=== PATIENT | male | born 1950 | race Caucasian/White ===

== ENCOUNTER 2017-06-05 01:26 | Emergency (ER) | payer MEDICARE, MEDICAID ==
[~2017-06-05] VITALS: Ht 165.1 cm; Wt 226.8 kg
[2017-06-05] MEDS ORDERED: OXYMETAZOLINE (AFRIN) 0.05% NA 15 ML BTL ONE (01:31)
--- OUTSIDE RECORDS SUMMARY | 2017-06-05 01:31 | XMS REPORT ---
Author Author GEORGIA DOWNEY [facility] Address [address] [place] [address] Care Team Providers Care Manager Quantitative Name Role Phone GEORGIA DOWNEY Unavailable PROBLEMS Type Condition ICD9-CM Code [id number] Code Onset Dates Condition Status SNOMED Code Problem Post-polio syndrome G14 Active 44669504 Problem 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 353103618 Problem Mood disorder F39 Active 84301409 Problem Acquired hypothyroidism E03.9 Active 160839743 Problem Constipation, unspecified constipation type K59.00 Active 31947774 Problem 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 Active 49393383 Problem 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 Active 28142161 Problem Weight gain R63.5 Active 8805511 Problem Stomach ache R10.9 Active 853685593 Problem Reactive airway disease J45.909 Active 741937309489 ALLERGIES Unknown Allergies SOCIAL HISTORY No smoking Hx information available PLAN OF CARE VITAL SIGNS MEDICATIONS Medication Instructions Dosage Frequency Start Date End Date Duration Status Pulmicort 0.5 MG/2ML Inhalation 2 times a day 2 ml 12h 5 Jul, 2016 30 days Active RESULTS No Results PROCEDURES No Known procedures IMMUNIZATIONS No Known Immunizations
--- OUTSIDE RECORDS SUMMARY | 2017-06-05 01:31 | XMS REPORT ---
Author Author GEORGIA DOWNEY Organization [employer] Address Unknown Phone Unavailable Care Team Providers Care Gis Coordinator Name Role Phone GEORGIA DOWNEY CP Unavailable Allergies No Known Allergies Problems Problem Type Condition Code Onset Dates Condition Status Problem Pain in joint, lower leg 719.46 Active Problem 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 Active Problem Family history of diabetes mellitus V18.0 Active Problem Other chronic pain 338.29 Active Problem Routine general medical examination at health care facility V70.0 Active Problem Family history of other cardiovascular diseases V17.49 Active Problem Need for prophylactic vaccination and inoculation, Influenza V04.81 Active Problem Dysuria 788.1 Active Problem Simple chronic bronchitis 491.0 Active Problem Nausea with vomiting 787.01 Active Problem Unspecified episodic mood disorder 296.90 Active Problem Unspecified hypothyroidism 244.9 Active Problem Essential hypertension, malignant 401.0 Active Problem 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 Active Problem Recurrent bronchospasm J98.09 Active Problem Chest pain, unspecified 786.50 Active Problem Unspecified essential hypertension 401.9 Active Problem Reactive airway disease J45.909 Active Problem Asthma, unspecified, with (acute) exacerbation 493.92 Active Problem Mood disorder F39 Active Problem Other specified conditions influencing health status V49.89 Active Problem Weight gain R63.5 Active Problem 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 Problem Abdominal pain, generalized 789.07 Active Problem Essential hypertension, benign 401.1 Active Problem Pain in joint, ankle and foot 719.47 Active Problem Polyuria 788.42 Active Problem Abdominal pain, unspecified site 789.00 Active Problem PPV23 (PNEUMOVAX) DX V03.82 Active Problem 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 [address]-06 4 % Externally twice a day 1 application to affected area as needed Albuterol Sulfate [facility] [address]-21 0.63 MG/3ML Inhalation every 4 hours July 09, 2015 3 ml as needed for SOB/Cough Ibuprofen [facility] [address]-19 600 MG Orally every 6 hrs 1 tablet as needed for headache Foradil Aerolizer [facility] [address]-51 12 MCG Inhalation every 12 hrs June 1 capsule Zoloft [facility] [address]-93 100 MG Orally Once a day 1 tablet Blood Glucose Test Strip ND 0 ... in vitro 3 times a day before meals test blood sugar Singulair [facility] [address]-49 10 MG Orally Once a day 1 tablet in the evening Zofran [facility] [address]-26 4 MG Orally 3 times a day 1 tablet as needed for nausea Imodium A-D [facility] [address]-56 2 MG Orally do not exceed 16mg in 24 hours 2 tablets one time after 1st loose stool, and 1 tablet after each subsequent BM's Losartan Potassium [facility] [address]-96 50 MG Orally Once a day 1 tablet Asmanex 120 Metered Doses [facility] [address]-99 220 MCG/INH Inhalation Once a day June 18, 2015 1 puff in the evening Trulicity [facility] [address]-46 1.5 MG/0.5ML Subcutaneous once weekly June 0.5 ml Metoprolol Succinate ER [facility] [address]-13 50 MG Orally Once a day 1 tablet Pantoprazole Sodium [facility] [address]-88 40 MG Orally Once a day 1 tablet Aspirin Adult Low Dose [facility] [address]-68 81 MG Orally Once a day 1 tablet Hydrochlorothiazide [facility] [address]-13 25 MG Orally Once a day 1 tablet Results No Known Results Summary Purpose [employer] Submission
--- OUTSIDE RECORDS SUMMARY | 2017-06-05 01:31 | XMS REPORT ---
Author Author GEORGIA DOWNEY [facility] Address [address] [place] [address] Care Team Providers Care Manager Spring Name Role Phone GEORGIA DOWNEY Unavailable PROBLEMS Type Condition ICD9-CM Code [id number] Code Onset Dates Condition Status SNOMED Code Problem 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 Active 01925160 Problem Pain in joint, lower leg 719.46 Active 282301130 Problem Other chronic pain 338.29 Active 34599911 Problem Family history of diabetes mellitus V18.0 Active 304839024 Problem Routine general medical examination at health care facility V70.0 Active 957421748 Problem Family history of other cardiovascular diseases V17.49 Active 123260493 Problem Dysuria 788.1 Active 48712534 Problem Nausea with vomiting 787.01 Active 16866623 Problem Asthma, unspecified, with (acute) exacerbation 493.92 Active 134218175 Problem Essential hypertension, malignant 401.0 Active 27743484 Problem Unspecified essential hypertension 401.9 Active 43105984 Problem Unspecified hypothyroidism 244.9 Active 89462889 Problem Chest pain, unspecified 786.50 Active 48469775 Problem Other specified conditions influencing health status V49.89 Active Problem 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 992040753 Problem Mood disorder F39 Active 21862560 Problem 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 Active 22278730 Problem Stomach ache R10.9 Active 564681172 Problem Abdominal pain, generalized 789.07 Active 288370605 Problem Polyuria 788.42 Active 70010941 Problem Pain in joint, ankle and foot 719.47 Active 675649088 Problem Recurrent bronchospasm J98.09 Active 71160420 Problem Weight gain R63.5 Active 0355425 Problem Reactive airway disease J45.909 Active 531303763748 Problem 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 Active 12885900 Problem Other early skin lesions due to yaws 102.2 Active Assessment Uncomplicated asthma, unspecified asthma severity J45.909 Dec, Active 920297074 Problem Abdominal pain, unspecified site 789.00 Active 04882805 Problem Essential hypertension, benign 401.1 Active 2153445 Problem 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 629327211 Problem Simple chronic bronchitis 491.0 Active 57926206 Problem Unspecified episodic mood disorder 296.90 Active 891233844 Problem PPV23 (PNEUMOVAX) DX V03.82 Active Problem Need for prophylactic vaccination and inoculation, Influenza V04.81 Active 043858600 ALLERGIES Unknown Allergies SOCIAL HISTORY No smoking Hx information available PLAN OF CARE VITAL SIGNS MEDICATIONS Medication Instructions Dosage Frequency Start Date End Date Duration Status Pulmicort 0.5 MG/2ML Inhalation twice a day 2 ml 12h Dec, Apr, 30 days Active RESULTS No Results PROCEDURES No Known procedures IMMUNIZATIONS No Known Immunizations
--- OUTSIDE RECORDS SUMMARY | 2017-06-05 01:31 | XMS REPORT ---
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 Problem Abdominal pain, unspecified site 789.00 Active Problem Other early skin lesions due to yaws 102.2 Active Problem Unspecified hypothyroidism 244.9 Active Problem Essential hypertension, malignant 401.0 Active Problem Routine general medical examination at health care facility V70.0 Active Problem Other chronic pain 338.29 Active Problem Other specified conditions influencing health status V49.89 Active Problem Family history of diabetes mellitus V18.0 Active Problem Need for prophylactic vaccination and inoculation, Influenza V04.81 Active Problem PPV23 (PNEUMOVAX) DX V03.82 Active Problem Unspecified episodic mood disorder 296.90 Active Problem Simple chronic bronchitis 491.0 Active Problem Nausea with vomiting 787.01 Active Problem Asthma, unspecified, with (acute) exacerbation 493.92 Active Problem Family history of other cardiovascular diseases V17.49 Active Problem Dysuria 788.1 Active Problem Pain in joint, ankle and foot 719.47 Active Problem Polyuria 788.42 Active Problem Unspecified essential hypertension 401.9 Active Problem Chest pain, unspecified 786.50 Active Medications Medication Code System Code Instructions Start Date End Date Status Dosage Oxygen NDC 0 2 L/NC continous Feb 14, 2015 as directed Potassium Chloride ER [facility] [address]-21 20 MEQ Orally 2 times a day FebFeb 21, 2015 as directed Lasix [facility] [address]-22 20 MG Orally 2 times a day Feb 14, 2015 1 tablet Results No Known Results Summary Purpose [employer] Submission
--- OUTSIDE RECORDS SUMMARY | 2017-06-05 01:31 | XMS REPORT ---
Author Author GEORGIA DOWNEY [facility] [employer] Address Unknown Phone Unavailable Care Team Providers Care Air Intercept Controller Supervisor Name Role Phone GEORGIA DOWNEY CP Unavailable Allergies No Known Allergies Problems Problem Type Condition Code Onset Dates Condition Status Problem Pain in joint, lower leg 719.46 Active Problem Family history of diabetes mellitus V18.0 Active Problem 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 Active Problem Other chronic pain 338.29 Active Problem Routine general medical examination at health care facility V70.0 Active Problem Family history of other cardiovascular diseases V17.49 Active Problem Dysuria 788.1 Active Problem Nausea with vomiting 787.01 Active Problem Unspecified episodic mood disorder 296.90 Active Problem Asthma, unspecified, with (acute) exacerbation 493.92 Active Problem Essential hypertension, malignant 401.0 Active Problem Unspecified essential hypertension 401.9 Active Problem Unspecified hypothyroidism 244.9 Active Problem Mood disorder F39 Active Problem Other specified conditions influencing health status V49.89 Active Problem Stomach ache R10.9 Active Problem Reactive airway disease J45.909 Active Problem Polyuria 788.42 Active Problem Pain in joint, ankle and foot 719.47 Active Problem 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 Active Problem Chest pain, unspecified 786.50 Active Problem Weight gain R63.5 Active Problem 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 Problem 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 Active Problem Recurrent bronchospasm J98.09 Active Problem 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 Problem Other early skin lesions due to yaws 102.2 Active Problem Abdominal pain, generalized 789.07 Active Problem Essential hypertension, benign 401.1 Active Problem Need for prophylactic vaccination and inoculation, Influenza V04.81 Active Problem Simple chronic bronchitis 491.0 Active Problem Abdominal pain, unspecified site 789.00 Active Problem PPV23 (PNEUMOVAX) DX V03.82 Active Medications Medication Code System Code Instructions Start Date End Date Status Dosage Risperidone [facility] [address]-23 1 MG Orally twice a day October 27, 2015 1 tablet Nystatin [facility] [address]-67 628208 UNIT/GM Externally Twice a day 1 to affected area Ipratropium-Albuterol [facility] [address]-47 0.5-2.5 (3) MG/3ML Inhalation Four times a day October 27, 2015 3 ml Singulair [facility] [address]-05 10 MG Orally Once a day 1 tablet in the evening Blood Glucose Test Strip ND 0 ... in vitro 3 times a day before meals test blood sugar Poly Bacitracin [facility] [address]68-41486 500-20716 UNIT/GM Externally twice a day October 27, 2015 1 application to affected area Zoloft [facility] [address]-36 100 MG Orally Once a day 1.5 tablet Losartan Potassium [facility] 94361024846 50 TAKE ONE TABLET BY MOUTH DAILY Metoprolol Succinate ER [facility] [address]-44 50 mg Orally Once a day 1 tablet Ativan [facility] [address]-43 0.5 MG Orally twice a day 1 tablet as needed Ibuprofen [facility] [address]-36 600 MG Orally every 6 hrs 1 tablet as needed for headache Hydrochlorothiazide [facility] [address]-79 25 MG Orally Once a day 1 tablet Depakote Sprinkles [facility] [address]-73 125 MG Orally every 6 hours as needed October 27, 2015 2 capsule Aspirin Adult Low Dose [facility] [address]-16 81 MG Orally Once a day 1 tablet Pantoprazole Sodium [facility] [address]-87 40 MG Orally Once a day 1 tablet Keflex [facility] [address]-82 500 MG Orally 3 times a day for wound infection October 09, 2015 1 capsule Trulicity [facility] [address]-95 1.5 MG/0.5ML Subcutaneous once weekly June 0.5 ml Results No Known Results Summary Purpose [employer] Submission
--- OUTSIDE RECORDS SUMMARY | 2017-06-05 01:32 | XMS REPORT ---
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
--- OUTSIDE RECORDS SUMMARY | 2017-06-05 01:32 | XMS REPORT ---
Author Author GEORGIA DOWNEY Organization [employer] Address Unknown Phone Unavailable Care Team Providers Care Ship Washer Name Role Phone GEORGIA DOWNEY CP Unavailable [...] Problem PPV23 (PNEUMOVAX) DX V03.82 Active Medications No Known Medications Results No Known Results Summary Purpose [employer] Submission
--- OUTSIDE RECORDS SUMMARY | 2017-06-05 01:32 | XMS REPORT ---
Author Author GEORGIA DOWNEY Organization [employer] Address Unknown Phone Unavailable Care Team Providers Care Tin Pot Operator Name Role Phone GEORGIA DOWNEY CP Unavailable Allergies No Known Allergies Problems Problem Type Condition ICD-9 Code Onset Dates Condition Status Problem Abdominal [...] Instructions Start Date End Date Status Dosage Potassium Chloride ER [facility] [address]-47 20 MEQ Orally Once a day X's 5 days Dec 27, 2014 as directed Lasix [facility] [address]-00 20 MG Orally Once a day x's 5 days Dec 27, 2014 1 tablet Results No Known Results Summary Purpose [employer] Submission
--- OUTSIDE RECORDS SUMMARY | 2017-06-05 01:32 | XMS REPORT ---
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 Active 56246870 Problem 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 Active 12426345 Problem Weight gain R63.5 Active 2655888 Problem Stomach ache R10.9 Active 312344004 Problem Reactive airway disease J45.909 Active 224605611435 ALLERGIES No Information SOCIAL HISTORY Never Assessed PLAN OF CARE VITAL SIGNS MEDICATIONS Medication Instructions Dosage Frequency Start Date End Date Duration Status Lotrisone 1-0.05 % Externally Twice a day 1 application to affected area 12h 31 Aug, 2016 7 Sep, 2016 07 days Active RESULTS No Results PROCEDURES No Known procedures IMMUNIZATIONS No Known Immunizations MEDICAL (GENERAL) HISTORY Type Description Date Medical History late effects of acute poliomyelitis (138) Medical History candidiasis of skin and nails (112.3) Medical History urinary tract infection site note specified (599.0) Medical History unspecified hypothyroidism (244.9) Medical History other and unspecified hyperlipidemia (272.4) Medical History depressive disorder not elsewhere classified (311) Medical History muscle weakness (generalized) (728.87) Medical History esophageal reflux (530.81) Medical History headache (784.0) Medical History asthma (493.90) Medical History long-term use of aspirin (V58.66) Medical History hypertrophy of prostate (600.0) Medical History pain in joint, ankle, and foot ( 719.47) Medical History chronic pain ( 338.2) Medical History psychosis (298.9) Medical History hypertension (401.9) Medical History lack of coordination (781.3) Medical History joint derangement nec ankle and foot (718.87) Hospitalization History [facility] 10/16/15
--- OUTSIDE RECORDS SUMMARY | 2017-06-05 01:32 | XMS REPORT ---
Author Author GEORGIA DOWNYE Organization [employer] Address Unknown Phone Unavailable Care Team Providers Care Pollution Control Technician Name Role Phone GEORGIA DOWNEY CP Unavailable [...] Problem Chest pain, unspecified 786.50 Active Medications No Known Medications Results No Known Results Summary Purpose [employer] Submission
--- OUTSIDE RECORDS SUMMARY | 2017-06-05 01:32 | XMS REPORT ---
Author Author GEORGIA DOWNEY Organization [employer] Address Unknown Phone Unavailable Care Team Providers Care Tariff Publishing Agent Name Role Phone GEORGIA DOWNEY CP Unavailable [...]
--- OUTSIDE RECORDS SUMMARY | 2017-06-05 01:32 | XMS REPORT ---
Author Author GEORGIA DOWNEY [facility] e[employer] Address Unknown Phone Unavailable Care Team Providers Care Rn Clinical Appeals Name Role Phone GEORGIA DOWNEY CP Unavailable Allergies No Known Allergies Problems Problem Type Condition Code Onset Dates Condition Status Problem Pain in joint, lower leg 719.46 Active Assessment Reactive airway disease J45.909 Active Problem Family history of diabetes mellitus [...] DX V03.82 Active Medications No Known Medications Procedures Procedure Coding System Code Date NEB/MDI DEMO CPT-4 00382 Dec 04, 2015 Results No Known Results Summary Purpose [employer] Submission
--- OUTSIDE RECORDS SUMMARY | 2017-06-05 01:32 | XMS REPORT ---
Author Author GEORGIA DOWNEY Organization [employer] Address Unknown Phone Unavailable Care Team Providers Care Cement Truck Driver Name Role Phone GEORGIA DOWNEY CP Unavailable [...]
--- OUTSIDE RECORDS SUMMARY | 2017-06-05 01:32 | XMS REPORT ---
Author Author GEORGIA DOWNEY Organization [employer] Address Unknown Phone Unavailable Care Team Providers Care Technical Translator Name Role Phone GEORGIA DOWNEY CP Unavailable [...] Instructions Start Date End Date Status Dosage Depakote Sprinkles [facility] [address]-15 250 mg Orally every 6 hours as needed October 27, 2015 1 capsule Results No Known Results Summary Purpose [employer]ClinicalWorks Submission
--- OUTSIDE RECORDS SUMMARY | 2017-06-05 01:32 | XMS REPORT ---
Author Author GEORGIA DOWNEY [facility] Address [address] [place] [address] Care Team Providers Care Wafer Batter Mixer Name Role Phone GEORGIA DOWNEY Unavailable PROBLEMS Type Condition ICD9-CM Code [id number] Code Onset Dates Condition Status SNOMED Code Problem 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 Active 37549047 Problem Pain in joint, lower leg 719.46 Active 918015824 Problem Other chronic pain 338.29 Active 58286390 Problem Family history of diabetes mellitus V18.0 Active 460047524 Problem Routine general medical examination at health care facility V70.0 Active 457508243 Problem Family history of other cardiovascular diseases V17.49 Active 197069285 Problem Dysuria 788.1 Active 67506700 Problem Nausea with vomiting 787.01 Active 55172176 Problem Asthma, unspecified, with (acute) exacerbation 493.92 Active 638608583 Problem Essential hypertension, malignant 401.0 Active 93915710 Problem Unspecified essential hypertension 401.9 Active 96475027 Problem Unspecified hypothyroidism 244.9 Active 39236869 Problem Chest pain, unspecified 786.50 Active 89381160 Problem Other specified conditions influencing health status V49.89 Active Problem 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 129115960 Problem Mood disorder F39 Active 40901560 Problem 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 Active 03438501 Problem Stomach ache R10.9 Active 247674564 Problem Abdominal pain, generalized 789.07 Active 843208874 Problem Polyuria 788.42 Active 03354828 Problem Pain in joint, ankle and foot 719.47 Active 350828497 Problem Recurrent bronchospasm J98.09 Active 55533566 Problem Weight gain R63.5 Active 9940611 Problem Reactive airway disease J45.909 Active 940773821443 Problem 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 Active 98557634 Assessment Unspecified mood [affective] disorder F39 07 Sep, 2016 Active 983909421 Problem Other early skin lesions due to yaws 102.2 Active Assessment 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 07 Dec, 2015 Active 932685787 Problem Abdominal pain, unspecified site 789.00 Active 91499157 Problem Essential hypertension, benign 401.1 Active 1792966 Problem 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
--- OUTSIDE RECORDS SUMMARY | 2017-06-05 01:33 | XMS REPORT ---
Author Author GEORGIA DOWNEY Organization [employer] Address Unknown Phone Unavailable Care Team Providers Care Data Consultant Name Role Phone GEORGIA DOWNEY CP Unavailable [...] Instructions Start Date End Date Status Dosage Perforomist [facility] [address]-06 20 MCG/2ML Inhalation Twice a day October 15, 2015 2 ml Results No Known Results Summary Purpose eClinicalWorks Submission
--- OUTSIDE RECORDS SUMMARY | 2017-06-05 01:33 | XMS REPORT ---
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 Problem Pain in joint, lower leg 719.46 Active Problem Other chronic pain 338.29 Active Problem Family history of diabetes mellitus V18.0 Active Problem Routine general medical examination at health care facility V70.0 Active Problem Family history of other cardiovascular diseases V17.49 Active Problem Dysuria 788.1 Active Problem Nausea with vomiting 787.01 Active Problem Asthma, unspecified, with (acute) exacerbation 493.92 Active Problem Essential hypertension, malignant 401.0 Active Problem Unspecified essential hypertension 401.9 Active Problem Unspecified hypothyroidism 244.9 Active Problem Chest pain, unspecified 786.50 Active Problem Other specified conditions influencing health status V49.89 Active Problem 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 Problem Mood disorder F39 Active Problem 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 Active Problem Stomach ache R10.9 Active Problem Abdominal pain, generalized 789.07 Active Problem Polyuria 788.42 Active Problem Constipation, unspecified constipation type K59.00 Active Problem Pain in joint, ankle and foot 719.47 Active Problem Recurrent bronchospasm J98.09 Active Problem Weight gain R63.5 Active Problem Reactive airway disease J45.909 Active Problem 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 Active Assessment Constipation, unspecified constipation type K59.00 Active Problem Other early skin lesions due to yaws 102.2 Active Assessment Moist breath sounds R06.89 Active Problem Abdominal pain, unspecified site 789.00 Active Problem Essential hypertension, benign 401.1 Active Problem 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 Jan 21, 2016 2 tablet Milk of Magnesia [facility] [address]-47 400 MG/5ML Orally daily prn constipation Jan 21, 2016 10 ml as needed Potassium Chloride [facility] [address]-35 20 MEQ Orally Once a dayX 3days then 1 packet daily X 3 days Jan 21, 2016 2 packet with food Procedures Procedure Coding System Code Date Minor complication (15 mins) CPT-4 86026 Jan 21, 2016 Results No Known Results Summary Purpose eClinicalWorks Submission
--- OUTSIDE RECORDS SUMMARY | 2017-06-05 01:33 | XMS REPORT ---
Author Author GEORGIA DOWNEY Organization [employer] Address Unknown Phone Unavailable Care Team Providers Care Education Reporter Name Role Phone GEORGIA DOWNEY CP Unavailable [...]
--- OUTSIDE RECORDS SUMMARY | 2017-06-05 01:33 | XMS REPORT ---
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
--- OUTSIDE RECORDS SUMMARY | 2017-06-05 01:33 | XMS REPORT ---
Author Author GEORGIA DOWNEY Organization [employer] Address Unknown Phone Unavailable Care Team Providers Care Claim Technician Name Role Phone GEORGIA DOWNEY CP [...]
--- OUTSIDE RECORDS SUMMARY | 2017-06-05 01:33 | XMS REPORT ---
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 651425210 Problem Mood disorder F39 Active 87182511 Problem Acquired hypothyroidism E03.9 Active 428441491 Problem Constipation, unspecified constipation type K59.00 Active 60154372 Problem 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 Active 66770200 Problem 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 Active 06880173 Problem Weight gain R63.5 Active 4693888 Problem Stomach ache R10.9 Active 483094486 Problem Reactive airway disease J45.909 Active 065516451091 ALLERGIES Unknown Allergies SOCIAL HISTORY No smoking Hx information available PLAN OF CARE VITAL SIGNS MEDICATIONS Medication Instructions Dosage Frequency Start Date End Date Duration Status Lasix 40 mg Orally Once a day X 3 days then 1 tab daily X 3 days. 2 tablet Jan, Active Potassium Chloride 20 MEQ Orally Once a dayX 3days then 1 packet daily X 3 days 2 packet with food Jan, Active Losartan Potassium 50 TAKE ONE TABLET BY MOUTH DAILY 30 Active Pulmicort 0.5 MG/2ML Inhalation 2 times a day 2 ml 12h 30 days Active Toprol XL 50 TAKE ONE TABLET BY MOUTH DAILY 30 Active Milk of Magnesia 400 MG/5ML Orally daily prn constipation 10 ml as needed Jan, Active Zoloft 100 MG Orally Once a day 1 tablet 24h Active RESULTS No Results PROCEDURES No Known procedures IMMUNIZATIONS No Known Immunizations
--- OUTSIDE RECORDS SUMMARY | 2017-06-05 01:33 | XMS REPORT ---
Author Author GEORGIA DOWNEY [facility] eClinicalWorks Address Unknown Phone Unavailable Care Team Providers Care Tool/Die Maker Name Role Phone GEORGIA DOWNEY CP Unavailable [...] Instructions Start Date End Date Status Dosage Benadryl [facility] [address]-62 25 MG Orally every 8 hrs Nov 25, 2015 1 capsule as needed Results No Known Results Summary Purpose eClinicalWorks Submission
--- OUTSIDE RECORDS SUMMARY | 2017-06-05 01:33 | XMS REPORT ---
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 263679979 Problem Mood disorder F39 Active 43698570 Problem Acquired hypothyroidism E03.9 Active 770088476 Problem Constipation, unspecified constipation type K59.00 Active 43992234 Problem 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 Active 05775724 Problem 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 Active 93672488 Problem Weight gain R63.5 Active 8577950 Problem Stomach ache R10.9 Active 084185802 Problem Reactive airway disease J45.909 Active 451554864125 ALLERGIES Unknown Allergies SOCIAL HISTORY No smoking Hx information available PLAN OF CARE VITAL SIGNS MEDICATIONS Medication Instructions Dosage Frequency Start Date End Date Duration Status Pulmicort 0.5 MG/2ML Inhalation 2 times a day 2 ml 12h 7 Nov, 2016 30 days Active RESULTS No Results PROCEDURES No Known procedures IMMUNIZATIONS No Known Immunizations
--- OUTSIDE RECORDS SUMMARY | 2017-06-05 01:33 | XMS REPORT ---
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 93684103 Problem Pain in joint, lower leg 719.46 Active 715323611 Problem Other chronic pain 338.29 Active 38568678 Problem Family history of diabetes mellitus V18.0 Active 428175412 Problem Routine general medical examination at health care facility V70.0 Active 379713650 Problem Family history of other cardiovascular diseases V17.49 Active 742214106 Problem Dysuria 788.1 Active 78418414 Problem Nausea with vomiting 787.01 Active 02851184 Problem Asthma, unspecified, with (acute) exacerbation 493.92 Active 308152234 Problem Essential hypertension, malignant 401.0 Active 29430801 Problem Unspecified essential hypertension 401.9 Active 89199948 Problem Unspecified hypothyroidism 244.9 Active 32013016 Problem Chest pain, unspecified 786.50 Active 59840396 Problem Other specified conditions influencing health status V49.89 Active Problem 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 042149407 Problem Mood disorder F39 Active 88775357 Problem 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 Active 31977791 Problem Stomach ache R10.9 Active 629583502 Problem Abdominal pain, generalized 789.07 Active 477260580 Problem Polyuria 788.42 Active 47227565 Problem Pain in joint, ankle and foot 719.47 Active 482381862 Problem Recurrent bronchospasm J98.09 Active 04853444 Problem Weight gain R63.5 Active 6593225 Problem Reactive airway disease J45.909 Active 148551136303 Problem 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 Active 74813776 Problem Other early skin lesions due to yaws 102.2 Active Problem Abdominal pain, unspecified site 789.00 Active 00005345 Problem Essential hypertension, benign 401.1 Active 4721911 Problem 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
--- OUTSIDE RECORDS SUMMARY | 2017-06-05 01:33 | XMS REPORT ---
Author Author GEORGIA DOWNEY Organization eClinicalWorks Address Unknown Phone Unavailable Care Team Providers Care Priming Mixture Carrier Name Role Phone GEORGIA DOWNEY CP Unavailable [...] Instructions Start Date End Date Status Dosage Zoloft [facility] [address]-13 100 MG Orally Once a day 1 tablet Results No Known Results Summary Purpose eClinicalWorks Submission
--- OUTSIDE RECORDS SUMMARY | 2017-06-05 01:34 | XMS REPORT ---
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
--- OUTSIDE RECORDS SUMMARY | 2017-06-05 01:34 | XMS REPORT ---
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
--- OUTSIDE RECORDS SUMMARY | 2017-06-05 01:34 | XMS REPORT ---
Author Author GEORGIA DOWNEY [facility] eClinicalWorks Address Unknown Phone Unavailable Care Team Providers Care Exhibit Specialist Name Role Phone GEORGIA DOWNEY CP Unavailable [...] Instructions Start Date End Date Status Dosage Pantoprazole Sodium [facility] [address]-90 40 MG Orally Once a day 1 tablet Singulair [facility] [address]-53 10 MG Orally Once a day 1 tablet in the evening Zofran [facility] [address]-46 4 MG Orally every 8 hours, PRN 1 tablet as needed for nausea Keflex [facility] [address]-90 500 MG Orally 3 times a day for wound infection October 09, 2015 1 capsule Ativan [facility] [address]-16 0.5 MG Orally twice a day 1 tablet as needed Hydrochlorothiazide [facility] [address]-64 25 MG Orally Once a day 1 tablet Aspirin Adult Low Dose [facility] [address]-25 81 MG Orally Once a day 1 tablet Zoloft [facility] [address]-87 100 MG Orally Once a day 1.5 tablet Metoprolol Succinate ER [facility] [address]-86 50 MG Orally Once a day 1 tablet Benadryl [facility] [address]-14 25 MG Orally every 8 hrs 1 capsule as needed Imodium A-D [facility] [address]-60 2 MG Orally do not exceed 16mg in 24 hours 2 tablets one time after 1st loose stool, and 1 tablet after each subsequent BM's Ibuprofen [facility] [address]-61 600 MG Orally every 6 hrs 1 tablet as needed for headache Biofreeze [facility] [address]-44 4 % Externally twice a day 1 application to affected area as needed Blood Glucose Test Strip [facility] 0 ... in vitro 3 times a day before meals test blood sugar Mylanta [facility] [address] 200-200-20 MG/5ML Orally Four times a day September 08, 2015 30 ml as needed Spiriva Respimat [facility] [address]-70 2.5 MCG/ACT Inhalation Once a day October 03, 2015 2 puffs Trulicity [facility] [address]-09 1.5 MG/0.5ML Subcutaneous once weekly June 0.5 ml Losartan Potassium [facility] [address]-26 50 MG Orally Once a day 1 tablet Nystatin [facility] [address]-56 306424 UNIT/GM Externally Twice a day 1 to affected area Albuterol Sulfate [facility] [address]-05 0.63 MG/3ML Inhalation every 4 hours July 09, 2015 3 ml as needed for SOB/Cough Asmanex 120 Metered Doses [facility] [address]-94 220 MCG/INH Inhalation Once a day June 18, 2015 1 puff in the evening Results No Known Results Summary Purpose eClinicalWorks Submission
--- OUTSIDE RECORDS SUMMARY | 2017-06-05 01:34 | XMS REPORT ---
Author Author GEORGIA DOWNEY Organization e[employer]Works Address Unknown Phone Unavailable Care Team Providers Care Furnace Unloader Name Role Phone GEORGIA DOWNEY CP Unavailable Allergies No Known Allergies Problems Problem Type Condition Code Onset Dates Condition Status Problem Pain in joint, lower leg 719.46 Active Assessment Fever R50.9 Active Problem Unspecified persistent mental disorders due [...] lesions due to yaws 102.2 Active Medications No Known Medications Procedures Procedure Coding System Code Date Minor complication (15 mins) CPT-4 23066 July 09, 2015 Results No Known Results Summary Purpose eClinicalWorks Submission
--- OUTSIDE RECORDS SUMMARY | 2017-06-05 01:34 | XMS REPORT ---
Author Author GEORGIA DOWNEY Organization eClinicalWorks Address Unknown Phone Unavailable Care Team Providers Care Cardiology Clinical Consultant Name Role Phone GEORGIA DOWNEY CP [...] yaws 102.2 Active Medications No Known Medications Results No Known Results Summary Purpose eClinicalWorks Submission
--- OUTSIDE RECORDS SUMMARY | 2017-06-05 01:34 | XMS REPORT ---
Author Author GEORGIA DOWNEY Organization [employer] Address Unknown Phone Unavailable Care Team Providers Care Real Estate Processor Name Role Phone GEORGIA DOWNEY CP Unavailable [...]
--- OUTSIDE RECORDS SUMMARY | 2017-06-05 01:34 | XMS REPORT ---
Author Author GEORGIA DOWNEY Organization [employer] Address Unknown Phone Unavailable Care Team Providers Care Scalper Operator Name Role Phone GEORGIA DOWNEY CP [...]
--- OUTSIDE RECORDS SUMMARY | 2017-06-05 01:34 | XMS REPORT ---
Author Author GEORGIA DOWNEY Organization [employer]Works Address Unknown Phone Unavailable Care Team Providers Care Area Field Worker Name Role Phone GEORGIA DOWNEY CP Unavailable [...]
--- OUTSIDE RECORDS SUMMARY | 2017-06-05 01:35 | XMS REPORT ---
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 04115267 Problem Pain in joint, lower leg 719.46 Active 424670543 Problem Other chronic pain 338.29 Active 65456263 Problem Family history of diabetes mellitus V18.0 Active 526132105 Problem Routine general medical examination at health care facility V70.0 Active 161484472 Problem Family history of other cardiovascular diseases V17.49 Active 976053268 Problem Dysuria 788.1 Active 97243798 Problem Nausea with vomiting 787.01 Active 03746425 Problem Asthma, unspecified, with (acute) exacerbation 493.92 Active 119553545 Problem Essential hypertension, malignant 401.0 Active 02430306 Problem Unspecified essential hypertension 401.9 Active 25057305 Problem Unspecified hypothyroidism 244.9 Active 67635214 Problem Chest pain, unspecified 786.50 Active 26664539 Problem Other specified conditions influencing health status V49.89 Active Problem 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 893353366 Problem Mood disorder F39 Active 23268461 Problem 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 Active 34781349 Problem Stomach ache R10.9 Active 332417253 Problem Abdominal pain, generalized 789.07 Active 956155399 Problem Polyuria 788.42 Active 10610805 Problem Pain in joint, ankle and foot 719.47 Active 919881061 Problem Recurrent bronchospasm J98.09 Active 50937157 Problem Weight gain R63.5 Active 4554768 Problem Reactive airway disease J45.909 Active 558980841162 Problem 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 Active 07608919 Assessment Family history of coronary arteriosclerosis Z82.49 Nov, Active 916346077 Problem Other early skin lesions due to yaws 102.2 Active Assessment Shortness of breath R06.02 03 Nov, 2015 Active 808198754 Problem Abdominal pain, unspecified site 789.00 Active 02913238 Problem Essential hypertension, benign 401.1 Active 1932200 Problem 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
--- OUTSIDE RECORDS SUMMARY | 2017-06-05 01:35 | XMS REPORT ---
Author Author GEORGIA DOWNEY Organization e[employer] Address Unknown Phone Unavailable Care Team Providers Care Primary Care Provider Name Role Phone GEORGIA DOWNEY CP Unavailable [...]
--- OUTSIDE RECORDS SUMMARY | 2017-06-05 01:35 | XMS REPORT ---
Author Author GEORGIA DOWNEY Organization [employer] Address Unknown Phone Unavailable Care Team Providers Care Moisture Tester Name Role Phone GEORGIA DOWNEY CP Unavailable [...]
--- OUTSIDE RECORDS SUMMARY | 2017-06-05 01:35 | XMS REPORT ---
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 Active 88633942 Problem Pain in joint, lower leg 719.46 Active 442753010 Problem Other chronic pain 338.29 Active 83266565 Problem Family history of diabetes mellitus V18.0 Active 369355464 Problem Routine general medical examination at health care facility V70.0 Active 316855189 Problem Family history of other cardiovascular diseases V17.49 Active 000826419 Problem Dysuria 788.1 Active 19706197 Problem Nausea with vomiting 787.01 Active 68262525 Problem Asthma, unspecified, with (acute) exacerbation 493.92 Active 115273263 Problem Essential hypertension, malignant 401.0 Active 62204294 Problem Unspecified essential hypertension 401.9 Active 09035016 Problem Unspecified hypothyroidism 244.9 Active 39553253 Problem Chest pain, unspecified 786.50 Active 97964603 Problem Other specified conditions influencing health status V49.89 Active Problem 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 248344100 Problem Mood disorder F39 Active 45406372 Problem 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 Active 44178185 Problem Stomach ache R10.9 Active 009025663 Problem Abdominal pain, generalized 789.07 Active 751482547 Problem Polyuria 788.42 Active 71520245 Problem Pain in joint, ankle and foot 719.47 Active 275386388 Problem Recurrent bronchospasm J98.09 Active 10196884 Problem Weight gain R63.5 Active 7345618 Problem Reactive airway disease J45.909 Active 383366061424 Problem 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 Active 58605417 Problem Other early skin lesions due to yaws 102.2 Active Problem Abdominal pain, unspecified site 789.00 Active 33124556 Problem Essential hypertension, benign 401.1 Active 1695606 Problem 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
--- OUTSIDE RECORDS SUMMARY | 2017-06-05 01:35 | XMS REPORT ---
Author Author GEORGIA DOWNEY [facility] [employer] Address Unknown Phone Unavailable Care Team Providers Care Solid Tire Finisher Name Role Phone GEORGIA DOWNEY CP Unavailable [...] Instructions Start Date End Date Status Dosage Ampicillin [facility] [address]-49 500 MG Orally 3 times a day (Provider is aware of PCN allergy wants Rx filled) Nov 18, 2015 Nov 25, 2015 1 capsule Results No Known Results Summary Purpose [employer] Submission
--- OUTSIDE RECORDS SUMMARY | 2017-06-05 01:35 | XMS REPORT ---
Author Author GEORGIA DOWNEY Organization [employer] Address Unknown Phone Unavailable Care Team Providers Care Machine Woodworking Sander Name Role Phone GEORGIA DOWNEY CP Unavailable [...]
--- OUTSIDE RECORDS SUMMARY | 2017-06-05 01:35 | XMS REPORT ---
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
--- OUTSIDE RECORDS SUMMARY | 2017-06-05 01:35 | XMS REPORT ---
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1 Active 89997746 Problem Nausea with vomiting 787.01 Active 52434006 Problem Asthma, unspecified, with (acute) exacerbation 493.92 Active 359323558 Problem Essential hypertension, malignant 401.0 Active 27961224 Problem Unspecified essential hypertension 401.9 Active 35761417 Problem Unspecified hypothyroidism 244.9 Active 01146429 Problem Chest pain, unspecified 786.50 Active 51008265 Problem Other specified conditions influencing health status V49.89 Active Problem 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 563683711 Problem Mood disorder F39 Active 14215392 Problem 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 Active 08554929 Problem Stomach ache R10.9 Active 772949449 Problem Abdominal pain, generalized 789.07 Active 422956351 Problem Polyuria 788.42 Active 57221838 Problem Pain in joint, ankle and foot 719.47 Active 962444782 Problem Recurrent bronchospasm J98.09 Active 25554289 Problem Weight gain R63.5 Active 4356723 Problem Reactive airway disease J45.909 Active 234184774524 Problem 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 Active 06324928 Problem Other early skin lesions due to yaws 102.2 Active Assessment Uncomplicated asthma, unspecified asthma severity J45.909 26 Dec, 2015 Active 128386938 Problem Abdominal pain, unspecified site 789.00 Active 02555762 Problem Essential hypertension, benign 401.1 Active 8170661 Problem 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 854372566 Problem Simple chronic bronchitis 491.0 Active 92958185 Problem Unspecified episodic mood disorder 296.90 Active 379090509 Problem PPV23 (PNEUMOVAX) DX V03.82 Active Problem Need for prophylactic vaccination and inoculation, Influenza V04.81 Active 954259090 ALLERGIES Unknown Allergies SOCIAL HISTORY No smoking Hx information available PLAN OF CARE VITAL SIGNS MEDICATIONS Medication Instructions Dosage Frequency Start Date End Date Duration Status Albuterol Sulfate 0.63 MG/3ML Inhalation every 4 hours 3 ml as needed for SOB /Cough 4h Jul, 30 days Active RESULTS No Results PROCEDURES No Known procedures IMMUNIZATIONS No Known Immunizations
--- OUTSIDE RECORDS SUMMARY | 2017-06-05 01:36 | XMS REPORT | Continuity of Care Document ---
Author Author [facility] Address Unknown Phone Unavailable Allergies Active Description Code Type Severity Reaction Onset Reported/Identified Relationship to Patient Clinical Status Yes Penicillins Drug Allergy N/A N/A 06/05/2013 Yes No Allergy Information Available [id number] Drug Allergy Unknown N/A 2013 Medications There is no data. Problems Date Dx Coded Attending Type Code Diagnosis Diagnosed By 08/30/2009 Ot 397.0 08/30/2009 Ot 401.9 08/30/2009 Ot 424.0 08/30/2009 Ot 786.50 06/05/2013 KIRBY YBARRA APRN R 244.9 HYPOTHYROIDISM 06/05/2013 TATE BOX KIRBY R 401.0 HYPERTENSION MALIGNANT ESSENTIAL 06/05/2013 TATE BOX KIRBY R V49.89 OTHER SPECIFIED CONDITIONS INFLUENCING HEALTH STATUS 06/05/2013 TATE BOX KIRBY R 244.9 HYPOTHYROIDISM 06/05/2013 TATE BOX KIRBY R 401.0 HYPERTENSION MALIGNANT ESSENTIAL 06/05/2013 TATE BOX KIRBY R V49.89 OTHER SPECIFIED CONDITIONS INFLUENCING HEALTH STATUS 06/05/2013 TATE BOX KIRBY R 244.9 HYPOTHYROIDISM 06/05/2013 TATE BOX KIRBY R 401.0 HYPERTENSION MALIGNANT ESSENTIAL 06/05/2013 TATE BOX KIRBY R V49.89 OTHER SPECIFIED CONDITIONS INFLUENCING HEALTH STATUS 06/05/2013 TATE BOX KIRBY R 244.9 HYPOTHYROIDISM 06/05/2013 TATE BOX KIRBY R 401.0 HYPERTENSION MALIGNANT ESSENTIAL 06/05/2013 TATE BOX KIRBY R V49.89 OTHER SPECIFIED CONDITIONS INFLUENCING HEALTH STATUS 06/05/2013 KIM DO, KELSEY K 244.9 HYPOTHYROIDISM 06/05/2013 KIM DO, KELSEY K 401.0 HYPERTENSION MALIGNANT ESSENTIAL 06/05/2013 KIM DO, KELSEY K V49.89 OTHER SPECIFIED CONDITIONS INFLUENCING HEALTH STATUS 06/05/2013 TATE BOX KIRBY R 244.9 HYPOTHYROIDISM 06/05/2013 TATE RUFFLING MACHINE OPERATOR, KIRBY R 401.0 HYPERTENSION MALIGNANT ESSENTIAL 06/05/2013 TATE RUFFLING MACHINE OPERATOR, KIRBY R V49.89 OTHER SPECIFIED CONDITIONS INFLUENCING HEALTH STATUS 06/05/2013 TATE RUFFLING MACHINE OPERATOR, KIRBY R 244.9 HYPOTHYROIDISM 06/05/2013 TATE RUFFLING MACHINE OPERATOR, KIRBY R 401.0 HYPERTENSION MALIGNANT ESSENTIAL 06/05/2013 TATE RUFFLING MACHINE OPERATOR, KIRBY R V49.89 OTHER SPECIFIED CONDITIONS INFLUENCING HEALTH STATUS 06/05/2013 TATE RUFFLING MACHINE OPERATOR, KIRBY R 244.9 HYPOTHYROIDISM 06/05/2013 TATE RUFFLING MACHINE OPERATOR, KIRBY R 401.0 HYPERTENSION MALIGNANT ESSENTIAL 06/05/2013 TATE RUFFLING MACHINE OPERATOR, KIRBY R V49.89 OTHER SPECIFIED CONDITIONS INFLUENCING HEALTH STATUS 06/05/2013 NASREEN RUFFLING MACHINE OPERATOR, [place] S 244.9 HYPOTHYROIDISM 06/05/2013 NASREEN RUFFLING MACHINE OPERATOR [place] S 401.0 HYPERTENSION MALIGNANT ESSENTIAL 06/05/2013 NASREEN RUFFLING MACHINE OPERATOR, [place] S V49.89 OTHER SPECIFIED CONDITIONS INFLUENCING HEALTH STATUS 06/05/2013 NASREEN BOX [place] S 244.9 HYPOTHYROIDISM 06/05/2013 NASREEN RUFFLING MACHINE OPERATOR, [place] S 401.0 HYPERTENSION MALIGNANT ESSENTIAL 06/05/2013 NASREEN RUFFLING MACHINE OPERATOR, [place] S V49.89 OTHER SPECIFIED CONDITIONS INFLUENCING HEALTH STATUS 06/05/2013 KIM DO, KELSEY K 244.9 HYPOTHYROIDISM 06/05/2013 KIM DO, KELSEY K 401.0 HYPERTENSION MALIGNANT ESSENTIAL 06/05/2013 KIM DO, KELSEY K V49.89 OTHER SPECIFIED CONDITIONS INFLUENCING HEALTH STATUS 06/05/2013 244.9 HYPOTHYROIDISM 06/05/2013 401.0 HYPERTENSION MALIGNANT ESSENTIAL 06/05/2013 V49.89 OTHER SPECIFIED CONDITIONS INFLUENCING HEALTH STATUS 06/05/2013 NASREEN RUFFLING MACHINE OPERATOR, [place] S 244.9 HYPOTHYROIDISM 06/05/2013 NASREEN RUFFLING MACHINE OPERATOR, [place] S 401.0 HYPERTENSION MALIGNANT ESSENTIAL 06/05/2013 NASREEN RUFFLING MACHINE OPERATOR, [place] S V49.89 OTHER SPECIFIED CONDITIONS INFLUENCING HEALTH STATUS 06/05/2013 KIM DO, KELSEY K 244.9 HYPOTHYROIDISM 06/05/2013 KIM DO, KELSEY K 401.0 HYPERTENSION MALIGNANT ESSENTIAL 06/05/2013 KIM DO, KELSEY K V49.89 OTHER SPECIFIED CONDITIONS INFLUENCING HEALTH STATUS 06/05/2013 ANTONIO VILLATORO, HORTENSIA Yan 244.9 HYPOTHYROIDISM 06/05/2013 HORTENSIA ALVAREZ PHD 401.0 HYPERTENSION MALIGNANT ESSENTIAL 06/05/2013 HORTENSIA ALVAREZ PHD V49.89 OTHER SPECIFIED CONDITIONS INFLUENCING HEALTH STATUS 06/05/2013 ALCIDES DOWNEY APRNA S 244.9 HYPOTHYROIDISM 06/05/2013 NASREEN BOX [place] S 401.0 HYPERTENSION MALIGNANT ESSENTIAL 06/05/2013 NASREEN BOX [place] S V49.89 OTHER SPECIFIED CONDITIONS INFLUENCING HEALTH STATUS 06/05/2013 MIGUEL SUAREZ MD 244.9 HYPOTHYROIDISM 06/05/2013 MIGUEL SUAREZ MD 401.0 HYPERTENSION MALIGNANT ESSENTIAL 06/05/2013 MIGUEL SUAREZ MD V49.89 OTHER SPECIFIED CONDITIONS INFLUENCING HEALTH STATUS 06/05/2013 KIM DO, KELSEY K 244.9 HYPOTHYROIDISM 06/05/2013 KIM DO, KELSEY K 401.0 HYPERTENSION MALIGNANT ESSENTIAL 06/05/2013 KIM DO, KELSEY K V49.89 OTHER SPECIFIED CONDITIONS INFLUENCING HEALTH STATUS 06/05/2013 ALCIDES DOWNEY APRNA S 244.9 HYPOTHYROIDISM 06/05/2013 MICHAEL DOWNEY APRNNDA S 401.0 HYPERTENSION MALIGNANT ESSENTIAL 06/05/2013 NASREEN BOX [place] S V49.89 OTHER SPECIFIED CONDITIONS INFLUENCING HEALTH STATUS 06/05/2013 KIM DO, KELSEY K 244.9 HYPOTHYROIDISM 06/05/2013 KIM DO, KELSEY K 401.0 HYPERTENSION MALIGNANT ESSENTIAL 06/05/2013 KIM DO, KELSEY K V49.89 OTHER SPECIFIED CONDITIONS INFLUENCING HEALTH STATUS 06/05/2013 ANASTASIA MCCOY MD 244.9 HYPOTHYROIDISM 06/05/2013 ANASTASIA MCCOY MD 401.0 HYPERTENSION MALIGNANT ESSENTIAL 06/05/2013 ANASTASIA MCCOY MD V49.89 OTHER SPECIFIED CONDITIONS INFLUENCING HEALTH STATUS 06/05/2013 [place] DOWNEY APRN S 244.9 HYPOTHYROIDISM 06/05/2013 MICHAEL DOWNEY APRNNDA S 401.0 HYPERTENSION MALIGNANT ESSENTIAL 06/05/2013 MICHAEL DOWNEY APRNNDA S V49.89 OTHER SPECIFIED CONDITIONS INFLUENCING HEALTH STATUS 07/12/2013 KIRBY YBARRA APRN R 789.00 ABDOMINAL PAIN UNSPECIFIED SITE 07/12/2013 KIRBY YBARRA APRN R 789.00 ABDOMINAL PAIN UNSPECIFIED SITE 07/12/2013 KIRBY YBARRA APRN R 789.00 ABDOMINAL PAIN UNSPECIFIED SITE 07/12/2013 KIM DO, KELSEY K 789.00 ABDOMINAL PAIN UNSPECIFIED SITE 07/12/2013 TATE BOX, KIRBY R 789.00 ABDOMINAL PAIN UNSPECIFIED SITE 07/12/2013 TATE WILKERSONN, KIRBY R 789.00 ABDOMINAL PAIN UNSPECIFIED SITE 07/12/2013 TATE WILKERSONN, KIRBY R 789.00 ABDOMINAL PAIN UNSPECIFIED SITE 07/12/2013 NASREEN BOX, [place] S 789.00 ABDOMINAL PAIN UNSPECIFIED SITE 07/12/2013 NASREEN BOX, [place] S 789.00 ABDOMINAL PAIN UNSPECIFIED SITE 07/12/2013 KIM DO, KELSEY K 789.00 ABDOMINAL PAIN UNSPECIFIED SITE 07/12/2013 789.00 ABDOMINAL PAIN UNSPECIFIED SITE 07/12/2013 MICHAEL DOWNEY APRNNDA S 789.00 ABDOMINAL PAIN UNSPECIFIED SITE 07/12/2013 KIM DO, KELSEY K 789.00 ABDOMINAL PAIN UNSPECIFIED SITE 07/12/2013 ANTONIO PHD, HORTENSIA Yan 789.00 ABDOMINAL PAIN UNSPECIFIED SITE 07/12/2013 NASREEN BOX, [place] S 789.00 ABDOMINAL PAIN UNSPECIFIED SITE 07/12/2013 TANYA FAIR, MIGUEL 789.00 ABDOMINAL PAIN UNSPECIFIED SITE 07/12/2013 KIM DO, KELSEY K 789.00 ABDOMINAL PAIN UNSPECIFIED SITE 07/12/2013 NASREEN BOX, [place] S 789.00 ABDOMINAL PAIN UNSPECIFIED SITE 07/12/2013 KIM DO, KELSEY K 789.00 ABDOMINAL PAIN UNSPECIFIED SITE 07/12/2013 DARIUS FAIR, ANASTASIA 789.00 ABDOMINAL PAIN UNSPECIFIED SITE 07/12/2013 NASREEN BOX [place] S 789.00 ABDOMINAL PAIN UNSPECIFIED SITE 07/18/2013 TATE BOX, KIRBY R 138 LATE EFFECTS OF ACUTE POLIOMYELITIS 07/18/2013 TATE BOX, KIRBY R 138 LATE EFFECTS OF ACUTE POLIOMYELITIS 07/18/2013 KIM DO, KELSEY K 138 LATE EFFECTS OF ACUTE POLIOMYELITIS 07/18/2013 TATE BOX, KIRBY R 138 LATE EFFECTS OF ACUTE POLIOMYELITIS 07/18/2013 TATE BOX, KIRBY R 138 LATE EFFECTS OF ACUTE POLIOMYELITIS 07/18/2013 TATE BOX KIRBY R 138 LATE EFFECTS OF ACUTE POLIOMYELITIS 07/18/2013 MICHAEL DOWNEY APRNNDA S 138 LATE EFFECTS OF ACUTE POLIOMYELITIS 07/18/2013 MICHAEL DOWNEY APRNNDA S 138 LATE EFFECTS OF ACUTE POLIOMYELITIS 07/18/2013 KELSEY KIM DO K 138 LATE EFFECTS OF ACUTE POLIOMYELITIS 07/18/2013 138 LATE EFFECTS OF ACUTE POLIOMYELITIS 07/18/2013 MICHAEL DOWNEY APRNNDA S 138 LATE EFFECTS OF ACUTE POLIOMYELITIS 07/18/2013 NANDO KIM DOA K 138 LATE EFFECTS OF ACUTE POLIOMYELITIS 07/18/2013 ANTONIO PHD, HORTENSIA Yan 138 LATE EFFECTS OF ACUTE POLIOMYELITIS 07/18/2013 MICHAEL DOWNEY APRNNDA S 138 LATE EFFECTS OF ACUTE POLIOMYELITIS 07/18/2013 TANYA FAIR, MIGUEL 138 LATE EFFECTS OF ACUTE POLIOMYELITIS 07/18/2013 KELSEY KIM DO K 138 LATE EFFECTS OF ACUTE POLIOMYELITIS 07/18/2013 MICHAEL DOWNEY APRNNDA S 138 LATE EFFECTS OF ACUTE POLIOMYELITIS 07/18/2013 NANDO KIM DOA K 138 LATE EFFECTS OF ACUTE POLIOMYELITIS 07/18/2013 DARIUS FAIR, ANASTASIA 138 LATE EFFECTS OF ACUTE POLIOMYELITIS 07/18/2013 MICHAEL DOWNEY APRNNDA S 138 LATE EFFECTS OF ACUTE POLIOMYELITIS 08/17/2013 TATE RUFFLING MACHINE OPERATOR, KIRBY R 401.1 HYPERTENSION, BENIGN ESSENTIAL 08/17/2013 TATE RUFFLING MACHINE OPERATOR, KIRBY R 789.07 ABDOMINAL PAIN GENERALIZED 08/17/2013 TATE RUFFLING MACHINE OPERATOR, KIRBY R 401.1 HYPERTENSION, BENIGN ESSENTIAL 08/17/2013 TATE RUFFLING MACHINE OPERATOR, KIRBY R 789.07 ABDOMINAL PAIN GENERALIZED 08/17/2013 TATE RUFFLING MACHINE OPERATOR, KIRBY R 401.1 HYPERTENSION, BENIGN ESSENTIAL 08/17/2013 TATE RUFFLING MACHINE OPERATOR, KIRBY R 789.07 ABDOMINAL PAIN GENERALIZED 08/17/2013 MICHAEL DOWNEY APRNNDA S 401.1 HYPERTENSION, BENIGN ESSENTIAL 08/17/2013 MICHAEL DOWNEY APRNNDA S 789.07 ABDOMINAL PAIN GENERALIZED 08/17/2013 MICHAEL DOWNEY APRNNDA S 401.1 HYPERTENSION, BENIGN ESSENTIAL 08/17/2013 NASREEN RUFFLING MACHINE OPERATOR, [place] S 789.07 ABDOMINAL PAIN GENERALIZED 08/17/2013 KIM NANDO LOVEA K 401.1 HYPERTENSION, BENIGN ESSENTIAL 08/17/2013 NANDO KIM DOA K 789.07 ABDOMINAL PAIN GENERALIZED 08/17/2013 401.1 HYPERTENSION, BENIGN ESSENTIAL 08/17/2013 789.07 ABDOMINAL PAIN GENERALIZED 08/17/2013 ALCIDES DOWNEY APRNA S 401.1 HYPERTENSION, BENIGN ESSENTIAL 08/17/2013 NASREEN BOX [place] S 789.07 ABDOMINAL PAIN GENERALIZED 08/17/2013 KIM DO, KELSEY K 401.1 HYPERTENSION, BENIGN ESSENTIAL 08/17/2013 KIM DO, KELSEY K 789.07 ABDOMINAL PAIN GENERALIZED 08/17/2013 HORTENSIA AVLAREZ PHD 401.1 HYPERTENSION, BENIGN ESSENTIAL 08/17/2013 HORTENSIA ALVAREZ PHD 789.07 ABDOMINAL PAIN GENERALIZED 08/17/2013 ALCIDES DOWNEY APRNA S 401.1 HYPERTENSION, BENIGN ESSENTIAL 08/17/2013 MICHAEL DOWNEY APRNNDA S 789.07 ABDOMINAL PAIN GENERALIZED 08/17/2013 TANYA FAIR, MIGUEL 401.1 HYPERTENSION, BENIGN ESSENTIAL 08/17/2013 MIGUEL SUAREZ MD 789.07 ABDOMINAL PAIN GENERALIZED 08/17/2013 KIM DO, KELSEY K 401.1 HYPERTENSION, BENIGN ESSENTIAL 08/17/2013 KIM DO, KELSEY K 789.07 ABDOMINAL PAIN GENERALIZED 08/17/2013 MICHAEL DOWNEY APRNNDA S 401.1 HYPERTENSION, BENIGN ESSENTIAL 08/17/2013 MICHAEL DOWNEY APRNNDA S 789.07 ABDOMINAL PAIN GENERALIZED 08/17/2013 KIM DO, KELSEY K 401.1 HYPERTENSION, BENIGN ESSENTIAL 08/17/2013 KIM DO, KELSEY K 789.07 ABDOMINAL PAIN GENERALIZED 08/17/2013 ANASTASIA MCCOY MD 401.1 HYPERTENSION, BENIGN ESSENTIAL 08/17/2013 ANASTASIA MCCOY MD 789.07 ABDOMINAL PAIN GENERALIZED 08/17/2013 [place] DOWNEY APRN S 401.1 HYPERTENSION, BENIGN ESSENTIAL 08/17/2013 ALCIDES DOWNEY APRNA S 789.07 ABDOMINAL PAIN GENERALIZED 09/14/2013 GABRIEL YBARRA APRNINA R 102.2 OTHER EARLY SKIN LESIONS OF YAWS 09/14/2013 KIRBY YBARRA APRN R 102.2 OTHER EARLY SKIN LESIONS OF YAWS 09/14/2013 GABRIEL YBARRA APRNINA R 102.2 OTHER EARLY SKIN LESIONS OF YAWS 09/14/2013 [place] DOWNEY APRN S 102.2 OTHER EARLY SKIN LESIONS OF YAWS 09/14/2013 NASREEN RUFFLING MACHINE OPERATOR, [place] S 102.2 OTHER EARLY SKIN LESIONS OF YAWS 09/14/2013 KIM DO, KELSEY K 102.2 OTHER EARLY SKIN LESIONS OF YAWS 09/14/2013 102.2 OTHER EARLY SKIN LESIONS OF YAWS 09/14/2013 NASREEN RUFFLING MACHINE OPERATOR, [place] S 102.2 OTHER EARLY SKIN LESIONS OF YAWS 09/14/2013 KIM DO, KELSEY K 102.2 OTHER EARLY SKIN LESIONS OF YAWS 09/14/2013 ANTONIO VILLATORO, HORTENSIA Yan 102.2 OTHER EARLY SKIN LESIONS OF YAWS 09/14/2013 NASREEN RUFFLING MACHINE OPERATOR, [place] S 102.2 OTHER EARLY SKIN LESIONS OF YAWS 09/14/2013 TANYA FAIR, MIGUEL 102.2 OTHER EARLY SKIN LESIONS OF YAWS 09/14/2013 KIM DO, KELSEY K 102.2 OTHER EARLY SKIN LESIONS OF YAWS 09/14/2013 NASREEN RUFFLING MACHINE OPERATOR, [place] S 102.2 OTHER EARLY SKIN LESIONS OF YAWS 09/14/2013 KIM DO, KELSEY K 102.2 OTHER EARLY SKIN LESIONS OF YAWS 09/14/2013 DARIUS FAIR, ANASTASIA 102.2 OTHER EARLY SKIN LESIONS OF YAWS 09/14/2013 NASREEN RUFFLING MACHINE OPERATOR, [place] S 102.2 OTHER EARLY SKIN LESIONS OF YAWS 09/28/2013 TATE RUFFLING MACHINE OPERATOR, KIRBY R 719.46 PAIN IN JOINT INVOLVING LOWER LEG 09/28/2013 TATE RUFFLING MACHINE OPERATOR, KIRBY R 788.1 DYSURIA 09/28/2013 TATE WILKERSONN KIRBY R 719.46 PAIN IN JOINT INVOLVING LOWER LEG 09/28/2013 TATE RUFFLING MACHINE OPERATOR, KIRBY R 788.1 DYSURIA 09/28/2013 NASREEN RUFFLING MACHINE OPERATOR, [place] S 719.46 PAIN IN JOINT INVOLVING LOWER LEG 09/28/2013 NASREEN RUFFLING MACHINE OPERATOR, [place] S 788.1 DYSURIA 09/28/2013 NASREEN RUFFLING MACHINE OPERATOR, [place] S 719.46 PAIN IN JOINT INVOLVING LOWER LEG 09/28/2013 NASREEN RUFFLING MACHINE OPERATOR, [place] S 788.1 DYSURIA 09/28/2013 KIM DO KELSEY K 719.46 PAIN IN JOINT INVOLVING LOWER LEG 09/28/2013 NANDO KIM DOA K 788.1 DYSURIA 09/28/2013 719.46 PAIN IN JOINT INVOLVING LOWER LEG 09/28/2013 788.1 DYSURIA 09/28/2013 [place] DOWNEY APRN S 719.46 PAIN IN JOINT INVOLVING LOWER LEG 09/28/2013 ALCIDES DOWNEY APRNA S 788.1 DYSURIA 09/28/2013 NANDO KIM DOA K 719.46 PAIN IN JOINT INVOLVING LOWER LEG 09/28/2013 NANDO KIM DOA K 788.1 DYSURIA 09/28/2013 ANTONIO VILLATORO, HORTENSIA Yan 719.46 PAIN IN JOINT INVOLVING LOWER LEG 09/28/2013 HORTENSIA ALVAREZ PHD 788.1 DYSURIA 09/28/2013 [place] DOWNEY APRN S 719.46 PAIN IN JOINT INVOLVING LOWER LEG 09/28/2013 [place] DOWNEY APRN S 788.1 DYSURIA 09/28/2013 MIGUEL SUAREZ MD 719.46 PAIN IN JOINT INVOLVING LOWER LEG 09/28/2013 MIGUEL SUAREZ MD 788.1 DYSURIA 09/28/2013 NANDO KIM DOA K 719.46 PAIN IN JOINT INVOLVING LOWER LEG 09/28/2013 NANDO KIM DOA K 788.1 DYSURIA 09/28/2013 [place] DOWNEY APRN S 719.46 PAIN IN JOINT INVOLVING LOWER LEG 09/28/2013 [place] DOWNEY APRN S 788.1 DYSURIA 09/28/2013 KELSEY KIM DO K 719.46 PAIN IN JOINT INVOLVING LOWER LEG 09/28/2013 NANDO KIM DOA K 788.1 DYSURIA 09/28/2013 ANASTASIA MCCOY MD 719.46 PAIN IN JOINT INVOLVING LOWER LEG 09/28/2013 ANASTASIA MCCOY MD 788.1 DYSURIA 09/28/2013 [place] DOWNEY APRN S 719.46 PAIN IN JOINT INVOLVING LOWER LEG 09/28/2013 [place] DOWNEY APRN S 788.1 DYSURIA 10/25/2013 [place] DOWNEY APRN S 338.29 PAIN - CHRONIC 10/25/2013 [place] DOWNEY APRN S 786.50 CHEST PAIN 10/25/2013 [place] DOWNEY APRN S V17.49 FAMILY HISTORY OF OTHER CARDIOVASCULAR DISEASES 10/25/2013 NASREEN BOX [place] S V18.0 FAMILY HISTORY OF DIABETES MELLITUS 10/25/2013 MICHAEL DOWNEY APRNNDA S V70.0 EXAM - ROUTINE H&P 10/25/2013 MICHAEL DOWNEY APRNNDA S 338.29 PAIN - CHRONIC 10/25/2013 MICHAEL DOWNEY APRNNDA S 786.50 CHEST PAIN 10/25/2013 MICHAEL DOWNEY APRNNDA S V17.49 FAMILY HISTORY OF OTHER CARDIOVASCULAR DISEASES 10/25/2013 MICHAEL DOWNEY APRNNDA S V18.0 FAMILY HISTORY OF DIABETES MELLITUS 10/25/2013 MICHAEL DOWNEY APRNNDA S V70.0 EXAM - ROUTINE H&P 10/25/2013 KIM DO KELSEY K 338.29 PAIN - CHRONIC 10/25/2013 JUDY LOVE KELSEY K 786.50 CHEST PAIN 10/25/2013 JUDY LOVE KELSEY K V17.49 FAMILY HISTORY OF OTHER CARDIOVASCULAR DISEASES 10/25/2013 JUDY LOVE KELSEY K V18.0 FAMILY HISTORY OF DIABETES MELLITUS 10/25/2013 JUDY LOVE KELSEY K V70.0 EXAM - ROUTINE H&P 10/25/2013 338.29 PAIN - CHRONIC 10/25/2013 786.50 CHEST PAIN 10/25/2013 V17.49 FAMILY HISTORY OF OTHER CARDIOVASCULAR DISEASES 10/25/2013 V18.0 FAMILY HISTORY OF DIABETES MELLITUS 10/25/2013 V70.0 EXAM - ROUTINE H&P 10/25/2013 MICHAEL DOWNEY APRNNDA S 338.29 PAIN - CHRONIC 10/25/2013 MICHAEL DOWNEY APRNNDA S 786.50 CHEST PAIN 10/25/2013 MICHAEL DOWNEY APRNNDA S V17.49 FAMILY HISTORY OF OTHER CARDIOVASCULAR DISEASES 10/25/2013 MICHAEL DOWNEY APRNNDA S V18.0 FAMILY HISTORY OF DIABETES MELLITUS 10/25/2013 MICHAEL DOWNEY APRNNDA S V70.0 EXAM - ROUTINE H&P 10/25/2013 KIM DO KELSEY K 338.29 PAIN - CHRONIC 10/25/2013 KIM DO KELSEY K 786.50 CHEST PAIN 10/25/2013 KIM DO KELSEY K V17.49 FAMILY HISTORY OF OTHER CARDIOVASCULAR DISEASES 10/25/2013 KIM DO, KELSEY K V18.0 FAMILY HISTORY OF DIABETES MELLITUS 10/25/2013 JUDY LOVE KELSEY K V70.0 EXAM - ROUTINE H&P 10/25/2013 ANTONIO VILLATORO, HORTENSIA Yan 338.29 PAIN - CHRONIC 10/25/2013 ANTONIO VILLATORO, HORTENSIA Yan 786.50 CHEST PAIN 10/25/2013 ANTONIO VILLATORO, HORTENSIA Yan V17.49 FAMILY HISTORY OF OTHER CARDIOVASCULAR DISEASES 10/25/2013 ANTONIO VILLATORO, HORTENSIA Yan V18.0 FAMILY HISTORY OF DIABETES MELLITUS 10/25/2013 ANTONIO VILLATORO, HORTENSIA Yan V70.0 EXAM - ROUTINE H&P 10/25/2013 MICHAEL DOWNEY APRNNDA S 338.29 PAIN - CHRONIC 10/25/2013 MICHAEL DOWNEY APRNNDA S 786.50 CHEST PAIN 10/25/2013 MICHAEL DOWNEY APRNNDA S V17.49 FAMILY HISTORY OF OTHER CARDIOVASCULAR DISEASES 10/25/2013 MICHAEL DOWNEY APRNNDA S V18.0 FAMILY HISTORY OF DIABETES MELLITUS 10/25/2013 MICHAEL DOWNEY APRNNDA S V70.0 EXAM - ROUTINE H&P 10/25/2013 MIGUEL SUAREZ MD 338.29 PAIN - CHRONIC 10/25/2013 MIGUEL SUAREZ MD 786.50 CHEST PAIN 10/25/2013 MIGUEL SUAREZ MD V17.49 FAMILY HISTORY OF OTHER CARDIOVASCULAR DISEASES 10/25/2013 TANYA FAIR, MIGUEL V18.0 FAMILY HISTORY OF DIABETES MELLITUS 10/25/2013 TANYA FAIR, ALI V70.0 EXAM - ROUTINE H&P 10/25/2013 KIM DO KELSEY K 338.29 PAIN - CHRONIC 10/25/2013 KIM DO KELSEY K 786.50 CHEST PAIN 10/25/2013 JUDY LOVE KELSEY K V17.49 FAMILY HISTORY OF OTHER CARDIOVASCULAR DISEASES 10/25/2013 KIM DO KELSEY K V18.0 FAMILY HISTORY OF DIABETES MELLITUS 10/25/2013 KIM DO KELSEY K V70.0 EXAM - ROUTINE H&P 10/25/2013 NASREEN BOX [place] S 338.29 PAIN - CHRONIC 10/25/2013 MICHAEL DOWNEY APRNNDA S 786.50 CHEST PAIN 10/25/2013 MICHAEL DOWNEY APRNNDA S V17.49 FAMILY HISTORY OF OTHER CARDIOVASCULAR DISEASES 10/25/2013 ALCIDES DOWNEY APRNA S V18.0 FAMILY HISTORY OF DIABETES MELLITUS 10/25/2013 ALCIDES DOWNEY APRNA S V70.0 EXAM - ROUTINE H&P 10/25/2013 NANDO KIM DOA K 338.29 PAIN - CHRONIC 10/25/2013 KIM KELSEY LOVE K 786.50 CHEST PAIN 10/25/2013 KIM NANDO LOVEA K V17.49 FAMILY HISTORY OF OTHER CARDIOVASCULAR DISEASES 10/25/2013 NANDO KIM DOA K V18.0 FAMILY HISTORY OF DIABETES MELLITUS 10/25/2013 NANDO KIM DOA K V70.0 EXAM - ROUTINE H&P 10/25/2013 ANASTASIA MCCOY MD 338.29 PAIN - CHRONIC 10/25/2013 ANASTASIA MCCOY MD 786.50 CHEST PAIN 10/25/2013 ANASTASIA MCCOY MD V17.49 FAMILY HISTORY OF OTHER CARDIOVASCULAR DISEASES 10/25/2013 ANASTASIA MCCOY MD V18.0 FAMILY HISTORY OF DIABETES MELLITUS 10/25/2013 ANASTASIA MCCOY MD V70.0 EXAM - ROUTINE H&P 10/25/2013 ALCIDES DOWNEY APRNA S 338.29 PAIN - CHRONIC 10/25/2013 [place] DOWNEY APRN S 786.50 CHEST PAIN 10/25/2013 [place] DOWNEY APRN S V17.49 FAMILY HISTORY OF OTHER CARDIOVASCULAR DISEASES 10/25/2013 ALCIDES DOWNEY APRNA S V18.0 FAMILY HISTORY OF DIABETES MELLITUS 10/25/2013 ALCIDES DOWNEY APRNA S V70.0 EXAM - ROUTINE H&P 11/07/2013 KELSEY KIM DO K 466.0 BRONCHITIS, ACUTE 11/07/2013 491.0 SIMPLE CHRONIC BRONCHITIS 11/07/2013 ALCIDES DOWNEY APRNA S 491.0 SIMPLE CHRONIC BRONCHITIS 11/07/2013 KELSEY KIM DO K 491.0 SIMPLE CHRONIC BRONCHITIS 11/07/2013 ANTONIO VILLATORO, HORTENSIA Yan 491.0 SIMPLE CHRONIC BRONCHITIS 11/07/2013 [place] DOWNEY APRN S 491.0 SIMPLE CHRONIC BRONCHITIS 11/07/2013 TANYA FAIR, MIGUEL 491.0 SIMPLE CHRONIC BRONCHITIS 11/07/2013 KELSEY KIM DO K 491.0 SIMPLE CHRONIC BRONCHITIS 11/07/2013 [place] DOWNEY APRN 491.0 SIMPLE CHRONIC BRONCHITIS 11/07/2013 KELSEY KIM DO 491.0 SIMPLE CHRONIC BRONCHITIS 11/07/2013 ANASTASIA MCCOY MD 491.0 SIMPLE CHRONIC BRONCHITIS 11/07/2013 [place] DOWNEY APRN 491.0 SIMPLE CHRONIC BRONCHITIS 11/22/2013 KIRBY YBARRA APRN Ot 138 LATE EFFECT ACUTE POLIO 11/22/2013 KIRBY YBARRA APRN Ot V49.89 OTH SPEC CONDITIONS INFLU HEALTH 11/22/2013 KIRBY YBARRA APRN Ot V57.1 PHYSICAL THERAPY NEC 01/07/2014 KELSEY KIM DO V03.82 PPV23 (PNEUMOVAX) DX 01/07/2014 KELSEY KIM DO V04.81 FLU SHOT 01/07/2014 ANTONIO PHD, HORTENSIA Yan V03.82 PPV23 (PNEUMOVAX) DX 01/07/2014 ANTONIO VILLATORO, HORTENSIA Yan V04.81 FLU SHOT 01/07/2014 [place] DOWNEY APRN V03.82 PPV23 (PNEUMOVAX) DX 01/07/2014 [place] DOWNEY APRN V04.81 FLU SHOT 01/07/2014 TANYA FAIR, MIGUEL V03.82 PPV23 (PNEUMOVAX) DX 01/07/2014 MIGUEL SUAREZ MD V04.81 FLU SHOT 01/07/2014 KELSEY KIM DO V03.82 PPV23 (PNEUMOVAX) DX 01/07/2014 KELSEY KIM DO V04.81 FLU SHOT 01/07/2014 [place] DOWNEY APRN V03.82 PPV23 (PNEUMOVAX) DX 01/07/2014 [place] DOWNEY APRN V04.81 FLU SHOT 01/07/2014 KELSEY KIM DO V03.82 PPV23 (PNEUMOVAX) DX 01/07/2014 KELSEY KIM DO V04.81 FLU SHOT 01/07/2014 ANASTASIA MCCOY MD V03.82 PPV23 (PNEUMOVAX) DX 01/07/2014 ANASTASIA MCCOY MD V04.81 FLU SHOT 01/07/2014 [place] DOWNEY APRN V03.82 PPV23 (PNEUMOVAX) DX 01/07/2014 [place] DOWNEY APRN S V04.81 FLU SHOT 01/24/2014 HORTENSIA ALVAREZ PHD 787.01 NAUSEA WITH VOMITING 01/24/2014 HORTENSIA ALVAREZ PHD 788.1 DYSURIA 01/24/2014 [place] DOWNEY APRN S 787.01 NAUSEA WITH VOMITING 01/24/2014 ALCIDES DOWNEY APRNA S 788.1 DYSURIA 01/24/2014 MIGUEL SUAREZ MD 787.01 NAUSEA WITH VOMITING 01/24/2014 MIGUEL SUAREZ MD 788.1 DYSURIA 01/24/2014 KIM DO KELSEY K 787.01 NAUSEA WITH VOMITING 01/24/2014 KIM DO KELSEY K 788.1 DYSURIA 01/24/2014 ALCIDES DOWNEY APRNA S 787.01 NAUSEA WITH VOMITING 01/24/2014 ALCIDES DOWNEY APRNA S 788.1 DYSURIA 01/24/2014 NANDO KIM DOA K 787.01 NAUSEA WITH VOMITING 01/24/2014 JUDY LOVE KELSEY K 788.1 DYSURIA 01/24/2014 ANASTASIA MCCOY MD 787.01 NAUSEA WITH VOMITING 01/24/2014 ANASTASIA MCCOY MD 788.1 DYSURIA 01/24/2014 ALCIDES DOWNEY APRNA S 787.01 NAUSEA WITH VOMITING 01/24/2014 ALCIDES DOWNEY APRNA S 788.1 DYSURIA 01/25/2014 HORTENSIA ALVAREZ PHD 294.9 OR COG DIS NOS 01/25/2014 ALCIDES DOWNEY APRNA S 294.9 OR COG DIS NOS 01/25/2014 MIGUEL SUAREZ MD 294.9 OR COG DIS NOS 01/25/2014 JUDY LOVE KELSEY K 294.9 OR COG DIS NOS 01/25/2014 MICHAEL DOWNEY APRNNDA S 294.9 OR COG DIS NOS 01/25/2014 KIM DO KELSEY K 294.9 OR COG DIS NOS 01/25/2014 ANASTASIA MCCOY MD 294.9 OR COG DIS NOS 01/25/2014 MICHAEL DOWNEY APRNNDA S 294.9 OR COG DIS NOS 02/18/2014 MIGUEL SUAREZ MD 719.47 PAIN- FOOT 02/18/2014 KIM DO, KELSEY K 719.47 PAIN- FOOT 02/18/2014 NASREEN BOX [place] S 719.47 PAIN- FOOT 02/18/2014 KIM , KELSEY K 719.47 PAIN- FOOT 02/18/2014 ANASTASIA MCCOY MD 719.47 PAIN- FOOT 02/18/2014 NASREEN BOX [place] S 719.47 PAIN- FOOT 02/20/2014 TANYA FAIR, MIGUEL 401.9 HYPERTENSION, UNSPECIFIED ESSENTIAL 02/20/2014 TANYA FAIR, ALI 786.50 CHEST PAIN 02/20/2014 JUDY LOVE KELSEY K 401.9 HYPERTENSION, UNSPECIFIED ESSENTIAL 02/20/2014 KIM DO, KELSEY K 786.50 CHEST PAIN 02/20/2014 NASREEN BOX [place] S 401.9 HYPERTENSION, UNSPECIFIED ESSENTIAL 02/20/2014 NASREEN BOX [place] S 786.50 CHEST PAIN 02/20/2014 KIM DO KELSEY K 401.9 HYPERTENSION, UNSPECIFIED ESSENTIAL 02/20/2014 JUDY LOVE KELSEY K 786.50 CHEST PAIN 02/20/2014 ANASTASIA MCCOY MD 401.9 HYPERTENSION, UNSPECIFIED ESSENTIAL 02/20/2014 ANASTASIA MCCOY MD 786.50 CHEST PAIN 02/20/2014 NASREEN BOX [place] S 401.9 HYPERTENSION, UNSPECIFIED ESSENTIAL 02/20/2014 NASREEN BOX [place] S 786.50 CHEST PAIN 02/21/2014 TANYA FAIR, MIGUEL 493.92 ASTHMA (ACUTE) EXACERBATION 02/21/2014 JUDY LOVE KELSEY K 493.92 ASTHMA (ACUTE) EXACERBATION 02/21/2014 MICHAEL DOWNEY APRNNDA S 493.92 ASTHMA (ACUTE) EXACERBATION 02/21/2014 JUDY LOVE KELSEY K 493.92 ASTHMA (ACUTE) EXACERBATION 02/21/2014 ANASTASIA MCCOY MD 493.92 ASTHMA (ACUTE) EXACERBATION 02/21/2014 MICHAEL DOWNEY APRNNDA S 493.92 ASTHMA (ACUTE) EXACERBATION 03/20/2014 MICHAEL DOWNEY APRNNDA S 788.42 POLYURIA 03/20/2014 NANDO KIM DOA K 788.42 POLYURIA 03/20/2014 ANASTASIA MCCOY MD 788.42 POLYURIA 03/20/2014 [place] ODWNEY APRN S 788.42 POLYURIA 06/05/2014 [place] DOWNEY APRN S 296.90 MOOD DISORDER NOS 02/03/2015 Ot R06.02 02/12/2015 Ot 599.0 02/12/2015 TANYA FAIR FACC, ALI FACP CCDS Ot 401.9 02/12/2015 TANYA SILVAC, ALI FACP CCDS Ot 786.50 02/12/2015 TANYA SILVAC, ALI FACP CCDS Ot V58.69 02/12/2015 TANYA SILVAC, ALI FACP CCDS Ot V64.3 02/12/2015 KIRBY YBARRA RUFFLING MACHINE OPERATOR Ot 789.00 02/12/2015 TANYA FAIR FACC, ALI FACP CCDS Ot 278.00 02/12/2015 TANYA SILVAC, ALI FACP CCDS Ot 401.9 02/12/2015 TANYA FAIR FACC, ALI FACP CCDS Ot 496 02/12/2015 TANYA FAIR FACC, ALI FACP CCDS Ot 786.50 02/12/2015 TANYA FAIR FACC, ALI FACP CCDS Ot V12.02 02/12/2015 TANYA FAIR FACC, ALI FACP CCDS Ot V15.81 02/12/2015 TANYA FAIR FACC, ALI FACP CCDS Ot V15.82 02/12/2015 [place] DOW[place] 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 Ot 789.06 02/12/2015 [place] DOW[place] 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 Ot 789.06 02/12/2015 Ot R06.02 02/12/2015 Ot R06.02 08/02/2015 Ot 599.0 URIN TRACT INFECTION NOS 08/02/2015 TANYA FAIR FACC, ALI FACP CCDS Ot 401.9 HYPERTENSION NOS 08/02/2015 TANYA FAIR FACC, ALI FACP CCDS Ot 786.50 CHEST PAIN NOS 08/02/2015 TANYA FAIR FACC, ALI FACP CCDS Ot V58.69 OTH MED,LT,CURRENT USE 08/02/2015 TANYA FAIR FACC, ALI FACP CCDS Ot V64.3 NO PROC FOR REASONS NEC 08/02/2015 KIRBY YBARRA RUFFLING MACHINE OPERATOR Ot 789.00 ABDOMINAL PAIN, UNSPECIFIED SITE 08/02/2015 TANYA FAIR FACC, ALI FACP CCDS Ot 278.00 OBESITY, NOS 08/02/2015 TANYA FAIR FAC, ALI FACP CCDS Ot 401.9 HYPERTENSION NOS 08/02/2015 TANYA FAIR FACC, ALI FACP CCDS Ot 496 CHR AIRWAY OBSTRUCT NEC 08/02/2015 TANYA FAIR FAC, ALI FACP CCDS Ot 786.50 CHEST PAIN NOS 08/02/2015 TANYA FAIR FAC, ALI FACP CCDS Ot V12.02 PERSONAL HISTORY OF POLIOMYELITIS 08/02/2015 TANYA FAIR [facility], ALI FACP CCDS Ot V15.81 HX OF PAST NONCOMPLIANCE 08/02/2015 TANYA FAIR [facility], ALI FACP CCDS Ot V15.82 HISTORY OF TOBACCO USE 08/02/2015 [place] DOW[place] 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 Ot 789.06 ABDOMINAL PAIN, EPIGASTRIC 08/02/2015 [place] DOW[place] 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 Ot 789.06 ABDOMINAL PAIN, EPIGASTRIC 08/02/2015 Ot R06.02 SHORTNESS OF BREATH 08/02/2015 KAYODE BAEZA MD Ot F79 UNSPECIFIED INTELLECTUAL DISABILITIES 08/02/2015 KAYODE BAEZA MD Ot G89.29 OTHER CHRONIC PAIN 08/02/2015 KAYODE BAEZA MD Ot M54.5 LOW BACK PAIN 08/02/2015 KAYODE BAEZA MD Ot S80.12XA CONTUSION OF LEFT LOWER LEG, INITIAL ENC 08/02/2015 KAYODE BAEZA MD Ot W19.XXXA UNSPECIFIED FALL, INITIAL ENCOUNTER 08/02/2015 KAYODE BAEZA MD Ot Y92.[address] IN CORRECTION PLACE 08/02/2015 KAYODE BAEZA MD Ot Y99.8 OTHER EXTERNAL CAUSE STATUS 08/02/2015 KAYODE BAEZA MD Ot Z98.1 ARTHRODESIS STATUS 08/08/2015 KAYODE BAEZA MD Ot F79 UNSPECIFIED INTELLECTUAL DISABILITIES 08/08/2015 KAYODE BAEZA MD Ot G89.29 OTHER CHRONIC PAIN 08/08/2015 KAYODE BAEZA MD Ot M54.5 LOW BACK PAIN 08/08/2015 KAYODE BAEZA MD Ot S80.12XA CONTUSION OF LEFT LOWER LEG, INITIAL ENC 08/08/2015 KAYODE BAEZA MD Ot W19.XXXA UNSPECIFIED FALL, INITIAL ENCOUNTER 08/08/2015 KAYODE BAEZA MD Ot Y92.[address] IN CORRECTION PLACE 08/08/2015 KAYODE BAEZA MD Ot Y99.8 OTHER EXTERNAL CAUSE STATUS 08/08/2015 KAYODE BAEZA MD Ot Z98.1 ARTHRODESIS STATUS 08/03/2016 [place] DOWNEY Ot 789.06 ABDOMINAL PAIN, EPIGASTRIC Procedures Code Description [place] [address] ROUTINE VENIPUNCTURE 07/12/2013 56666 UA W/ CULTURE IF INDICATED 07/12/2013 83102 CBC 07/12/2013 2233419 GFR CALC (RESULT ONLY) 07/12/2013 37159 CMP 07/12/2013 98288 SED/ESR RATE RML 07/12/2013 PHYSICAL Physical Therapy, 07/26/[address] ABDOMEN W/ AND W/O CONTRAST 07/27/2013 Cardiolog Miguel Suarez 08/01/2013 GENERAL S DENISSE SCOTT 09/11/2013 70934 XRAY KNEE RIGHT 1 OR 2 VIEWS 09/28/2013 31191 UA W/ CULTURE IF INDICATED 09/28/2013 96209 CULTURE URINE 09/30/2013 14069 ROUTINE VENIPUNCTURE 10/25/2013 67548 UA W/ CULTURE IF INDICATED 10/25/2013 39885 A1C (IN-HOUSE) 10/25/2013 50725 LIPID PANEL 10/25/2013 08158 MAGNESIUM 10/25/2013 97438 TSH 10/25/2013 50057 INSULIN LEVEL 10/26/2013 92551 CULTURE URINE 10/27/[address] ABDOMEN & PELVIS W/ & W/ O CONTRAST 12/12/2013 58881 UA LONG DIP 01/24/2014 76787 PSYCH DIAGNOSTIC EVALUATION 01/25/2014 26394 XRAY FOOT RIGHT COMP MIN 3 VIEWS 02/18/2014 93670 OXIMETRY 02/20/2014 95857 UA LONG DIP 03/20/2014 Results There is no data. Encounters ACCT No. Visit Date/Time Discharge Status Pt. Type Provider Facility Loc./Unit Complaint [id number] 06/05/2014 07:58:00 06/05/2014 23:59:59 CLS Outpatient [place] DOWNEY APRN [id number] 04/19/2014 14:38:00 04/19/2014 23:59:59 CLS Outpatient ANASTASIA MCCOY MD [id number] 03/20/2014 13:50:00 03/20/2014 23:59:59 CLS Outpatient KELSEY KIM DO Justino [id number] 03/20/2014 13:50:00 03/20/2014 23:59:59 CLS Outpatient NASREEN RUFFLING MACHINE OPERATORGEORGIA [id number] 02/20/2014 09:24:00 02/20/2014 23:59:59 CLS Outpatient TANYA FAIR, MIGUEL [id number] 02/18/2014 11:19:00 02/18/2014 23:59:59 CLS Outpatient JUDY LOVE KELSEY Badillo [id number] 01/25/2014 12:08:00 01/25/2014 23:59:59 CLS Outpatient ANTONIO VILLATORO, HORTENSIA Yan [id number] 01/24/2014 12:18:00 01/24/2014 23:59:59 CLS Outpatient NASREEN RUFFLING MACHINE OPERATORGEORGIA Naheed [id number] 01/07/2014 12:22:00 01/07/2014 23:59:59 CLS Outpatient KELSEY KIM DO Justino [id number] 12/12/2013 11:23:00 12/12/2013 23:59:59 CLS Outpatient NASREEN RUFFLING MACHINE OPERATORGEORGIA S [id number] 11/13/2013 06:21:00 11/13/2013 23:59:59 CLS Outpatient [id number] 11/07/2013 13:11:00 11/07/2013 23:59:59 CLS Outpatient NASREEN RUFFLING MACHINE OPERATORGEORGIA S [id number] 10/25/2013 11:20:00 10/25/2013 23:59:59 CLS Outpatient NASREEN RUFFLING MACHINE OPERATORGEORGIA S [id number] 10/25/2013 11:20:00 10/25/2013 23:59:59 CLS Outpatient JUDY KELSEY Justino [id number] 09/28/2013 10:37:00 09/28/2013 23:59:59 CLS Outpatient KIRBY YBARRA APRN [id number] 09/28/2013 10:37:00 09/28/2013 23:59:59 CLS Outpatient KIRBY YBARRA APRN [id number] 09/14/2013 09:33:00 09/14/2013 23:59:59 CLS Outpatient KIRBY YBARRA APRN [id number] 08/17/2013 09:47:00 08/17/2013 23:59:59 CLS Outpatient KELSEY KIM DO [id number] 07/18/2013 10:16:00 07/18/2013 23:59:59 CLS Outpatient TATE RUFFLING MACHINE OPERATORKIRBY Hummel [id number] 07/12/2013 11:21:00 07/12/2013 23:59:59 CLS Outpatient KIRBY YBARRA APRN R [id number] 07/12/2013 11:21:00 07/12/2013 23:59:59 CLS Outpatient KIRBY YBARRA APRN R [id number] 06/05/2013 11:03:00 06/05/2013 23:59:59 CLS Outpatient KIRBY YBARRA APRN R [id number] 08/02/2015 15:09:00 08/02/2015 16:43:00 DIS Emergency KAYODE BAEZA MD [facility] ER [id number] 01/23/2014 10:29:00 01/23/2014 23:59:59 CLS Outpatient [place] DOWNEY [facility] RAD MID EPIGASTIC PAIN [id number] 01/15/2014 13:23:00 01/15/2014 23:59:59 CLS Outpatient [place] DOWNEYP [facility] RAD [id number] 10/19/2013 13:44:00 10/19/2013 23:59:59 CLS Outpatient KIRBY YBARRA RUFFLING MACHINE OPERATOR [facility] REHAB [id number] 08/03/2013 09:21:00 08/03/2013 23:59:59 CLS Outpatient MIGUEL SUAREZ MD, FACC, FACP CCDS [facility] LAB [id number] 07/25/2013 12:50:00 07/25/2013 23:59:59 CLS Outpatient KIRBY YBARRA RUFFLING MACHINE OPERATOR [facility] RAD [id number] 05/22/2013 11:23:00 05/22/2013 23:59:59 CLS Outpatient MIGUEL SUAREZ MD, FACC, FACP CCDS [facility] CATH [id number] 06/05/2017 01:27:00 ACT Emergency ROMAN BRADSHAW MD [facility] ER NOSE BLEED [id number] 02/12/2015 08:03:00 Document Registration [id number] 02/12/2015 08:03:00 Document Registration [id number] 02/12/2015 08:03:00 Document Registration [id number] 02/12/2015 08:03:00 Document Registration [id number] 01/11/2015 23:36:00 Document Registration [id number] 01/18/2011 12:45:00 Document Registration [id number] 08/29/2009 12:49:00 Document Registration
--- OUTSIDE RECORDS SUMMARY | 2017-06-05 01:36 | XMS REPORT ---
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 10/16/15
--- NOTE | 2017-06-05 01:59 | ED EENT ---
History of Present Illness General Chief Complaint: Nasal Problems Stated Complaint: NOSE BLEED Source: patient, EMS Exam Limitations: no limitations History of Present Illness Date Seen by Provider: Jun 05, 2017 Time Seen by Provider: 01:27 Initial Comments Here with report of persistent nosebleed tonight. Patient wears oxygen chronically and does not use humidified air. He apparently has not infrequent nosebleeds. Tonight wouldn't stop on its own. Nursing at the [facility] tried quite a while to get it to stop. Patient denies pain or other concerns. Timing/Duration: abrupt Severity: moderate Location: nose Prearrival Treatment: squeezing nostrils Associated Symptoms: No cough, No facial pain/swelling, No fever, nasal congestion/drainage Allergies and Home Medications Allergies Coded Allergies: No Allergy Information Available (Unverified , 01/23/14) Patient Home Medication List Home Medication List Reviewed: Yes ([facility] list) Review of Systems Constitutional: see HPI, No chills, No fever Ears: No Symptoms Reported Nose: epistaxis, denies pain Mouth: no symptoms reported Throat: no symptoms reported Respiratory: no symptoms reported Cardiovascular: no symptoms reported Gastrointestinal: No abdominal pain, No nausea, No vomiting Musculoskeletal: no symptoms reported All Other Systems Reviewed Negative Unless Noted: Yes Past Lykxgpc-Cijwyp-Otetwx Hx Patient Social History Alcohol Use: Denies Use Recreational Drug Use: No Smoking Status: Former Smoker Surgeries History of Surgeries: Yes Respiratory History of Respiratory Disorde: Yes Respiratory Disorders: Chronic Bronchitis Cardiovascular History of Cardiac Disorders: Yes Cardiac Disorders: Chronic Edema/Swelling, High Cholesterol, Hypertension Neurological History of Neurological Disord: Yes Genitourinary History of Genitourinary Disor: Yes Genitourinary Disorders: Benign Prostatic Hyperpl Gastrointestinal History of Gastrointestinal Di: Yes Gastrointestinal Disorders: Gastroesophageal Reflux Musculoskeletal History of Musculoskeletal Dis: Yes Endocrine History of Endocrine Disorders: Yes Endocrine Disorders: Diabetes, Insulin dep, Hypothyroidsim HEENT History of HEENT Disorders: No Psychosocial History of Psychiatric Problem: Yes Behavioral Health Disorders: Depression Reviewed Nursing Assessment Reviewed/Agree w Nursing PMH: Yes Physical Exam Vital Signs Vital Signs - First Documented 06/05/17 01:27 Temp 96.2 Pulse 88 Resp 24 B/P (MAP) 127/83 (98) Pulse Ox 93 O2 Delivery Nasal Cannula O2 Flow Rate 2.00 General Appearance: WD/WN, no apparent distress, obese Eyes: bilateral eye normal inspection Nose: active bleeding (right naris), dried blood (on the face and around nose both nares) Mouth/Throat: pharynx normal, other (tried blood in the mouth and on time but no active bleeding within the posterior pharynx after placement of rapid rhino) Neck: full range of motion, supple Cardiovascular: regular rate, rhythm, no murmur Respiratory: lungs clear, normal breath sounds Gastrointestinal: non tender, soft, other (morbidly obese but nontender overall ) Neurologic/Psychiatric: alert, oriented x 3 Skin: normal color, warm/dry Progress/Results/Core Measures Results/Orders Lab Results Laboratory Tests Test 06/05/17 01:57 Range/Units White Blood Count 13.3 H 4.3-11.0 10^3/uL Red Blood Count 4.06 L 4.35-5.85 10^6/uL Hemoglobin 13.4 13.3-17.7 G/DL Hematocrit 43 40-54 % Mean Corpuscular Volume 106 H 80-99 FL Mean Corpuscular Hemoglobin 33 25-34 PG Mean Corpuscular Hemoglobin Concent 31 L 32-36 G/DL Red Cell Distribution Width 15.0 H 10.0-14.5 % Platelet Count 247 130-400 10^3/uL Mean Platelet Volume 11.4 H 7.4-10.4 FL Neutrophils (%) (Auto) 73 42-75 % Lymphocytes (%) (Auto) 16 12-44 % Monocytes (%) (Auto) 6 0-12 % Eosinophils (%) (Auto) 5 0-10 % Basophils (%) (Auto) 0 0-10 % Neutrophils # (Auto) 9.7 H 1.8-7.8 X 10^3 Lymphocytes # (Auto) 2.1 1.0-4.0 X 10^3 Monocytes # (Auto) 0.8 0.0-1.0 X 10^3 Eosinophils # (Auto) 0.7 H 0.0-0.3 10^3/uL Basophils # (Auto) 0.0 0.0-0.1 10^3/uL Sodium Level 138 135-145 MMOL/L Potassium Level 4.2 3.6-5.0 MMOL/L Chloride Level 96 L 98-107 MMOL/L Carbon Dioxide Level 30 21-32 MMOL/L Anion Gap 12 5-14 MMOL/L Blood Urea Nitrogen 24 H 7-18 MG/DL Creatinine 0.63 0.60-1.30 MG/DL Estimat Glomerular Filtration Rate > 60 BUN/Creatinine Ratio 38 Glucose Level 146 H 70-105 MG/DL Calcium Level 9.4 8.5-10.1 MG/DL Total Bilirubin 0.3 0.1-1.0 MG/DL Aspartate Amino Transf (AST/SGOT) 25 5-34 U/L Alanine Aminotransferase (ALT/SGPT) 33 0-55 U/L Alkaline Phosphatase 67 40-136 U/L Total Protein 8.5 H 6.4-8.2 GM/DL Albumin 3.3 3.2-4.5 GM/DL My Orders Orders - ROMAN BRADSHAW MD Oxymetazoline 0.05% Nasal Osborn (Afrin 0. (06/05/17 01:31) Cbc With Automated Diff (06/05/17 01:48) Comprehensive Metabolic Panel (06/05/17 01:48) Oxymetazoline 0.05% Nasal Osborn (Afrin 0. (06/05/17 09:00) Vital Signs/I&O Vital Sign - Last 12Hours 06/05/17 01:27 Temp 96.2 Pulse 88 Resp 24 B/P (MAP) 127/83 (98) Pulse Ox 93 O2 Delivery Nasal Cannula O2 Flow Rate 2.00 Progress Note : Progress Note Seen and evaluated. Labs ordered. 4.5 cm rapid Rhino placed. This came out. Replaced with 5.5 cm rapid Rhino and this was able to the placed and it stayed. Bleeding was controlled. retirement nurse reported abdominal problems. None noted on my exam and patient denies any abdominal pain. CBC and CMP were ordered. These were reviewed and no significant findings except for slightly elevated white count. [facility]charge back to [facility] via [facility] as patient is morbidly obese and is unable to walk or assist with transfers and is bedbound. Orders for humidified oxygen and removal of the nasal packing in 2 days given to [facility]. Departure Impression Impression: Primary Impression: Epistaxis Disposition: 01 HOME, SELF-CARE Condition: Improved Departure-Patient Inst. Decision time for Depature: 02:26 Referrals: [facility] (PCP/Family) Primary Care Physician Patient Instructions: Nosebleeds (DC) Add. Discharge Instructions: All discharge instructions reviewed with patient and/or family. Voiced understanding. Leave nasal packing in place for 2 days. After 2 days you may remove the packing by withdrawing the air and sliding the nasal packing out. Use humidified air at all times. Follow-up with your doctor in a few days for recheck. Return for worse pain, fever, vomiting, weakness, breathing problems or other concerns as needed. Copy Copies To 1: ANASTASIA MCCOY MD, TIMOTHY D MD Jun 05, 2017 01:59
[2017-06-05 02:04] LABS: BASOPHILS % (AUTO) 0 % (0-10); EOSINOPHILS # (AUTO) 0.7 10^3/uL (0.0-0.3); EOSINOPHILS % (AUTO) 5 % (0-10); HEMATOCRIT 43 % (40-54); HEMOGLOBIN 13.4 G/DL (13.3-17.7); LYMPHOCYTES # (AUTO) 2.1 X 10^3 (1.0-4.0); LYMPHOCYTES % (AUTO) 16 % (12-44); MEAN CORPUSCULAR HEMOGLOBIN 33 PG (25-34); MEAN CORPUSCULAR HGB CONC 31 G/DL (32-36); MEAN CORPUSCULAR VOLUME 106 FL (80-99); MEAN PLATELET VOLUME 11.4 FL (7.4-10.4); MONOCYTES # (AUTO) 0.8 X 10^3 (0.0-1.0); MONOCYTES % (AUTO) 6 % (0-12); NEUTROPHILS # (AUTO) 9.7 X 10^3 (1.8-7.8); NEUTROPHILS % (AUTO) 73 % (42-75); PLATELET COUNT 247 10^3/uL (130-400); RED BLOOD COUNT 4.06 10^6/uL (4.35-5.85); WHITE BLOOD COUNT 13.3 10^3/uL (4.3-11.0)
[2017-06-05 02:22] LABS: ALANINE AMINOTRANSFERASE 33 U/L (0-55); ALBUMIN 3.3 GM/DL (3.2-4.5); ALKALINE PHOSPHATASE 67 U/L (40-136); BILIRUBIN,TOTAL 0.3 MG/DL (0.1-1.0); BUN/CREATININE RATIO 38; CALCIUM 9.4 MG/DL (8.5-10.1); CARBON DIOXIDE 30 MMOL/L (21-32); CHLORIDE 96 MMOL/L (98-107); CREATININE SERUM 0.63 MG/DL (0.60-1.30); GFR ESTIMATED > 60; GLUCOSE 146 MG/DL (70-105); POTASSIUM 4.2 MMOL/L (3.6-5.0); SODIUM 138 MMOL/L (135-145); TOTAL PROTEIN 8.5 GM/DL (6.4-8.2)
[2017-06-05 02:25] VITALS: BP 129/79
[2017-06-05] MEDS ORDERED: OXYMETAZOLINE (AFRIN) 0.05% NA 15 ML BTL SCH (09:00)
== END 2017-06-05 02:25 | disposition home or self-care (01) ==
LOC: EDUNIT# 01:26 → ER 01:27
DX: R04.0 Epistaxis (principal); F32.9 Major depressive disorder, single episode, unspecified; E03.9 Hypothyroidism, unspecified; E11.9 Type 2 diabetes mellitus without complications; K21.9 Gastro-esophageal reflux disease without esophagitis; E78.00 Pure hypercholesterolemia, unspecified; I10 Essential (primary) hypertension; N40.1 Benign prostatic hyperplasia with lower urinary tract symptoms; Z87.891 Personal history of nicotine dependence
CPT/HCPCS: 36415; 80053; 85025; 99283

== ENCOUNTER → 2017-06-25 | Outpatient (CLI) | payer MEDICARE, MEDICAID ==
[2017-06-25 12:21] LABS: BASOPHILS # (AUTO) 0.1 10^3/uL (0.0-0.1); BASOPHILS % (AUTO) 0 % (0-10); EOSINOPHILS # (AUTO) 0.4 10^3/uL (0.0-0.3); EOSINOPHILS % (AUTO) 3 % (0-10); HEMATOCRIT 40 % (40-54); HEMOGLOBIN 12.7 G/DL (13.3-17.7); LYMPHOCYTES # (AUTO) 2.1 X 10^3 (1.0-4.0); LYMPHOCYTES % (AUTO) 14 % (12-44); MEAN CORPUSCULAR HEMOGLOBIN 34 PG (25-34); MEAN CORPUSCULAR HGB CONC 32 G/DL (32-36); MEAN CORPUSCULAR VOLUME 106 FL (80-99); MONOCYTES # (AUTO) 0.9 X 10^3 (0.0-1.0); MONOCYTES % (AUTO) 6 % (0-12); NEUTROPHILS # (AUTO) 11.6 X 10^3 (1.8-7.8); NEUTROPHILS % (AUTO) 77 % (42-75); PLATELET COUNT 252 10^3/uL (130-400); RED BLOOD COUNT 3.79 10^6/uL (4.35-5.85); WHITE BLOOD COUNT 15.1 10^3/uL (4.3-11.0)
[2017-06-25 12:37] LABS: ALANINE AMINOTRANSFERASE 29 U/L (0-55); ALBUMIN 3.3 GM/DL (3.2-4.5); ALKALINE PHOSPHATASE 78 U/L (40-136); BILIRUBIN,TOTAL 0.4 MG/DL (0.1-1.0); BUN/CREATININE RATIO 32; CARBON DIOXIDE 42 MMOL/L (21-32); CHLORIDE 93 MMOL/L (98-107); CREATININE SERUM 0.59 MG/DL (0.60-1.30); GFR ESTIMATED > 60; GLUCOSE 93 MG/DL (70-105); POTASSIUM 3.6 MMOL/L (3.6-5.0); SODIUM 144 MMOL/L (135-145); TOTAL PROTEIN 8.1 GM/DL (6.4-8.2)
[2017-06-25 12:41] LABS: EOSINOPHILS % (MANUAL) 5 %; LYMPHOCYTES % (MANUAL) 8 %; MONOCYTES % (MANUAL) 7 %; NEUTROPHILS % (MANUAL) 80 %; RBC MORPH NORMAL
== END ==
PROVIDERS: ATTEND Family Medicine
DX: J18.9 Pneumonia, unspecified organism (principal); Z79.2 Long term (current) use of antibiotics
CPT/HCPCS: 80053; 85007; 85027; 86141

== ENCOUNTER 2017-12-23 21:55 | Inpatient (IN) | payer MEDICARE, MEDICAID ==
[~2017-12-23] VITALS: Ht 160 cm; Wt 147.5 kg
[2017-12-23 22:14] LABS: BASOPHILS % (AUTO) 0 % (0-10); EOSINOPHILS # (AUTO) 0.1 10^3/uL (0.0-0.3); EOSINOPHILS % (AUTO) 0 % (0-10); HEMATOCRIT 40 % (40-54); HEMOGLOBIN 12.2 G/DL (13.3-17.7); LYMPHOCYTES # (AUTO) 2.3 X 10^3 (1.0-4.0); LYMPHOCYTES % (AUTO) 10 % (12-44); MEAN CORPUSCULAR HEMOGLOBIN 28 PG (25-34); MEAN CORPUSCULAR HGB CONC 30 G/DL (32-36); MEAN CORPUSCULAR VOLUME 91 FL (80-99); MEAN PLATELET VOLUME 11.6 FL (7.4-10.4); MONOCYTES # (AUTO) 0.9 X 10^3 (0.0-1.0); MONOCYTES % (AUTO) 4 % (0-12); NEUTROPHILS # (AUTO) 18.9 X 10^3 (1.8-7.8); NEUTROPHILS % (AUTO) 85 % (42-75); PLATELET COUNT 434 10^3/uL (130-400); RED BLOOD COUNT 4.42 10^6/uL (4.35-5.85); RED CELL DISTRIBUTION WIDTH 17.8 % (10.0-14.5); WHITE BLOOD COUNT 22.2 10^3/uL (4.3-11.0)
--- NOTE | 2017-12-23 22:19 | ED Abdominal Pain ---
General Chief Complaint: Abdominal/GI Problems Stated Complaint: ABD PAIN Source of Information: Patient Exam Limitations: No Limitations History of Present Illness Date Seen by Provider: Dec 23, 2017 Time Seen by Provider: 22:14 Initial Comments Patient is a 67-year-old male who is brought in by [facility] for complaints of nausea, vomiting for the past day. The patient is a resident of [facility] and the nursing staff reports that he's been complaining of abdominal pain for the past week and today he started vomiting coffee-ground emesis and having severe belching. EMS gave 4 mg of Zofran in route. Timing/Duration: 1 Day, 1 Week Location: [facility] Associated Symptoms: Nausea/Vomiting Allergies and Home Medications Allergies Coded Allergies: Penicillins (Verified Allergy, Unknown, 12/24/17) Patient Home Medication List Home Medication List Reviewed: Yes Review of Systems Review of Systems Constitutional: see HPI; No chills, No fever Gastrointestinal: See HPI, Abdominal Pain, Nausea, Vomiting (coffee-ground emesis) All Other Systems Reviewed Negative Unless Noted: Yes Past Setnjmx-Wllqii-Gcmvvv Hx Past Med/Social Hx: Reviewed Nursing Past Med/Soc Hx Patient Social History Recent Hopitalizations: No Past Medical History Surgeries: Yes Respiratory: Yes Chronic Bronchitis Cardiac: Yes Chronic Edema/Swelling, High Cholesterol, Hypertension Neurological: Yes Genitourinary: Yes Benign Prostatic Hyperpl Gastrointestinal: Yes Gastroesophageal Reflux Musculoskeletal: Yes Endocrine: Yes Diabetes, Insulin dep, Hypothyroidsim HEENT: No Psychosocial: Yes Depression Family Medical History Reviewed Nursing Family Hx Physical Exam Vital Signs Vital Signs - First Documented 12/23/17 21:55 Temp 96.8 Pulse 93 Resp 12 B/P (MAP) 112/60 (77) Pulse Ox 95 O2 Flow Rate 5.00 Capillary Refill : Height/Weight/BMI Height: 5'5.00" Weight: 500lbs. oz. [id number]; BMI Method:Stated General Appearance: WD/WN, no apparent distress, obese HEENT: PERRL/EOMI, normal ENT inspection, TMs normal, pharynx normal Respiratory: chest non-tender, lungs clear, normal breath sounds, no respiratory distress, no accessory muscle use Cardiovascular: regular rate, rhythm, no edema, no gallop, no JVD, no murmur Gastrointestinal: normal bowel sounds, soft, no organomegaly, no pulsatile mass , tenderness (left lower quadrant tenderness) Extremities: no pedal edema, no calf tenderness, other (patient is nonambulatory and has a history of polio and his legs are very atrophied.) Neurologic/Psychiatric: alert, normal mood/affect, oriented x 3 Skin: normal color, warm/dry Focused Exam Lactate Level 12/23/17 23:44: Lactic Acid Level 2.81*H Lactic Acid Level Laboratory Tests Test 12/23/17 23:44 Lactic Acid Level 2.81 MMOL/L (0.50-2.00) *H Progress/Results/Core Measures Results/Orders Lab Results Laboratory Tests Test 12/23/17 21:25 12/23/17 21:55 12/23/17 23:16 12/23/17 23:44 Range/Units Prothrombin Time 13.2 12.2-14.7 SEC INR Comment 1.0 0.8-1.4 Activated Partial Thromboplast Time 29 24-35 SEC White Blood Count 22.2 H 4.3-11.0 10^3/uL Red Blood Count 4.42 4.35-5.85 10^6/uL Hemoglobin 12.2 L 13.3-17.7 G/DL Hematocrit 40 40-54 % Mean Corpuscular Volume 91 80-99 FL Mean Corpuscular Hemoglobin 28 25-34 PG Mean Corpuscular Hemoglobin Concent 30 L 32-36 G/DL Red Cell Distribution Width 17.8 H 10.0-14.5 % Platelet Count 434 H 130-400 10^3/uL Mean Platelet Volume 11.6 H 7.4-10.4 FL Neutrophils (%) (Auto) 85 H 42-75 % Lymphocytes (%) (Auto) 10 L 12-44 % Monocytes (%) (Auto) 4 0-12 % Eosinophils (%) (Auto) 0 0-10 % Basophils (%) (Auto) 0 0-10 % Neutrophils # (Auto) 18.9 H 1.8-7.8 X 10^3 Lymphocytes # (Auto) 2.3 1.0-4.0 X 10^3 Monocytes # (Auto) 0.9 0.0-1.0 X 10^3 Eosinophils # (Auto) 0.1 0.0-0.3 10^3/uL Basophils # (Auto) 0.0 0.0-0.1 10^3/uL Neutrophils % (Manual) 50 % Lymphocytes % (Manual) 8 % Monocytes % (Manual) 2 % Eosinophils % (Manual) 0 % Basophils % (Manual) 0 % Band Neutrophils 40 % Anisocytosis SLIGHT Target Cells MARKED Sodium Level 141 135-145 MMOL/L Potassium Level 3.5 L 3.6-5.0 MMOL/L Chloride Level 93 L 98-107 MMOL/L Carbon Dioxide Level 35 H 21-32 MMOL/L Anion Gap 13 5-14 MMOL/L Blood Urea Nitrogen 19 H 7-18 MG/DL Creatinine 0.69 0.60-1.30 MG/DL Estimat Glomerular Filtration Rate > 60 BUN/Creatinine Ratio 28 Glucose Level 162 H 70-105 MG/DL Calcium Level 9.9 8.5-10.1 MG/DL Corrected Calcium 10.1 8.5-10.1 MG/DL Total Bilirubin 0.3 0.1-1.0 MG/DL Aspartate Amino Transf (AST/SGOT) 35 H 5-34 U/L Alanine Aminotransferase (ALT/SGPT) 45 0-55 U/L Alkaline Phosphatase 84 40-136 U/L Total Protein 9.9 H 6.4-8.2 GM/DL Albumin 3.8 3.2-4.5 GM/DL Amylase Level 440 H 25-125 U/L Lipase 2043 H 8-78 U/L Urine Color YELLOW Urine Clarity VERY CLOUDY H Urine pH 8 5-9 Urine Specific [place] 1.010 L 1.016-1.022 Urine Protein 1+ H NEGATIVE Urine Glucose (UA) NEGATIVE NEGATIVE Urine Ketones NEGATIVE NEGATIVE Urine Nitrite NEGATIVE NEGATIVE Urine Bilirubin NEGATIVE NEGATIVE Urine Urobilinogen NORMAL NORMAL MG/DL Urine Leukocyte Esterase 3+ H NEGATIVE Urine RBC (Auto) 5+ H NEGATIVE Urine RBC 10-25 H /HPF Urine WBC 5-10 H /HPF Urine Squamous Epithelial Cells 5-10 /HPF Urine Crystals NONE /LPF Urine Bacteria LARGE H /HPF Urine Casts NONE /LPF Urine Mucus SMALL H /LPF Urine Culture Indicated YES Lactic Acid Level 2.81 *H 0.50-2.00 MMOL/L Micro Results Microbiology 12/23/17 Blood Culture - Preliminary, Resulted No growth 12/23/17 Blood Culture - Preliminary, Resulted No growth 12/23/17 Urine Culture - Preliminary, Resulted Gram Negative Bacillus 1 My Orders Orders - KENTON KIDD Comprehensive Metabolic Panel (12/23/17 22:04) Lipase (12/23/17 22:04) Amylase (12/23/17 22:04) Ua Culture If Indicated (12/23/17 22:04) Saline Lock/Iv-Start (12/23/17 22:04) Cbc With Automated Diff (12/23/17 22:04) Ct Abdomen/Pelvis W (12/23/17 22:04) Manual Differential (12/23/17 21:55) Iohexol Injection (Omnipaque 350 Mg/Ml 1 (12/23/17 22:45) Ns (Ivpb) (Sodium Chloride 0.9%) (12/23/17 22:45) Promethazine Injection (Phenergan Injec (12/23/17 23:00) Promethazine Injection (Phenergan Injec (12/23/17 22:58) Chest 1 View, Ap/Pa Only (12/23/17 23:22) Blood Culture (12/23/17 23:22) Sputum Culture (12/23/17 23:22) Protime With Inr (12/23/17 23:22) Partial Thromboplastin Time (12/23/17 23:22) Vital Signs Adult Sepsis Patie Q15M (12/23/17 23:22) O2 (12/23/17 23:22) Remove Rings In Anticipation O (12/23/17 23:22) Lactic Acid Analyzer (12/23/17 23:22) Pantoprazole Injection (Protonix Injecti (12/23/17 23:30) Urine Culture (12/23/17 23:16) Medications Given in ED Vital Signs/I&O 12/23/17 21:55 Temp 96.8 Pulse 93 Resp 12 B/P (MAP) 112/60 (77) Pulse Ox 95 O2 Flow Rate 5.00 Progress Progress Note : Time: 23:00 Progress Note The patient is back from CT scan at this time. His coffee-ground emesis has turned to dark red blood. Protonix and Phenergan has been ordered. 2300: I have spoke to Dr. Patino at this time he agrees with plans for admission to the ICU. He recommends IV maintenance fluids at 125 an hour. I informed him that I will be starting the patient on Zosyn for antibiotic coverage. He was also informed that I would speak to Dr. MILLS for consult. 2340: I have consulted to Dr. MILLS at this time. He agrees with the use of Protonix drip. He recommends nothing by mouth status. Diagnostic Imaging Diagonstic Imaging: Xray, CT Plain Films/CT/US/NM/MRI: chest, abdomen, pelvis Comments NAME: ROMAN JAY [facility] REC#: [id number] PHYSICIAN: KENTON KIDD CC: KENTON KIDD; AMANDA MANTILLA MD Page 2 of 2 RADIOLOGY REPORT [place] CC: KENTON KIDD; AMANDA MANTILLA MD Page 1 of 2 RADIOLOGY REPORT NAME: ROMAN JAY [facility] REC#: [id number] PT STATUS: ADM IN : 1950 PHYSICIAN: KENTON KIDD ADMIT DATE: 12/23/17/ICU Signed Date of Exam: 12/23/17 CT ABDOMEN/PELVIS W PROCEDURE: CT abdomen and pelvis with contrast. TECHNIQUE: Multiple contiguous axial images were obtained through the abdomen and pelvis after administration of intravenous contrast. INDICATION: Abdominal pain, coffee-ground emesis There are no prior studies available for comparison. This exam is less than optimal. Due to the patient's body habitus, the lateral most aspects of the abdomen and pelvis were not included. There is marked distention of the stomach by gas and fluid. There is no sign of a mass to produce gastric outlet obstruction. The spleen is absent. The liver, gallbladder, kidneys, pancreas, adrenals, aorta and inferior vena cava show no sign of an acute abnormality. The images through the pelvis failed to show any sign of a mass or of a free fluid collection. There does seem to be generalized thickening of the wall of the rectosigmoid colon. This may be secondary to incomplete distention as there is no distortion of the pericolonic fat in this area to suggest edema/inflammation. The appendix was not well-visualized but there are no indirect signs of appendicitis. The urinary bladder and prostate gland are grossly unremarkable. The bone windows show no sign of a fracture or of a destructive lesion. There is degenerative disc and bony disease throughout the visualized thoracic and lumbar spine with the L4-5 and L5-S1 levels the most severely affected. There is also pronounced levoscoliosis of the thoracolumbar junction. The images through the lung bases do show that there is bibasilar pneumonia/atelectasis. Cardiomegaly noted as well. IMPRESSION: 1. There is marked distention of the stomach by gas and fluid. There is no sign of a mass to account for the gastric outlet obstruction, however. If further study is desired, either an upper GI exam or endoscopy would be recommended. Consideration should also be given to the insertion of an NG tube to decompress the stomach. 2. There is generalized thickening of the wall of the rectosigmoid portion of the colon. While this could be related to incomplete distention, the possibility that there is an element of mild colitis present should also be considered. 3. There is degenerative disc and bony disease throughout the visualized thoracic and lumbar spine. Pronounced levoscoliosis of the thoracolumbar junction is also noted. 4. There is bibasilar pneumonia/atelectasis. Dictated by: Dictated on workstation # [id number] Dict: 12/24/17 0612 Trans: 12/24/17 1105 Interpreted by: AMANDA MANTILLA MD Electronically signed by: AMANDA MANTILLA MD 12/24/17 1105 NAME: ROMAN JAY REC#: [id number] PHYSICIAN: KENTON KIDD CC: JUDI KIDD PAUL J MD Page 1 of 1 RADIOLOGY REPORT VIA [place] CC: JUDI KIDD PAUL J MD Page 1 of 1 RADIOLOGY REPORT NAME: ROMAN JAY [facility] REC#: [id number] PT STATUS: ADM IN : 1950 PHYSICIAN: KENTON KIDD ADMIT DATE: 12/23/17/ICU Signed Date of Exam: 12/23/17 CHEST 1 VIEW, AP/PA ONLY EXAMINATION: Portable semierect AP chest at 12 AM INDICATION: Abdominal pain This study is less than optimal due to the patient's body habitus. The heart is enlarged but stable when compared to 06/26/2009. The lungs, where visualized, are clear. However, the left retrocardiac region and the right lung base are not well penetrated. The mediastinum is prominent but similar to the prior study. The osseous structures are intact. There is gas in both the large and small bowel in a nonspecific fashion. IMPRESSION: 1. There is cardiomegaly but there is no evidence for an acute cardiopulmonary abnormality on this suboptimal exam. 2. Reportedly, CT of the abdomen and pelvis is pending for further study. Dictated by: Dictated on workstation # [id number] Dict: 12/24/1725 Trans: 12/24/17 1103 Interpreted by: AMANDA MANTILLA MD Electronically signed by: AMANDA MANTILLA MD 12/24/17 1103 Reviewed: Reviewed by Me Departure Communication (Admissions) Time/Spoke to Admitting Phy: 23:30 Dr. Patino Time/Spoke to Consulting Phy: 23:50 Dr. MILLS Impression Primary Impression: Duodenal mass Additional Impressions: Pancreatitis Upper GI bleed Pneumonia Disposition: HOME, SELF-CARE Condition: Stable/Unchanged Admissions Decision to Admit Reason: Admit from ER (General) Decision to Admit/Date: Dec 23, 2017 Time/Decision to Admit Time: 23:49 Departure-Patient Inst. Referrals: ANASTASIA MCCOY MD (PCP) Primary Care Physician [facility]/ (Family) Primary Care Physician KENTON KIDD Dec 23, 2017 22:19
[2017-12-23 22:26] LABS: ALANINE AMINOTRANSFERASE 45 U/L (0-55); ALBUMIN 3.8 GM/DL (3.2-4.5); ALKALINE PHOSPHATASE 84 U/L (40-136); AMYLASE 440 U/L (25-125); BILIRUBIN,TOTAL 0.3 MG/DL (0.1-1.0); BUN/CREATININE RATIO 28; CALCIUM 9.9 MG/DL (8.5-10.1); CARBON DIOXIDE 35 MMOL/L (21-32); CHLORIDE 93 MMOL/L (98-107); CREATININE SERUM 0.69 MG/DL (0.60-1.30); GFR ESTIMATED > 60; GLUCOSE 162 MG/DL (70-105); POTASSIUM 3.5 MMOL/L (3.6-5.0); SODIUM 141 MMOL/L (135-145); TOTAL PROTEIN 9.9 GM/DL (6.4-8.2)
[2017-12-23 22:42] LABS: BAND NEUTROPHILS 40 %; BASOPHILS % (MANUAL) 0 %; EOSINOPHILS % (MANUAL) 0 %; LIPASE 2043 U/L (8-78); LYMPHOCYTES % (MANUAL) 8 %; MONOCYTES % (MANUAL) 2 %; NEUTROPHILS % (MANUAL) 50 %
[2017-12-23 22:43] LABS: ANISOCYTOSIS SLIGHT; TARGET CELLS MARKED
[2017-12-23] MEDS ORDERED: NS 250 ML (IVPB) BAG IV ONE (22:45)
[2017-12-23] MEDS ORDERED: IOHEXOL 350 MG/ML 100 ML (OMNIPAQUE 350) VIAL IV ONE (22:45)
[2017-12-23] MEDS ORDERED: PROMETHAZINE INJ 25 MG/ML (PHENERGAN) AMP ONE (22:58)
[2017-12-23] MEDS ORDERED: PROMETHAZINE INJ 25 MG/ML (PHENERGAN) AMP IVP ONE (23:00)
[2017-12-23 23:23] LABS: BILIRUBIN,URINE NEGATIVE (NEGATIVE); CLARITY,URINE VERY CLOUDY; COLOR,URINE YELLOW; GLUCOSE, URINE (UA) NEGATIVE (NEGATIVE); KETONES,URINE NEGATIVE (NEGATIVE); LEUKOCYTE ESTERASE ,URINE 3+ (NEGATIVE); NITRITE,URINE NEGATIVE (NEGATIVE); PH,URINE 8 (5-9); PROTEIN,URINE 1+ (NEGATIVE); UROBILINOGEN,URINE NORMAL (NORMAL)
[2017-12-23 23:30] LABS: BACTERIA,URINE LARGE /HPF
[2017-12-23] MEDS ORDERED: PANTOPRAZOLE 40 MG (PROTONIX) VIAL IV ONE (23:30)
[2017-12-23 23:45] LABS: PROTHROMBIN TIME PATIENT 13.2 SEC (12.2-14.7)
[2017-12-24] VITALS (21 sets, daily range): BP systolic 108–148; BP diastolic 61–95
[2017-12-24] MEDS ORDERED: NS IV 1000 ML 1,000 ML ONE (00:09)
[2017-12-24] MEDS: NS IV 1000 ML 1,000 ML IV SCH ×5 (00:15→17:57)
[2017-12-24] MEDS ORDERED: PIPERACILLIN/TAZO 4.5 GM/NS 100 ML IV ONE ×2 (01:45)
[2017-12-24] MEDS ORDERED: PROMETHAZINE INJ 25 MG/ML (PHENERGAN) AMP IV PRN (01:45)
[2017-12-24] MEDS ORDERED: NS (IVPB) 50 ML ONE (02:10)
[2017-12-24] MEDS: PANTOPRAZOLE IV SCH ×4 (02:20→14:36)
[2017-12-24] MEDS: SODIUM CHLORIDE IV SCH ×4 (02:20→14:36)
[2017-12-24 03:31] LABS: BASOPHILS % (AUTO) 0 % (0-10); EOSINOPHILS % (AUTO) 0 % (0-10); HEMATOCRIT 39 % (40-54); LYMPHOCYTES # (AUTO) 0.8 X 10^3 (1.0-4.0); LYMPHOCYTES % (AUTO) 3 % (12-44); MEAN CORPUSCULAR HEMOGLOBIN 29 PG (25-34); MEAN CORPUSCULAR HGB CONC 31 G/DL (32-36); MEAN CORPUSCULAR VOLUME 92 FL (80-99); MEAN PLATELET VOLUME 11.6 FL (7.4-10.4); MONOCYTES # (AUTO) 0.5 X 10^3 (0.0-1.0); MONOCYTES % (AUTO) 2 % (0-12); NEUTROPHILS # (AUTO) 22.1 X 10^3 (1.8-7.8); NEUTROPHILS % (AUTO) 94 % (42-75); PLATELET COUNT 334 10^3/uL (130-400); RED CELL DISTRIBUTION WIDTH 17.6 % (10.0-14.5); WHITE BLOOD COUNT 23.4 10^3/uL (4.3-11.0)
[2017-12-24 03:53] LABS: ALANINE AMINOTRANSFERASE 43 U/L (0-55); ALBUMIN 3.6 GM/DL (3.2-4.5); ALKALINE PHOSPHATASE 78 U/L (40-136); BILIRUBIN,TOTAL 0.3 MG/DL (0.1-1.0); BUN/CREATININE RATIO 29; CALCIUM 9.3 MG/DL (8.5-10.1); CARBON DIOXIDE 28 MMOL/L (21-32); CHLORIDE 97 MMOL/L (98-107); CREATININE SERUM 0.65 MG/DL (0.60-1.30); GFR ESTIMATED > 60; GLUCOSE 160 MG/DL (70-105); POTASSIUM 3.8 MMOL/L (3.6-5.0); SODIUM 139 MMOL/L (135-145); TOTAL PROTEIN 9.2 GM/DL (6.4-8.2)
--- NOTE | 2017-12-24 06:29 | History & Physicial (CHS) ---
HPI History of Present Illness: 67-year-old male who is a resident [facility] [place] presents to via [facility] emergency department during the evening of December 23, 2017 after having coffee ground emesis and subsequently found to have hypoxia. Nurse at custodial reported placing him on 5 L of nasal cannula oxygen. He was brought to via [facility] emergency department by [facility] for evaluation. On further history as had abdominal discomfort over the past week. Source: RN/MD Exam Limitations: clinical condition Date seen by provider: Dec 24, 2017 Time Seen by Provider: 06:30 Attending Physician Gordon Mercer MD PCP Phillip Leblanc MD Consult Date of Admission Dec 23, 2017 at 23:45 Home Medications Home Medications Reviewed patient Home Medication Reconciliation performed by pharmacy medication reconciliations communications engineering technician and/or nursing. Patients Allergies have been reviewed. Allergies Coded Allergies: No Allergy Information Available (Unverified , 01/23/14) IPZ-Dxghug-Dxsysl Hx Patient Social History Alcohol Use: Denies Use Recreational Drug Use: No Smoking Status: Former Smoker Type Used: Cigarettes Recent Foreign Travel: No Contact w/other who traveled: No Recent Hopitalizations: No Recent Infectious Disease Expo: No Physical Abuse Screen: No Sexual Abuse: No Review of Systems (CHC) Constitutional: see HPI Reviewed Test Results Reviewed Test Results Lab Laboratory Tests Test 12/23/17 21:25 12/23/17 21:55 12/23/17 23:16 12/23/17 23:44 Range/Units Prothrombin Time 13.2 12.2-14.7 SEC INR Comment 1.0 0.8-1.4 Activated Partial Thromboplast Time 29 24-35 SEC White Blood Count 22.2 H 4.3-11.0 10^3/uL Red Blood Count 4.42 4.35-5.85 10^6/uL Hemoglobin 12.2 L 13.3-17.7 G/DL Hematocrit 40 40-54 % Mean Corpuscular Volume 91 80-99 FL Mean Corpuscular Hemoglobin 28 25-34 PG Mean Corpuscular Hemoglobin Concent 30 L 32-36 G/DL Red Cell Distribution Width 17.8 H 10.0-14.5 % Platelet Count 434 H 130-400 10^3/uL Mean Platelet Volume 11.6 H 7.4-10.4 FL Neutrophils (%) (Auto) 85 H 42-75 % Lymphocytes (%) (Auto) 10 L 12-44 % Monocytes (%) (Auto) 4 0-12 % Eosinophils (%) (Auto) 0 0-10 % Basophils (%) (Auto) 0 0-10 % Neutrophils # (Auto) 18.9 H 1.8-7.8 X 10^3 Lymphocytes # (Auto) 2.3 1.0-4.0 X 10^3 Monocytes # (Auto) 0.9 0.0-1.0 X 10^3 Eosinophils # (Auto) 0.1 0.0-0.3 10^3/uL Basophils # (Auto) 0.0 0.0-0.1 10^3/uL Neutrophils % (Manual) 50 % Lymphocytes % (Manual) 8 % Monocytes % (Manual) 2 % Eosinophils % (Manual) 0 % Basophils % (Manual) 0 % Band Neutrophils 40 % Anisocytosis SLIGHT Target Cells MARKED Sodium Level 141 135-145 MMOL/L Potassium Level 3.5 L 3.6-5.0 MMOL/L Chloride Level 93 L 98-107 MMOL/L Carbon Dioxide Level 35 H 21-32 MMOL/L Anion Gap 13 5-14 MMOL/L Blood Urea Nitrogen 19 H 7-18 MG/DL Creatinine 0.69 0.60-1.30 MG/DL Estimat Glomerular Filtration Rate > 60 BUN/Creatinine Ratio 28 Glucose Level 162 H 70-105 MG/DL Calcium Level 9.9 8.5-10.1 MG/DL Corrected Calcium 10.1 8.5-10.1 MG/DL Total Bilirubin 0.3 0.1-1.0 MG/DL Aspartate Amino Transf (AST/SGOT) 35 H 5-34 U/L Alanine Aminotransferase (ALT/SGPT) 45 0-55 U/L Alkaline Phosphatase 84 40-136 U/L Total Protein 9.9 H 6.4-8.2 GM/DL Albumin 3.8 3.2-4.5 GM/DL Amylase Level 440 H 25-125 U/L Lipase 2043 H 8-78 U/L Urine Color YELLOW Urine Clarity VERY CLOUDY H Urine pH 8 5-9 Urine Specific [place] 1.010 L 1.016-1.022 Urine Protein 1+ H NEGATIVE Urine Glucose (UA) NEGATIVE NEGATIVE Urine Ketones NEGATIVE NEGATIVE Urine Nitrite NEGATIVE NEGATIVE Urine Bilirubin NEGATIVE NEGATIVE Urine Urobilinogen NORMAL NORMAL MG/DL Urine Leukocyte Esterase 3+ H NEGATIVE Urine RBC (Auto) 5+ H NEGATIVE Urine RBC 10-25 H /HPF Urine WBC 5-10 H /HPF Urine Squamous Epithelial Cells 5-10 /HPF Urine Crystals NONE /LPF Urine Bacteria LARGE H /HPF Urine Casts NONE /LPF Urine Mucus SMALL H /LPF Urine Culture Indicated YES Lactic Acid Level 2.81 *H 0.50-2.00 MMOL/L Test 12/24/17 01:45 12/24/17 03:08 Range/Units Lactic Acid Level 3.06 *H 0.50-2.00 MMOL/L White Blood Count 23.4 H 4.3-11.0 10^3/uL Red Blood Count 4.20 L 4.35-5.85 10^6/uL Hemoglobin 12.0 L 13.3-17.7 G/DL Hematocrit 39 L 40-54 % Mean Corpuscular Volume 92 80-99 FL Mean Corpuscular Hemoglobin 29 25-34 PG Mean Corpuscular Hemoglobin Concent 31 L 32-36 G/DL Red Cell Distribution Width 17.6 H 10.0-14.5 % Platelet Count 334 130-400 10^3/uL Mean Platelet Volume 11.6 H 7.4-10.4 FL Neutrophils (%) (Auto) 94 H 42-75 % Lymphocytes (%) (Auto) 3 L 12-44 % Monocytes (%) (Auto) 2 0-12 % Eosinophils (%) (Auto) 0 0-10 % Basophils (%) (Auto) 0 0-10 % Neutrophils # (Auto) 22.1 H 1.8-7.8 X 10^3 Lymphocytes # (Auto) 0.8 L 1.0-4.0 X 10^3 Monocytes # (Auto) 0.5 0.0-1.0 X 10^3 Eosinophils # (Auto) 0.0 0.0-0.3 10^3/uL Basophils # (Auto) 0.0 0.0-0.1 10^3/uL Sodium Level 139 135-145 MMOL/L Potassium Level 3.8 3.6-5.0 MMOL/L Chloride Level 97 L 98-107 MMOL/L Carbon Dioxide Level 28 21-32 MMOL/L Anion Gap 14 5-14 MMOL/L Blood Urea Nitrogen 19 H 7-18 MG/DL Creatinine 0.65 0.60-1.30 MG/DL Estimat Glomerular Filtration Rate > 60 BUN/Creatinine Ratio 29 Glucose Level 160 H 70-105 MG/DL Calcium Level 9.3 8.5-10.1 MG/DL Corrected Calcium 9.6 8.5-10.1 MG/DL Total Bilirubin 0.3 0.1-1.0 MG/DL Aspartate Amino Transf (AST/SGOT) 34 5-34 U/L Alanine Aminotransferase (ALT/SGPT) 43 0-55 U/L Alkaline Phosphatase 78 40-136 U/L Total Protein 9.2 H 6.4-8.2 GM/DL Albumin 3.6 3.2-4.5 GM/DL Radiology NAME: ROMAN JAY [facility] REC#: [id number] PT STATUS: ADM IN : 1950 PHYSICIAN: KENTON KIDD ADMIT DATE: 12/23/17/ICU Draft Date of Exam:12/23/17 CHEST 1 VIEW, AP/PA ONLY EXAMINATION: Portable semierect AP chest at 12 AM INDICATION: Abdominal pain This study is less than optimal due to the patient's body habitus. The heart is enlarged but stable when compared to 06/26/2009. The lungs, where visualized, are clear. However, the left retrocardiac region and the right lung base are not well penetrated. The mediastinum is prominent but similar to the prior study. The osseous structures are intact. There is gas in both the large and small bowel in a nonspecific fashion. IMPRESSION: 1. There is cardiomegaly but there is no evidence for an acute cardiopulmonary abnormality on this suboptimal exam. 2. Reportedly, CT of the abdomen and pelvis is pending for further study. Dictated on workstation # [id number] Dict: 12/24/17 0625 Trans: 12/24/17 0635 [facility] [id number] Interpreted by: AMANDA MANTILLA MD Electronically signed by: Physical Exam-(CHC) Physical Exam Vital Signs VS - Last 72 Hours, by Label 12/23/17 12/23/17 12/23/17 12/24/17 21:55 23:51 23:52 00:46 Temp 96.8 97.8 96.8 Pulse 93 112 110 Resp 12 20 26 B/P (MAP) 112/60 (77) 0/0 163/99 Pulse Ox 95 90 92 93 O2 Delivery Nasal Cannula O2 Flow Rate 5.00 5.00 5.00 5.00 FiO2 90 12/24/17 12/24/17 12/24/17 12/24/17 01:00 01:20 01:30 01:45 Temp 97.4 Pulse 112 106 105 106 Resp B/P (MAP) 141/95 (110) 147/95 (112) 146/89 (108) Pulse Ox 95 100 99 O2 Delivery Nasal Cannula Nasal Cannula Nasal Cannula O2 Flow Rate 5.00 5.00 5.00 12/24/17 12/24/17 12/24/17 12/24/17 02:00 02:00 03:00 04:00 Temp 99.7 Pulse 108 96 98 Resp B/P (MAP) 148/92 (110) 123/85 (98) 124/78 (93) Pulse Ox 95 95 100 100 O2 Delivery Nasal Cannula Nasal Cannula Nasal Cannula Nasal Cannula O2 Flow Rate 5.00 5.00 4.00 4.00 12/24/17 12/24/17 12/24/17 12/24/17 04:00 05:00 06:07 07:20 Pulse 98 98 Resp B/P (MAP) 120/76 (91) 126/76 (93) 115/82 (93) Pulse Ox 100 96 96 93 O2 Delivery Nasal Cannula Nasal Cannula Nasal Cannula Vapotherm O2 Flow Rate 4.00 3.00 4.00 85.00 20.00 12/24/17 08:20 Temp 98.7 Pulse 100 Resp 14 B/P (MAP) 118/73 (88) Pulse Ox 97 O2 Delivery Vapotherm O2 Flow Rate 85.00 20.00 Capillary Refill : Less Than 3 Seconds General Appearance: no apparent distress Eyes: Bilateral Eye Normal Inspection Neck: supple Respiratory: crackles (in bases distant) Cardiovascular: regular rate, rhythm Gastrointestinal: soft, tenderness (slight in epigastrium) Rectal: deferred Back: normal inspection Neurologic/Psychiatric: oriented x 3 Skin: normal color Assessment/Plan Assessment/Plan Admission Dx 1. Acute pancreatitis 2. Upper GI bleed active 3. Pneumonia Admission Status: Inpatient Order (span 2 midnights) Reason for Inpatient Admission: Further evaluation of upper GI bleed as well as treatment of acute pancreatitis. Assessment & Plan 1. Acute pancreatitis -Patient to be placed on IV fluids at 125 mL per hour. -He will be nothing by mouth for now 2. Upper GI bleed active -. IV Protonix initiated in ED -Dr. Babb consulted and emergency room provider has contacted him 3. Pneumonia--clinically -Initiation of IV Zosyn -RT involvement Clinical Quality Measures DVT/VTE Risk/Contraindication: Risk Factor Score Per Nursin RFS Level Per Nursing on Admit: 3=High GORDON MERCER MD Dec 24, 2017 06:29
--- NOTE | 2017-12-24 06:32 | Diagnostic Imaging Report ---
PROCEDURE: CT abdomen and pelvis with contrast. TECHNIQUE: Multiple contiguous axial images were obtained through the abdomen and pelvis after administration of intravenous contrast. INDICATION: Abdominal pain, coffee-ground emesis There are no prior studies available for comparison. This exam is less than optimal. Due to the patient's body habitus, the lateral most aspects of the abdomen and pelvis were not included. There is marked distention of the stomach by gas and fluid. There is no sign of a mass to produce gastric outlet obstruction. The spleen is absent. The liver, gallbladder, kidneys, pancreas, adrenals, aorta and inferior vena cava show no sign of an acute abnormality. The images through the pelvis failed to show any sign of a mass or of a free fluid collection. There does seem to be generalized thickening of the wall of the rectosigmoid colon. This may be secondary to incomplete distention as there is no distortion of the pericolonic fat in this area to suggest edema/inflammation. The appendix was not well-visualized but there are no indirect signs of appendicitis. The urinary bladder and prostate gland are grossly unremarkable. The bone windows show no sign of a fracture or of a destructive lesion. There is degenerative disc and bony disease throughout the visualized thoracic and lumbar spine with the L4-5 and L5-S1 levels the most severely affected. There is also pronounced levoscoliosis of the thoracolumbar junction. The images through the lung bases do show that there is bibasilar pneumonia/atelectasis. Cardiomegaly noted as well. IMPRESSION: 1. There is marked distention of the stomach by gas and fluid. There is no sign of a mass to account for the gastric outlet obstruction, however. If further study is desired, either an upper GI exam or endoscopy would be recommended. Consideration should also be given to the insertion of an NG tube to decompress the stomach. 2. There is generalized thickening of the wall of the rectosigmoid portion of the colon. While this could be related to incomplete distention, the possibility that there is an element of mild colitis present should also be considered. 3. There is degenerative disc and bony disease throughout the visualized thoracic and lumbar spine. Pronounced levoscoliosis of the thoracolumbar junction is also noted. 4. There is bibasilar pneumonia/atelectasis. Dictated by: Dictated on workstation # [id number]
--- NOTE | 2017-12-24 06:35 | Diagnostic Imaging Report ---
EXAMINATION: Portable semierect AP chest at 12 AM INDICATION: Abdominal pain This study is less than optimal due to the patient's body habitus. The heart is enlarged but stable when compared to 06/26/2009. The lungs, where visualized, are clear. However, the left retrocardiac region and the right lung base are not well penetrated. The mediastinum is prominent but similar to the prior study. The osseous structures are intact. There is gas in both the large and small bowel in a nonspecific fashion. IMPRESSION: 1. There is cardiomegaly but there is no evidence for an acute cardiopulmonary abnormality on this suboptimal exam. 2. Reportedly, CT of the abdomen and pelvis is pending for further study. Dictated by: Dictated on workstation # [id number]
[2017-12-24] MEDS: PIPERACILLIN/TAZO 4.5 GM/NS 100 ML IV SCH ×4 (08:16→16:04)
--- NOTE | 2017-12-24 12:22 | CONSULTATION REPORT ---
DATE OF SERVICE: 12/24/2017 ATTENDING PRIMARY CARE PHYSICIAN: [facility]. ADMITTING PHYSICIAN: Dr. Patino. HISTORY OF PRESENT ILLNESS: The patient is a 67-year-old male with multiple medical problems and a resident of a [facility] facility. He was brought in by EMS for coffee ground emesis and shortness of breath. He is a continuously oxygen dependent and has a history of polio, which has caused lower extremity weakness and is currently bedridden. He also has other medical history including morbid obesity, COPD, peptic ulcer disease as well as a history of recurrent pneumonia. Upon this admission, a CT scan was performed, which did show pneumonia. There were no obstructing lesions identified within the stomach; however, he did have significant episodes of hematemesis in the Emergency Department. This appears to be consistent with a gastric or duodenal ulcer; however, since being admitted, he has not had any episodes of nausea nor vomiting. He reports his last bowel movement was yesterday and was normal and did not report any dark stools or red blood per rectum. Since being admitted, also his abdomen has decompressed and he states that he is feeling better. His hemoglobin is stable at 12.0 with a hematocrit of 39. PAST MEDICAL HISTORY: Hypertension, hypercholesterolemia, COPD, bilateral lower extremity edema and chronic venous insufficiency, benign prostatic hypertrophy, insulin-dependent diabetes, hypothyroid, depression, history of polio and bedridden. PAST SURGICAL HISTORY: The patient states none. ALLERGIES: No allergy information is available at this time. MEDICATIONS: He does state that he takes an acid telephony engineer daily as well as stool softeners daily. SOCIAL HISTORY: He states a history of smoking in the past. No alcohol. FAMILY HISTORY: Noncontributory. REVIEW OF SYSTEMS: This is a morbidly obese male, who is awake and alert and states that he feels better from yesterday. He has not had any episodes of nausea or vomiting since admission. He reports mild discomfort in the abdomen; however, not severe. His last bowel movement was yesterday and he remembers it to be normal in color and consistency. He does not recall any red blood per rectum nor any dark tarry stools. He does have shortness of breath at all the time and is oxygen dependent continuously. He also has a chronic cough; however, this has worsened recently. No fever or chills. No recent inadvertent weight loss. All other review of systems are negative. PHYSICAL EXAMINATION: VITAL SIGNS: Temperature 98.7, pulse 101, blood pressure 122/71, respirations 17, pulse ox 96% on Vapotherm oxygen delivery at 20% FiO2. CHEST: Scattered rales, rhonchi and distant breath sounds bilaterally. HEART: Regular rhythm. No murmurs. EXTREMITIES: +3/3 bilateral lower extremity edema with chronic venous insufficiency changes. Negative Homans sign. HEENT: No scleral icterus. NECK: No cervical lymphadenopathy. ABDOMEN: Soft, nondistended. There is mild discomfort in the mid gastric region upon deep palpation. No peritoneal signs. SKIN: Warm and dry. LABORATORY DATA: WBC 23.4, hemoglobin 12.0, hematocrit 39, platelets 334. ASSESSMENT AND PLAN: A 67-year-old male with multiple medical problems. On this admission, he reported hematemesis as well as nausea and vomiting. Since being admitted, he has felt better. He does report a history of peptic ulcer disease and does take an acid telephony engineer at home. This most likely represents gastric or duodenal bleeding as well as possible H. pylori infection as well as possibility of gastroesophageal varices. We will proceed with EGD and biopsy on this admission. Job ID: [id number] DocumentID: [id number] Dictated Date: 12/24/2017 11:13:51 Control Clerk [employer] Date: 12/24/2017 12:21:53 Dictated By: CHELE MILLS MD
[2017-12-24 12:45] LABS: ABG BASE EXCESS 6.4 MMOL/L (-2.5-2.5); ABG OXYGEN SATURATION 96 % (94-100); ABG PO2 91 MMHG (79-93); ABG TCO2 34.9 MMOL/L (21.0-31.0)
[2017-12-24 12:48] LABS: ABG PCO2 71 MMHG (35-45); ABG PH 7.29 (7.37-7.43)
[2017-12-24 12:49] LABS: ALLENS TEST YES-POS; INSPIRED O2 100%; VENTILATOR YES
[2017-12-24] MEDS ORDERED: FLU QUADRIvalent (5+ YOA) 2018-2019 (AFLURIA) 0.5 ML IM ONE (16:30)
--- NOTE | 2017-12-24 18:29 | Conscious Sedation/ASA ---
Conscious Sedation Pre-Proced Time Reviewed: 18:00 ASA Class: 4 Airway Mallampati Classification: (burns paiute appropriate class) I. II. III, IV Lungs Heart ASA score ASA 1: a normal healthy patient ASA 2: a patient with a mild systemic disease (mid diabetes, controlled hypertension, obesity ASA 3: a patient with a severe systemic disease that limits activity (angina , COPD, prior Myocardial infarction) ASA 4: a patient with an incapacitating disease that is a constant threat to life (CHF, renal failure) ASA 5: a moribund patient not expected to survive 24 hrs. (ruptured aneurysm) ASA 6: a declared brain patient whose organs are being harvested. For emergent operations, add the letter E after the classification Grade 3 Sedation Plan: Analgesia, Amnesia, Plan communicated to team members, Discussed options with patient/fam, Discussed risks with patient/fam Note The patient is an appropriate candidate to undergo the planned procedure, sedation, and anesthesia. The patient immediately re-assessed prior to indication. CHELE MILLS MD Dec 24, 2017 18:29
--- NOTE | 2017-12-24 18:30 | Progress Note-Pre Operative ---
Pre-Operative Progress Note H&P Reviewed The H&P was reviewed, patient examined and no changes noted. Date Seen by Provider: Dec 24, 2017 Time Seen by Provider: 18:00 Date H&P Reviewed: Dec 24, 2017 Time H&P Reviewed: 18:00 Pre-Operative Diagnosis: upper GI bleed CHELE MILLS MD Dec 24, 2017 18:30
[2017-12-25] VITALS (7 sets, daily range): BP systolic 105–128; BP diastolic 60–87
[2017-12-25] MEDS: PIPERACILLIN/TAZO 4.5 GM/NS 100 ML IV SCH ×6 (01:01→18:58)
[2017-12-25] MEDS: NS IV 1000 ML 1,000 ML IV SCH ×4 (02:39→18:58)
[2017-12-25 03:41] LABS: BASOPHILS % (AUTO) 0 % (0-10); EOSINOPHILS # (AUTO) 0.2 10^3/uL (0.0-0.3); EOSINOPHILS % (AUTO) 1 % (0-10); HEMATOCRIT 35 % (40-54); HEMOGLOBIN 10.4 G/DL (13.3-17.7); LYMPHOCYTES # (AUTO) 1.6 X 10^3 (1.0-4.0); LYMPHOCYTES % (AUTO) 7 % (12-44); MEAN CORPUSCULAR HEMOGLOBIN 28 PG (25-34); MEAN CORPUSCULAR HGB CONC 30 G/DL (32-36); MEAN CORPUSCULAR VOLUME 94 FL (80-99); MEAN PLATELET VOLUME 11.4 FL (7.4-10.4); MONOCYTES # (AUTO) 0.7 X 10^3 (0.0-1.0); MONOCYTES % (AUTO) 3 % (0-12); NEUTROPHILS # (AUTO) 19.5 X 10^3 (1.8-7.8); NEUTROPHILS % (AUTO) 88 % (42-75); PLATELET COUNT 324 10^3/uL (130-400); RED BLOOD COUNT 3.74 10^6/uL (4.35-5.85); RED CELL DISTRIBUTION WIDTH 17.8 % (10.0-14.5); WHITE BLOOD COUNT 22.1 10^3/uL (4.3-11.0)
[2017-12-25 04:05] LABS: ALANINE AMINOTRANSFERASE 25 U/L (0-55); ALKALINE PHOSPHATASE 58 U/L (40-136); AMYLASE 58 U/L (25-125); BILIRUBIN,TOTAL 0.6 MG/DL (0.1-1.0); BUN/CREATININE RATIO 26; CALCIUM 8.2 MG/DL (8.5-10.1); CARBON DIOXIDE 30 MMOL/L (21-32); CHLORIDE 102 MMOL/L (98-107); CREATININE SERUM 0.61 MG/DL (0.60-1.30); GFR ESTIMATED > 60; GLUCOSE 120 MG/DL (70-105); LIPASE 51 U/L (8-78); POTASSIUM 3.5 MMOL/L (3.6-5.0); SODIUM 138 MMOL/L (135-145); TOTAL PROTEIN 7.6 GM/DL (6.4-8.2)
--- NOTE | 2017-12-25 07:59 | Progress Note (SOAP) ---
Subjective Subjective/Events-last exam Patient communicating well this morning. He does not admit to any pain. There is been no reports of any hematemesis. Review of Systems Date Seen by Provider: Dec 25, 2017 Time Seen by Provider: 06:15 Focused Exam Lactate Level 12/23/17 23:44: Lactic Acid Level 2.81*H 12/24/17 01:45: Lactic Acid Level 3.06*H Objective Exam Last Set of Vital Signs Vital Signs Date Time Temp Pulse Resp B/P (MAP) Pulse Ox O2 Delivery O2 Flow Rate FiO2 12/25/17 07:00 90 12/25/17 04:00 100.2 16 125/87 (100) 94 Vapotherm 85.00 35.00 12/25/17 01:16 85 Capillary Refill : Less Than 3 Seconds I&O Intake and Output 12/25/17 00:00 Intake Total 5040 ml Output Total 375 ml Balance 4665 ml Intake Oral 390 ml IV Total 4650 ml Output Urine Total 375 ml # Voids 5 Daily Weight Change No General: No Acute Distress Neck: Supple Lungs: Clear to Auscultation Heart: Regular Rate Abdomen: Soft (And he appears to have no tenderness) Results/Procedures Lab Laboratory Tests 12/24/17 12:40: Blood Gas Puncture Site RT RADIAL, Blood Gas Patient Temperature 99.0, Arterial Blood pH 7.29*L, Arterial Blood Partial Pressure CO2 71*H, Arterial Blood Partial Pressure O2 91, Arterial Blood HCO3 33H, Arterial Blood Total CO2 34.9H , Arterial Blood Oxygen Saturation 96, Arterial Blood Base Excess 6.4H, Scott Test YES-POS, Blood Gas Ventilator Setting YES, Blood Gas Inspired Oxygen 100% 12/25/17 03:30: White Blood Count 22.1H, Red Blood Count 3.74L, Hemoglobin 10.4L, Hematocrit 35L , Mean Corpuscular Volume 94, Mean Corpuscular Hemoglobin 28, Mean Corpuscular Hemoglobin Concent 30L, Red Cell Distribution Width 17.8H, Platelet Count 324, Mean Platelet Volume 11.4H, Neutrophils (%) (Auto) 88H, Lymphocytes (%) (Auto) 7L, Monocytes (%) (Auto) 3, Eosinophils (%) (Auto) 1, Basophils (%) (Auto) 0, Neutrophils # (Auto) 19.5H, Lymphocytes # (Auto) 1.6, Monocytes # (Auto) 0.7, Eosinophils # (Auto) 0.2, Basophils # (Auto) 0.0, Sodium Level 138, Potassium Level 3.5L, Chloride Level 102, Carbon Dioxide Level 30, Anion Gap 6, Blood Urea Nitrogen 16, Creatinine 0.61, Estimat Glomerular Filtration Rate > 60, BUN/ Creatinine Ratio 26, Glucose Level 120H, Calcium Level 8.2L, Corrected Calcium 9.0, Total Bilirubin 0.6, Aspartate Amino Transf (AST/SGOT) 22, Alanine Aminotransferase (ALT/SGPT) 25, Alkaline Phosphatase 58, Total Protein 7.6, Albumin 3.0L, Amylase Level 58, Lipase 51 Microbiology 12/23/17 Blood Culture - Preliminary, Resulted No growth 12/23/17 Urine Culture - Preliminary, Resulted Gram Negative Bacillus 1 Radiology NAME: [facility] REC#: [id number] PT STATUS: ADM IN : 1950 PHYSICIAN: KENTON KIDD ADMIT DATE: 12/23/17/ICU Draft Date of Exam:12/23/17 CHEST 1 VIEW, AP/PA ONLY EXAMINATION: Portable semierect AP chest at 12 AM INDICATION: Abdominal pain This study is less than optimal due to the patient's body habitus. The heart is enlarged but stable when compared to 06/26/2009. The lungs, where visualized, are clear. However, the left retrocardiac region and the right lung base are not well penetrated. The mediastinum is prominent but similar to the prior study. The osseous structures are intact. There is gas in both the large and small bowel in a nonspecific fashion. IMPRESSION: 1. There is cardiomegaly but there is no evidence for an acute cardiopulmonary abnormality on this suboptimal exam. 2. Reportedly, CT of the abdomen and pelvis is pending for further study. Dictated on workstation # [id number] Dict: 12/24/1725 Trans: 12/24/17 0635 BARBARA [id number] Interpreted by: AMANDA MANTILLA MD Electronically signed by: Assessment/Plan Assessment/Plan Assessment & Plan 1. Acute pancreatitis -Patient to be placed on IV fluids at 125 mL per hour. -He will be nothing by mouth for now 12/25 -Patient continues to be nothing by mouth 2. Upper GI bleed active -. IV Protonix initiated in ED -Dr. Babb consulted and emergency room provider has contacted him 12/25 -Patient is have an upper endoscopy this morning 3. Pneumonia--clinically -Initiation of IV Zosyn -RT involvement 12/25 -Patient currently on Vapotherm and doing well Clinical Quality Measures DVT/VTE Risk/Contraindication: Risk Factor Score Per Nursin RFS Level Per Nursing on Admit: 3=High JULIA MERCER MD Dec 25, 2017 07:59
[2017-12-25] MEDS ORDERED: LIDOCAINE JELLY 2% (XYLOCAINE) 5 ML TUBE ONE (09:57)
[2017-12-25] MEDS ORDERED: HURRICAINE EXT TUBE (BENZOCAINE) ONE (09:57)
[2017-12-25] MEDS ORDERED: MIDAZOLAM 2 MG/2 ML (VERSED) VIAL ONE ×3 (09:57)
[2017-12-25] MEDS ORDERED: fentaNYL INJECTION 100 MCG/2 ML AMP ONE (09:57)
--- NOTE | 2017-12-25 11:12 | Progress Note-Post Operative ---
Post-Operative Progess Note Surgeon (s)/Caseworker Intake (s) Surgeon CHELE MILLS MD Caseworker Intake: none Pre-Operative Diagnosis upper GI bleed Post-Operative Diagnosis reflux esophagitis(stage 2), no HH, moderate gastritis, small chronic duodenal ulcer with overlying fibrin clot, no active bleed. Procedure & Operative Findings Date of Procedure 12/25/17 Procedure Performed/Findings EGD with bx. Anesthesia Type CS Estimated Blood Loss Estimated blood loss (mL): minimal Specimens/Packing Specimens Removed antrum, GE jxn CHELE MILLS MD Dec 25, 2017 11:12
[2017-12-25] MEDS ORDERED: MAG30ORA2 PO (12:08)
[2017-12-25] MEDS ORDERED: MAGN30OR PO (12:08)
[2017-12-25] MEDS ORDERED: ALBU2.5V4 NEB (12:08)
[2017-12-25] MEDS ORDERED: BUDE0.5A7 NEB (12:08)
[2017-12-25] MEDS ORDERED: LOSA50TA7 PO (12:08)
[2017-12-25] MEDS ORDERED: MENT118G (12:08)
[2017-12-25] MEDS ORDERED: FEXO-45 PO (12:08)
[2017-12-25] MEDS ORDERED: IBUP-1780 PO (12:08)
[2017-12-25] MEDS ORDERED: LOPE-134 PO (12:08)
[2017-12-25] MEDS ORDERED: LACT1CAP64 PO (12:08)
[2017-12-25] MEDS ORDERED: HYDR25TA4 PO (12:08)
[2017-12-25] MEDS ORDERED: METO-370 PO (12:08)
[2017-12-25] MEDS ORDERED: IBUP-2055 PO (12:08)
[2017-12-25] MEDS ORDERED: DOCU-143 PO (12:08)
[2017-12-25] MEDS ORDERED: DIPH28CR8 TP (12:08)
[2017-12-25] MEDS ORDERED: MONT10TA21 PO (12:08)
[2017-12-25] MEDS ORDERED: SERT100T PO (12:08)
[2017-12-25] MEDS ORDERED: ASPI-586 PO (12:08)
[2017-12-25] MEDS ORDERED: GABA-486 PO (12:08)
[2017-12-25] MEDS ORDERED: DULA1.5P2 SQ (12:08)
[2017-12-25] MEDS: PANTOPRAZOLE IV SCH ×2 (12:59)
[2017-12-25] MEDS: SODIUM CHLORIDE IV SCH ×2 (12:59)
[2017-12-25] MEDS ORDERED: NALOXONE 0.4 MG/ML 1 ML (NARCAN) VIAL IVP PRN (13:15)
[2017-12-25] MEDS ORDERED: MIDAZOLAM 2 MG/2 ML (VERSED) VIAL IVP ONE (13:15)
[2017-12-25] MEDS ORDERED: LIDOCAINE JELLY 2% (XYLOCAINE) 5 ML TUBE MM PRN (13:15)
[2017-12-25] MEDS ORDERED: FLUMAZENIL (ROMAZICON) 0.1 MG/ML 5 ML VIAL INJ PRN (13:15)
[2017-12-25] MEDS ORDERED: fentaNYL INJECTION 100 MCG/2 ML AMP IVP ONE (13:15)
[2017-12-25] MEDS ORDERED: HURRICAINE EXT TUBE (BENZOCAINE) XX PRN (13:15)
[2017-12-25] MEDS ORDERED: cefTRIAXone FOR IV USE 1,000 MG in NS (IVPB) 50 ML IV SCH ×2 (17:15→20:30)
[2017-12-25] MEDS ORDERED: NS (IVPB) 50 ML ONE (17:21)
--- NOTE | 2017-12-25 17:26 | OPERATIVE REPORT ---
DATE OF SERVICE: 12/25/2017 ATTENDING PRIMARY CARE PHYSICIAN: [facility]. PREOPERATIVE DIAGNOSIS: Hematemesis. POSTOPERATIVE DIAGNOSES: Chronic duodenal ulcer, overlying fibrin clot, no active bleeding. Moderate gastritis, reflux esophagitis stage II, no hiatal hernia. PROCEDURE: EGD with biopsy. SURGEON: Chele Mills MD ANESTHESIA: Conscious sedation. ESTIMATED BLOOD LOSS: Minimal. FINDINGS: Reflux esophagitis stage II with no ulcerations or strictures. No hiatal hernia was identified. There was a moderate severity gastritis. No gastric bleeding sources. At the first portion of the duodenum, an area of slightly heaped up mucosa as well as a central base with overlying clot identified. This was small, approximately 4 mm in size. There is no active bleeding identified. There were no distal obstructions. DISPOSITION: The patient tolerated the procedure well. INDICATIONS: The patient is a 67-year-old male with multiple medical problems and a resident of a custodial facility. He was brought in by EMS for coffee-ground emesis as well as shortness of breath. He is continuously oxygen dependent with history of morbid obesity, COPD, peptic ulcer disease as well as history of recurrent pneumonias. A CT scan was performed, which did show an active pneumonia. There were no obstructing lesions identified at the upper gastrointestinal tract; however, he did have a significant amount of hematemesis in the Emergency Department, which was consistent with a gastric or duodenal ulcer as well as the possibility of H. pylori. His hemoglobin has been stable since admission. DESCRIPTION OF PROCEDURE: The patient remained in the ICU and under conscious sedation anesthesia, the mouthpiece was applied. The endoscope was placed in the mouth visualizing the pharynx and hypopharyngeal region. Vocal cords, epiglottis and vallecula identified and appeared to be normal. The endoscope was then gently intubated at the esophageal opening and esophagus insufflated. The endoscope was then advanced through the first, second and third portions of the esophagus at the level of the GE junction, a reflux esophagitis stage II identified with no ulcers or strictures identified in this region. A biopsy was taken with forceps with visualization of good hemostasis. The endoscope was then easily advanced in the stomach and endoscope retroflexed. There is no significant hiatal hernia identified. There was a moderate severity gastritis, which was diffuse. There were no gastric ulcerations, polyps or any bleeding sources. A biopsy was taken of the stomach antrum for H. pylori with visualization of good hemostasis. The endoscope was then advanced through the pyorus and duodenum. A small duodenal ulcer approximately 4 mm in size was identified with overlying fibrin clot, no active bleeding. There were no distal obstructions. The endoscope was then slowly withdrawn while taking a second look and suctioning of residual air with no additional findings. The patient tolerated the procedure well. We will recommend conservative medical management for he is not a surgical candidate. At this time, we do not have his medication list from his custodial facility. If he is not on a proton pump inhibitor, we will recommend that he does take one on a daily basis. We will also await the biopsy results for potential H. pylori and if positive, proceed with triple antibiotic therapy for 2 weeks. It would be ideal to proceed with a followup EGD to monitor the response in 6 weeks; however, this may be difficult due to his nonambulatory status. We will continue to follow his progress. Job ID: [id number] DocumentID: [id number] Dictated Date: 12/25/2017 11:11:26 Bridge Welder Date: 12/25/2017 17:26:32 Dictated By: CHELE MILLS MD [facility]
[2017-12-25] MEDS: ONDANSETRON 4 MG/2 ML (SDV) Z0FRAN IV PRN (20:57)
[2017-12-26] VITALS (13 sets, daily range): BP systolic 99–121; BP diastolic 55–76
[2017-12-26] MEDS: RT-ALBUTEROL/IPRATROPIUM 3 ML (DUONEB) VIAL INH SCH ×6 (02:45→22:15)
[2017-12-26] MEDS: PIPERACILLIN/TAZO 4.5 GM/NS 100 ML IV SCH ×6 (03:06→19:56)
[2017-12-26] MEDS: NS IV 1000 ML 1,000 ML IV SCH (03:16)
[2017-12-26 03:27] LABS: BASOPHILS % (AUTO) 0 % (0-10); EOSINOPHILS # (AUTO) 0.7 10^3/uL (0.0-0.3); EOSINOPHILS % (AUTO) 3 % (0-10); HEMATOCRIT 32 % (40-54); HEMOGLOBIN 9.7 G/DL (13.3-17.7); LYMPHOCYTES # (AUTO) 1.7 X 10^3 (1.0-4.0); LYMPHOCYTES % (AUTO) 7 % (12-44); MEAN CORPUSCULAR HEMOGLOBIN 29 PG (25-34); MEAN CORPUSCULAR HGB CONC 30 G/DL (32-36); MEAN CORPUSCULAR VOLUME 94 FL (80-99); MEAN PLATELET VOLUME 11.8 FL (7.4-10.4); MONOCYTES % (AUTO) 4 % (0-12); NEUTROPHILS # (AUTO) 19.8 X 10^3 (1.8-7.8); NEUTROPHILS % (AUTO) 85 % (42-75); PLATELET COUNT 274 10^3/uL (130-400); RED BLOOD COUNT 3.39 10^6/uL (4.35-5.85); RED CELL DISTRIBUTION WIDTH 17.6 % (10.0-14.5); WHITE BLOOD COUNT 23.2 10^3/uL (4.3-11.0)
[2017-12-26 03:47] LABS: ALANINE AMINOTRANSFERASE 23 U/L (0-55); ALKALINE PHOSPHATASE 57 U/L (40-136); BILIRUBIN,TOTAL 0.4 MG/DL (0.1-1.0); BUN/CREATININE RATIO 24; CALCIUM 8.2 MG/DL (8.5-10.1); CARBON DIOXIDE 30 MMOL/L (21-32); CHLORIDE 102 MMOL/L (98-107); CREATININE SERUM 0.59 MG/DL (0.60-1.30); GFR ESTIMATED > 60; GLUCOSE 109 MG/DL (70-105); POTASSIUM 3.3 MMOL/L (3.6-5.0); SODIUM 140 MMOL/L (135-145); TOTAL PROTEIN 7.7 GM/DL (6.4-8.2)
[2017-12-26 05:45] LABS: ABG BASE EXCESS 6.4 MMOL/L (-2.5-2.5); ABG OXYGEN SATURATION 95 % (94-100); ABG PO2 80 MMHG (79-93); ABG TCO2 35.1 MMOL/L (21.0-31.0)
[2017-12-26 05:47] LABS: ABG PH 7.28 (7.37-7.43)
[2017-12-26 05:48] LABS: ABG PCO2 73 MMHG (35-45); ALLENS TEST YES-POS; INSPIRED O2 38L/8M; VENTILATOR NO
[2017-12-26 05:49] LABS: PATIENT TEMP 98.7
[2017-12-26] MEDS ORDERED: KCL 20 MEQ POWDER FOR ORAL SOLUTION PO NR (06:30)
--- NOTE | 2017-12-26 06:30 | Pulmonary Consultation ---
History of Present Illness History of Present Illness Date of Consultation 12/26/17 06:25 Time Seen by Provider: 06:25 Date of Admission History of Present Illness 67yo with hx morbid obesity, severe debility/bed bound, polio as a child and is from [facility] presented to ED on 12/23 secondary to coffee ground emesis and then found to be hypoxic. Pt was admitted to ICU and has continued to decline. He is requiring oxygen at 80% Fi02 via Vapotherm. CXR shows worsening infiltration with opacification of left lung. Unable to obtain full ROS secondary respiratory distress and he is difficult to understand. PT is a full DNR and currently refusing BiPAP. Allergies and Home Medications Allergies Coded Allergies: Penicillins (Verified Allergy, Unknown, 12/24/17) Home Medications Albuterol Sulfate 2.5 Mg/3 Ml Vial.neb, 2.5 MG IH Q4H AND PRN PRN for COUGH, ( Reported) Aspirin 81 Mg Tablet.dr, 81 MG PO DAILY, (Reported) Budesonide 0.5 Mg/2 Ml Ampul.neb, 0.5 MG IH BID, (Reported) Diphenhydramine HCl/Zinc Acet 28 Gm Cream..g., 28 GM TP BID, (Reported) Docusate Sodium 100 Mg Capsule, 100 MG PO BID, (Reported) Dulaglutide 1.5 Mg/0.5 Ml Pen.injctr, 1.5 MG SQ Q7DAYS, (Reported) Fexofenadine HCl 60 Mg Tablet, 60 MG PO DAILY, (Reported) Gabapentin 100 Mg Capsule, 100 MG PO BID, (Reported) Hydrochlorothiazide 25 Mg Tablet, 25 MG PO DAILY, (Reported) Ibuprofen 800 Mg Tablet, 800 MG PO Q6H PRN for HEADACHE, (Reported) Ibuprofen 200 Mg Tablet, 200 MG PO BID PRN for PAIN-MILD, (Reported) Lactobacillus Combo No.11 1 Each Cap.sprink, 1 EACH PO DAILY, (Reported) Loperamide HCl 2 Mg Tablet, 2 MG PO PRN, (Reported) Losartan Potassium 50 Mg Tablet, 50 MG PO DAILY, (Reported) Mag Hydrox/Al Hydrox/Simeth 30 Ml Oral.susp, 30 ML PO QID PRN for INDIGESTION, ( Reported) Magnesium Hydroxide/Al Hydrox 30 Ml Oral.susp, 30 ML PO Q6H PRN for CONSTIPATION -1ST LINE, (Reported) Menthol 118 Ml Gel..ml., 118 ML TP Q12H, (Reported) Metoprolol Succinate 50 Mg Tab.er.24h, 50 MG PO DAILY, (Reported) Montelukast Sodium 10 Mg Tablet, 10 MG PO DAILY, (Reported) Sertraline HCl 100 Mg Tablet, 100 MG PO DAILY, (Reported) Past Lqlvxgb-Ygmzdg-Znxjli Hx Past Med/Social Hx: Reviewed Nursing Past Med/Soc Hx Patient Social History Alcohol Use: Denies Use Number of Drinks Today: AA Recreational Drug Use: No Smoking Status: Former Smoker Type Used: Cigarettes Former Smoker, Quit: Oct 24, 2015 Recent Foreign Travel: No Contact w/Someone Who Travel: No Recent Infectious Disease Expo: No Recent Hopitalizations: No Physical Abuse: No Sexual Abuse: No Past Medical History Surgeries: No Respiratory: Yes Chronic Bronchitis Currently Using CPAP: No Currently Using BIPAP: No Cardiac: Yes Chronic Edema/Swelling, High Cholesterol, Hypertension Neurological: Yes (POLIO) Genitourinary: Yes Benign Prostatic Hyperpl Gastrointestinal: Yes Gastroesophageal Reflux Musculoskeletal: Yes (POLIO, UNABLE TO WALK) Endocrine: Yes Diabetes, Insulin dep, Hypothyroidsim HEENT: No Cancer: No Psychosocial: Yes Depression Integumentary: No Blood Disorders: No Family Medical History Reviewed Nursing Family Hx Review of Systems Time Seen by Provider: 06:45 Sepsis Event Evaluation Height, Weight, BMI Height: 5'3.00" Weight: 320lbs. 4.0oz. 145.646545wj; 55.5 BMI Method:Estimated Exam Exam Vital Signs Date Time Temp Pulse Resp B/P (MAP) Pulse Ox O2 Delivery O2 Flow Rate FiO2 12/26/17 05:02 91 Vapotherm 35.00 70 12/26/17 04:50 89 22 92 Vapotherm 80.00 38.00 12/26/17 03:15 97.4 96 22 121/76 (91) 100 Vapotherm 70.00 35.00 12/26/17 02:45 90 Vapotherm 35.00 70 12/26/17 02:44 Vapotherm 35.00 70 12/26/17 01:00 95 12/26/17 00:00 97.8 92 28 119/65 (83) 93 Vapotherm 70.00 35.00 12/25/17 22:57 96 93 70 9/23/18 21:00 Vapotherm 35.00 70 12/25/17 20:30 93 Vapotherm 35.00 70 12/25/17 20:00 98.9 12/25/17 20:00 90 18 108/60 (76) 95 Vapotherm 70.00 35.00 12/25/17 19:00 96 12/25/17 15:59 98.2 97 28 114/78 (90) 98 Vapotherm 70.00 35.00 12/25/17 14:16 Vapotherm 35.00 70 12/25/17 13:00 93 12/25/17 12:50 98.3 Vapotherm 70.00 35.00 12/25/17 12:00 101 20 105/79 (88) 95 Vapotherm 70.00 35.00 12/25/17 09:15 94 35.00 70 12/25/17 09:10 100 Vapotherm 35.00 85 12/25/17 08:45 Vapotherm 35.00 85 12/25/17 08:45 98.6 12/25/17 08:00 96 24 125/85 (98) 100 Vapotherm 70.00 35.00 12/25/17 07:00 90 I & O 12/26/17 07:00 Intake Total 2255 ml Output Total 450 ml Balance 1805 ml Height & Weight Height: 5'3.00" Weight: 320lbs. 4.0oz. 145.134490cu; 55.5 BMI Method:Estimated General Appearance: Chronically ill, Moderate Distress, Obese HEENT: Normal ENT Inspection, Pharynx Normal Neck: Full Range of Motion, Normal Inspection, Non Tender, Supple Respiratory: Chest Non Tender, Accessory Muscle Use, Decreased Breath Sounds, Respiratory Distress Capillary Refill: Less Than 3 Seconds Gastrointestinal: normal bowel sounds, soft, no organomegaly, no pulsatile mass , tenderness (left lower quadrant tenderness) Extremity: Normal Capillary Refill, Normal Inspection Neurologic/Psychiatric: Alert, Depressed Affect Skin: Normal Color, Warm/Dry Lymphatic: No Adenopathy Results Lab Laboratory Tests 12/25/17 03:30 12/26/17 03:06 Assessment/Plan Assessment/Plan Acute on Chronic respiratory failure -PT was refusing BiPAP however after our discussion he is will to use it. -He is a full DNR. Left lung opacification on CXR -Give 2mg of Bumex -KVO IVF Metabolic encephalopathy -Supportive care Hypokalemia -replace UTI with sepsis -D/C Rocephin and continue Zosyn, add vancomycin Acute pancreatitis -Improving anemia with Gastritis/esophagitis -S/p EGD -Dr. Babb is following -Pt is on a protonix gtt Morbid obesity with OHS and CARLEEN Pt's prognosis is very poor. Will continue supportive care for right now and attempt to get his respiratory status improved. I am going to consult hospice for education. MICHAEL ATWOOD DO Dec 26, 2017 06:30
[2017-12-26] MEDS ORDERED: BUMETANIDE 1 MG/4 ML (BUMEX) VIAL IV NR (06:45)
[2017-12-26] MEDS ORDERED: PHARMACY TO DOSE IV SCH (06:45)
--- NOTE | 2017-12-26 06:47 | Diagnostic Imaging Report ---
INDICATION: Hypoxia. Compared with study 12/24 FINDINGS: There is complete left thoracic whiteout. There is progressive infiltrate in the right lung most notably at its mid to lower thirds medially. No pneumothorax. There is reciprocal thoracolumbar scoliosis. IMPRESSION: Complete left chest whiteout without an obvious displacement of the cardiomediastinal silhouette in this scoliotic patient. Progressive right lung infiltrate. Results phoned to the ordering physician. Dictated by: Dictated on workstation # [id number]
[2017-12-26] MEDS: POTASSIUM CL 10MEQ/50ML IVPB 50 ML IV SCH ×8 (07:15→16:37)
[2017-12-26] MEDS ORDERED: VANCOMYCIN 2,500 MG/NS 500 ML IVPB IV NR ×2 (07:30)
[2017-12-26] MEDS ORDERED: ZINC113C8 TP ×2 (09:14)
[2017-12-26] MEDS ORDERED: MAGN400O7 PO (09:27)
[2017-12-26] MEDS ORDERED: NAPH15DR51 OU (09:27)
[2017-12-26 11:42] LABS: ABG BASE EXCESS 9.9 MMOL/L (-2.5-2.5); ABG OXYGEN SATURATION 95 % (94-100); ABG PCO2 65 MMHG (35-45); ABG PH 7.36 (7.37-7.43); ABG PO2 71 MMHG (79-93); ABG TCO2 37.5 MMOL/L (21.0-31.0)
[2017-12-26 11:45] LABS: ALLENS TEST YES-POS; INSPIRED O2 60%; PATIENT TEMP 98.6; VENTILATOR NO
--- NOTE | 2017-12-26 15:41 | Progress Note (SOAP) ---
Subjective Subjective/Events-last exam Patient using bipap this AM. States that he wants to take it off and get a drink of water. Denies any pain. Review of Systems Date Seen by Provider: Dec 26, 2017 Time Seen by Provider: 09:20 Pulmonary: Dyspnea, Cough Cardiovascular: No: Chest Pain, Palpitations, Edema Gastrointestinal: Other (dry mouth); No: Nausea, Vomiting Focused Exam Lactate Level 12/23/17 23:44: Lactic Acid Level 2.81*H 12/24/17 01:45: Lactic Acid Level 3.06*H 12/25/17 07:59: Lactic Acid Level 0.91 Objective Exam Last Set of Vital Signs Vital Signs Date Time Temp Pulse Resp B/P (MAP) Pulse Ox O2 Delivery O2 Flow Rate FiO2 12/26/17 14:35 92 26 95 60.00 12/26/17 12:45 98.6 12/26/17 08:00 NIV Bilevel 12/26/17 06:38 12/26/17 05:02 70 Capillary Refill : Less Than 3 Seconds I&O Intake and Output 12/26/17 00:00 Intake Total 3485 ml Balance 3485 ml Intake Oral 1040 ml IV Total 2445 ml # Voids 6 General: Alert, Oriented X3, Other (on Bipap) HEENT: Other (dry MM) Lungs: Other (Diffuse wheezing throughout lung lópez) Abdomen: Normal Bowel Sounds, Soft, No Tenderness Extremities: No Edema, No Tenderness/Swelling Results/Procedures Lab Laboratory Tests 12/26/17 03:06: White Blood Count 23.2H, Red Blood Count 3.39L, Hemoglobin 9.7L, Hematocrit 32L , Mean Corpuscular Volume 94, Mean Corpuscular Hemoglobin 29, Mean Corpuscular Hemoglobin Concent 30L, Red Cell Distribution Width 17.6H, Platelet Count 274, Mean Platelet Volume 11.8H, Neutrophils (%) (Auto) 85H, Lymphocytes (%) (Auto) 7L, Monocytes (%) (Auto) 4, Eosinophils (%) (Auto) 3, Basophils (%) (Auto) 0, Neutrophils # (Auto) 19.8H, Lymphocytes # (Auto) 1.7, Monocytes # (Auto) 1.0, Eosinophils # (Auto) 0.7H, Basophils # (Auto) 0.0, Sodium Level 140, Potassium Level 3.3L, Chloride Level 102, Carbon Dioxide Level 30, Anion Gap 8, Blood Urea Nitrogen 14, Creatinine 0.59L, Estimat Glomerular Filtration Rate > 60, BUN /Creatinine Ratio 24, Glucose Level 109H, Calcium Level 8.2L, Corrected Calcium 9.0, Total Bilirubin 0.4, Aspartate Amino Transf (AST/SGOT) 14, Alanine Aminotransferase (ALT/SGPT) 23, Alkaline Phosphatase 57, B-Type Natriuretic Peptide 124.0H, Total Protein 7.7, Albumin 3.0L 12/26/17 05:35: Blood Gas Puncture Site RT RADIAL, Blood Gas Patient Temperature 98.7, Arterial Blood pH 7.28*L, Arterial Blood Partial Pressure CO2 73*H, Arterial Blood Partial Pressure O2 80, Arterial Blood HCO3 33H, Arterial Blood Total CO2 35.1H , Arterial Blood Oxygen Saturation 95, Arterial Blood Base Excess 6.4H, Scott Test YES-POS, Blood Gas Ventilator Setting NO, Blood Gas Inspired Oxygen 38L/8M 12/26/17 11:32: Blood Gas Puncture Site R RAD, Blood Gas Patient Temperature 98.6, Arterial Blood pH 7.36L, Arterial Blood Partial Pressure CO2 65H, Arterial Blood Partial Pressure O2 71L, Arterial Blood HCO3 36H, Arterial Blood Total CO2 37.5H, Arterial Blood Oxygen Saturation 95, Arterial Blood Base Excess 9.9H, Scott Test YES-POS, Blood Gas Ventilator Setting NO, Blood Gas Inspired Oxygen 60% Microbiology 12/23/17 Blood Culture - Preliminary, Resulted No growth 12/23/17 Urine Culture - Final, Complete Escherichia coli Radiology NAME: ROMAN JAY [facility] REC#: [id number] PT STATUS: ADM IN : 1950 PHYSICIAN: KENTON KIDD ADMIT DATE: 12/23/17/ICU Draft Date of Exam:12/23/17 CHEST 1 VIEW, AP/PA ONLY EXAMINATION: Portable semierect AP chest at 12 AM INDICATION: Abdominal pain This study is less than optimal due to the patient's body habitus. The heart is enlarged but stable when compared to 06/26/2009. The lungs, where visualized, are clear. However, the left retrocardiac region and the right lung base are not well penetrated. The mediastinum is prominent but similar to the prior study. The osseous structures are intact. There is gas in both the large and small bowel in a nonspecific fashion. IMPRESSION: 1. There is cardiomegaly but there is no evidence for an acute cardiopulmonary abnormality on this suboptimal exam. 2. Reportedly, CT of the abdomen and pelvis is pending for further study. Dictated on workstation # [id number] Dict: 12/24/17624 Trans: 12/24/17 0635 [facility] [id number] Interpreted by: AMANDA MANTILLA MD Electronically signed by: Assessment/Plan Assessment/Plan Assessment & Plan 1. Acute pancreatitis -Patient to be placed on IV fluids at 125 mL per hour. -He will be nothing by mouth for now 12/25 -Patient continues to be nothing by mouth 12/26: Stable, will decrease IVFs 2. Upper GI bleed active -. IV Protonix initiated in ED -Dr. Babb consulted and emergency room provider has contacted him 12/25 -Patient is have an upper endoscopy this morning 12/26: Stable, will continue to monitor Hgb 3. Pneumonia--clinically -Initiation of IV Zosyn -RT involvement 12/25 -Patient currently on Vapotherm and doing well 12/26: Patient had decline over night, currently on Bipap, does not want to be intubated, Dr Lama was consulted this AM Acute on Chronic Respiratory Failure 12/26: Bipap currently, will continue to monitor, Hospice has been consulted to discuss options Normocytic Anemia CARLEEN: Untreated Hemoptysis: Resolved Hypokalemia: Replace and repeat BMP Bed Bound Status Morbid Obesity DVT PPX: SCDs, due to hemoptysis Clinical Quality Measures DVT/VTE Risk/Contraindication: Risk Factor Score Per Nursin RFS Level Per Nursing on Admit: 3=High ALYCIA FERREIRA MD Dec 26, 2017 15:41
[2017-12-26] MEDS ORDERED: cefTRIAXone FOR IV USE 1,000 MG in NS (IVPB) 50 ML IV SCH (17:30)
[2017-12-26] MEDS: VANCOMYCIN 2000 MG/NS 500 ML IVPB IV SCH ×2 (18:34)
[2017-12-26] MEDS: ONDANSETRON 4 MG/2 ML (SDV) Z0FRAN IV PRN ×2 (18:35→21:24)
[2017-12-26] MEDS: PANTOPRAZOLE IV SCH ×2 (20:03)
[2017-12-26] MEDS: SODIUM CHLORIDE IV SCH ×2 (20:03)
[2017-12-26 22:28] LABS: BUN/CREATININE RATIO 20; CALCIUM 8.2 MG/DL (8.5-10.1); CARBON DIOXIDE 31 MMOL/L (21-32); CHLORIDE 100 MMOL/L (98-107); CREATININE SERUM 0.61 MG/DL (0.60-1.30); GFR ESTIMATED > 60; GLUCOSE 113 MG/DL (70-105); MAGNESIUM 1.9 MG/DL (1.8-2.4); PHOSPHORUS 1.4 MG/DL (2.3-4.7); POTASSIUM 3.6 MMOL/L (3.6-5.0); SODIUM 139 MMOL/L (135-145)
[2017-12-27] VITALS (19 sets, daily range): BP systolic 119–151; BP diastolic 51–104
[2017-12-27] MEDS: RT-ALBUTEROL/IPRATROPIUM 3 ML (DUONEB) VIAL INH SCH ×6 (01:32→22:34)
[2017-12-27 03:31] LABS: BASOPHILS % (AUTO) 0 % (0-10); EOSINOPHILS # (AUTO) 0.5 10^3/uL (0.0-0.3); EOSINOPHILS % (AUTO) 3 % (0-10); HEMATOCRIT 29 % (40-54); HEMOGLOBIN 8.8 G/DL (13.3-17.7); LYMPHOCYTES # (AUTO) 1.5 X 10^3 (1.0-4.0); LYMPHOCYTES % (AUTO) 7 % (12-44); MEAN CORPUSCULAR HEMOGLOBIN 28 PG (25-34); MEAN CORPUSCULAR HGB CONC 30 G/DL (32-36); MEAN CORPUSCULAR VOLUME 94 FL (80-99); MEAN PLATELET VOLUME 11.9 FL (7.4-10.4); MONOCYTES % (AUTO) 5 % (0-12); NEUTROPHILS # (AUTO) 17.2 X 10^3 (1.8-7.8); NEUTROPHILS % (AUTO) 85 % (42-75); PLATELET COUNT 299 10^3/uL (130-400); RED BLOOD COUNT 3.13 10^6/uL (4.35-5.85); WHITE BLOOD COUNT 20.3 10^3/uL (4.3-11.0)
[2017-12-27 03:54] LABS: ALANINE AMINOTRANSFERASE 17 U/L (0-55); ALBUMIN 2.8 GM/DL (3.2-4.5); ALKALINE PHOSPHATASE 63 U/L (40-136); BILIRUBIN,TOTAL 0.4 MG/DL (0.1-1.0); BUN/CREATININE RATIO 20; CALCIUM 8.3 MG/DL (8.5-10.1); CARBON DIOXIDE 31 MMOL/L (21-32); CHLORIDE 100 MMOL/L (98-107); CREATININE SERUM 0.61 MG/DL (0.60-1.30); GFR ESTIMATED > 60; GLUCOSE 118 MG/DL (70-105); POTASSIUM 3.5 MMOL/L (3.6-5.0); SODIUM 140 MMOL/L (135-145); TOTAL PROTEIN 7.4 GM/DL (6.4-8.2)
[2017-12-27 04:12] LABS: PHOSPHORUS 1.4 MG/DL (2.3-4.7)
[2017-12-27] MEDS: PIPERACILLIN/TAZO 4.5 GM/NS 100 ML IV SCH ×6 (04:46→19:55)
[2017-12-27] MEDS ORDERED: KCL 10 MEQ TAB (MICRO K) PO NR (06:00)
[2017-12-27] MEDS ORDERED: LORazepam INJ 2 MG/ML (ATIVAN) VIAL IVP PRN (06:00)
[2017-12-27] MEDS ORDERED: BUMETANIDE 1 MG/4 ML (BUMEX) VIAL IV NR (06:00)
[2017-12-27] MEDS ORDERED: POTASSIUM PHOSPHATE INJ 30 MM in NS (IVPB) 250 ML IV ONE (06:00)
[2017-12-27] MEDS ORDERED: morphine INJ 4 MG/ML 1 ML (VIAL/SYRINGE) IVP PRN (06:00)
--- NOTE | 2017-12-27 06:07 | Pulmonary Progress Note ---
Subjective Time Seen by a Provider: 06:06 Subjective/Events-last exam CXR improved with bumex yesterday. Sepsis Event Evaluation Height, Weight, BMI Height: 5'3.00" Weight: 320lbs. 4.0oz. 145.130977dx; 55.5 BMI Method:Estimated Focused Exam Lactate Level 12/25/17 07:59: Lactic Acid Level 0.91 Exam Exam Vital Signs Date Time Temp Pulse Resp B/P (MAP) Pulse Ox O2 Delivery O2 Flow Rate FiO2 12/27/17 03:00 92 17 119/76 (90) 94 Vapotherm 70.00 40.00 12/27/17 02:00 102 20 124/70 (88) 92 Vapotherm 70.00 40.00 12/27/17 01:32 96 Vapotherm 40.00 70 12/27/17 01:00 80 12/27/17 01:00 80 22 119/67 (84) 97 Vapotherm 70.00 40.00 12/27/17 00:30 79 23 97 60.00 12/27/17 00:00 88 25 127/70 (89) 97 NIV Bilevel 60.00 12/26/17 23:00 94 30 120/70 (87) 96 NIV Bilevel 60.00 12/26/17 22:30 92 13 95 NIV Bilevel 60.00 12/26/17 22:15 96 25 98 60.00 12/26/17 22:00 99 33 115/69 (84) 91 Vapotherm 70.00 40.00 12/26/17 21:00 103 28 95 Vapotherm 70.00 40.00 12/26/17 21:00 Vapotherm 40.00 70 12/26/17 20:00 103 36 102/74 (83) 96 Vapotherm 70.00 40.00 12/26/17 19:00 100 12/26/17 19:00 100 28 114/72 (86) 94 Vapotherm 70.00 40.00 12/26/17 18:50 94 Vapotherm 40.00 70 12/26/17 18:00 107 31 91 Vapotherm 70.00 40.00 12/26/17 16:26 95 Vapotherm 40.00 70 12/26/17 16:00 98.6 97 27 99/55 (70) 93 NIV Bilevel 60.00 12/26/17 14:35 92 26 95 60.00 12/26/17 13:00 97 12/26/17 12:45 98.6 12/26/17 12:00 96 22 107/ 96 NIV Bilevel 60.00 12/26/17 11:37 96 28 95 60.00 12/26/17 08:21 90 18 91 80.00 12/26/17 08:00 NIV Bilevel 12/26/17 07:16 98.9 12/26/17 07:02 92 20 97 80.00 12/26/17 07:00 96 12/26/17 06:38 95 20 96 NIV Bilevel 80.00 I & O 12/27/17 07:00 Intake Total 1515 ml Output Total 3025 ml Balance -1510 ml Height & Weight Height: 5'3.00" Weight: 320lbs. 4.0oz. 145.895961md; 55.5 BMI Method:Estimated General Appearance: Chronically ill, Moderate Distress, Obese HEENT: Normal ENT Inspection, Pharynx Normal Neck: Full Range of Motion, Normal Inspection, Non Tender, Supple Respiratory: Chest Non Tender, Accessory Muscle Use, Decreased Breath Sounds, Respiratory Distress Capillary Refill: Less Than 3 Seconds Gastrointestinal: normal bowel sounds, soft, no organomegaly, no pulsatile mass , tenderness (left lower quadrant tenderness) Extremity: Normal Capillary Refill, Normal Inspection Neurologic/Psychiatric: Alert, Depressed Affect Skin: Normal Color, Warm/Dry Lymphatic: No Adenopathy Results Lab Laboratory Tests 12/26/17 03:06 12/26/17 22:05 12/27/17 03:00 Assessment/Plan Assessment/Plan Acute on Chronic respiratory failure -PT was refusing BiPAP -He is a full DNR. Left lung opacification on CXR -Give 2mg of Bumex -Titrate oxygen as tolerated Metabolic encephalopathy -Supportive care Hypokalemia -replace UTI with sepsis -Zosyn, and vancomycin Acute pancreatitis -Improving anemia with Gastritis/esophagitis -S/p EGD -Dr. Babb is following -Pt is on a protonix gtt Morbid obesity with OHS and CARLEEN Pt's prognosis is very poor. Will continue supportive care for right now and attempt to get his respiratory status improved. I am going to consult hospice for education. PT told me with RN at bedside he wants to be discharged with hospice care. He is complaining of abdominal pain. He is refusing turns and refusing BiPAP. He gets angry with nurses when they try to turn him and will start throwing things. I am going to start Risperdal, low dose morphine and Ativan for pain, and anxiety. MICHAEL ATWOOD DO Dec 27, 2017 06:07
[2017-12-27] MEDS: VANCOMYCIN 2000 MG/NS 500 ML IVPB IV SCH ×4 (06:55→18:03)
[2017-12-27] MEDS: NS W/KCL 20 MEQ/L 1,000 ML IV SCH (07:03)
[2017-12-27] MEDS: risperiDONE 1 MG (RisperDAL) TAB PO SCH ×2 (08:07→20:00)
--- NOTE | 2017-12-27 08:23 | Diagnostic Imaging Report ---
INDICATION: Hypoxia. FINDINGS: While there is extensive 5 lobe infiltrates present, there is improvements in left lung expansion, previously the left chest was completely socorro out. There is now some aeration of the lateral aspect of the mid-upper third of the left lung. Enlargement of the cardiac silhouette unchanged. No adverse development. IMPRESSION: While extensive 5 lobed infiltrates persist, there has been improvements in left lung expansion with no pneumothorax or adverse interval development. Dictated by: Dictated on workstation # [id number]
[2017-12-27] MEDS: ONDANSETRON 4 MG/2 ML (SDV) Z0FRAN IV PRN (14:54)
[2017-12-27] MEDS ORDERED: TROUGH ORDER-PHARMACY XX NR (17:00)
--- NOTE | 2017-12-27 20:13 | Progress Note (SOAP) ---
Subjective Subjective/Events-last exam Patient states that he is feeling better this AM. Currently on Vapotherm. Tolerating PO diet. Review of Systems Date Seen by Provider: Dec 27, 2017 Time Seen by Provider: 09:15 Pulmonary: Dyspnea, Cough Cardiovascular: No: Chest Pain, Palpitations, Edema Gastrointestinal: Constipation; No: Nausea, Vomiting, Abdominal Pain Focused Exam Lactate Level 12/25/17 07:59: Lactic Acid Level 0.91 Objective Exam Last Set of Vital Signs Vital Signs Date Time Temp Pulse Resp B/P (MAP) Pulse Ox O2 Delivery O2 Flow Rate FiO2 12/27/17 18:15 Vapotherm 50.00 30.00 12/27/17 18:00 117 19 90 12/27/17 16:00 98.0 12/27/17 14:33 50 Capillary Refill : Less Than 3 Seconds I&O Intake and Output 12/27/17 00:00 Intake Total 1635 ml Output Total 3475 ml Balance -1840 ml Intake Oral 610 ml IV Total 1025 ml Output Urine Total 3475 ml General: Alert, Cooperative, Moderate Distress Lungs: Other (Diminished breath sounds, Wheezing in all lung lópez with crackles) Heart: Regular Rate, No Murmurs Extremities: No Edema, No Tenderness/Swelling Psych/Mental Status: Mental Status NL, Mood NL Results/Procedures Lab Laboratory Tests 12/26/17 22:05: Sodium Level 139, Potassium Level 3.6, Chloride Level 100, Carbon Dioxide Level 31, Anion Gap 8, Blood Urea Nitrogen 12, Creatinine 0.61, Estimat Glomerular Filtration Rate > 60, BUN/Creatinine Ratio 20, Glucose Level 113H, Calcium Level 8.2L, Phosphorus Level 1.4L, Magnesium Level 1.9 12/27/17 03:00: Sodium Level 140, Potassium Level 3.5L, Chloride Level 100, Carbon Dioxide Level 31, Anion Gap 9, Blood Urea Nitrogen 12, Creatinine 0.61, Estimat Glomerular Filtration Rate > 60, BUN/Creatinine Ratio 20, Glucose Level 118H, Calcium Level 8.3L, Phosphorus Level 1.4L, Magnesium Level 2.0, White Blood Count 20.3H, Red Blood Count 3.13L, Hemoglobin 8.8L, Hematocrit 29L, Mean Corpuscular Volume 94, Mean Corpuscular Hemoglobin 28, Mean Corpuscular Hemoglobin Concent 30L, Red Cell Distribution Width 18.0H, Platelet Count 299, Mean Platelet Volume 11.9H, Neutrophils (%) (Auto) 85H, Lymphocytes (%) (Auto) 7L, Monocytes (%) (Auto) 5, Eosinophils (%) (Auto) 3, Basophils (%) (Auto) 0, Neutrophils # (Auto) 17.2H, Lymphocytes # (Auto) 1.5, Monocytes # (Auto) 1.0, Eosinophils # (Auto) 0.5H, Basophils # (Auto) 0.0, Corrected Calcium 9.3, Total Bilirubin 0.4, Aspartate Amino Transf (AST/SGOT) 14, Alanine Aminotransferase ( ALT/SGPT) 17, Alkaline Phosphatase 63, Total Protein 7.4, Albumin 2.8L 12/27/17 17:08: Vancomycin Level Trough 27.9*H Microbiology 12/23/17 Blood Culture - Preliminary, Resulted No growth 12/23/17 Urine Culture - Final, Complete Escherichia coli Radiology NAME: ROMAN JAY [facility] REC#: [id number] PT STATUS: ADM IN : 1950 PHYSICIAN: KENTON KIDD ADMIT DATE: 12/23/17/ICU Draft Date of Exam:12/23/17 CHEST 1 VIEW, AP/PA ONLY EXAMINATION: Portable semierect AP chest at 12 AM INDICATION: Abdominal pain This study is less than optimal due to the patient's body habitus. The heart is enlarged but stable when compared to 06/26/2009. The lungs, where visualized, are clear. However, the left retrocardiac region and the right lung base are not well penetrated. The mediastinum is prominent but similar to the prior study. The osseous structures are intact. There is gas in both the large and small bowel in a nonspecific fashion. IMPRESSION: 1. There is cardiomegaly but there is no evidence for an acute cardiopulmonary abnormality on this suboptimal exam. 2. Reportedly, CT of the abdomen and pelvis is pending for further study. Dictated on workstation # [id number] Dict: 12/24/1725 Trans: 12/24/17 0635 [facility] [id number] Interpreted by: AMANDA MANTILLA MD Electronically signed by: Assessment/Plan Assessment/Plan Assessment & Plan 1. Acute pancreatitis: Resolved -Patient to be placed on IV fluids at 125 mL per hour. -He will be nothing by mouth for now 12/25 -Patient continues to be nothing by mouth 12/26: Stable, will decrease IVFs\ 12/27: Resolved 2. Upper GI bleed active -. IV Protonix initiated in ED -Dr. Babb consulted and emergency room provider has contacted him 12/25 -Patient is have an upper endoscopy this morning 12/26: Stable, will continue to monitor Hgb 12/27: Hgb continues to trend down, continue to monitor, no blood in stool or black tarry stools 3. Multi-Lobar Pneumonia -Initiation of IV Zosyn -RT involvement 12/25 -Patient currently on Vapotherm and doing well 12/26: Patient had decline over night, currently on Bipap, does not want to be intubated, Dr Lama was consulted this AM 12/27: Patient on Vapotherm this AM, continue broad spectrum antibiotics Acute on Chronic Respiratory Failure 12/26: Bipap currently, will continue to monitor, Hospice has been consulted to discuss options 12/27: Patient and Guardian on board with hospice, place for d/c back to [place] tomorrow Normocytic Anemia CARLEEN: Untreated Hemoptysis: Resolved Hypokalemia: Replace and repeat BMP Bed Bound Status Morbid Obesity DVT PPX: SCDs, due to hemoptysis Dispo: Plan for d/c tomorrow to [place] with hospice care for Acute on Chronic Respiratory Failure Clinical Quality Measures DVT/VTE Risk/Contraindication: Risk Factor Score Per Nursin RFS Level Per Nursing on Admit: 3=High ALYCIA FERREIRA MD Dec 27, 2017 20:13
[2017-12-27] MEDS: PANTOPRAZOLE IV SCH ×2 (22:47)
[2017-12-27] MEDS: SODIUM CHLORIDE IV SCH ×2 (22:47)
[2017-12-28] VITALS (11 sets, daily range): BP systolic 108–150; BP diastolic 69–95
[2017-12-28] MEDS: PIPERACILLIN/TAZO 4.5 GM/NS 100 ML IV SCH ×4 (02:08→12:11)
[2017-12-28] MEDS: RT-ALBUTEROL/IPRATROPIUM 3 ML (DUONEB) VIAL INH SCH ×3 (03:25→10:57)
[2017-12-28 03:35] LABS: BASOPHILS % (AUTO) 0 % (0-10); EOSINOPHILS % (AUTO) 5 % (0-10); HEMATOCRIT 29 % (40-54); HEMOGLOBIN 8.9 G/DL (13.3-17.7); LYMPHOCYTES # (AUTO) 2.1 X 10^3 (1.0-4.0); LYMPHOCYTES % (AUTO) 12 % (12-44); MEAN CORPUSCULAR HEMOGLOBIN 28 PG (25-34); MEAN CORPUSCULAR HGB CONC 31 G/DL (32-36); MEAN CORPUSCULAR VOLUME 92 FL (80-99); MEAN PLATELET VOLUME 11.6 FL (7.4-10.4); MONOCYTES # (AUTO) 1.1 X 10^3 (0.0-1.0); MONOCYTES % (AUTO) 6 % (0-12); NEUTROPHILS # (AUTO) 13.4 X 10^3 (1.8-7.8); NEUTROPHILS % (AUTO) 76 % (42-75); PLATELET COUNT 298 10^3/uL (130-400); RED BLOOD COUNT 3.17 10^6/uL (4.35-5.85); RED CELL DISTRIBUTION WIDTH 17.7 % (10.0-14.5); WHITE BLOOD COUNT 17.6 10^3/uL (4.3-11.0)
[2017-12-28 03:52] LABS: ALANINE AMINOTRANSFERASE 15 U/L (0-55); ALBUMIN 2.9 GM/DL (3.2-4.5); ALKALINE PHOSPHATASE 59 U/L (40-136); BILIRUBIN,TOTAL 0.5 MG/DL (0.1-1.0); BUN/CREATININE RATIO 14; CALCIUM 8.7 MG/DL (8.5-10.1); CARBON DIOXIDE 33 MMOL/L (21-32); CHLORIDE 97 MMOL/L (98-107); CREATININE SERUM 0.63 MG/DL (0.60-1.30); GFR ESTIMATED > 60; GLUCOSE 106 MG/DL (70-105); POTASSIUM 3.3 MMOL/L (3.6-5.0); SODIUM 141 MMOL/L (135-145); TOTAL PROTEIN 7.6 GM/DL (6.4-8.2)
[2017-12-28] MEDS: NS W/KCL 20 MEQ/L 1,000 ML IV SCH (06:09)
--- NOTE | 2017-12-28 06:54 | Pulmonary Progress Note ---
Subjective Time Seen by a Provider: 06:53 Subjective/Events-last exam pt wants to be discharged. Sepsis Event Evaluation Height, Weight, BMI Height: 5'3.00" Weight: 325lbs. 2.0oz. 147.223214iy; 55.5 BMI Method:Estimated Focused Exam Lactate Level 12/25/17 07:59: Lactic Acid Level 0.91 Exam Exam Vital Signs Date Time Temp Pulse Resp B/P (MAP) Pulse Ox O2 Delivery O2 Flow Rate FiO2 12/28/17 06:29 96 Vapotherm 30.00 60 12/28/17 06:00 112 15 122/81 (95) 95 Vapotherm 60.00 30.00 12/28/17 05:00 101 28 122/75 (91) 91 Vapotherm 60.00 30.00 12/28/17 04:00 108 22 120/84 (96) 94 Vapotherm 60.00 30.00 12/28/17 03:55 99.5 12/28/17 03:25 91 Vapotherm 40.00 60 12/28/17 03:00 107 22 108/69 (82) 96 Vapotherm 60.00 30.00 12/28/17 02:00 117 24 128/76 (93) 92 Vapotherm 60.00 30.00 12/28/17 01:00 111 24 128/76 (93) 92 Vapotherm 60.00 30.00 12/28/17 01:00 111 12/28/17 00:00 100.4 114 27 115/77 (90) 92 Vapotherm 60.00 30.00 12/27/17 23:00 117 30 122/104 (110) 89 Vapotherm 60.00 30.00 12/27/17 22:34 94 Vapotherm 40.00 60 12/27/17 22:00 120 34 130/75 (93) 89 Vapotherm 60.00 30.00 12/27/17 21:35 116 25 90 Vapotherm 60.00 30.00 12/27/17 21:00 124 21 120/77 (91) 88 Vapotherm 50.00 30.00 12/27/17 21:00 91 Vapotherm 30.00 50 12/27/17 20:00 99.7 112 19 132/81 (98) 89 Vapotherm 50.00 30.00 12/27/17 19:00 114 12/27/17 19:00 114 32 151/51 (84) 90 Vapotherm 50.00 30.00 12/27/17 18:15 Vapotherm 50.00 30.00 12/27/17 18:00 117 19 90 Vapotherm 40.00 30.00 12/27/17 17:00 110 35 124/76 (92) 92 Vapotherm 40.00 30.00 12/27/17 16:00 98.0 12/27/17 16:00 103 29 135/82 (99) 91 Vapotherm 40.00 30.00 12/27/17 15:00 105 36 141/81 (101) 93 Vapotherm 40.00 30.00 12/27/17 14:42 Vapotherm 40.00 30.00 12/27/17 14:33 96 Vapotherm 40.00 50 12/27/17 14:00 101 26 133/87 (102) 98 Vapotherm 50.00 40.00 12/27/17 13:00 98 26 95 Vapotherm 50.00 40.00 12/27/17 13:00 98 12/27/17 12:00 109 25 127/82 (97) 91 Vapotherm 50.00 40.00 12/27/17 10:51 97 Vapotherm 40.00 60 12/27/17 08:00 Vapotherm 40.00 60 12/27/17 08:00 98.6 113 23 127/79 (95) 93 Vapotherm 60.00 40.00 12/27/17 07:13 95 Vapotherm 40.00 65 12/27/17 07:00 101 I & O 12/28/17 07:00 Intake Total 2590 ml Output Total 5300 ml Balance -2710 ml Height & Weight Height: 5'3.00" Weight: 325lbs. 2.0oz. 147.895197pq; 55.5 BMI Method:Estimated General Appearance: Chronically ill, Moderate Distress, Obese HEENT: Normal ENT Inspection, Pharynx Normal Neck: Full Range of Motion, Normal Inspection, Non Tender, Supple Respiratory: Chest Non Tender, Accessory Muscle Use, Decreased Breath Sounds, Respiratory Distress Capillary Refill: Less Than 3 Seconds Gastrointestinal: normal bowel sounds, soft, no organomegaly, no pulsatile mass , tenderness (left lower quadrant tenderness) Extremity: Normal Capillary Refill, Normal Inspection Neurologic/Psychiatric: Alert, Depressed Affect Skin: Normal Color, Warm/Dry Lymphatic: No Adenopathy Results Lab Laboratory Tests 12/26/17 22:05 12/27/17 03:00 12/28/17 03:15 Assessment/Plan Assessment/Plan Acute on Chronic respiratory failure -PT was refusing BiPAP -He is a full DNR. Left lung opacification on CXR -Titrate oxygen as tolerated Metabolic encephalopathy -Supportive care Hypokalemia -replace UTI with sepsis -Zosyn, and vancomycin Acute pancreatitis -Improving anemia with Gastritis/esophagitis -S/p EGD -Dr. Babb is following -Pt is on a protonix gtt Morbid obesity with OHS and CARLEEN Plan is discharge with hospice. Advance Care discuss with: patient, family member (s) (discussed with his brother Brock regarding patients current condition and prognosis. ) End of Life Care: Comfort Measures, Pallative Care, Hospice (Hospital), Hospice Care (Home) Advance Care Discussion: initiate discussion, clarifying prognosis, identified end-of-life goals, developed treatment plan Time spent on discussion(mins): 60 MICHAEL ATWOOD DO Dec 28, 2017 06:54
[2017-12-28] MEDS ORDERED: KCL 10 MEQ TAB (MICRO K) PO NR (07:00)
[2017-12-28] MEDS: risperiDONE 1 MG (RisperDAL) TAB PO SCH (08:53)
[2017-12-28] MEDS: ONDANSETRON 4 MG/2 ML (SDV) Z0FRAN IV PRN (09:42)
--- NOTE | 2017-12-28 10:43 | Discharge Summary ---
Diagnosis/Chief Complaint Date of Admission Dec 23, 2017 at 23:45 Date of Discharge 12/28/2017 Admission Diagnosis Admission Diagnosis Acute on Chronic Respiratory failure Multilobar PNA Upper GI bleed Metabolic Encephalopathy Sepsis with PNA and UTI Acute pancreatitis Anemia from acute blood loss Morbid Obesity CARLEEN Bed Bound Discharge Diagnosis See Above Chief Complaint/HPI Chief Complaint/HPI 67-year-old male who is a resident of local [facility] [place] presents to via [facility] emergency department during the evening of December 23, 2017 after having coffee ground emesis and subsequently found to have hypoxia. Nurse at [facility] reported placing him on 5 L of nasal cannula oxygen. He was brought to via [facility] emergency department by [facility] for evaluation. On further history as had abdominal discomfort over the past week. Discharge Summary-Simple/Stand Consultations Dr Lama: Pulm/Critical Care Dr Babb: General Surgery Discharge Physical Examination Allergies: Coded Allergies: Penicillins (Verified Allergy, Unknown, 12/24/17) Vitals & I&Os Vital Sign - Last 12Hours Date Time Temp Pulse Resp B/P (MAP) Pulse Ox O2 Delivery O2 Flow Rate FiO2 12/28/17 09:10 Vapotherm 60.00 20.00 12/28/17 09:00 108 26 132/88 (103) 97 12/28/17 08:00 60 12/28/17 03:55 99.5 Intake and Output 12/28/17 00:00 Intake Total 1980 ml Output Total 2300 ml Balance -320 ml General Appearance: Alert, Oriented X3, Moderate Distress (Converstational dyspnea) HEENT: Mucous Memb Moist/Reedy Respiratory: Other (Diminished breath sounds, moderate increased work of breathing with minimal activity) Cardiovascular: Regular Rate Abdominal: Soft, No Tenderness, No Masses Extremities: Other (2+ pitting edema bilaterally) Neuro: Sensation Intact, Cranial Nerves 3-12 NL Psych/Mental Status: Mental Status NL, Mood NL Hospital Course See final discharge diagnosis. Radiology Reviewed NAME: ROMAN JAY [employer] REC#: [id number] PT STATUS: ADM IN : 1950 PHYSICIAN: KENTON KIDD ADMIT DATE: 12/23/17/ICU Draft Date of Exam:12/23/17 CHEST 1 VIEW, AP/PA ONLY EXAMINATION: Portable semierect AP chest at 12 AM INDICATION: Abdominal pain This study is less than optimal due to the patient's body habitus. The heart is enlarged but stable when compared to 06/26/2009. The lungs, where visualized, are clear. However, the left retrocardiac region and the right lung base are not well penetrated. The mediastinum is prominent but similar to the prior study. The osseous structures are intact. There is gas in both the large and small bowel in a nonspecific fashion. IMPRESSION: 1. There is cardiomegaly but there is no evidence for an acute cardiopulmonary abnormality on this suboptimal exam. 2. Reportedly, CT of the abdomen and pelvis is pending for further study. Dictated on workstation # [id number] Dict: 12/24/17624 Trans: 12/24/1735 [facility] [id number] Interpreted by: AMANDA MANTILLA MD Electronically signed by: Discussion & Recommendations 67 yo M with multiple comorbidities and poor prognosis that was admitted following acute GI bleed and found to be hypoxic in the 70s. Required ICU care with broad spectrum antibiotics and fluid resuscitation. Patient is DNR and declined intubation and was requiring BIPAP and then Vapotherm at discharge. Patient has multiple lobar PNA that affected all lung lópez. He has minimal improvement with aggressive care and chose to transition care to hospice care at discharge. Discharge Condition at discharge Poor Instructions to patient/family Please see electronic discharge instructions given to patient. Discharge Medications Reviewed and agree with Discharge Medication list on patient's Discharge Instruction sheet Clinical Quality Measures DVT/VTE Risk/Contraindication: Risk Factor Score Per Nursin RFS Level Per Nursing on Admit: 3=High Copy Copies To 1: [facility] ALYCIA FERREIRA MD Dec 28, 2017 10:43
[2017-12-28] MEDS ORDERED: LEVO750T9 PO (10:52)
[2017-12-28] MEDS ORDERED: VANCOMYCIN 2000 MG/NS 500 ML IVPB IV SCH ×2 (11:00)
--- NOTE | 2017-12-29 15:52 | Physician Query Clarification ---
PQ-Uncertain Diagnosis Admission/Discharge Admission Date: Dec 23, 2017 at 23:45 Discharge Date: Dec 28, 2017 at 13:55 The medical record reflects the following clinical scenario: History/Risk Factors: pneumonia, COPD Clinical Findings: respiratory distress Treatment: BiPAP Question: Is acute on chronic respiratory failure a clinically valid diagnosis? acute on chronic respiratory failure was documented in the Dr Chang consult and progress notes with no further documentation in the medical record. Please document a response below. PHYSICIAN RESPONSE Diagnosis clinically valid: Other, explanation/clinical finding (Patient continued to have acute on chronic respiratory failure and was d/chaz on hospice with elevated oxygen requirements.) In responding to this query, please exercise your independent professional judgment. The purpose of this communication is to more accurately reflect the complexity of your patients condition. The fact that a question is asked does not imply that any particular answer is desired or expected. Thank you for your timely response to this clarification. Requestors name: [ ] Phone # [ ] THIS PHYSICIAN QUERY FORM IS A PERMANENT PART OF THE MEDICAL RECORD DAYAMI TERRY Dec 29, 2017 15:52 ALYCIA FERREIRA MD Jan 01, 2018 20:30
--- NOTE | 2017-12-29 16:02 | Physician Query Clarification ---
PQ-Uncertain Diagnosis Admission/Discharge Admission Date: Dec 23, 2017 at 23:45 Discharge Date: Dec 28, 2017 at 13:55 The medical record reflects the following clinical scenario: History/Risk Factors: abdominal pain Clinical Findings: pneumonia, abnormal UA Treatment: Vancomycin, Zosyn Question: Is UTI with SEPSIS a clinically valid diagnosis? UTI with sepsis was documented in Dr Lama's consultation and progress notes with no further documentation in the medical record. If yes, was it present on admission? Please document a response below. Patient had Sepsis 2/2 to PNA and UTI. UTI was present on admission after reviewing chart. PHYSICIAN RESPONSE Diagnosis clinically valid: Other, explanation/clinical finding In responding to this query, please exercise your independent professional judgment. The purpose of this communication is to more accurately reflect the complexity of your patients condition. The fact that a question is asked does not imply that any particular answer is desired or expected. Thank you for your timely response to this clarification. Requestors name: [ ] Phone # [ ] THIS PHYSICIAN QUERY FORM IS A PERMANENT PART OF THE MEDICAL RECORD DAYAMI TERRY Dec 29, 2017 16:01 ALYCIA FERREIRA MD Jan 01, 2018 20:31
== END 2017-12-28 13:55 | disposition hospice, inpatient (51) | DRG 871 ==
LOC: EDUNIT# 21:55 → ER 21:56 → ICU 23:45
PROVIDERS: ADMIT Family Medicine; ATTEND Family Medicine
PROC: 0DB78ZX Excision of Stomach, Pylorus, Via Natural or Artificial Opening Endoscopic, Diagnostic (ICD-10-PCS; principal; 2017-12-24)
PROC: 0DB48ZX Excision of Esophagogastric Junction, Via Natural or Artificial Opening Endoscopic, Diagnostic (ICD-10-PCS; 2017-12-24)
DX: A41.9 Sepsis, unspecified organism (principal); J96.21 Acute and chronic respiratory failure with hypoxia; J18.9 Pneumonia, unspecified organism; N39.0 Urinary tract infection, site not specified; K26.4 Chronic or unspecified duodenal ulcer with hemorrhage; K29.71 Gastritis, unspecified, with bleeding; K21.0 Gastro-esophageal reflux disease with esophagitis; K85.90 Acute pancreatitis without necrosis or infection, unspecified; Z66 Do not resuscitate; J44.0 Chronic obstructive pulmonary disease with (acute) lower respiratory infection; Z68.43 Body mass index [BMI] 50.0-59.9, adult; E66.2 Morbid (severe) obesity with alveolar hypoventilation; G93.41 Metabolic encephalopathy; E87.2 Acidosis; I10 Essential (primary) hypertension; E78.00 Pure hypercholesterolemia, unspecified; I87.2 Venous insufficiency (chronic) (peripheral); E11.9 Type 2 diabetes mellitus without complications; E03.9 Hypothyroidism, unspecified; F32.9 Major depressive disorder, single episode, unspecified; M62.561 Muscle wasting and atrophy, not elsewhere classified, right lower leg; M62.562 Muscle wasting and atrophy, not elsewhere classified, left lower leg; B91 Sequelae of poliomyelitis; E87.6 Hypokalemia; N40.0 Benign prostatic hyperplasia without lower urinary tract symptoms; D64.9 Anemia, unspecified; G47.33 Obstructive sleep apnea (adult) (pediatric); Z99.81 Dependence on supplemental oxygen; Z79.4 Long term (current) use of insulin; Z87.891 Personal history of nicotine dependence
CPT/HCPCS: 36415; 36600; 71045; 74177; 80048; 80053; 80202; 81000; 82150; 82805; 83605; 83690; 83735; 83880; 84100; 85007; 85025; 85027; 85610; 85730; 86850; 86900; 86901; 86920; 87040; 87088; 87186; 88305; 88312; 94640; 94660; 94664; 94668; 96361; 96374; 96375

== ENCOUNTER → 2018-01-01 | Outpatient (CLI) | payer MEDICARE, MEDICAID ==
[~2018-01-01] MED LIST: ALBU2.5V4 NEB; ASPI-586 PO; BUDE0.5A7 NEB; DIPH28CR8 TP; DOCU-143 PO; DULA1.5P2 SQ; FEXO-45 PO; GABA-486 PO; HYDR25TA4 PO; IBUP-1780 PO; IBUP-2055 PO; LACT1CAP64 PO; LEVO750T9 PO; LOPE-134 PO; LOSA50TA7 PO; MAG30ORA2 PO; MAGN30OR PO; MAGN400O7 PO; MENT118G; METO-370 PO; MONT10TA21 PO; NAPH15DR51 OU; SERT100T PO; ZINC113C8 TP
== END ==
PROVIDERS: ATTEND Internal Medicine
DX: R19.7 Diarrhea, unspecified (principal); R19.5 Other fecal abnormalities
CPT/HCPCS: 87324; 87449

== ENCOUNTER 2018-04-02 07:44 | Emergency (ER) | payer MEDICARE, MEDICAID ==
[~2018-04-02] VITALS: Ht 175.3 cm; Wt 181.4 kg
--- OUTSIDE RECORDS SUMMARY | 2018-04-02 07:50 | XMS REPORT ---
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 Active 95185584 Problem Stomach ache R10.9 Active 728538442 Problem Peptic ulcer K27.9 Active 66972642 Problem Dry eye H04.129 Active 780886948 Problem Morbid obesity E66.01 Active 291524040 Problem Constipation, unspecified constipation type K59.00 Active 98307551 Problem Type 2 diabetes mellitus without complication, without long-term current use of insulin E11.9 Active 884228381 Problem Slow transit constipation K59.01 Active 92648333 Problem 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 092620860 Problem Weight gain R63.5 Active 7389767 Problem Post-polio syndrome G14 Active 26957479 Problem Mood disorder F39 Active 48728652 Problem Acquired hypothyroidism E03.9 Active 458572066 Problem Reactive airway disease J45.909 Active [id number] ALLERGIES Substance Reaction Event Type Date Status Penicillins Unknown Non Drug Allergy Mar, Active ENCOUNTERS [facility]counter [facility] Date [facility] [address] [place] [id number] Mar, Aspiration pneumonia due to regurgitated food, unspecified laterality, unspecified part of lung J69.0 [place] [address] [facility] [id number] [address] Mar, Aspiration pneumonia due to regurgitated food, unspecified laterality, unspecified part of lung J69.0 [facility] [address] [facility] [id number] [address] Mar, [place] [address] [place] [address] 56798- 2475 Feb, [place] [address] [place] [id number] [place] [address] 28194- 1405 Feb, [place] [address] [place] [id number] [place] [address] 67361- 5085 Jan, [facility] [address] [id number] Jan, Acute superficial gastritis without hemorrhage K29.00 ; 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 ; 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 and Mood disorder F39 [place] [id number] [place] [address] 57515- 8944 Jan, [facility] [address] [place] [id number] Jan, Peptic ulcer K27.9 and Duodenal mass K31.[address] [facility] [address] [id number] Dec, History of GI bleed Z87.19 ; Acute pancreatitis, unspecified complication status, unspecified pancreatitis type K85.90 ; Mass of duodenum K31.89 ; End of life care Z51.5 ; Mood disorder F39 and Dry eye H04.129 [place] [address] [place] [address] 90544- 8178 Dec, Reactive airway disease J45.909 [place] [address] [place] [id number] [place] [address] 35258- 9026 Dec, [facility] [address] [place] [id number] Nov, Generalized abdominal pain R10.84 ; 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 and Reactive airway disease J45.909 [place] [address] [place] [id number] [place] [address] 87693- 8955 Sep, 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 [id number] Sep, Type 2 diabetes mellitus without complication, without long-term current use of insulin E11.9 ; Slow transit constipation K59.01 and 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 [place] [address] [place] [id number] [place] [address] 36909- 9614 Sep, [facility] [address] [place] [id number] Jul, Pneumonia due to infectious organism, unspecified laterality, unspecified part of lung J18.9 and Morbid obesity E66.01 [place] [address] [place] [id number] [place] [address] 893210- 8542 Jul, [place] [address] [place] [id number] [place] [address] 78249893- 3400 Jun, [place] [address] [place] [id number] [place] [address] 947397- 4679 Jun, [place] [address] [place] [id number] [place] [id number] May, [place] [address] [place] [id number] [place] [address] [id number] May, Acute superficial gastritis without hemorrhage K29.[address] [id number] May, 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 ; 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 and Acute superficial gastritis without hemorrhage K29.00 [place] [address] [address] 9600 Apr, [place] [address] [place] [address] 66136- 0906 Apr, [facility] [address] [place] [id number] Mar, Obesity due to excess calories with serious comorbidity, unspecified classification E66.09 and Reactive airway disease J45.909 [place] [address] [place] [address] 63212- 3118 Mar, [facility] [address] [place] [id number] [place] [address] [place] [id number] Jan, [facility] [address] [place] [address] Jan, 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 ; Weight gain R63.5 and 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 [facility] [address] [id number] [address] Dec, [facility] [address] [place] [id number] [id number] Dec, [facility] [address] [place] [id number] Nov, Weight gain R63.5 ; 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 and Reactive airway disease J45.909 [facility] [address] [id number] [id number] Oct, [facility] [id number] [place] [address] Sep, [facility] [address] [place] [id number] [address] August, [facility] [address] [place] [id number] August, 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 [facility] [address] [place] [id number] [address]- 2546 Jul, [facility] [address] [place] [id number] [address] 2546 Jul, Reactive airway disease J45.909 [facility] [address] [place] [id number] Jun, 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 [facility] [address] [place] [id number] [address] 2546 Jun, 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 [facility] [address] [place] [id number] May, 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 [facility] [address] [address] 3809 May, [facility] [address] [place] [id number] [place] [id number] Apr, [facility] [address] [place] [address] 00291- 1049 Apr, Reactive airway disease J45.909 [place] [address] [place] [id number] [place] [address] 36429- 6559 Apr, Reactive airway disease J45.909 [facility] [address] [place] [address] 48503- 7961 Apr, [facility] [address] [place] [id number] [place] [address] 42713- 4170 Mar, [facility] [address] [place] [id number] Mar, Mood disorder F39 and Shortness of breath R06.02 [place] [address] [place] [address] 60401- 6892 Feb, [place] [address] [place] [id number] [place] [address] 65565- 7953 Jan, [facility] [address] [place] [address] Jan, Moist breath sounds R06.89 and Constipation, unspecified constipation type K59.00 [place] [address] [place] [address] 74038- 6243 Jan, [facility] [address] [place] [address] 40770- 3753 Dec, Uncomplicated asthma, unspecified asthma severity J45.909 [facility] [address] [place] [address] 08272- 1489 Dec, [facility] [address] [place] [address] 46118- 3047 Dec, Uncomplicated asthma, unspecified asthma severity J45.909 [facility] [address] [address]- 8663 Dec, [facility] [address] [address] Dec, 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 and Unspecified mood [affective] disorder F39 [facility] [address] [place] [address] 81818- 7689 Dec, [facility] [address] [place] [id number] [place] [address] 08940- 9958 Dec, Reactive airway disease J45.909 [facility] [address] [place] [id number] [place] [address] 70940- 2073 Nov, [facility] [address] [place] [id number] [place] [address] 59891- 3598 Nov, [facility] [address] [place] [id number] [place] [address] 96046- 6620 Nov, [facility] [address] [place] [address] Nov, Shortness of breath R06.02 ; Family history of coronary arteriosclerosis Z82.49 and Dysuria R30.0 [facility] [address] [address]- 2821 Nov, [facility] [address] [address]- 9756 Oct, [facility] [address] [place] [id number] [address]- 8771 Oct, [facility] [address] [place] [id number] [place] [address] 10232- 7094 Oct, [facility] [address] [place] [id number] [address]- 6704 Oct, [facility] [address] [address]- 4877 Oct, [facility] [address] [address]- 7873 Oct, Recurrent bronchospasm J98.[address] [id number] Sep, 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 and 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 [facility] [address] [place] [address] 01799- 8164 Sep, Stomach ache R10.9 [facility] [address] [place] [id number] [place] [address] 82084- 4116 August, [facility] [address] [place] [id number] [place] [address] 09609- 9672 August, [facility] [address] [place] [id number] [place] [address] 89814- 4136 Jul, [facility] [address] [place] [id number] [place] [address] 41819- 7885 Jul, [facility] [address] [place] [id number] [place] [address] 22152- 5903 Jul, [facility] [address] [place] [id number] [place] [address] 10446- 4381 Jul, [facility] [address] [place] [id number] [place] [address] 04304- 3418 Jul, [facility] [address] [id number] Jul, Fever R50.9 [facility] [address] [place] [address] 10834- 3658 Jul, Reactive airway disease J45.909 [facility] [address] [place] [id number] [place] [address] 30665- 6607 Jun, [facility] [address] [place] [address] Jun, Reactive airway disease J45.909 and 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 [facility] [address] [place] [id number] [address]- 7981 May, [facility] [address] [place] [id number] May, Recurrent bronchospasm J98.09 ; Weight gain R63.5 ; 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 and Mood disorder F39 [place] [address] [place] [address] 91212- 2737 Apr, [place] [address] [place] [id number] [place] [address] 24346- 0246 Apr, [facility] [address] [place] [address] Apr, Unspecified mood [affective] disorder F39 [place] [address] [place] [id number] [place] [address] 52195- 5525 Feb, [facility] [address] [place] [id number] Feb, Uncomplicated asthma, unspecified asthma severity J45.909 [place] [address] [place] [id number] [place] [address] 38139- 6655 17 Feb, 2015 [place] [address] [place] [id number] [place] [address] 80529- 5653 Feb, [place] [address] [place] [address] 43233- 8364 Feb, [place] [address] [place] [id number] [place] [address] 43929- 0343 14 Jan, 2015 [place] [address] [place] [address] 94211- 3514 24 Dec, 2014 [place] [address] [place] [id number] [place] [address] 58794- 3909 16 Dec, 2014 Antisocial behavior V71.01 and History of poliomyelitis without residual effect V12.02 [facility] [address] [address]- 4490 Oct, Essential hypertension, malignant 401.0 ; Unspecified hypothyroidism 244.9 and 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 [facility] [address] [address]- 5530 Sep, [facility] [address] 8778 Sep, [facility] [address] 3929 Sep, Abdominal pain, unspecified site 789.00 and Manipulative behavior V40.39 [facility] [address]- 5883 Sep, [facility] [address] [address]- 0816 Jul, [facility] [address] [address]- 3736 Jul, [facility] [address] [address]- 0823 Jun, [facility] [address] [address]- 3396 Jun, [facility] [address] [address]- 5758 Jun, [facility] [address] [place] [id number] Jun, [facility] [address] [address]- 9027 May, [facility] [address] [place] [id number] [address]- 3943 May, [facility] [address] [place] [id number] Apr, [facility] [address] [place] [id number] [address]- 3956 Apr, [facility] [address] [place] [id number] [address]- 8035 Apr, [facility] [place] [facility] [address] [id number] [place] [address]- 8267 15 Apr, 2014 [facility] [place] [facility] [address] [id number] [place] [address]- 2901 Apr, [facility] [place] [facility] [address] [id number] [place] [address]- 2703 Apr, [facility] [place] [facility] [address] [id number] [place] [address]- 8299 Apr, [facility] [place] [facility] [address] [id number] [place] [address]- 0790 Apr, [facility] [place] [facility] [address] [id number] [place] [address]- 0084 Apr, [facility] [place] [facility] [address] [id number] [place] [address]- 1898 Apr, [facility] [place] [facility] [address] [id number] [place] [address]- 8406 Mar, [facility] [place] [facility] [address] [id number] [place] [address]- 6319 Mar, [facility] [place] [facility] [address] [id number] [place] [address]- 0203 Mar, [facility] [place] [facility] [address] [id number] [place] [address]- 3281 Mar, [facility] [place] [facility] [address] [id number] [place] [address]- 0652 Mar, [facility] [place] [facility] [address] [id number] [place] [address]- 1176 19 Mar, 2014 [facility] [place] [facility] [address] [id number] [place] [address]- 1794 Mar, [facility] [place] [facility] [address] [id number] [place] 6441 Mar, [facility] [place] [facility] [address] [id number] [place] [address]- 5192 Mar, [facility] [place] [facility] [address] [id number] [place] [address]- 1916 Mar, [facility] [place] [facility] [address] [id number] [place] [address]- 7348 Mar, [facility] [place] [facility] [address] [id number] [place] [address]- 0367 Feb, [facility] [place] [facility] [address] [id number] [place] [address]- 3148 Feb, [facility] [place] [facility] [address] [id number] [place] [address]- 0863 Feb, [facility] [place] [facility] [address] [id number] [place] [address]- 5985 Feb, [facility] [place] [facility] [address] [id number] [place] [address]- 5870 Feb, [facility] [place] [facility] [address] [id number] [place] [address]- 7272 Feb, [facility] [place] [facility] [address] [id number] [place] [address]- 9832 Feb, [facility] [place] [facility] [address] [facility] [id number] [place] [address]- 1394 Feb, [facility] [place] [facility] [address] [id number] [place] [address]- 1561 Feb, [facility] [place] [facility] [address] [id number] [place] [address]- 7358 Feb, [facility] [place] [facility] [address] [id number] [place] [address]- 8378 Feb, [facility] [place] [facility] [address] [id number] [place] [address]- 0600 Feb, [facility] [place] [facility] [address] [id number] [place] [address]- 9756 Feb, [facility] [place] [facility] [address] [id number] [place] [address]- 0218 Feb, [facility] [place] [facility] [address] [id number] [place] [address]- 2948 Feb, [facility] [place] [facility] [address] [id number] [place] [address]- 7498 Feb, [facility] [place] [facility] [address] [id number] [place] [address]- 9668 Feb, [facility] [place] [facility] [address] [id number] [place] [address]- 2095 Feb, [facility] [place] [facility] [address] [id number] [place] [address]- 8135 Feb, [facility] [place] [facility] [address] [id number] [place] [address]- 5357 Feb, [facility] [place] [facility] [address] [id number] [place] [address]- 6687 Jan, [facility] [place] [facility] [address] [id number] [place] [address]- 0126 Jan, [facility] [place] [facility] [address] [id number] [place] [address]- 5868 Jan, [facility] [place] [facility] [address] [id number] [place] [address]- 5968 Jan, [facility] [place] [facility] [address] [id number] [place] [address]- 5462 Jan, [facility] [place] [facility] [address] [id number] [place] [address]- 3667 Jan, [facility] [place] [facility] [address] [id number] [place] [address]- 8256 Jan, [facility] [place] [facility] [address] [id number] [place] [address]- 5827 Jan, [facility] [place] [facility] [address] [id number] [place] [address]- 6253 15 Jan, 2014 [facility] [place] [facility] [address] [id number] [place] [address]- 5603 15 Jan, 2014 [facility] [place] [facility] [address] [id number] [place] [address]- 4541 15 Jan, 2014 [facility] [place] [facility] [address] [id number] [place] [address]- 8557 15 Jan, 2014 [facility] [place] [facility] [address] [id number] [place] [address]- 8461 14 Jan, 2014 [facility] [place] [facility] [address] [id number] [place] [address]- 0710 09 Jan, 2014 [facility] [place] [facility] [address] [id number] [place] [address]- 2386 08 Jan, 2014 [facility] [place] [facility] [address] [id number] [place] [address]- 7807 Jan, [facility] [place] [facility] [address] [id number] [place] [address]- 6940 Jan, [facility] [place] [facility] [address] [id number] [place] [address]- 0676 Jan, [facility] [place] [facility] [address] [id number] [place] [address]- 1765 Jan, [facility] [place] [facility] [address] [id number] [address]- 7401 29 Dec, 2013 [facility] [place] [facility] [address] [id number] [place] [address]- 7211 23 Dec, 2013 [facility] [place] [facility] [address] [id number] [place] [address]- 1622 22 Dec, 2013 [facility] [place] [facility] [address] [id number] [place] [address]- 3033 22 Dec, 2013 [facility] [place] [facility] [address] [id number] [place] [address]- 7055 19 Dec, 2013 [facility] [place] [facility] [address] [id number] [place] [address]- 2630 19 Dec, 2013 [facility] [place] [facility] [address] [id number] [place] [address]- 1407 18 Dec, 2013 [facility] [place] [facility] [address] [id number] [place] [address]- 2546 17 Dec, 2013 [facility] [place] [facility] [address] [id number] [place] [address]- 6246 17 Dec, 2013 [facility] [place] [facility] [address] [id number] [place] [address]- 25[address] 16 Dec, 2013 [facility] [place] [facility] [address] [id number] [place] [address] 16 Dec, 2013 [facility] [place] [facility] [address] [id number] [place] [address] 10 Dec, 2013 [facility] [place] [facility] [address] [id number] [place] [address] 10 Dec, 2013 [facility] [place] [facility] [address] [id number] [place] [address] Nov, [facility] [place] [facility] [address] [id number] [place] [address] Nov, [facility] [place] [facility] [address] [id number] [place] [address] Nov, [facility] [place] [facility] [address] [id number] [place] [address] Nov, [facility] [place] [facility] [address] [id number] [place] [address] Nov, [facility] [place] [facility] [address] [id number] [place] [address] Nov, [facility] [place] [facility] [address] [id number] [place] [address] Nov, [facility] [place] [facility] [address] [id number] [place] [address] Nov, [facility] [place] [facility] [address] [id number] [place] [address] Nov, [facility] [place] [facility] [address] [id number] [place] [address]- 1679 Nov, [facility] [place] [facility] [address] [id number] [place] [address] Oct, [facility] [place] [facility] [address] [id number] [place] [address]- [address] Oct, [facility] [place] [facility] [address] [id number] [place] [address] Oct, [facility] [place] [facility] [address] [id number] [place] [address] Oct, [facility] [place] [facility] [address] [id number] [place] [address] Oct, [facility] [place] [facility] [address] [id number] [place] [address]- [address] Oct, [facility] [place] [facility] [address] [id number] [place] [address]- [address] Oct, [facility] [place] [facility] [address] [id number] [place] [address] Oct, [facility] [place] [facility] [address] [id number] [place] [address]- [address] Oct, [facility] [place] [facility] [address] [id number] [place] [address] Oct, [facility] [place] [facility] [address] [id number] [place] [address] Oct, [facility] [place] [facility] [address] [id number] [place] [address] Oct, [facility] [place] [facility] [address] [id number] [place] [address] Oct, [facility] [place] [facility] [address] [id number] [place] [address] Sep, [facility] [place] [facility] [address] [id number] [place] [address] Sep, [facility] [place] [facility] [address] [id number] [place] [address] Sep, [facility] [place] [facility] [address] [id number] [place] [address] Sep, [facility] [place] [facility] [address] [id number] [place] [address]- [address] Sep, [facility] [place] [facility] [address] [id number] [place] [address] Sep, [facility] [place] [facility] [address] [id number] [place] [address] Sep, [facility] [place] [facility] [address] [address] [id number] [place] [address] Sep, [facility] [place] [facility] [address] [id number] [place] [address] Sep, [facility] [place] [facility] [address] [id number] [place] [address] Sep, [facility] [place] [facility] [address] [id number] [place] [address] Sep, [facility] [place] [facility] [address] [id number] [place] [address] Sep, [facility] [place] [facility] [address] [id number] [place] [address] August, [facility] [place] [facility] [address] [id number] [place] [address] August, [facility] [place] [facility] [address] [id number] [place] [address] August, [facility] [place] [facility] [address] [id number] [place] [address] August, [facility] [place] [facility] [address] [id number] [place] [address] August, [facility] [address] [id number] [place] [address] August, [facility] [place] [facility] [address] [id number] [place] [address] August, [facility] [address] [id number] [place] [address] August, [facility] [place] [facility] [address] [id number] [place] [address] August, [facility] [place] [facility] [address] [id number] [place] [address] August, [facility] [place] [facility] [address] [id number] [place] [address] August, [facility] [place] [facility] [address] [id number] [place] [address] August, [facility] [address] [id number] [place] [address] August, [facility] [place] [facility] [address] [id number] [place] [address] Jul, [facility] [place] [facility] [address] [id number] [place] [address] Jul, [facility] [place] [facility] [address] [id number] [place] [address] Jul, [facility] [place] [facility] [address] [id number] [place] [address] Jul, [facility] [place] [facility] [address] [id number] [place] [address] Jul, [facility] [place] [facility] [address] [id number] [place] [address] Jul, [facility] [place] [facility] [address] [id number] [place] [address] Jul, [facility] [place] [facility] [address] [id number] [place] [address] Jul, [facility] [place] [facility] [address] [id number] [place] [address] Jul, [facility] [place] [facility] [address] [id number] [place] [address] Jul, [facility] [place] [facility] [address] [id number] [place] [address] Jul, [facility] [place] [facility] [address] [id number] [place] [address] Jul, [facility] [place] [facility] [address] [id number] [place] [address] Jul, [facility] [place] [facility] [address] [id number] [place] [address] Jul, [facility] [place] [facility] [address] [id number] [place] [address] Jul, [facility] [place] [facility] [address] [id number] [place] [address] Jul, [facility] [place] [facility] [address] [id number] [place] [address] Jul, [facility] [place] [facility] [address] [id number] [place] [address] Jun, [facility] [place] [facility] [address] [id number] [place] [address] Jun, [facility] [place] [facility] [address] [id number] [place] [address] Jun, [facility] [place] [facility] [address] [id number] [place] [address] Jun, [facility] [place] [facility] [address] [id number] [place] [address] Jun, [facility] [place] [facility] [address] [facility] [id number] [place] [address] Jun, [facility] [address] [facility] [id number] [address] Jun, [facility] [address] [facility] [id number] [place] [address] Jun, [facility] [address] [facility] [id number] [place] [address] Jun, IMMUNIZATIONS No Known Immunizations SOCIAL HISTORY Never Assessed REASON FOR VISIT Aspiration Pneumonia f/u PLAN OF CARE Activity Details Follow Up prn Reason: VITAL SIGNS Heart Rate 96 bpm 2018-03-09 Oximetry w/ oxygen @ 5L via mask:95 % 2018-03-09 MEDICATIONS Medication Instructions Dosage Frequency Start Date End Date Duration Status Imodium A-D 2 MG Orally Four times a day 1 tablet as needed 6h Not -Taking Milk of Magnesia 400 MG/5ML Orally daily prn constipation 10 ml as needed Jan, Active Benadryl Itch Stopping 1-0.1 % Externally 2 times a day 1 application to affected area as needed 12h Not-Taking Biofreeze 4 % Externally 2 times a day 1 application to affected area as needed 12h Active Carafate 1 GM Orally Twice a day 1 tablet on an empty stomach 12h 30 day(s) Active Tylenol 325 MG Orally every 4 hrs 1 tablet as needed 4h Active Mylanta 200-200-20 MG/5ML Orally every 6 hrs 30 ml as needed 6h Active Hyoscyamine Sulfate 0.125 MG Orally every 4 hrs 1 tablet as needed 4h Active Zoloft 100 MG Orally Once a day 1 tablet 24h Active Trulicity 1.5 MG/0.5ML Subcutaneous once weekly 0.5 ml Jun, Active Albuterol Sulfate (2.5 MG/3ML) 0.083% Inhalation every 4 hours 3 ml as needed for SOB/Cough 4h Jul, Active Colace 100 mg Orally twice a day 1 capsule 12h Not-Taking Albuterol Sulfate (2.5 MG/3ML) 0.083% Inhalation 4 times a day 3 ml 6h Mar, 10 days Active Aspirin 81 MG Orally Once a day 1 tablet 24h Not-Taking Morphine Sulfate (Concentrate) 20 MG/ML Orally every 8 hours, PRN 0.5 ml Jan, Active Probiotic - Orally Once a day 1 capsule 24h Active Ibuprofen 600 MG Orally every 6 hours 1 tablet with food or milk as needed 6h Not-Taking Gabapentin 100 Orally Twice a day 1 capsule 12h Not-Taking Hydrochlorothiazide 25 MG Orally Once a day 1 tablet in the morning 24h Not-Taking Toprol XL 50 Orally Once a day 1 tablet 24h Active Pulmicort 0.5 mg/2ml Inhalation 2 times a day 2 ml 12h Active Losartan Potassium 50 Orally Once a day 1 tablet 24h Active Visine Advanced Relief 0.05-0.1-1-1 % Ophthalmic in both eyes 2 times a day 2 drops 12h 30 Active Singulair 10 MG Orally Once a day 1 tablet in the evening 24h Active Ibuprofen 200 mg Orally 2 times a day 3 tablets 12h Not-Taking Fexofenadine HCl 180 MG Orally Once a day 1 tablet 24h Active RESULTS No Results PROCEDURES Procedure Date Ordered Result Body Site Minor complication (15 mins) Mar 09, 2018 INSTRUCTIONS MEDICATIONS ADMINISTERED No Known Medications MEDICAL (GENERAL) HISTORY Type Description Date Medical [...] 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
--- OUTSIDE RECORDS SUMMARY | 2018-04-02 07:51 | XMS REPORT ---
Author Author GEORGIA DOWNEY Organization 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 Active 15292326 Problem Stomach ache R10.9 Active 641253900 Problem Peptic ulcer K27.9 Active 00650542 Problem Dry eye H04.129 Active 925048701 Problem Morbid obesity E66.01 Active 508502914 Problem Constipation, unspecified constipation type K59.00 Active 90758292 Problem Type 2 diabetes mellitus without complication, without long-term current use of insulin E11.9 Active 317907982 Problem Slow transit constipation K59.01 Active 57703433 Problem 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 [id number] [place] [address] 43334- 6061 Mar, Aspiration pneumonia due to regurgitated food, unspecified laterality, unspecified part of lung J69.0 [facility] [id number] [place] [address] 90989- 1835 Mar, [facility] [address] [place] [address] 87901- 0405 Feb, 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 and Mood disorder F39 [address] 58686- 5436 Jan, [facility] [address] [id number] Jan, Peptic ulcer K27.9 and Duodenal mass K31.[address] [facility] [address] [id number] Dec, History of GI bleed Z87.19 ; Acute pancreatitis, unspecified complication status, unspecified pancreatitis type K85.90 ; Mass of duodenum K31.89 ; End of life care Z51.5 ; Mood disorder F39 and Dry eye H04.129 [id number] [place] [address] 08697- 5771 Dec, Reactive airway disease J45.[address] 66931- 1177 Dec, [facility] [address] [id number] Nov, Generalized abdominal pain R10.84 ; 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 [address] [address] 2546 Jul, [facility] [address] [address]- 6069 Jun, 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 [address] [address]- 9696 Apr, [facility] [address] [address]- 5436 Apr, [facility] [address] [id number] Mar, Obesity due to excess calories with serious comorbidity, unspecified classification E66.09 and Reactive airway disease J45.909 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 [id number] [address]- 1176 Jul, 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 [id number] [address]- 2546 May, [facility] [id number] [id number] Apr, [facility] [address], [place] [address]- 1519 Apr, Reactive airway disease J45.909 [place] [id number] [place] [address] 01214- 3359 Apr, Reactive airway disease J45.909 [facility] [id number] [place] [address] 76551- 4166 Apr, [place] [id number] [place] [address] 43588- 5872 Mar, [facility] [address] [id number] Mar, Mood disorder F39 and Shortness of breath R06.02 [place] [id number] [place] [address] 39597- 0029 Feb, [place] [id number] [place] [address] 21583- 2735 Jan, [facility] [address] [place] [id number] Jan, Moist breath sounds R06.89 and Constipation, unspecified constipation type K59.00 [place] [address] [place] [address] 76776- 5083 Jan, [place] [address] [place] [address] 45633- 3949 Dec, Uncomplicated asthma, unspecified asthma severity J45.909 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 [address] [place] [address] 95663- 9427 Dec, [facility] [id number] [place] [address] 25252- 8523 Dec, Reactive airway disease J45.909 [facility] [id number] [place] [address] 80168- 1522 Nov, [facility] [id number] [place] [address] 24291- 8285 Nov, [facility] [id number] [place] [address] 04081- 5329 Nov, [facility] [address] [place] [id number] Nov, Shortness of breath R06.02 ; Family history of coronary arteriosclerosis Z82.49 and Dysuria R30.0 [facility] [address] [place] [address] 33954- 0848 Nov, [facility] [id number] [place] [address] 31606- 7888 Oct, [facility] [address] [place] [address] 96515- 8863 Oct, [facility] [id number] [place] [address] 43449- 0281 Oct, [facility] [address] [place] [address] 00197- 1888 Oct, [facility] [address] [place] [address] 31321- 6464 Oct, 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 [address] [place] [address] 18839- 9563 Sep, Stomach ache R10.9 [facility] [address] [address]- 6069 August, [facility] [id number] [place] [address] 64043- 2215 August, [facility] [address] [place] [address] 90673- 9508 Jul, [place] [id number] [place] [address] 31604- 3845 Jul, [facility] [id number] [place] [address] 60449- 0635 Jul, [facility] [id number] [place] [address] 17735- 3430 Jul, [facility] [address] [place] [address] 20811- 3829 Jul, [facility] [address] [place] [id number] Jul, Fever R50.9 [place] [address] [place] [address] 44538- 7823 Jul, Reactive airway disease J45.909 [place] [id number] [place] [address] 17067- 8982 Jun, [facility] [address] [place] [id number] Jun, Reactive airway disease J45.909 and 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 [place] [address] [place] [address] 11256- 8656 May, [facility] [address] [id number] May, Recurrent bronchospasm J98.09 ; Weight gain R63.5 ; 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 [id number] [place] [address] 67268- 5749 Apr, [facility] [id number] [place] [address] 40241- 5793 Apr, [facility] [address] [id number] Apr, Unspecified mood [affective] disorder F39 [facility] [id number] [place] [address] 68682- 7674 Feb, [facility] [address] [place] [address] Feb, Uncomplicated asthma, unspecified asthma severity J45.909 [place] [id number] [place] [address] 96580- 1312 17 Feb, 2015 [place] [address] 06889- 3390 Feb, [facility] [id number] [place] [address] 08038- 3229 Feb, [facility] [id number] [place] [address] 97554- 1430 Jan, [facility] [id number] [place] [address] 47103- 8855 24 Dec, 2014 [facility] [id number] [place] [address] 55771- 2197 16 Dec, 2014 Antisocial behavior V71.01 and History of poliomyelitis without residual effect V12.02 [facility] [id number] [place] [address] 30078- 1433 Oct, Essential hypertension, malignant 401.0 ; Unspecified hypothyroidism 244.9 and 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 [facility] [id number] [place] [address] 04196- 9619 Sep, [facility] [address] [place] [address]- 7001 Sep, [facility] [address] [address]- 9627 Sep, Abdominal pain, unspecified site 789.00 and Manipulative behavior V40.39 [facility] [id number] [address]- 4654 Sep, [facility] [address], [place] [address]- 8362 Jul, [facility] [address], [place] [address]- 9254 Jul, [facility] [address]- 9638 Jun, [facility] [address], [place] [address]- 8979 Jun, [facility] [address], [place] [address]- 8193 Jun, [facility] [address] [id number] Jun, [facility] [address], [place] [address]- 3829 May, [facility] [id number] [address]- 1615 May, [facility] [address] [id number] Apr, [facility] [id number] [address]- 3341 Apr, [facility] [id number], [place] [address]- 8455 Apr, [facility] [id number] [address]- 0875 Apr, [facility] [id number] [address]- 1715 Apr, [facility] [place] [facility] [address] [id number] [place] [address]- 9921 Apr, [facility] [place] [facility] [address] [id number] [place] [address]- 1297 Apr, [facility] [place] [facility] [address] [id number] [place] [address]- 7928 Apr, [facility] [place] [facility] [address] [id number] [place] [address]- 0914 Apr, [facility] [place] [facility] [address] [id number] [place] [address]- 0348 Apr, [facility] [place] [facility] [address] [id number] [place] [address]- 9680 Mar, [facility] [place] [facility] [address] [id number] [place] [address]- 5321 Mar, [facility] [place] [facility] [address] [id number] [place] [address]- 4374 Mar, [facility] [place] [facility] [address] [id number] [place] [address]- 9889 Mar, [facility] [place] [facility] [address] [id number] [place] [address]- 0294 Mar, [facility] [place] [facility] [address] [id number] [place] [address]- 1408 Mar, [facility] [place] [facility] [address] [id number] [place] [address]- 1827 Mar, [facility] [place] [facility] [address] [id number] [place] [address]- 7087 Mar, [facility] [place] [facility] [address] [id number] [place] [address]- 2116 Mar, [facility] [place] [facility] [address] [id number] [place] [address]- 2603 Mar, [facility] [place] [facility] [address] [id number] [place] [address]- 1236 Mar, [facility] [place] [facility] [address] [id number] [place] [address]- 7125 Feb, [facility] [place] [facility] [address] [id number] [place] [address]- 9081 Feb, [facility] [place] [facility] [address] [id number] [place] [address]- 1371 Feb, [facility] [place] [facility] [address] [id number] [place] [address]- 1549 Feb, [facility] [place] [facility] [address] [id number] [place] [address]- 2464 Feb, [facility] [place] [facility] [address] [id number] [place] [address]- 8393 Feb, [facility] [place] [facility] [address] [id number] [place] [address]- 6459 Feb, [facility] [place] [facility] [address] [id number] [place] [address]- 3760 Feb, [facility] [place] [facility] [address] [id number] [place] [address]- 1763 Feb, [facility] [place] [facility] [address] [facility] [id number] [place] [address]- 5789 Feb, [facility] [place] [facility] [address] [id number] [place] [address]- 5427 Feb, [facility] [place] [facility] [address] [id number], [place] [address]- 5844 Feb, [facility] [place] [facility] [address] [id number] [place] [address]- 6052 Feb, [facility] [place] [facility] [address] [id number] [place] [address]- 0820 Feb, [facility] [place] [facility] [address] [id number], [place] [address]- 5420 Feb, [facility] [place] [facility] [address] [id number] [place] [address]- 5892 Feb, [facility] [place] [facility] [address] [id number] [place] [address]- 1571 Feb, [facility] [place] [facility] [address] [id number] [place] 1262 Feb, [facility] [place] [facility] [address] [id number] [place] [address]- 1809 Feb, [facility] [place] [facility] [address] [id number] [place] [address]- 3084 Feb, [facility] [place] [facility] [address] [id number] [place] [address]- 7321 Jan, [facility] [place] [facility] [address] [id number] [place] [address]- 6513 Jan, [facility] [place] [facility] [address] [id number] [place] [address]- 2401 Jan, [facility] [place] [facility] [address] [id number] [place] [address]- 0224 Jan, [facility] [place] [facility] [address] [id number] [place] [address]- 4865 Jan, [facility] [place] [facility] [address] [id number] [place] [address]- 4809 Jan, [facility] [place] [facility] [address] [id number] [place] [address]- 8109 Jan, [facility] [place] [facility] [address] [id number] [place] [address]- 1548 Jan, [facility] [place] [facility] [address] [id number] [place] [address]- 1051 Jan, [facility] [place] [facility] [address] [id number] [place] [address]- 2086 15 Jan, 2014 [facility] [place] [facility] [address] [id number] [place] [address]- 8129 15 Jan, 2014 [facility] [place] [facility] [address] [id number] [place] [address]- 1738 15 Jan, 2014 [facility] [place] [facility] [address] [id number] [place] [address]- 7762 14 Jan, 2014 [facility] [place] [facility] [address] [id number] [place] [address]- 3523 Jan, [facility] [place] [facility] [address] [id number] [place] [address]- 6455 Jan, [facility] [place] [facility] [address] [id number] [place] [address]- 9202 Jan, [facility] [place] [facility] [address] [id number] [place] [address]- 4254 Jan, [facility] [place] [facility] [address] [id number] [place] [address]- 7718 Jan, [facility] [place] [facility] [address] [id number] [place] [address]- 7490 Jan, [facility] [place] [facility] [address] [id number] [place] [address] 29 Dec, 2013 [facility] [place] [facility] [address] [id number] [place] [address] 23 Dec, 2013 [facility] [place] [facility] [address] [id number] [place] [address] 22 Dec, 2013 [facility] [place] [facility] [address] [id number] [place] [address]99 22 Dec, 2013 [facility] [place] [facility] [address] [id number] [place] [address] 19 Dec, 2013 [facility] [place] [facility] [address] [id number] [place] [address] 19 Dec, 2013 [facility] [place] [facility] [address] [id number] [place] [address] 18 Dec, 2013 [facility] [place] [facility] [address] [id number] [place] [address] 17 Dec, 2013 [facility] [place] [facility] [address] [id number] [place] [address] 17 Dec, 2013 [facility] [place] [facility] [address] [id number] [place] [address] 16 Dec, 2013 [facility] [place] [facility] [address] [id number] [place] [address]- [address] 16 Dec, 2013 [facility] [place] [facility] [address] [id number] [place] [address] 10 Dec, 2013 [facility] [place] [facility] [address] [id number] [place] [address] Dec, [facility] [place] [facility] [address] [id number] [place] [address] Nov, [facility] [place] [facility] [address] [id number] [place] [address] Nov, [facility] [place] [facility] [address] [id number] [place] [address] Nov, [facility] [place] [facility] [address] [id number] [place] [address] Nov, [facility] [place] [facility] [address] [id number] [place] [address] Nov, [facility] [place] [facility] [address] [id number] [place] [address] 39[address] Nov, [facility] [place] [facility] [address] [id number] [place] [address]- [address] Nov, [facility] [place] [facility] [address] [id number] [place] [address] Nov, [facility] [place] [facility] [address] [id number] [place] [address]- [address] Nov, [facility] [place] [facility] [address] [id number] [place] [address] Nov, [facility] [place] [facility] [address] [id number] [place] [address] Oct, [facility] [place] [facility] [address] [id number] [place] [address] Oct, [facility] [place] [facility] [address] [id number] [place] [address] Oct, [facility] [place] [facility] [address] [id number] [place] [address]- [address] Oct, [facility] [place] [facility] [address] [id number] [place] [address] Oct, [facility] [place] [facility] [address] [id number] [place] [address] Oct, [facility] [place] [facility] [address] [id number] [place] [address] Oct, [facility] [place] [facility] [address] [id number] [place] [address] 1995 Oct, [facility] [place] [facility] [address] [id number] [place] [address] Oct, [facility] [place] [facility] [address] [id number] [place] [address] Oct, [facility] [place] [facility] [address] [id number] [place] [address] Oct, [facility] [place] [facility] [address] [id number] [place] [address] 82[address] Oct, [facility] [place] [facility] [address] [id number] [place] [address]26 Oct, [facility] [place] [facility] [address] [id number] [place] [address] Sep, [facility] [place] [facility] [address] [id number] [place] [address] Sep, [facility] [place] [facility] [address] [id number] [place] [address] Sep, [facility] [place] [facility] [address] [id number] [place] [address] Sep, [facility] [place] [facility] [address] [id number] [place] [address]- [address] Sep, [facility] [place] [facility] [address] [id number] [place] [address]007 Sep, [facility] [place] [facility] [address] [id number] [place] [address] Sep, [facility] [place] [facility] [address] [id number] [place] [address] Sep, [facility] [place] [facility] [address] [id number] [place] [address] Sep, [facility] [place] [facility] [address] [id number] [place] [address] Sep, [facility] [place] [facility] [address] [id number] [place] [address] Sep, [facility] [place] [facility] [address] [id number] [place] [address] Sep, [facility] [place] [facility] [address] [id number] [place] [address] August, [facility] [place] [facility] [address] [id number] [place] [address] August, [facility] [place] [facility] [address] [id number] [place] [address] August, [facility] [place] [facility] [address] [id number] [place] [address] August, [facility] [place] [facility] [address] [id number] [place] [address] August, [facility] [place] [facility] [address] [id number] [place] [address] August, [facility] [place] [facility] [address] [id number] [place] [address] August, [facility] [place] [facility] [address] [id number] [place] [address] August, [facility] [place] [facility] [address] [id number] [place] [address] August, [facility] [place] [facility] [address] [id number] [place] [address] August, [facility] [place] [facility] [address] [id number] [place] [address] August, [facility] [place] [facility] [address] [id number] [place] [address] August, [facility] [place] [facility] [address] [id number] [place] [address] August, [facility] [place] [facility] [address] [id number] [place] [address] Jul, [facility] [place] [facility] [address] [id number] [place] [address] Jul, [facility] [place] [facility] [address] [id number] [place] [address] Jul, [facility] [place] [facility] [address] [id number] [place] [address] Jul, [facility] [place] [facility] [address] [id number] [place] [address] Jul, [facility] [place] [facility] [address] [id number] [place] [address] Jul, [facility] [place] [facility] [address] [id number] [place] [address] Jul, [facility] [place] [facility] [address] [id number] [place] [address] Jul, [facility] [place] [facility] [address] [id number] [place] [address] Jul, [facility] [place] [facility] [address] [id number] [place] [address] 16 Jul, 2013 [facility] [place] [facility] [address] [id number] [place] [address] 16 Jul, 2013 [facility] [place] [facility] [address] [id number] [place] [address]- [address] 16 Jul, 2013 [facility] [place] [facility] [address] [id number] [place] [address]- [address] 16 Jul, 2013 [facility] [place] [facility] [address] [id number] [place] [address] Jul, [facility] [place] [facility] [address] [id number] [place] [address] Jul, [facility] [place] [facility] [address] [id number] [place] [address] Jul, [facility] [place] [facility] [address] [id number] [place] [address] 10 Jul, 2013 [facility] [place] [facility] [address] [id number] [place] [address] 25 Jun, 2013 [facility] [place] [facility] [address] [id number] [place] [address]- [address] 25 Jun, 2013 [facility] [place] [facility] [address] [id number] [place] [address] 10 Jun, 2013 [facility] [place] [facility] [address] [id number] [place] [address] 10 Jun, 2013 [facility] [place] [facility] [address] [id number] [place] [address] 10 Jun, 2013 [facility] [place] [facility] [address] [id number] [place] [address]- [address] 10 Jun, 2013 [facility] [place] [facility] [address] [id number] [place] [address] Jun, [facility] [place] [facility] [address] [facility] [id number] [place] [address] Jun, [facility] [address] [facility] [id number] [place] [address] Jun, IMMUNIZATIONS No Known Immunizations SOCIAL HISTORY Never Assessed REASON FOR VISIT USP Rx Request PLAN OF CARE VITAL SIGNS MEDICATIONS Medication Instructions Dosage Frequency Start Date End Date Duration Status Albuterol Sulfate (2.5 MG/3ML) 0.083% Inhalation 4 times a day 3 ml 6h Mar, 10 days Active RESULTS No Results PROCEDURES No Known procedures INSTRUCTIONS MEDICATIONS ADMINISTERED No Known Medications MEDICAL [...] History No Surgical history information Hospitalization History [facility]- Nose Bleed 06/05/2017
--- OUTSIDE RECORDS SUMMARY | 2018-04-02 07:51 | XMS REPORT ---
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 Active 37524786 Problem Stomach ache R10.9 Active 621178571 Problem Peptic ulcer K27.9 Active 69278305 Problem Dry eye H04.129 Active 232996423 Problem Morbid obesity E66.01 Active 671434306 Problem Constipation, unspecified constipation type K59.00 Active 56051046 Problem Type 2 diabetes mellitus without complication, without long-term current use of insulin E11.9 Active 588462177 Problem Slow transit constipation K59.01 Active 16332335 Problem 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 942688080 Problem Weight gain R63.5 Active 1086293 Problem Post-polio syndrome G14 Active 50092643 Problem Mood disorder F39 Active 52069230 Problem Acquired hypothyroidism E03.9 Active 575819769 Problem Reactive airway disease J45.909 Active [id number] ALLERGIES No Information ENCOUNTERS Encounter Location Date Diagnosis [facility] [address] [id number], [place] [address] Feb, [facility] [address] [id number], [place] [address] Feb, [facility] [facility] [id number] [place] [address] 89255- 2311 Jan, [facility] [address] [place] [id number] Jan, Acute superficial gastritis without hemorrhage K29.00 ; 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 ; 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 and Mood disorder F39 [place] [address] [place] [address] 47967- 3[address] Jan, [facility] [address] [id number] Jan, Peptic ulcer K27.9 and Duodenal mass K31.[address] [facility] [address] [id number] Dec, History of GI bleed Z87.19 ; Acute pancreatitis, unspecified complication status, unspecified pancreatitis type K85.90 ; Mass of duodenum K31.89 ; End of life care Z51.5 ; Mood disorder F39 and Dry eye H04.129 [place] [address] [address]- [address] Dec, Reactive airway disease J45.909 [facility] [facility] [address] [address]- [address]26 Dec, [facility] [address] [id number] Nov, Generalized abdominal pain R10.84 ; 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 and Reactive airway disease J45.909 [facility] [id number] [place] [address] 51074- 1314 Sep, 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 [facility] [id number] Sep, Type 2 diabetes mellitus without complication, without long-term current use of insulin E11.9 ; Slow transit constipation K59.01 and 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 [place] [id number] [place] [address] 93862- 0926 Sep, [facility] [id number] Jul, Pneumonia due to infectious organism, unspecified laterality, unspecified part of lung J18.9 and Morbid obesity E66.01 [place] [address] [address] Jul, [facility] [id number], [place] [address] 25[address] Jun, [facility] [id number], [place] [address] 2546 Jun, [facility] [id number] [id number] May, [facility] [id number] [address] May, Acute superficial gastritis without hemorrhage K29.00 [facility] [address] [place] [address] May, 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 ; 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 and Acute superficial gastritis without hemorrhage K29.00 [facility] [facility] [id number], [place] [address] 5236 Apr, [facility] [address], [place] [address] 2546 Apr, [facility] [address] [address] Mar, Obesity due to excess calories with serious comorbidity, unspecified classification E66.09 and Reactive airway disease J45.909 [facility] [id number], [place] [address] 2546 Mar, [facility] [id number] [address] Jan, [facility] [address] [place] [id number] Jan, 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 ; Weight gain R63.5 and 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 [place] [id number] [address] Dec, [facility] [id number] [address] Dec, [facility] [address] [address] Nov, Weight gain R63.5 ; 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 and Reactive airway disease J45.909 [facility] [id number] [address] Oct, [facility] [id number] [address] Sep, [facility] [address], [place] [address] 17[address] August, [facility] [address] [address] August, 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 [facility] [address], [place] [address] 9[address] Jul, [facility] [address], [place] [address] 2336 Jul, Reactive airway disease J45.909 [facility] [address] [place] [address] Jun, 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 [facility] [id number], [place] [address] 4976 Jun, 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 [facility] [address] [address] May, 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 [facility] [id number], [place] [address] 5416 May, [facility] [id number] [address] Apr, [facility] [address], [place] [address]- 8376 Apr, Reactive airway disease J45.909 [facility] [id number], [place] [address] 2546 Apr, Reactive airway disease J45.909 [facility] [address], [place] [address]- 3259 Apr, [facility] [id number] [place] [address] 6[address]- 8524 Mar, [facility] [address] [place] [address] Mar, Mood disorder F39 and Shortness of breath R06.02 [facility] [id number] [place] [address] 56035- 9483 Feb, [facility] [id number] [place] [address] 07662- 7559 Jan, [facility] [address] [place] [address] Jan, Moist breath sounds R06.89 and Constipation, unspecified constipation type K59.00 [place] [id number] [place] [address] 07768- 8603 Jan, [facility] [id number] [place] [address] 24897- 2549 Dec, Uncomplicated asthma, unspecified asthma severity J45.909 [facility] [id number] [place] [address] 58629- 0415 Dec, [facility] [address] [place] [address] 65585- 1721 Dec, Uncomplicated asthma, unspecified asthma severity J45.909 [facility] [address] [place] [address] 56004- 6255 Dec, [facility] [address] [id number] Dec, 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 and Unspecified mood [affective] disorder F39 [facility] [address] [place] [address] 60608- 0499 Dec, [facility] [id number] [place] [address] 90316- 5698 Dec, Reactive airway disease J45.909 [facility] [address] [place] [address] 23325- 8274 Nov, [facility] [id number] [place] [address] 52140- 0355 Nov, [facility] [id number] [place] [address] 62102- 2213 Nov, [facility] [address] [address] Nov, Shortness of breath R06.02 ; Family history of coronary arteriosclerosis Z82.49 and Dysuria R30.0 [facility] [id number] [place] [address] 28640- 5479 Nov, [facility] [id number] [place] [address] 86226- 7495 Oct, [facility] [id number] [place] [address] 59255- 7880 Oct, [facility] [id number] [place] [address] 45978- 1707 Oct, [facility] [id number] [place] [address] 37601- 5434 Oct, [facility] [id number] [place] [address] 30245- 8104 Oct, [facility] [id number] [place] [address] 00579- 9086 Oct, [facility] J98.09 [facility] [address] [address] Sep, 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 and 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 [facility] [address] [place] [address] 26879- 6606 Sep, Stomach ache R10.9 [facility] [id number] [place] [address] 01648- 3702 August, [facility] [address], [place] [address]- 7440 August, [facility] [address], [place] [address]- 6943 Jul, [facility] [address], [place] [address]- 9584 Jul, [facility] [id number] [place] [address] 87631- 1902 Jul, [facility] [address] [place] [address] 34438- 1996 Jul, [facility] [id number] [place] [address] 37196- 7473 Jul, [facility] [address] [id number] Jul, Fever R50.9 [facility] [id number] [place] [address] 99834- 5056 Jul, Reactive airway disease J45.909 [place] [id number] [place] [address] 31763- 1839 Jun, [facility] [address] [id number] Jun, Reactive airway disease J45.909 and 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 [facility] [address] [place] [address] 23861- 0851 May, [facility] [address] [id number] May, Recurrent bronchospasm J98.09 ; Weight gain R63.5 ; 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 and Mood disorder F39 [facility] [address], [place] [address]- 4892 Apr, [facility] [address] [place] [address] 46017- 9413 Apr, [facility] [address] [id number] 13 Apr, 2015 Unspecified mood [affective] disorder F39 [place] [id number] [place] [address] 68353- 5913 Feb, [facility] [address] [place] [address] Feb, Uncomplicated asthma, unspecified asthma severity J45.909 [place] [id number] [place] [address] 10619- 7741 17 Feb, 2015 [place] [id number] [place] [address] 60212- 9458 Feb, [place] [id number] [place] [address] 07402- 6693 Feb, [facility] [id number] [place] [address] 71772- 3230 Jan, [facility] [id number] [place] [address] 33641- 9856 24 Dec, 2014 [place] [id number] [place] [address] 63386- 1472 16 Dec, 2014 Antisocial behavior V71.01 and History of poliomyelitis without residual effect V12.02 [place] [id number] [place] [address] 61505- 2318 Oct, Essential hypertension, malignant 401.0 ; Unspecified hypothyroidism 244.9 and 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 [facility] [address] [place] [address] 83040- 8695 Sep, [place] [id number] [place] [address] 44708- 2393 Sep, [facility] [id number] [place] [address] 61528- 0258 Sep, Abdominal pain, unspecified site 789.00 and Manipulative behavior V40.39 [place] [id number] [place] [address] [place] [address]- 9365 Sep, [facility] [address] [id number] [place] [address]- 9542 Jul, [facility] [address] [id number], [place] [address]- 0515 Jul, [facility] [address] [id number], [place] [address]- 0674 Jun, [facility] [address] [id number], [place] [address]- 1808 Jun, [facility] [address] [id number], [place] [address]- 4375 Jun, [facility] [address] [id number] Jun, [facility] [address] [id number], [place] [address]- 0962 May, [facility] [address] [id number], [place] [address]- 7595 May, [facility] [address] [id number] Apr, [facility] [address] [id number], [place] [address]- 7696 Apr, [facility] [address] [id number], [place] [address]- 7180 Apr, [facility] [address] [id number], [place] [address]- 4598 Apr, [facility] [address] [id number], [place] [address]- 8311 Apr, [facility] [address] [id number], [place] [address]- 8651 Apr, [facility] [address] [id number], [place] [address]- 8854 Apr, [facility] [address] [id number] [place] [address]- 8219 Apr, [facility] [address] [id number] [place] [address]- 5637 Apr, [facility] [place] [facility] [address] [id number] [place] [address]- 6241 Apr, [facility] [address] [id number] [place] [address]- 6616 Mar, [facility] [place] [facility] [address] [id number] [place] [address]- 6400 Mar, [facility] [place] [facility] [address] [id number] [place] [address]- 5844 Mar, [facility] [place] [facility] [address] [id number] [place] [address]- 6268 Mar, [facility] [place] [facility] [address] [id number] [place] [address]- 8505 Mar, [facility] [place] [facility] [address] [id number] [place] [address]- 2813 Mar, [facility] [place] [facility] [address] [id number] [place] [address]- 6030 Mar, [facility] [place] [facility] [address] [id number] [place] [address]- 9575 Mar, [facility] [place] [facility] [address] [id number] [place] [address]- 3453 Mar, [facility] [place] [facility] [address] [id number] [place] [address]- 1218 Mar, [facility] [place] [facility] [address] [id number] [place] [address]- 4710 Mar, [facility] [place] [facility] [address] [id number] [place] [address]- 6671 Feb, [facility] [place] [facility] [address] [id number] [place] [address]- 3085 Feb, [facility] [place] [facility] [address] [id number] [place] [address]- 9947 Feb, [facility] [place] [facility] [address] [id number] [place] [address]- 2941 Feb, [facility] [place] [facility] [address] [id number] [place] [address]- 9707 Feb, [facility] [place] [facility] [address] [id number] [place] [address]- 3965 Feb, [facility] [place] [facility] [address] [id number] [place] [address]- 1022 Feb, [facility] [place] [facility] [address] [id number] [place] [address]- 7288 Feb, [facility] [place] [facility] [address] [id number] [place] [address]- 3351 Feb, [facility] [place] [facility] [address] [id number] [place] [address]- 0269 Feb, [facility] [place] [facility] [address] [id number] [place] [address]- 5932 Feb, [facility] [place] [facility] [address] [id number] [place] [address]- 3146 Feb, [facility] [place] [facility] [address] [id number] [place] [address]- 5445 Feb, [facility] [place] [facility] [address] [id number] [place] [address]- 4434 Feb, [facility] [place] [facility] [address] [id number] [place] [address]- 8572 Feb, [facility] [place] [facility] [address] [id number] [place] [address]- 1440 Feb, [facility] [place] [facility] [address] [id number] [place] [address]- 9609 Feb, [facility] [place] [facility] [address] [id number], [place] [address]- 6712 Feb, [facility] [place] [facility] [address] [id number] [place] [address]- 0264 Feb, [facility] [place] [facility] [address] [id number] [place] 4134 Feb, [facility] [place] [facility] [address] [id number] [place] [address]- 1512 Jan, [facility] [place] [facility] [address] [id number] [place] [address]- 1109 Jan, [facility] [place] [facility] [address] [id number] [place] [address]- 3849 Jan, [facility] [place] [facility] [address] [id number] [place] [address]- 1504 Jan, [facility] [place] [facility] [address] [id number] [place] [address]- 7611 Jan, [facility] [place] [facility] [address] [id number], [place] [address]- 3864 Jan, [facility] [place] [facility] [address] [id number], [place] [address]- 2432 Jan, [facility] [place] [facility] [address] [id number] [place] [address]- 9855 Jan, [facility] [place] [facility] [address] [id number], [place] [address]- 8107 15 Jan, 2014 [facility] [place] [facility] [address] [id number], [place] [address]- 7333 15 Jan, 2014 [facility] [place] [facility] [address] [id number] [place] [address]- 4937 15 Jan, 2014 [facility] [place] [facility] [address] [id number], [place] [address]- 9244 15 Jan, 2014 [facility] [place] [facility] [address] [id number], [place] [address]- 8796 14 Jan, 2014 [facility] [place] [facility] [address] [id number] [place] [address]- 7169 Jan, [facility] [place] [facility] [address] [id number] [place] [address]- 7179 Jan, [facility] [place] [facility] [address] [id number] [place] [address]- 2723 Jan, [facility] [place] [facility] [address] [id number] [place] [address]- 0518 Jan, [facility] [place] [facility] [address] [id number] [place] [address]- 5047 Jan, [facility] [place] [facility] [address] [id number] [place] [address]- 5910 Jan, [facility] [place] [facility] [address] [id number] [place] [address]- 9195 29 Dec, 2013 [facility] [place] [facility] [address] [id number] [place] [address]- 0001 23 Dec, 2013 [facility] [place] [facility] [address] [id number] [place] [address]- 0070 22 Dec, 2013 [facility] [place] [facility] [address] [id number] [place] [address]- 6420 22 Dec, 2013 [facility] [place] [facility] [address] [id number] [place] [address]- 3904 19 Dec, 2013 [facility] [place] [facility] [address] [id number] [place] [address]- 2549 19 Sep, 2013 [facility] [place] [facility] [address] [id number] [place] [address]- 2548 18 Sep, 2013 [facility] [place] [facility] [address] [id number] [place] [address]- 0446 17 Sep, 2013 [facility] [place] [facility] [address] [id number] [place] [address]- 2543 17 Sep, 2013 [facility] [place] [facility] [address] [id number] [place] [address]- 5475 Dec, [facility] [place] [facility] [address] [id number] [place] [address]- 1070 Dec, [facility] [place] [facility] [address] [id number] [place] [address]- 4402 Dec, [facility] [place] [facility] [address] [id number] [place] [address]- 5517 Dec, [facility] [place] [facility] [address] [id number] [place] [address]- 3626 Nov, [facility] [place] [facility] [address] [id number] [place] [address]- 3758 Nov, [facility] [place] [facility] [address] [id number] [place] [address]- 1858 Nov, [facility] [place] [facility] [address] [id number] [place] [address]- 9556 Nov, [facility] [place] [facility] [address] [id number] [place] [address]- 4149 Nov, [facility] [place] [facility] [address] [id number] [place] [address]- 1596 Nov, [facility] [place] [facility] [address] [id number] [place] [address]- 4223 Nov, [facility] [place] [facility] [address] [id number] [place] [address]- 5159 Nov, [facility] [place] [facility] [address] [id number] [place] [address]- 5215 Nov, [facility] [place] [facility] [address] [id number] [place] [address]- 9182 Nov, [facility] [place] [facility] [address] [id number] [place] [address]- 1737 Oct, [facility] [place] [facility] [address] [id number] [place] [address]- 4706 Oct, [facility] [place] [facility] [address] [id number] [place] [address]- 4593 Oct, [facility] [place] [facility] [address] [id number] [place] [address]- 8118 Oct, [facility] [place] [facility] [address] [id number] [place] [address]- 5869 Oct, [facility] [place] [facility] [address] [id number] [place] [address] Oct, [facility] [place] [facility] [address] [id number] [place] [address] Oct, [facility] [place] [facility] [address] [id number] [place] [address] Oct, [facility] [place] [facility] [address] [id number] [place] [address] Oct, [facility] [place] [facility] [address] [id number] [place] [address] Oct, [facility] [place] [facility] [address] [id number] [place] [address] Oct, [facility] [place] [facility] [address] [id number] [place] [address] Oct, [facility] [place] [facility] [address] [id number] [place] [address] Oct, [facility] [place] [facility] [address] [id number] [place] [address] Sep, [facility] [place] [facility] [address] [id number] [place] [address] Sep, [facility] [place] [facility] [address] [id number] [place] [address] Sep, [facility] [place] [facility] [address] [id number] [place] [address]- [address] Sep, [facility] [place] [facility] [address] [id number] [place] [address]- [address] Sep, [facility] [place] [facility] [address] [id number] [place] [address] Sep, [facility] [place] [facility] [address] [id number] [place] [address] Sep, [facility] [place] [facility] [address] [id number] [place] [address] Sep, [facility] [place] [facility] [address] [id number] [place] [address] Sep, [facility] [place] [facility] [address] [id number] [place] [address]- [address] Sep, [facility] [place] [facility] [address] [id number] [place] [address]- [address] Sep, [facility] [place] [facility] [address] [id number] [place] [address] Sep, [facility] [place] [facility] [address] [id number] [place] [address] August, [facility] [place] [facility] [address] [id number] [place] [address] August, [facility] [place] [facility] [address] [id number] [place] [address] August, [facility] [place] [facility] [address] [id number] [place] [address] August, [facility] [place] [facility] [address] [id number] [place] [address]- [address] August, [facility] [place] [facility] [address] [id number] [place] [address] August, [facility] [place] [facility] [address] [id number] [place] [address] August, [facility] [place] [facility] [address] [id number] [place] [address] August, [facility] [place] [facility] [address] [id number] [place] [address]- [address] August, [facility] [place] [facility] [address] [id number] [place] [address]- [address] August, [facility] [place] [facility] [address] [id number] [place] [address]- [address] August, [facility] [place] [facility] [address] [id number] [place] [address]- [address] August, [facility] [place] [facility] [address] [id number] [place] [address] August, [facility] [place] [facility] [address] [id number] [place] [address] Jul, [facility] [place] [facility] [address] [id number] [place] [address] Jul, [facility] [place] [facility] [address] [id number] [place] [address] Jul, [facility] [place] [facility] [address] [id number] [place] [address] Jul, [facility] [place] [facility] [address] [id number] [place] [address] Jul, [facility] [place] [facility] [address] [id number] [place] [address] Jul, [facility] [place] [facility] [address] [id number] [place] [address] Jul, [facility] [place] [facility] [address] [id number] [place] [address] Jul, [facility] [place] [facility] [address] [id number] [place] [address] Jul, [facility] [place] [facility] [address] [id number] [place] [address] Jul, [facility] [place] [facility] [address] [id number] [place] [address] Jul, [facility] [place] [facility] [address] [id number], [place] [address] 16 Jul, 2013 [facility] [address] [facility] [id number], [place] [address] 16 Jul, 2013 [facility] [id number], [place] [address] Jul, [facility] [id number], [place] [address] Jul, [facility] [address] [facility] [id number], [place] [address] Jul, [facility] [id number], [place] [address] Jul, [facility] [id number], [place] [address] Jun, [facility] [id number], [place] [address] Jun, [facility] [address] [id number], [place] [address] Jun, [facility] [id number], [place] [address] Jun, [facility] [address] [id number], [place] [address] Jun, [facility] [address] [id number], [place] [address] Jun, [facility] [address] [id number], [place] [address] Jun, [facility] [address] [id number], [place] [address] Jun, [facility] [address] [id number], [place] [address] Jun, IMMUNIZATIONS No Known Immunizations SOCIAL HISTORY Never Assessed REASON FOR VISIT Flu Vaccine PLAN OF CARE VITAL SIGNS MEDICATIONS Unknown [...] Surgical history information Hospitalization History [facility] [place]- Nose Bleed 06/05/2017
--- OUTSIDE RECORDS SUMMARY | 2018-04-02 07:52 | XMS REPORT ---
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 Active 71460000 Problem Stomach ache R10.9 Active 800680967 Problem Peptic ulcer K27.9 Active 97535727 Problem Dry eye H04.129 Active 638745827 Problem Morbid obesity E66.01 Active 178900881 Problem Constipation, unspecified constipation type K59.00 Active 06606885 Problem Type 2 diabetes mellitus without complication, without long-term current use of insulin E11.9 Active 955868496 Problem Slow transit constipation K59.01 Active 97279686 Problem 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 524167867 Problem Weight gain R63.5 Active 7417129 Problem Post-polio syndrome G14 Active 25256949 Problem Mood disorder F39 Active 76684935 Problem Acquired hypothyroidism E03.9 Active 780920677 Problem Reactive airway disease J45.909 Active [id number] ALLERGIES No Information ENCOUNTERS Encounter Location Date Diagnosis [facility] [id number] [place] [address]347[address] Jan, [facility] [address] [place] [address] Jan, Acute superficial gastritis without hemorrhage K29.00 ; 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 ; 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 and Mood disorder F39 [facility] [id number] [address] Jan, [facility] [address] [place] [id number] Jan, Peptic ulcer K27.9 and Duodenal mass K31.89 [facility] [address] [place] [address] Dec, History of GI bleed Z87.19 ; Acute pancreatitis, unspecified complication status, unspecified pancreatitis type K85.90 ; Mass of duodenum K31.89 ; End of life care Z51.5 ; Mood disorder F39 and Dry eye H04.[address] [address] Dec, Reactive airway disease J45.[address] [address]- [address] Dec, [facility] [address] [place] [address] Nov, Generalized abdominal pain R10.84 ; 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 and Reactive airway disease J45.[address] [address] Sep, 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 [facility] [address] [id number] Sep, Type 2 diabetes mellitus without complication, without long-term current use of insulin E11.9 ; Slow transit constipation K59.01 and 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 [address] Sep, [facility] [address] [id number] Jul, Pneumonia due to infectious organism, unspecified laterality, unspecified part of lung J18.9 and Morbid obesity E66.[address] [address]- [address] Jul, [facility] [id number] [place] [address]- 6605 Jun, [address] [address] Jun, [facility] [address] [id number] [address] May, [facility] [id number] [id number] 08 May, 2017 Acute superficial gastritis without hemorrhage K29.00 [facility] [address] [place] [address] 08 May, 2017 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 ; 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 and Acute superficial gastritis without hemorrhage K29.00 [facility] [id number], [place] [address] Apr, [facility] [address] [address] Apr, [facility] [address] [id number] Mar, Obesity due to excess calories with serious comorbidity, unspecified classification E66.09 and Reactive airway disease J45.909 [facility] [id number], [place] [address] Mar, [facility] [id number] [address] Jan, [facility] [address] [place] [address] Jan, 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 ; Weight gain R63.5 and 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 [facility] [address] [id number] [address] Dec, [facility] [address] [id number] [address] Dec, [facility] [address] [place] [address] Nov, Weight gain R63.5 ; 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 and Reactive airway disease J45.909 [facility] [id number][place] [address] Oct, [facility] [id number] [address] Sep, [facility] [address], [place] [address] August, [facility] [address] [place] [address] August, 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 [facility] [address]005[address], [place] [address] 6[address] Jul, [facility] [address], [place] [address] Jul, Reactive airway disease J45.[address] [facility] [address] [id number] Jun, 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 [facility] [address] [place] [address] 82325- 4126 Jun, 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 [facility] [place] [address] [place] [address] May, 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 [facility] [address]005[address]100[place], [place] [address] May, [facility] [id number][place] [address] Apr, [facility] [address]005[address]100[place], [place] [address] Apr, Reactive airway disease J45.909 [facility] [id number], [place] [address] Apr, Reactive airway disease J45.909 [facility] [id number], [place] [address] 36[address] Apr, [facility] [address] [id number], [place] [address]- 6[address] Mar, [facility] [address] [place] [address] Mar, Mood disorder F39 and Shortness of breath R06.02 [facility] [id number] [place] [address] 70204- 0960 Feb, [facility] [id number] [place] [address] 73709- 1533 Jan, [facility] [address] [place] [address] Jan, Moist breath sounds R06.89 and Constipation, unspecified constipation type K59.00 [facility] [id number] [place] [address] 56180- 6199 Jan, [facility] [id number] [place] [address] 46042- 3507 Dec, Uncomplicated asthma, unspecified asthma severity J45.909 [facility] [id number] [place] [address] 82965- 0159 Dec, [facility] [id number] [place] [address] 52560- 5566 Dec, Uncomplicated asthma, unspecified asthma severity J45.909 [facility] [id number] [place] [address] 60296- 0567 Dec, [facility] [address] [place] [address] Dec, 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 and Unspecified mood [affective] disorder F39 [place] [address] [place] [address] 10164- 8263 Dec, [facility] [id number] [place] [address] 45744- 7641 Dec, Reactive airway disease J45.909 [facility] [id number] [place] [address] 86839- 3206 Nov, [facility] [id number] [place] [address] 22823- 3809 Nov, [facility] [address] [place] [address] 59335- 0878 Nov, [facility] [address] [place] [address] Nov, Shortness of breath R06.02 ; Family history of coronary arteriosclerosis Z82.49 and Dysuria R30.0 [facility] [id number] [place] [address] 12966- 5494 Nov, [facility] [id number] [place] [address] 73852- 2804 Oct, [facility] [id number] [place] [address] 98906- 5498 Oct, [facility] [id number] [place] [address] 49319- 4183 Oct, [facility] [id number] [place] [address] 98590- 4235 Oct, [facility] [id number] [place] [address] 13938- 6922 Oct, [facility] [id number] [place] [address] 71439- 9791 Oct, Recurrent bronchospasm J98.09 [facility] [address] [place] [address] Sep, 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 and 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 [facility] [id number] [place] [address] 78182- 2616 Sep, Stomach ache R10.9 [facility] [id number] [place] [address] 02150- 7635 August, [facility] [id number] [place] [address] 50196- 1113 August, [facility] [id number] [place] [address] 42370- 5836 Jul, [facility] [address], [place] [address]- 9851 Jul, [facility] [address]100[place], [place] [address]- 7075 14 Jul, 2015 [facility] [address]100[place], [place] [address]- 2411 Jul, [facility] [address] [place] [address] 84759- 6089 Jul, [facility] [address] [id number] Jul, Fever R50.9 [facility] [id number] [place] [address] 47263- 2149 Jul, Reactive airway disease J45.909 [facility] [address] [place] [address] 64511- 2935 Jun, [facility] [address] [id number] Jun, Reactive airway disease J45.909 and 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 [facility] [address] [place] [address] 15853- 3307 May, [facility] [address] [id number] May, Recurrent bronchospasm J98.09 ; Weight gain R63.5 ; 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 and Mood disorder F39 [facility] [address]100[place], [place] [address]- 0835 Apr, [facility] [address] [place] [address] 52380- 4498 Apr, [facility] [address] [place] [address] Apr, Unspecified mood [affective] disorder F39 [place] [address] [address]- 7853 Feb, [facility] [place] [address] [place] [address] Feb, Uncomplicated asthma, unspecified asthma severity J45.909 [facility] [address], [place] [address]- 6888 17 Feb, 2015 [facility] [address], [place] [address]- 2494 13 Feb, 2015 [facility] [id number] [place] [address] 08550- 4637 12 Feb, 2015 [facility] [address] [place] [address] 19343- 6844 14 Jan, 2015 [facility] [id number] [place] [address] 47871- 6897 24 Dec, 2014 [facility] [id number] [place] [address] 06028- 2871 16 Dec, 2014 Antisocial behavior V71.01 and History of poliomyelitis without residual effect V12.02 [facility] [address] [address]- [address]69 29 Oct, 2014 Essential hypertension, malignant 401.0 ; Unspecified hypothyroidism 244.9 and 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 [facility] [address], [place] [address]- 6842 Sep, [facility] [address], [place] [address]- 4998 Sep, [facility] [address], [place] [address]- 8811 Sep, Abdominal pain, unspecified site 789.00 and Manipulative behavior V40.39 [facility] [address] [place] [address] 46924- 8346 09 Sep, 2014 [facility] [address] [address]- 2746 14 Jul, 2014 [facility] [id number] [place] [address] [place] [address]- 8202 Jul, [facility] [address] [id number], [place] [address]- 5770 Jun, [facility] [address] [id number], [place] [address]- 6462 Jun, [facility] [address] [id number], [place] [address]- 1988 Jun, [facility] [address] [place] [address] Jun, [facility] [address] [id number], [place] [address]- 7252 May, [facility] [address] [id number], [place] [address]- 3183 May, [facility] [address] [place] [address] Apr, [facility] [address] [id number], [place] [address]- 3280 Apr, [facility] [address] [id number], [place] [address]- 2505 Apr, [facility] [address] [id number], [place] [address]- 7096 Apr, [facility] [address] [id number], [place] [address]- 1606 Apr, [facility] [address] [id number], [place] [address]- 2494 Apr, [facility] [place] [facility] [address] [id number], [place] [address]- 2369 Apr, [facility] [place] [facility] [address] [id number], [place] [address]- 1615 Apr, [facility] [place] [facility] [address] [id number], [place] [address]- 1175 Apr, [facility] [place] [facility] [address] [id number] [place] [address]- 4589 Apr, [facility] [address] [id number] [place] [address]- 6600 Mar, [facility] [place] [facility] [address] [id number] [place] [address]- 2566 Mar, [facility] [place] [facility] [address] [id number] [place] [address]- 7926 Mar, [facility] [place] [facility] [address] [id number] [place] [address]- 3925 Mar, [facility] [place] [facility] [address] [id number] [place] [address]- 4417 Mar, [facility] [place] [facility] [address] [id number] [place] [address]- 9365 Mar, [facility] [place] [facility] [address] [id number] [place] [address]- 4738 Mar, [facility] [place] [facility] [address] [id number] [place] [address]- 1352 Mar, [facility] [place] [facility] [address] [id number] [place] [address]- 8403 Mar, [facility] [place] [facility] [address] [id number] [place] [address]- 4630 Mar, [facility] [place] [facility] [address] [id number] [place] [address]- 0046 Mar, [facility] [place] [facility] [address] [id number] [place] [address]- 1865 Feb, [facility] [place] [facility] [address] [id number] [place] [address]- 4986 Feb, [facility] [place] [facility] [address] [id number] [place] [address]- 1336 Feb, [facility] [place] [facility] [address] [id number] [place] [address]- 5583 Feb, [facility] [place] [facility] [address] [id number] [place] [address]- 2368 Feb, [facility] [place] [facility] [address] [id number] [place] [address]- 1477 Feb, [facility] [place] [facility] [address] [id number] [place] [address]- 4025 Feb, [facility] [place] [facility] [address] [id number] [place] [address]- 0121 Feb, [facility] [place] [facility] [address] [id number] [place] [address]- 0646 Feb, [facility] [place] [facility] [address] [id number] [place] [address]- 4352 Feb, [facility] [place] [facility] [address] [id number] [place] [address]- 3074 Feb, [facility] [place] [facility] [address] [id number] [place] [address]- 5453 Feb, [facility] [place] [facility] [address] [id number] [place] [address]- 2561 Feb, [facility] [place] [facility] [address] [id number] [place] [address]- 2551 Feb, [facility] [place] [facility] [address] [id number] [place] [address]- 9719 Feb, [facility] [place] [facility] [address] [id number] [place] [address]- 1758 Feb, [facility] [place] [facility] [address] [id number] [place] [address]- 7392 Feb, [facility] [place] [facility] [address] [id number] [place] [address]- 0626 Feb, [facility] [place] [facility] [address] [id number] [place] [address]- 3200 Feb, [facility] [place] [facility] [address] [id number], [place] [address]- 5634 Feb, [facility] [place] [facility] [address] [id number] [place] [address]- 3202 Jan, [facility] [place] [facility] [address] [id number] [place] [address]- 8970 Jan, [facility] [place] [facility] [address] [id number] [place] [address]- 0367 Jan, [facility] [place] [facility] [address] [id number] [place] [address]- 3502 Jan, [facility] [place] [facility] [address] [id number] [place] [address]- 1891 Jan, [facility] [place] [facility] [address] [id number] [place] [address]- 7671 Jan, [facility] [place] [facility] [address] [id number] [place] [address]- 6925 Jan, [facility] [place] [facility] [address] [id number] [place] [address]- 9703 Jan, [facility] [place] [facility] [address] [id number], [place] [address]- 3706 Jan, [facility] [place] [facility] [address] [id number] [place] [address]- 9996 Jan, [facility] [place] [facility] [address] [id number], [place] [address]- 5121 15 Jan, 2014 [facility] [place] [facility] [address] [id number], [place] [address]- 4628 15 Jan, 2014 [facility] [place] [facility] [address] [id number] [place] [address]- 8901 14 Jan, 2014 [facility] [place] [facility] [address] [id number], [place] [address]- 0847 09 Jan, 2014 [facility] [place] [facility] [address] [id number], [place] [address]- 4414 08 Jan, 2014 [facility] [place] [facility] [address] [id number] [place] [address]- 2823 06 Jan, 2013 [facility] [place] [facility] [address] [id number] [place] [address]- 2389 Jan, [facility] [place] [facility] [address] [id number] [place] [address]- 3640 Jan, [facility] [place] [facility] [address] [id number] [place] [address]- 1194 Jan, [facility] [place] [facility] [address] [id number] [place] [address]- 5479 29 Dec, 2013 [facility] [place] [facility] [address] [id number] [place] [address]- 6203 23 Dec, 2013 [facility] [place] [facility] [address] [id number] [place] [address]- 1574 22 Dec, 2013 [facility] [place] [facility] [address] [id number] [place] [address]- 6623 22 Dec, 2013 [facility] [place] [facility] [address] [id number] [place] [address]- 2178 19 Dec, 2013 [facility] [place] [facility] [address] [id number] [place] [address]- 6571 19 Dec, 2013 [facility] [place] [facility] [address] [id number] [place] [address]- 9396 18 Sep, 2013 [facility] [place] [facility] [address] [id number] [place] [address]- 2543 17 Sep, 2013 [facility] [place] [facility] [address] [id number] [place] [address]- 2545 17 Sep, 2013 [facility] [place] [facility] [address] [id number] [place] [address]- 2544 16 Sep, 2013 [facility] [place] [facility] [address] [id number] [place] [address]- 2545 16 Sep, 2013 [facility] [place] [facility] [address] [id number] [place] [address]- 3512 Dec, [facility] [place] [facility] [address] [id number] [place] [address]- 3546 Dec, [facility] [place] [facility] [address] [id number] [place] [address]- 6851 Nov, [facility] [place] [facility] [address] [id number] [place] [address]- 8959 Nov, [facility] [place] [facility] [address] [id number] [place] [address]- 1710 Nov, [facility] [place] [facility] [address] [id number] [place] [address]- 2490 Nov, [facility] [place] [facility] [address] [id number] [place] [address]- 7517 Nov, [facility] [place] [facility] [address] [id number] [place] [address]- 3961 Nov, [facility] [place] [facility] [address] [id number] [place] [address]- 9998 Nov, [facility] [place] [facility] [address] [id number] [place] [address]- 6169 Nov, [facility] [place] [facility] [address] [id number] [place] [address]- 3055 Nov, [facility] [place] [facility] [address] [id number] [place] [address]- 7158 Nov, [facility] [place] [facility] [address] [id number] [place] [address]- 2315 Oct, [facility] [place] [facility] [address] [id number] [place] [address]- 5463 Oct, [facility] [place] [facility] [address] [id number] [place] [address]- 1928 Oct, [facility] [place] [facility] [address] [id number] [place] [address]- 3315 Oct, [facility] [place] [facility] [address] [id number] [place] [address]- 1643 Oct, [facility] [place] [facility] [address] [id number] [place] [address]- 5896 Oct, [facility] [place] [facility] [address] [id number] [place] [address]- 5926 Oct, [facility] [place] [facility] [address] [id number] [place] [address]- 9294 Oct, 2013 [facility] [place] [facility] [address] [id number] [place] [address]- 1457 Oct, 2013 [facility] [place] [facility] [address] [id number] [place] [address]- 3388 Oct, [facility] [place] [facility] [address] [id number] [place] [address] Oct, [facility] [place] [facility] [address] [id number] [place] [address] Oct, [facility] [place] [facility] [address] [id number] [place] [address] Oct, [facility] [place] [facility] [address] [id number] [place] [address] Sep, [facility] [place] [facility] [address] [id number] [place] [address] Sep, [facility] [place] [facility] [address] [id number] [place] [address] Sep, [facility] [place] [facility] [address] [id number] [place] [address] Sep, [facility] [place] [facility] [address] [id number] [place] [address] Sep, [facility] [place] [facility] [address] [id number] [place] [address] Sep, [facility] [place] [facility] [address] [id number] [place] [address] 16 Sep, 2013 [facility] [place] [facility] [address] [id number] [place] [address] Sep, [facility] [place] [facility] [address] [id number] [place] [address] Sep, [facility] [place] [facility] [address] [id number] [place] [address] Sep, [facility] [place] [facility] [address] [id number] [place] [address] Sep, [facility] [place] [facility] [address] [id number] [place] [address] Sep, [facility] [place] [facility] [address] [id number] [place] [address] August, [facility] [place] [facility] [address] [id number] [place] [address] August, [facility] [place] [facility] [address] [id number] [place] [address] August, [facility] [place] [facility] [address] [id number] [place] [address] August, [facility] [place] [facility] [address] [id number] [place] [address] August, [facility] [place] [facility] [address] [id number] [place] [address] August, [facility] [place] [facility] [address] [id number] [place] [address] August, [facility] [place] [facility] [address] [id number] [place] [address] August, [facility] [place] [facility] [address] [id number] [place] [address] August, [facility] [place] [facility] [address] [id number] [place] [address] August, [facility] [place] [facility] [address] [id number] [place] [address] August, [facility] [place] [facility] [address] [id number] [place] [address] August, [facility] [place] [facility] [address] [id number] [place] [address] August, [facility] [place] [facility] [address] [id number] [place] [address] Jul, [facility] [place] [facility] [address] [id number] [place] [address] Jul, [facility] [place] [facility] [address] [id number] [place] [address] Jul, [facility] [place] [facility] [address] [id number] [place] [address] Jul, [facility] [place] [facility] [address] [id number] [place] [address] Jul, [facility] [place] [facility] [address] [id number] [place] [address] Jul, [facility] [place] [facility] [address] [address] [id number] [place] [address] Jul, [facility] [place] [facility] [address] [id number] [place] [address] Jul, [facility] [place] [facility] [address] [id number] [place] [address] Jul, [facility] [place] [facility] [address] [id number] [place] [address] Jul, [facility] [place] [facility] [address] [id number] [place] [address] Jul, [facility] [place] [facility] [address] [id number] [place] [address] Jul, [facility] [place] [facility] [address] [id number] [place] [address] Jul, [facility] [place] [facility] [address] [id number] [address] Jul, [facility] [address] [id number] [address] Jul, [facility] [id number] [address] Jul, [facility] [id number] [address] Jul, [facility] [id number] [address] Jun, [facility] [id number] [address] Jun, [facility] [id number], [place] [address] Jun, [facility] [id number], [place] [address] Jun, [facility] [address] [id number], [place] [address] Jun, [facility] [id number], [place] [address] Jun, [facility] [address] [id number], [place] [address] Jun, [facility] [address] [id number], [place] [address] Jun, [facility] [address] [id number] [id number] Jun, IMMUNIZATIONS No Known Immunizations SOCIAL HISTORY Never Assessed REASON FOR VISIT Requests return call PLAN OF CARE VITAL SIGNS MEDICATIONS Unknown [...] Surgical history information Hospitalization History [facility]- Nose Bleed 06/05/2017
--- OUTSIDE RECORDS SUMMARY | 2018-04-02 07:52 | XMS REPORT ---
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 Active 57300403 Problem Stomach ache R10.9 Active 320048620 Problem Peptic ulcer K27.9 Active 53324314 Problem Dry eye H04.129 Active 422044486 Problem Morbid obesity E66.01 Active 562493537 Problem Constipation, unspecified constipation type K59.00 Active 33502435 Problem Type 2 diabetes mellitus without complication, without long-term current use of insulin E11.9 Active 340682881 Problem Slow transit constipation K59.01 Active 82354606 Problem 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 720744133 Problem Weight gain R63.5 Active 9494179 Problem Post-polio syndrome G14 Active 04691383 Problem Mood disorder F39 Active 90415987 Problem Acquired hypothyroidism E03.9 Active 689576937 Problem Reactive airway disease J45.909 Active [id number] ALLERGIES No Information ENCOUNTERS Encounter Location Date Diagnosis [facility] [address] [id number] [address] Feb, [facility] [address] [facility] [id number] [address] Jan, [facility] [address] [place] [id number] Jan, Acute superficial gastritis without hemorrhage K29.00 ; 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 ; 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 and Mood disorder F39 [facility] [address] [id number] [address] Jan, [facility] [address] [id number] Jan, Peptic ulcer K27.9 and Duodenal mass K31.[address] [facility] [address] [id number] Dec, History of GI bleed Z87.19 ; Acute pancreatitis, unspecified complication status, unspecified pancreatitis type K85.90 ; Mass of duodenum K31.89 ; End of life care Z51.5 ; Mood disorder F39 and Dry eye H04.129 [id number] [place] [address]- 1527 Dec, Reactive airway disease J45.[id number] [place] [address]- 3556 Dec, [facility] [address] [id number] Nov, Generalized abdominal pain R10.84 ; 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 and Reactive airway disease J45.909 [id number] [place] [address]879- 7037 Sep, 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 [facility] [address] [id number] Sep, Type 2 diabetes mellitus without complication, without long-term current use of insulin E11.9 ; Slow transit constipation K59.01 and 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 [address] [id number] [place] [address]69- 9567 Sep, [facility] [address] [id number] Jul, Pneumonia due to infectious organism, unspecified laterality, unspecified part of lung J18.9 and Morbid obesity E66.01 [address] [id number] [place] [address]- 2765 Jul, [place] [id number] [place] [address] 98179- 7274 Jun, [facility] [address] [id number] [address] 2546 Jun, [facility] [id number] [address] May, [facility] [id number] [place] [address] May, Acute superficial gastritis without hemorrhage K29.00 [facility] [place] [address] [place] [address] May, 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 ; 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 and Acute superficial gastritis without hemorrhage K29.00 [facility] [address] [id number] [address] 2546 Apr, [facility] [address] [id number] [address]- 2546 Apr, [facility] [place] [address] [place] [address] Mar, Obesity due to excess calories with serious comorbidity, unspecified classification E66.09 and Reactive airway disease J45.909 [facility] [address] [id number] [address] 25[address] Mar, [facility] [id number] [id number] Jan, [facility] [place] [address] [place] [address] Jan, 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 ; Weight gain R63.5 and 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 [facility] [address] [id number] [address] Dec, [facility] [id number] [address] Dec, [facility] [place] [address] [place] [address] Nov, Weight gain R63.5 ; 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 and Reactive airway disease J45.909 [facility] [id number] [address] Oct, [facility] [address] [id number] [address] Sep, [facility] [address] [id number] [address] August, [facility] [place] [address] [place] [address] August, 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 [facility] [address] [id number] [address] Jul, [facility] [address]65[address] [address] Jul, Reactive airway disease J45.909 [facility] [place] [address] [place] [id number] Jun, 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 [facility] [address] [id number] [address] Jun, 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 [facility] [place] [address] [place] [id number] May, 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 [facility] [address] [id number] [address] 2546 May, [facility] [id number] [place] [address] Apr, [facility] [address] [facility] [id number] [address]- [address] Apr, Reactive airway disease J45.909 [facility] [address] [id number] [address] 2546 Apr, Reactive airway disease J45.909 [facility] [address] [id number] [address]- 1316 Apr, [facility] [address]00565100[place] [address]- 0[address] Mar, [facility] [place] [address] [place] [address] Mar, Mood disorder F39 and Shortness of breath R06.02 [facility] [address] [place] [address] 25932- 8827 Feb, [facility] [id number] [place] [address] 34955- 4027 Jan, [facility] [place] [address] [place] [id number] Jan, Moist breath sounds R06.89 and Constipation, unspecified constipation type K59.00 [place] [id number] [place] [address] 20764- 2420 Jan, [place] [id number] [place] [address] 45179- 3202 Dec, Uncomplicated asthma, unspecified asthma severity J45.909 [id number] [place] [address] 06414- 2350 Dec, [place] [id number] [place] [address] 74296- 7510 Dec, Uncomplicated asthma, unspecified asthma severity J45.909 [address] [place] [address] 25767- 8279 Dec, [facility] [place] [address] [place] [address] Dec, 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 and Unspecified mood [affective] disorder F39 [address] [place] [id number] [place] [address] 14300- 5647 Dec, [place] [id number] [place] [address] 92947- 0882 Dec, Reactive airway disease J45.909 [id number] [place] [address] 17566- 0257 Nov, [facility] [address]00565[address] [address]- 9791 Nov, [facility] [id number] [place] [address] 20810- 9799 Nov, [facility] [address] [place] [address] Nov, Shortness of breath R06.02 ; Family history of coronary arteriosclerosis Z82.49 and Dysuria R30.0 [facility] [address] [place] [address] 41258- 3356 Nov, [facility] [id number] [place] [address] 96924- 3337 Oct, [facility] [id number] [place] [address] 21633- 3235 Oct, [facility] [id number] [place] [address] 49066- 8418 Oct, [facility] [id number] [place] [address] 70721- 5831 Oct, [facility] [id number] [place] [address] 92263- 0370 Oct, [facility] [id number] [place] [address] 56874- 2955 Oct, [facility]ospasm J98.09 [facility] [address] [place] [address] Sep, 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 and 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 [facility] [address] [place] [address] 43208- 8336 Sep, Stomach ache R10.9 [facility] [address]00565[address] [address]- 9533 August, [facility] [id number] [place] [address] 68960- 3196 August, [facility] [address] [address]- 5161 Jul, [facility] [address]65[address] [address]- 0793 Jul, [facility] [address] [address]- 3853 Jul, [facility] [id number] [place] [address] 25973- 7623 Jul, [facility] [address] [place] [address] 95398- 6150 Jul, [facility] [place] [address] [place] [address] Jul, Fever R50.9 [facility] [address] [place] [address] 03588- 7170 Jul, Reactive airway disease J45.909 [facility] [address]00565[address] [address]- 2981 Jun, [facility] [place] [address] [place] [address] Jun, Reactive airway disease J45.909 and 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 [place]65[address] [address]- 3068 May, [facility] [address] [id number] May, Recurrent bronchospasm J98.09 ; Weight gain R63.5 ; 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 and Mood disorder F39 [facility] [address] [address]- 6872 Apr, [facility] [address] [address]- 0474 Apr, [facility] [place] [address] [place] [address] Apr, Unspecified mood [affective] disorder F39 [facility] [address]00565[address] [address]- 5365 Feb, [facility] [address] [place] [id number] Feb, Uncomplicated asthma, unspecified asthma severity J45.909 [facility] [address]65[address] [address]- 2948 17 Feb, 2015 [facility] [id number] [place] [address] 64800- 1249 Feb, [facility] [id number] [place] [address] 99528- 8541 Feb, [facility] [id number] [place] [address] 97270- 3543 14 Jan, 2015 [facility] [id number] [place] [address] 99686- 0971 24 Dec, 2014 [facility] [id number] [place] [address] 27868- 0433 16 Dec, 2014 Antisocial behavior V71.01 and History of poliomyelitis without residual effect V12.02 [place] [id number] [place] [address] 11098- 8362 Oct, Essential hypertension, malignant 401.0 ; Unspecified hypothyroidism 244.9 and 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 [facility] [address] [place] [address] 50204- 5827 Sep, [facility] [id number] [place] [address] 61338- 2841 Sep, [facility] [id number] [place] [address] 93857- 7921 Sep, Abdominal pain, unspecified site 789.00 and Manipulative behavior V40.39 [facility] [id number] [place] [address] 99704- 9733 Sep, [facility] [id number] [place] [address] [place] [address]- 6636 14 Jul, 2014 [facility] [address] [id number] [address]- 7097 Jul, [facility] [address] [id number] [address]- 6365 Jun, [facility] [address] [id number] [address]- 7126 Jun, [facility] [address] [id number] [address]- 3190 Jun, [facility] [address] [id number] Jun, [facility] [address] [id number] [address]- 3562 May, [facility] [address] [id number] [address]- 8567 May, [facility] [address] [id number] Apr, [facility] [address] [id number] [address]- 7820 Apr, [facility] [address] [id number] [address]- 1988 Apr, [facility] [address] [id number] [address]- 9141 Apr, [facility] [address] [id number] [address]- 7047 Apr, [facility] [place] [facility] [address] [id number] [address]- 7092 Apr, [facility] [address] [id number] [address]- 0853 Apr, [facility] [place] [facility] [address] [id number] [address]- 0299 Apr, [facility] [address] [id number] [place] [address]- 4431 Apr, [facility] [address] [id number] [place] [address]- 4872 Apr, [facility] [place] [facility] [address] [id number] [place] [address]- 5989 Mar, [facility] [place] [facility] [address] [id number] [place] [address]- 8223 Mar, [facility] [place] [facility] [address] [id number] [place] [address]- 3302 Mar, [facility] [place] [facility] [address] [id number] [place] [address]- 5985 Mar, [facility] [place] [facility] [address] [id number] [place] [address]- 4767 Mar, [facility] [place] [facility] [address] [id number] [place] [address]- 4026 Mar, [facility] [place] [facility] [address] [id number] [place] [address]- 1419 Mar, [facility] [place] [facility] [address] [id number] [place] [address]- 6332 Mar, [facility] [place] [facility] [address] [id number] [place] [address]- 0933 Mar, [facility] [place] [facility] [address] [id number] [place] [address]- 3622 Mar, [facility] [place] [facility] [address] [id number] [place] [address]- 4106 Mar, [facility] [place] [facility] [address] [id number] [place] [address]- 7568 Feb, [facility] [place] [facility] [address] [id number] [place] [address]- 0967 Feb, [facility] [place] [facility] [address] [id number] [place] [address]- 8193 Feb, [facility] [place] [facility] [address] [id number] [place] [address]- 2773 Feb, [facility] [place] [facility] [address] [id number] [place] [address]- 6654 Feb, [facility] [place] [facility] [address] [id number] [place] [address]- 5708 Feb, [facility] [place] [facility] [address] [id number] [place] [address]- 7757 Feb, [facility] [place] [facility] [address] [id number] [place] [address]- 7635 Feb, [facility] [place] [facility] [address] [id number] [place] [address]- 5066 Feb, [facility] [place] [facility] [address] [id number] [place] [address]- 4362 Feb, [facility] [place] [facility] [address] [id number] [place] [address]- 7115 Feb, [facility] [place] [facility] [address] [id number] [place] [address]- 6543 Feb, [facility] [place] [facility] [address] [id number] [place] [address]- 5261 Feb, [facility] [place] [facility] [address] [id number] [place] [address]- 9469 Feb, [facility] [place] [facility] [address] [id number] [place] [address]- 7188 Feb, [facility] [place] [facility] [address] [id number] [place] [address]- 0629 Feb, [facility] [place] [facility] [address] [id number] [place] [address]- 7896 Feb, [facility] [place] [facility] [address] [id number] [place] [address]- 8566 Feb, [facility] [place] [facility] [address] [id number] [address]- 1229 Feb, [facility] [place] [facility] [address] [id number] [place] [address]- 6222 Feb, [facility] [place] [facility] [address] [id number] [place] [address]- 7181 Jan, [facility] [place] [facility] [address] [id number] [place] [address]- 8492 Jan, [facility] [place] [facility] [address] [id number] [place] [address]- 9422 Jan, [facility] [place] [facility] [address] [id number] [place] [address]- 5598 Jan, [facility] [place] [facility] [address] [id number] [place] [address]- 9440 Jan, [facility] [place] [facility] [address] [id number] [place] [address]- 5992 Jan, [facility] [place] [facility] [address] [id number] [address]- 6204 Jan, [facility] [place] [facility] [address] [id number] [place] [address]- 0433 Jan, [facility] [place] [facility] [address] [id number] [address]- 7689 Jan, [facility] [place] [facility] [address] [id number] [address]- 1151 15 Jan, 2014 [facility] [place] [facility] [address] [id number] [address]- 3827 15 Jan, 2014 [facility] [place] [facility] [address] [id number] [place] [address]- 1966 15 Jan, 2014 [facility] [place] [facility] [address] [id number] [address]- 0292 14 Jan, 2014 [facility] [place] [facility] [address] [id number] [address]- 6043 Jan, [facility] [place] [facility] [address] [id number] [place] [address]- 3040 08 Jan, 2014 [facility] [place] [facility] [address] [id number] [place] [address]- 5399 Jan, [facility] [place] [facility] [address] [id number] [place] [address]- 9486 Jan, 2013 [facility] [place] [facility] [address] [id number] [place] [address]- 1116 Jan, [facility] [place] [facility] [address] [id number] [place] [address]- 9891 Jan, [facility] [place] [facility] [address] [id number] [place] [address]- 6428 29 Dec, 2013 [facility] [place] [facility] [address] [id number] [place] [address]- 5566 23 Dec, 2013 [facility] [place] [facility] [address] [id number] [place] [address]- 1068 22 Dec, 2013 [facility] [place] [facility] [address] [id number] [place] [address]- 6478 22 Dec, 2013 [facility] [place] [facility] [address] [id number] [place] [address]- 0349 19 Dec, 2013 [facility] [place] [facility] [address] [id number] [place] [address]- 9215 19 Dec, 2013 [facility] [place] [facility] [address] [id number] [place] [address]- 2541 18 Sep, 2013 [facility] [place] [facility] [address] [id number] [place] [address]- 2547 17 Sep, 2013 [facility] [place] [facility] [address] [id number] [place] [address]- 2545 17 Sep, 2013 [facility] [place] [facility] [address] [id number] [place] [address]- 2540 16 Sep, 2013 [facility] [place] [facility] [address] [id number] [place] [address]- 2543 Dec, [facility] [place] [facility] [address] [id number] [place] [address]- 0188 Dec, [facility] [place] [facility] [address] [id number] [place] [address]- 1841 Dec, [facility] [place] [facility] [address] [id number] [place] [address]- 7185 Nov, [facility] [place] [facility] [address] [id number] [place] [address]- 9933 Nov, [facility] [place] [facility] [address] [id number] [place] [address]- 4315 Nov, [facility] [place] [facility] [address] [id number] [place] [address]- 4838 Nov, [facility] [place] [facility] [address] [id number] [place] [address]- 7210 Nov, [facility] [place] [facility] [address] [id number] [place] [address]- 3779 Nov, [facility] [place] [facility] [address] [id number] [place] [address] Nov, [facility] [place] [facility] [address] [id number] [place] [address] Nov, [facility] [place] [facility] [address] [id number] [place] [address] Nov, [facility] [place] [facility] [address] [id number] [place] [address] Nov, [facility] [place] [facility] [address] [id number] [place] [address] Oct, [facility] [place] [facility] [address] [id number] [place] [address] Oct, [facility] [place] [facility] [address] [id number] [place] [address] Oct, [facility] [place] [facility] [address] [id number] [place] [address] Oct, [facility] [place] [facility] [address] [id number] [place] [address] Oct, [facility] [place] [facility] [address] [id number] [place] [address] Oct, [facility] [place] [facility] [address] [id number] [place] [address] Oct, [facility] [place] [facility] [address] [id number] [place] [address] Oct, [facility] [place] [facility] [address] [id number] [place] [address] Oct, [facility] [place] [facility] [address] [id number] [place] [address]- [address] Oct, [facility] [place] [facility] [address] [id number] [place] [address] Oct, [facility] [place] [facility] [address] [id number] [place] [address] Oct, [facility] [place] [facility] [address] [id number] [place] [address] Oct, [facility] [place] [facility] [address] [id number] [place] [address] Sep, [facility] [place] [facility] [address] [id number] [place] [address] Sep, [facility] [place] [facility] [address] [id number] [place] [address] Sep, [facility] [place] [facility] [address] [id number] [place] [address] Sep, [facility] [place] [facility] [address] [id number] [place] [address] Sep, [facility] [place] [facility] [address] [id number] [place] [address] Sep, [facility] [place] [facility] [address] [id number] [place] [address] Sep, [facility] [place] [facility] [address] [id number] [place] [address] Sep, [facility] [place] [facility] [address] [id number] [place] [address] Sep, [facility] [place] [facility] [address] [id number] [place] [address] Sep, [facility] [place] [facility] [address] [id number] [place] [address] Sep, [facility] [place] [facility] [address] [id number] [place] [address] Sep, [facility] [place] [facility] [address] [id number] [place] [address] August, [facility] [place] [facility] [address] [id number] [place] [address] August, [facility] [place] [facility] [address] [id number] [place] [address] August, [facility] [place] [facility] [address] [id number] [place] [address] August, [facility] [place] [facility] [address] [id number] [place] [address] August, [facility] [place] [facility] [address] [id number] [place] [id number] August, [facility] [place] [facility] [address] [id number] [place] [address] August, [facility] [place] [facility] [address] [id number] [place] [address] August, [facility] [place] [facility] [address] [id number] [place] [address] August, [facility] [place] [facility] [address] [id number] [place] [address] August, [facility] [place] [facility] [address] [id number] [place] [address] August, [facility] [place] [facility] [address] [id number] [place] [address] August, [facility] [place] [facility] [address] [id number] [place] [address] August, [facility] [place] [facility] [address] [id number] [place] [address] Jul, [facility] [place] [facility] [address] [id number] [place] [address] Jul, [facility] [place] [facility] [address] [id number] [place] [address] Jul, [facility] [place] [facility] [address] [id number] [place] [address] Jul, [facility] [place] [facility] [address] [id number] [place] [address] Jul, [facility] [place] [facility] [address] [id number] [place] [address] Jul, [facility] [place] [facility] [address] [id number] [place] [address] Jul, [facility] [place] [facility] [address] [id number] [place] [address] Jul, [facility] [place] [facility] [address] [id number] [place] [address] Jul, [facility] [place] [facility] [address] [id number] [place] [address] Jul, [facility] [place] [facility] [address] [id number] [place] [address] Jul, [facility] [place] [facility] [address] [id number] [place] [address] Jul, [facility] [place] [facility] [address] [id number] [address] Jul, 2013 [facility] [id number] [address] Jul, [facility] [id number] [address] Jul, [facility] [id number] [address] Jul, [facility] [id number] [address] Jul, [facility] [id number] [address] Jun, [facility] [id number] [address] Jun, [facility] [id number] [address] Jun, [facility] [id number] [address] Jun, [facility] [id number] [address] Jun, [facility] [id number] [address] Jun, [facility] [address] [id number] [address] Jun, [facility] [address] [id number] [address] Jun, [facility] [id number] [address] Jun, IMMUNIZATIONS No Known Immunizations SOCIAL HISTORY Never Assessed REASON FOR VISIT medication reconciliation--NH order summary--updated DNR status--TRU Beatty PLAN OF CARE VITAL SIGNS MEDICATIONS Medication Instructions Dosage Frequency Start Date End Date Duration Status Imodium A-D 2 MG Orally Four times a day 1 tablet as needed 6h Not -Taking Visine Advanced Relief 0.05-0.1-1-1 % Ophthalmic in both eyes 2 times a day 2 drops 12h 13 Jan, 2017 Active Benadryl Itch Stopping 1-0.1 % Externally 2 times a day 1 application to affected area as needed 12h Not-Taking Gabapentin 100 Orally Twice a day 1 capsule 12h Not-Taking Milk of Magnesia 400 MG/5ML Orally daily prn constipation 10 ml as needed 19 Jan, 2016 Active Hyoscyamine Sulfate 0.125 MG Orally every 4 hrs 1 tablet as needed 4h Active Colace 100 mg Orally twice a day 1 capsule 12h Not-Taking Carafate 1 GM Orally Twice a day 1 tablet on an empty stomach 12h 30 day(s) Active Tylenol 325 MG Orally every 4 hrs 1 tablet as needed 4h Active Singulair 10 MG Orally Once a day 1 tablet in the evening 24h Active Fexofenadine HCl 180 MG Orally Once a day 1 tablet 24h Active Biofreeze 4 % Externally 2 times a day 1 application to affected area as needed 12h Active Aspirin 81 MG Orally Once a day 1 tablet 24h Not-Taking Losartan Potassium 50 Orally Once a day 1 tablet 24h Active Trulicity 1.5 MG/0.5ML Subcutaneous once weekly 0.5 ml Jun, Active Ibuprofen 200 mg Orally 2 times a day 3 tablets 12h Not-Taking Ibuprofen 600 MG Orally every 6 hours 1 tablet with food or milk as needed 6h Not-Taking Albuterol Sulfate (2.5 MG/3ML) 0.083% Inhalation every 4 hours 3 ml as needed for SOB/Cough 4h Jul, Active Mylanta 200-200-20 MG/5ML Orally every 6 hrs 30 ml as needed 6h Active Pulmicort 0.5 mg/2ml Inhalation 2 times a day 2 ml 12h Active Probiotic - Orally Once a day 1 capsule 24h Active Toprol XL 50 Orally Once a day 1 tablet 24h Active Morphine Sulfate (Concentrate) 20 MG/ML Orally every 8 hours, PRN 0.5 ml Jan, Active Hydrochlorothiazide 25 MG Orally Once a day 1 tablet in the morning 24h Not-Taking Zoloft 100 MG Orally Once a day [...] Surgical history information Hospitalization History [facility] [place]- Nose Bleed 06/05/2017
--- OUTSIDE RECORDS SUMMARY | 2018-04-02 07:53 | XMS REPORT ---
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 Active 84854595 Problem Stomach ache R10.9 Active 539773185 Problem Peptic ulcer K27.9 Active 92685257 Problem Dry eye H04.129 Active 370564957 Problem Morbid obesity E66.01 Active 757053403 Problem Constipation, unspecified constipation type K59.00 Active 74754618 Problem Type 2 diabetes mellitus without complication, without long-term current use of insulin E11.9 Active 813320492 Problem Slow transit constipation K59.01 Active 12788813 Problem 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 539215787 Problem Weight gain R63.5 Active 0525136 Problem Post-polio syndrome G14 Active 18854552 Problem Mood disorder F39 Active 77799565 Problem Acquired hypothyroidism E03.9 Active 582745307 Problem Reactive airway disease J45.909 Active [id number] ALLERGIES No Information ENCOUNTERS Encounter Location Date Diagnosis [facility] [id number] [place] [address]83- [address]38 Jan, [facility] [address] [place] [id number] Jan, Acute superficial gastritis without hemorrhage K29.00 ; 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 ; 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 and Mood disorder F39 [facility] [id number] [address] Jan, [facility] [address] [place] [address] Jan, Peptic ulcer K27.9 and Duodenal mass K31.89 [facility] [address] [place] [id number] Dec, History of GI bleed Z87.19 ; Acute pancreatitis, unspecified complication status, unspecified pancreatitis type K85.90 ; Mass of duodenum K31.89 ; End of life care Z51.5 ; Mood disorder F39 and Dry eye H04.[address] [address]- [address] Dec, Reactive airway disease J45.[address] [address]- [address] Dec, [facility] [address] [place] [address] Nov, Generalized abdominal pain R10.84 ; 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 and Reactive airway disease J45.[address] [address]- 4788 Sep, 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 [facility] [address] [id number] Sep, Type 2 diabetes mellitus without complication, without long-term current use of insulin E11.9 ; Slow transit constipation K59.01 and 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 [address]- [address] Sep, [facility] [address] [id number] Jul, Pneumonia due to infectious organism, unspecified laterality, unspecified part of lung J18.9 and Morbid obesity E66.[address] [address]- 4[address] Jul, [facility] [id number] [place] [address]66- [address] Jun, [address] [address]- [address] Jun, [facility] [address] [id number] [address] May, [facility] [id number] [id number] 08 May, 2017 Acute superficial gastritis without hemorrhage K29.00 [facility] [address] [id number] 08 May, 2017 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 ; 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 and Acute superficial gastritis without hemorrhage K29.00 [facility] [id number] [address] Apr, [facility] [address] [address] Apr, [facility] [address] [id number] Mar, Obesity due to excess calories with serious comorbidity, unspecified classification E66.09 and Reactive airway disease J45.909 [facility] [id number] [address] 25[address] Mar, [facility] [id number] [address] Jan, [facility] [address] [place] [address] Jan, 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 ; Weight gain R63.5 and 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 [facility] [address] [id number] [address] Dec, [facility] [address] [id number] [address] Dec, [facility] [address] [place] [id number] Nov, Weight gain R63.5 ; 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 and Reactive airway disease J45.909 [facility] [id number] [place] [address] Oct, [facility] [id number] [address] Sep, [facility] [address] [address] August, [facility] [address] [id number] August, 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 [facility] [address]005[address] [address]- 1546 Jul, [facility] [address]005[address] [address] Jul, Reactive airway disease J45.[address] [facility] [address] [id number] Jun, 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 [facility] [address] [place] [address]309- 7626 Jun, 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 [facility] [address] [place] [address] May, 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 [facility] [address]005[address] [address] May, [facility] [id number] [place] [address] Apr, [facility] [address] [address]- 2406 Apr, Reactive airway disease J45.909 [facility] [id number] [address]- 7256 Apr, Reactive airway disease J45.909 [facility] [id number] [address] 6[address] Apr, [facility] [id number] [address] 1348 Mar, [facility] [address] [address] Mar, Mood disorder F39 and Shortness of breath R06.02 [facility] [id number] [place] [address] 51687- 4838 Feb, [facility] [id number] [place] [address] 52186- 5850 Jan, [facility] [address] [place] [address] Jan, Moist breath sounds R06.89 and Constipation, unspecified constipation type K59.00 [facility] [id number] [place] [address] 93775- 9804 Jan, [facility] [id number] [place] [address] 44654- 1494 Dec, Uncomplicated asthma, unspecified asthma severity J45.909 [facility] [id number] [place] [address] 92728- 2694 Dec, [facility] [id number] [place] [address] 25904- 2499 Dec, Uncomplicated asthma, unspecified asthma severity J45.909 [facility] [id number] [place] [address] 42615- 6288 Dec, [facility] [address] [address] Dec, 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 and Unspecified mood [affective] disorder F39 [facility] [id number] [place] [address] 86056- 3245 Dec, [facility] [id number] [place] [address] 85842- 5013 Dec, Reactive airway disease J45.909 [facility] [id number] [place] [address] 74170- 8785 Nov, [facility] [id number] [place] [address] 70735- 3911 Nov, [facility] [address] [place] [address] 41875- 8069 Nov, [facility] [address] [id number] Nov, Shortness of breath R06.02 ; Family history of coronary arteriosclerosis Z82.49 and Dysuria R30.0 [facility] [id number] [place] [address] 48385- 1703 Nov, [facility] [id number] [place] [address] 23318- 3276 Oct, [facility] [id number] [place] [address] 19197- 5020 Oct, [facility] [id number] [place] [address] 08396- 9150 Oct, [facility] [id number] [place] [address] 69788- 9971 Oct, [facility] [id number] [place] [address] 13552- 5531 Oct, [facility] [id number] [place] [address] 61099- 6261 Oct, Recurrent bronchospasm J98.09 [facility] [address] [address] Sep, 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 and 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 [facility] [id number] [place] [address] 27955- 2396 Sep, Stomach ache R10.9 [facility] [id number] [place] [address] 91996- 4856 August, [facility] [id number] [place] [address] 81079- 8050 August, [facility] [id number] [place] [address] 90815- 6869 Jul, [facility] [address] [address]- 9814 Jul, [facility] [address] [address]- 3030 14 Jul, 2015 [facility] [address] [address]- 7675 Jul, [facility] [address] [place] [address] 10004- 6689 Jul, [facility] [address] [id number] Jul, Fever R50.9 [facility] [id number] [place] [address] 70957- 4661 Jul, Reactive airway disease J45.909 [facility] [address] [place] [address] 66668- 2676 Jun, [facility] [address] [id number] Jun, Reactive airway disease J45.909 and 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 [facility] [address] [place] [address] 75658- 6630 May, [facility] [address] [id number] May, Recurrent bronchospasm J98.09 ; Weight gain R63.5 ; 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 and Mood disorder F39 [facility] [address] [address]- 8764 Apr, [facility] [address] [place] [address] 26245- 7549 Apr, [facility] [address] [place] [id number] Apr, Unspecified mood [affective] disorder F39 [facility] [address] [address]- 3106 Feb, [facility] [address] [place] [address] Feb, Uncomplicated asthma, unspecified asthma severity J45.909 [facility] [address] [address]- 7443 17 Feb, 2015 [facility] [address] [address]- 7572 13 Feb, 2015 [facility] [id number] [place] [address] 63355- 2786 12 Feb, 2015 [facility] [address] [place] [address] 11738- 9781 14 Jan, 2015 [facility] [id number] [place] [address] 90320- 8485 24 Dec, 2014 [facility] [id number] [place] [address] 83708- 8561 16 Dec, 2014 Antisocial behavior V71.01 and History of poliomyelitis without residual effect V12.02 [facility] [address] [address]- 9259 29 Oct, 2014 Essential hypertension, malignant 401.0 ; Unspecified hypothyroidism 244.9 and 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 [facility] [address] [address]- 5976 Sep, [facility] [address] [address]- 0759 Sep, [facility] [address] [address]- 8170 Sep, Abdominal pain, unspecified site 789.00 and Manipulative behavior V40.39 [facility] [address] [place] [address] 41211- 1703 09 Sep, 2014 [facility] [address] [address]- 1683 14 Jul, 2014 [facility] [id number] [place] [address] [place] [address]- 1861 Jul, [facility] [address] [id number] [address]- 9241 Jun, [facility] [address] [id number] [place] [address]- 6988 Jun, [facility] [address] [id number] [place] [address]- 1853 Jun, [facility] [address] [id number] Jun, [facility] [address] [id number] [address]- 4224 May, [facility] [address] [id number] [place] [address]- 2896 May, [facility] [address] [id number] Apr, [facility] [address] [id number] [place] [address]- 4319 Apr, [facility] [address] [id number] [address]- 1143 Apr, [facility] [address] [id number] [place] [address]- 3071 Apr, [facility] [address] [id number] [address]- 4632 Apr, [facility] [place] [facility] [address] [id number] [place] [address]- 4738 Apr, [facility] [place] [facility] [address] [id number] [place] [address]- 7493 Apr, [facility] [place] [facility] [address] [id number] [place] [address]- 8852 Apr, [facility] [place] [facility] [address] [id number] [place] [address]- 0938 Apr, [facility] [place] [facility] [address] [id number] [place] [address]- 6431 Apr, [facility] [address] [id number] [place] [address]- 1180 Mar, [facility] [place] [facility] [address] [id number] [place] [address]- 3456 Mar, [facility] [place] [facility] [address] [id number] [place] [address]- 6266 Mar, [facility] [place] [facility] [address] [id number] [place] [address]- 6082 Mar, [facility] [place] [facility] [address] [id number] [place] [address]- 9062 Mar, [facility] [place] [facility] [address] [id number] [place] [address]- 8161 Mar, [facility] [place] [facility] [address] [id number] [place] [address]- 3689 Mar, [facility] [place] [facility] [address] [id number] [place] [address]- 8449 Mar, [facility] [place] [facility] [address] [id number] [place] [address]- 1238 Mar, [facility] [place] [facility] [address] [id number] [place] [address]- 4073 Mar, [facility] [place] [facility] [address] [id number] [place] [address]- 9519 Mar, [facility] [place] [facility] [address] [id number] [place] [address]- 7268 Feb, [facility] [place] [facility] [address] [id number] [place] [address]- 5875 Feb, [facility] [place] [facility] [address] [id number] [place] [address]- 1582 Feb, [facility] [place] [facility] [address] [id number] [place] [address]- 3238 Feb, [facility] [place] [facility] [address] [id number] [place] [address]- 4234 Feb, [facility] [place] [facility] [address] [id number] [place] [address]- 2154 Feb, [facility] [place] [facility] [address] [id number] [place] [address]- 1405 Feb, [facility] [place] [facility] [address] [id number] [place] [address]- 4879 Feb, [facility] [place] [facility] [address] [id number] [place] [address]- 9194 Feb, [facility] [place] [facility] [address] [id number] [place] [address]- 0237 Feb, [facility] [place] [facility] [address] [id number] [place] [address]- 3107 Feb, [facility] [place] [facility] [address] [id number] [place] [address]- 3768 Feb, [facility] [place] [facility] [address] [id number] [place] [address]- 7407 Feb, [facility] [place] [facility] [address] [id number] [place] [address]- 5891 Feb, [facility] [place] [facility] [address] [id number] [place] [address]- 7369 Feb, [facility] [place] [facility] [address] [id number] [place] [address]- 0962 Feb, [facility] [place] [facility] [address] [id number] [place] [address]- 8268 Feb, [facility] [place] [facility] [address] [id number] [place] [address]- 3629 Feb, [facility] [place] [facility] [address] [id number] [place] [address]- 7298 Feb, [facility] [place] [facility] [address] [id number] [address]- 5294 Feb, [facility] [place] [facility] [address] [id number] [place] [address]- 5708 Jan, [facility] [place] [facility] [address] [id number] [place] [address]- 5714 Jan, [facility] [place] [facility] [address] [id number] [place] [address]- 1020 Jan, [facility] [place] [facility] [address] [id number] [place] [address]- 0445 Jan, [facility] [place] [facility] [address] [id number] [place] [address]- 5273 Jan, [facility] [place] [facility] [address] [id number] [place] [address]- 3271 Jan, [facility] [place] [facility] [address] [id number] [place] [address]- 0505 Jan, [facility] [place] [facility] [address] [id number] [place] [address]- 0242 Jan, [facility] [place] [facility] [address] [id number] [place] [address]- 8567 Jan, [facility] [place] [facility] [address] [id number] [place] [address]- 1473 Jan, [facility] [place] [facility] [address] [id number] [address]- 3831 15 Jan, 2014 [facility] [place] [facility] [address] [id number] [place] [address]- 4514 15 Jan, 2014 [facility] [place] [facility] [address] [id number] [place] [address]- 5506 14 Jan, 2014 [facility] [place] [facility] [address] [id number] [place] [address]- 8922 09 Jan, 2014 [facility] [place] [facility] [address] [id number] [place] [address]- 9186 08 Jan, 2014 [facility] [place] [facility] [address] [id number] [place] [address]- 4945 06 Jan, 2013 [facility] [place] [facility] [address] [id number] [place] [address]- 0782 Jan, [facility] [place] [facility] [address] [id number] [place] [address]- 5301 Jan, [facility] [place] [facility] [address] [id number] [place] [address]- 1043 Jan, [facility] [place] [facility] [address] [id number] [place] [address]- 6301 29 Dec, 2013 [facility] [place] [facility] [address] [id number] [place] [address]- 6220 23 Dec, 2013 [facility] [place] [facility] [address] [id number] [place] [address]- 3413 22 Dec, 2013 [facility] [place] [facility] [address] [id number] [place] [address]- 7307 22 Dec, 2013 [facility] [place] [facility] [address] [id number] [place] [address]- 1827 19 Dec, 2013 [facility] [place] [facility] [address] [id number] [place] [address]- 3772 19 Dec, 2013 [facility] [place] [facility] [address] [id number] [place] [address]- 7192 18 Sep, 2013 [facility] [place] [facility] [address] [id number] [place] [address]- 2544 17 Sep, 2013 [facility] [place] [facility] [address] [id number] [place] [address]- 2544 17 Sep, 2013 [facility] [place] [facility] [address] [id number] [place] [address]- 254 16 Sep, 2013 [facility] [place] [facility] [address] [id number] [place] [address]- 2540 16 Sep, 2013 [facility] [place] [facility] [address] [id number] [place] [address]- 6468 Dec, [facility] [place] [facility] [address] [id number] [place] [address]- 5806 Dec, [facility] [place] [facility] [address] [id number] [place] [address]- 6059 Nov, [facility] [place] [facility] [address] [id number] [place] [address]- 3904 Nov, [facility] [place] [facility] [address] [id number] [place] [address]- 0334 Nov, [facility] [place] [facility] [address] [id number] [place] [address]- 1656 Nov, [facility] [place] [facility] [address] [id number] [place] [address]- 9952 Nov, [facility] [place] [facility] [address] [id number] [place] [address] Nov, [facility] [place] [facility] [address] [id number] [place] [address] Nov, [facility] [place] [facility] [address] [id number] [place] [address] Nov, [facility] [place] [facility] [address] [id number] [place] [address] Nov, [facility] [place] [facility] [address] [id number] [place] [address] Nov, [facility] [place] [facility] [address] [id number] [place] [address] Oct, [facility] [place] [facility] [address] [id number] [place] [address] Oct, [facility] [place] [facility] [address] [id number] [place] [address] Oct, [facility] [place] [facility] [address] [id number] [place] [address] Oct, [facility] [place] [facility] [address] [id number] [place] [address] Oct, [facility] [place] [facility] [address] [id number] [place] [address] Oct, [facility] [place] [facility] [address] [id number] [place] [address] Oct, [facility] [place] [facility] [address] [id number] [place] [address] Oct, 2013 [facility] [place] [facility] [address] [id number] [place] [address] Oct, 2013 [facility] [place] [facility] [address] [id number] [place] [address] Oct, [facility] [place] [facility] [address] [id number] [place] [address] Oct, [facility] [place] [facility] [address] [id number] [place] [address]- [address] Oct, [facility] [place] [facility] [address] [id number] [place] [address] Oct, [facility] [place] [facility] [address] [id number] [place] [address] Sep, [facility] [place] [facility] [address] [id number] [place] [address] Sep, [facility] [place] [facility] [address] [id number] [place] [address]- [address] Sep, [facility] [place] [facility] [address] [id number] [place] [address]- [address] Sep, [facility] [place] [facility] [address] [id number] [place] [address] Sep, [facility] [place] [facility] [address] [id number] [place] [address]- [address] Sep, [facility] [place] [facility] [address] [id number] [place] [address]- [address] 16 Sep, 2013 [facility] [place] [facility] [address] [id number] [place] [address] Sep, [facility] [place] [facility] [address] [id number] [place] [address] Sep, [facility] [place] [facility] [address] [id number] [place] [address] Sep, [facility] [place] [facility] [address] [id number] [place] [address] Sep, [facility] [place] [facility] [address] [id number] [place] [address]- [address] Sep, [facility] [place] [facility] [address] [id number] [place] [address] August, [facility] [place] [facility] [address] [id number] [place] [address] August, [facility] [place] [facility] [address] [id number] [place] [address] August, [facility] [place] [facility] [address] [id number] [place] [address] August, [facility] [place] [facility] [address] [id number] [place] [address] August, [facility] [place] [facility] [address] [id number] [place] [address] August, [facility] [place] [facility] [address] [id number] [place] [address] August, [facility] [place] [facility] [address] [id number] [place] [address] August, [facility] [place] [facility] [address] [id number] [place] [address] August, [facility] [place] [facility] [address] [id number] [place] [address] August, [facility] [place] [facility] [address] [id number] [place] [address] August, [facility] [place] [facility] [address] [id number] [place] [address] August, [facility] [place] [facility] [address] [id number] [place] [address] August, [facility] [place] [facility] [address] [id number] [place] [address] Jul, [facility] [place] [facility] [address] [id number] [place] [address] Jul, [facility] [place] [facility] [address] [id number] [place] [address] Jul, [facility] [place] [facility] [address] [id number] [place] [address] Jul, [facility] [place] [facility] [address] [id number] [place] [address] Jul, [facility] [place] [facility] [address] [id number] [place] [address] Jul, [facility] [place] [facility] [address] [id number] [place] [address] Jul, [facility] [place] [facility] [address] [id number] [place] [address] Jul, [facility] [place] [facility] [address] [id number] [place] [address] Jul, [facility] [place] [facility] [address] [id number] [place] [address] Jul, [facility] [place] [facility] [address] [id number] [place] [address] Jul, [facility] [place] [facility] [address] [id number] [place] [address] Jul, [facility] [place] [facility] [address] [id number] [place] [address] Jul, [facility] [place] [facility] [address] [id number] [address] Jul, [facility] [id number] [address] Jul, [facility] [id number] [address] Jul, [facility] [id number] [address] Jul, [facility] [id number] [address] Jun, [facility] [id number] [address] Jun, [facility] [id number] [address] Jun, [facility] [id number] [address] Jun, [facility] [id number] [address] Jun, [facility] [id number] [address] Jun, [facility] [id number] [address] Jun, [facility] [id number] [address] Jun, [facility] [id number] [id number] Jun, IMMUNIZATIONS No Known Immunizations SOCIAL HISTORY [...] Surgical history information Hospitalization History [facility]- Nose Bleed 06/05/2017
--- OUTSIDE RECORDS SUMMARY | 2018-04-02 07:53 | XMS REPORT ---
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 Active 30237132 Problem Stomach ache R10.9 Active 412894678 Problem Peptic ulcer K27.9 Active 22456071 Problem Dry eye H04.129 Active 359106733 Problem Morbid obesity E66.01 Active 114555445 Problem Constipation, unspecified constipation type K59.00 Active 18363479 Problem Type 2 diabetes mellitus without complication, without long-term current use of insulin E11.9 Active 038370846 Problem Slow transit constipation K59.01 Active 09578179 Problem 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 321945488 Problem Weight gain R63.5 Active 6462724 Problem Post-polio syndrome G14 Active 87350578 Problem Mood disorder F39 Active 65766963 Problem Acquired hypothyroidism E03.9 Active 800574915 Problem Reactive airway disease J45.909 Active [id number] ALLERGIES No Information ENCOUNTERS Encounter Location Date Diagnosis [facility] [address] [facility] [id number] [address] Jan, [facility] [address] [place] [id number] Jan, Peptic ulcer K27.9 and Duodenal mass K31.89 [facility] [address] [place], [place] [address] Dec, History of GI bleed Z87.19 ; Acute pancreatitis, unspecified complication status, unspecified pancreatitis type K85.90 ; Mass of duodenum K31.89 ; End of life care Z51.5 ; Mood disorder F39 and Dry eye H04.129 [facility] [address], [place] [address] Dec, Reactive airway disease J45.909 [facility] [address], [place] [address] 13 Dec, [address] [facility] [address] [id number] Nov, Generalized abdominal pain R10.84 ; 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 and Reactive airway disease J45.909 [place] [id number] [place] [address]- 0700 Sep, 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 [facility] [address] [id number] Sep, Type 2 diabetes mellitus without complication, without long-term current use of insulin E11.9 ; Slow transit constipation K59.01 and 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 [place] [id number] [place] [address]- 8364 Sep, [facility] [address] [id number] Jul, Pneumonia due to infectious organism, unspecified laterality, unspecified part of lung J18.9 and Morbid obesity E66.01 [place] [address], [place] [address] Jul, [place] [address], [place] [address] Jun, [place] [id number] [place] [address] 00969- 9879 Jun, [facility] [id number] [place] [id number] May, [place] [id number] [place] [id number] May, Acute superficial gastritis without hemorrhage K29.[address] [facility] [address] [id number] May, 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 ; 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 and Acute superficial gastritis without hemorrhage K29.00 [facility] [address], [place] [address] Apr, [facility] [id number] [address] Apr, [facility] [address] [place] [id number] Mar, Obesity due to excess calories with serious comorbidity, unspecified classification E66.09 and Reactive airway disease J45.909 [facility] [address], [place] [address] Mar, [facility] [id number] [id number] Jan, [facility] [address] [place] [address] Jan, 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 ; Weight gain R63.5 and 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 [facility] [id number] [id number] Dec, [facility] [id number] [address] Dec, [facility] [address] [place] [address] Nov, Weight gain R63.5 ; 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 and Reactive airway disease J45.909 [facility] [address] [id number] [id number] Oct, [facility] [id number] [id number] Sep, [facility] [id number], [place] [address] August, [facility] [address] [place] [id number] August, 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 [facility] [address], [place] [address] Jul, [facility] [address], [place] [address] Jul, Reactive airway disease J45.909 [facility] [address] [place] [address] Jun, 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 [facility] [address], [place] [address] Jun, 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 [facility] [address] [place] [id number] May, 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 [facility] [address], [place] [address] May, [facility] [id number] [place] [id number] Apr, [facility] [id number] [place] [address] 19059- 6443 Apr, Reactive airway disease J45.909 [facility] [address] [place] [address] 37678- 7836 Apr, Reactive airway disease J45.909 [facility] [address], [place] [address] 40[address] Apr, [facility] [address], [place] [address] Mar, [facility] [address] [place] [id number] Mar, Mood disorder F39 and Shortness of breath R06.02 [facility] [address], [place] [address] Feb, [facility] [id number] [place] [address]- 4622 Jan, [facility] [address] [place] [address] Jan, Moist breath sounds R06.89 and Constipation, unspecified constipation type K59.00 [facility] [id number] [place] [address] 89520- 2177 Jan, [facility] [id number] [place] [address] 98515- 8301 Dec, Uncomplicated asthma, unspecified asthma severity J45.909 [place] [id number] [place] [address] 56569- 0151 Dec, [place] [address] [id number] [place] [address] 25013- 4336 Dec, Uncomplicated asthma, unspecified asthma severity J45.909 [place] [address] [id number] [place] [address] 89023- 6839 Dec, [facility] [address] [id number] Dec, 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 and Unspecified mood [affective] disorder F39 [place] [id number] [place] [address] 02037- 2956 Dec, [place] [address] [place] [id number] [place] [address] 74973- 4370 Dec, Reactive airway disease J45.909 [place] [address] [place] [id number] [place] [address] 06843- 4475 Nov, [place] [address] [place] [id number] [place] [address] 25972- 1045 Nov, [place] [address] [place] [id number] [place] [address] 65108- 0832 Nov, [facility] [id number] Nov, Shortness of breath R06.02 ; Family history of coronary arteriosclerosis Z82.49 and Dysuria R30.0 [facility] [address], [place] [address] 3647 Nov, [facility] [id number] [place] [address] 72057- 5115 Oct, [facility] [address] [place] [address] 57818- 8214 Oct, [facility] [id number] [place] [address] 16529- 4814 Oct, [facility] [address] [place] [address] 17678- 6464 Oct, [facility] [id number] [place] [address] 52896- 3203 Oct, [facility] [id number] [place] [address] 93758- 1928 Oct, [facility]98.09 [facility] [address] [place] [address] Sep, 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 and 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 [facility] [id number] [place] [address] 39498- 9799 Sep, Stomach ache R10.9 [facility] [id number] [place] [address] 05084- 7111 August, [facility] [id number] [place] [address] 17368- 6805 August, [facility] [id number] [place] [address] 32144- 7092 Jul, [facility] [id number] [place] [address] 23722- 7915 Jul, [facility] [address], [place] [address]- 2858 Jul, [facility] [id number] [place] [address] 37196- 4171 Jul, [facility] [address] [place] [address] 20715- 4248 Jul, [facility] [address] [id number] Jul, Fever R50.9 [facility] [address] [place] [address] 08812- 1985 Jul, Reactive airway disease J45.909 [facility] [id number] [place] [address] 97849- 1578 Jun, [facility] [address] [place] [address] Jun, Reactive airway disease J45.909 and 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 [place] [address] [id number] [place] [address] 29262- 4526 May, [facility] [place] [address] [place] [address] May, Recurrent bronchospasm J98.09 ; Weight gain R63.5 ; 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 and Mood disorder F39 [place] [address] [place] [id number] [place] [address] 34341- 5846 Apr, [facility] [address] [place] [address] 32838- 2283 Apr, [facility] [address] [place] [address] Apr, Unspecified mood [affective] disorder F39 [facility] [address] [place] [address] 33196- 3067 Feb, [facility] [id number] Feb, Uncomplicated asthma, unspecified asthma severity J45.909 [facility] [address] [place] [address] 40640- 6991 Feb, [place] [address] [id number] [place] [address] 18156- 8966 Feb, [facility] [address] 0958 Feb, [facility] [address] [place] [address] 31654- 4796 Jan, [facility] [address] [place] [address] 03246- 4795 24 Dec, 2014 [facility] [id number] [place] [address] 93173- 9320 16 Dec, 2014 Antisocial behavior V71.01 and History of poliomyelitis without residual effect V12.02 [facility] [id number] [place] [address] 934672- 5312 Oct, Essential hypertension, malignant 401.0 ; Unspecified hypothyroidism 244.9 and 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 [facility] [address] [place] [address] 00193- 9824 Sep, [facility] [address] [place] [address] 27195- 0297 Sep, [facility] [address] [id number] [place] [address] 91995- 3385 Sep, Abdominal pain, unspecified site 789.00 and Manipulative behavior V40.39 [facility] [address], [place] [address]- 9379 Sep, [facility] [address] [place] [id number] [place] [address] 71531055- 4879 Jul, [facility] [address] 5443 Jul, [facility] [address] [place] [address] 61910- 7249 Jun, [facility] [address], [place] [address]- 4604 Jun, [facility] [id number] [place] [address]- 6470 Jun, [facility] [address] [facility] [id number] Jun, [facility] [address] [id number] [place] [address]- 6711 May, [facility] [address] [id number] [place] [address]- 8426 May, [facility] [address] [facility] [id number] Apr, [facility] [address] [id number] [place] [address]- 8917 Apr, [facility] [address] [id number] [place] [address]- 1313 Apr, [facility] [address] [id number] [place] [address]- 6023 Apr, [facility] [address] [id number] [place] [address]- 1252 Apr, [facility] [address] [id number] [place] [address]- 0606 Apr, [facility] [address] [id number] [place] [address]- 6721 Apr, [facility] [address] [id number] [place] [address]- 1247 Apr, [facility] [address] [id number], [place] [address]- 2973 Apr, [facility] [place] [facility] [address] [id number] [place] [address]- 9399 Apr, [facility] [place] [facility] [address] [id number] [place] [address]- 3342 Mar, [facility] [place] [facility] [address] [id number] [place] [address]- 4867 Mar, [facility] [place] [facility] [address] [id number] [place] [address]- 6313 Mar, [facility] [address] [id number] [place] [address]- 6928 Mar, [facility] [place] [facility] [address] [id number] [place] [address]- 9301 Mar, [facility] [place] [facility] [address] [id number] [place] [address]- 6536 Mar, [facility] [place] [facility] [address] [id number] [place] [address]- 1055 Mar, [facility] [place] [facility] [address] [id number] [place] [address]- 6585 Mar, [facility] [place] [facility] [address] [id number] [place] [address]- 7413 Mar, [facility] [place] [facility] [address] [id number] [place] [address]- 3857 Mar, [facility] [address] [id number] [place] [address]- 9426 Mar, [facility] [place] [facility] [address] [id number] [place] [address]- 4306 Feb, [facility] [place] [facility] [address] [id number] [place] [address]- 3762 Feb, [facility] [place] [facility] [address] [id number] [place] [address]- 2273 Feb, [facility] [place] [facility] [address] [id number] [place] [address]- 3426 Feb, [facility] [place] [facility] [address] [id number] [place] [address]- 2133 Feb, [facility] [place] [facility] [address] [id number] [place] [address]- 5264 Feb, [facility] [place] [facility] [address] [id number] [place] [address]- 0403 Feb, [facility] [place] [facility] [address] [id number] [place] [address]- 5499 Feb, [facility] [place] [facility] [address] [id number] [place] [address]- 8531 Feb, [facility] [place] [facility] [address] [id number] [place] [address]- 8652 Feb, [facility] [place] [facility] [address] [id number] [place] [address]- 5195 Feb, [facility] [place] [facility] [address] [id number] [place] [address]- 4033 Feb, [facility] [place] [facility] [address] [id number] [place] [address]- 6297 Feb, [facility] [place] [facility] [address] [id number] [place] [address]- 1695 Feb, [facility] [place] [facility] [address] [id number] [place] [address]- 8121 Feb, [facility] [place] [facility] [address] [id number] [place] [address]- 3468 Feb, [facility] [place] [facility] [address] [id number] [place] [address]- 8513 Feb, [facility] [place] [facility] [address] [id number], [place] [address]- 8981 Feb, [facility] [place] [facility] [address] [id number], [place] [address]- 6234 Feb, [facility] [place] [facility] [address] [id number] [place] [address]- 7781 Feb, [facility] [place] [facility] [address] [id number] [place] [address]- 3954 Jan, [facility] [place] [facility] [address] [id number] [place] [address]- 5673 Jan, [facility] [place] [facility] [address] [id number] [place] [address]- 2646 24 Jan, 2014 [facility] [place] [facility] [address] [id number] [place] [address]- 5258 24 Jan, 2014 [facility] [place] [facility] [address] [id number] [place] [address]- 6360 Jan, [facility] [place] [facility] [address] [id number] [place] [address]- 7389 Jan, [facility] [place] [facility] [address] [id number] [place] [address]- 4041 Jan, [facility] [place] [facility] [address] [id number] [place] [address]- 0212 Jan, [facility] [place] [facility] [address] [id number] [place] [address]- 3535 15 Jan, 2014 [facility] [place] [facility] [address] [id number] [place] [address]- 2471 15 Jan, 2014 [facility] [place] [facility] [address] [id number] [place] [address]- 9209 15 Jan, 2014 [facility] [place] [facility] [address] [id number] [place] [address]- 2650 15 Jan, 2014 [facility] [place] [facility] [address] [id number] [place] [address]- 7170 14 Jan, 2014 [facility] [place] [facility] [address] [id number] [place] [address]- 4746 09 Jan, 2013 [facility] [place] [facility] [address] [id number], [place] [address]- 3286 08 Jan, 2013 [facility] [place] [facility] [address] [id number], [place] [address]- 2954 06 Jan, 2013 [facility] [place] [facility] [address] [id number], [place] [address]- 2535 06 Jan, 2013 [facility] [place] [facility] [address] [id number], [place] [address]- 8888 06 Jan, 2013 [facility] [place] [facility] [address] [id number] [place] [address]- 7061 06 Jan, 2013 [facility] [place] [facility] [address] [id number] [place] [address]- 8776 29 Sep, 2013 [facility] [place] [facility] [address] [id number] [place] [address] 2546 23 Sep, 2013 [facility] [place] [facility] [address] [id number] [place] [address] 2546 22 Dec, 2013 [facility] [place] [facility] [address] [id number] [place] [address] 2547 22 Dec, 2013 [facility] [place] [facility] [address] [id number] [place] [address]- 3415 19 Dec, 2013 [facility] [place] [facility] [address] [id number] [place] [address]- 9761 19 Dec, 2013 [facility] [place] [facility] [address] [id number] [place] [address]- 4110 18 Dec, 2013 [facility] [place] [facility] [address] [id number] [place] [address] 2543 17 Dec, 2013 [facility] [place] [facility] [address] [id number] [place] [address]- 2541 17 Dec, 2013 [facility] [place] [facility] [address] [id number] [place] [address] 2542 16 Dec, 2013 [facility] [place] [facility] [address] [id number] [place] [address]- 2547 16 Dec, 2013 [facility] [place] [facility] [address] [id number] [place] [address] 2549 10 Dec, 2013 [facility] [place] [facility] [address] [id number] [place] [address] 2546 10 Dec, 2013 [facility] [place] [facility] [address] [id number] [place] [address]- 254 25 Nov, 2013 [facility] [place] [facility] [address] [id number] [place] [address]- 8760 Nov, [facility] [place] [facility] [address] [id number] [place] [address]- 6068 Nov, [facility] [place] [facility] [address] [id number] [place] [address]- 2538 Nov, [facility] [place] [facility] [address] [id number] [place] [address]- 4557 Nov, [facility] [place] [facility] [address] [id number] [place] [address]- 9820 Nov, [facility] [place] [facility] [address] [id number] [place] [address]- 6089 Nov, [facility] [place] [facility] [address] [id number] [place] [address] Nov, [facility] [place] [facility] [address] [id number] [place] [address] Nov, [facility] [place] [facility] [address] [id number] [place] [address] Nov, [facility] [place] [facility] [address] [id number] [place] [address] Oct, [facility] [place] [facility] [address] [id number] [place] [address] Oct, [facility] [place] [facility] [address] [id number] [place] [address] Oct, [facility] [place] [facility] [address] [id number] [place] [address] Oct, [facility] [place] [facility] [address] [id number] [place] [address] Oct, [facility] [place] [facility] [address] [id number] [place] [address] Oct, [facility] [place] [facility] [address] [id number] [place] [address] Oct, [facility] [place] [facility] [address] [id number] [place] [address] Oct, 2013 [facility] [place] [facility] [address] [id number] [place] [address] Oct, [facility] [place] [facility] [address] [id number] [place] [address] Oct, [facility] [place] [facility] [address] [id number] [place] [address] Oct, [facility] [place] [facility] [address] [id number] [place] [address] Oct, [facility] [place] [facility] [address] [id number] [place] [address] Oct, [facility] [place] [facility] [address] [id number] [place] [address] Sep, [facility] [place] [facility] [address] [id number] [place] [address] Sep, [facility] [place] [facility] [address] [id number] [place] [address] Sep, [facility] [place] [facility] [address] [id number] [place] [address] Sep, [facility] [place] [facility] [address] [id number] [place] [address] Sep, [facility] [place] [facility] [address] [id number] [place] [address] Sep, [facility] [place] [facility] [address] [id number] [place] [address] 16 Sep, 2013 [facility] [place] [facility] [address] [id number] [place] [address] Sep, [facility] [place] [facility] [address] [id number] [place] [address] Sep, [facility] [place] [facility] [address] [id number] [place] [address] Sep, [facility] [place] [facility] [address] [id number] [place] [address] Sep, [facility] [place] [facility] [address] [id number] [place] [address] Sep, [facility] [place] [facility] [address] [id number] [place] [address] August, [facility] [place] [facility] [address] [id number] [place] [address] August, [facility] [address] [id number] [place] [address] August, [facility] [place] [facility] [address] [id number] [place] [address] August, [facility] [address] [id number] [place] [address] August, [facility] [address] [id number] [place] [address] August, [facility] [place] [facility] [address] [id number] [place] [address] August, [facility] [place] [facility] [address] [id number] [place] [address] August, [facility] [place] [facility] [address] [id number] [place] [address] August, [facility] [place] [facility] [address] [id number] [place] [address] August, [facility] [place] [facility] [address] [id number] [place] [address] August, [facility] [facility] [place] [facility] [address] [id number] [place] [address] August, [facility] [place] [facility] [address] [id number] [place] [address] August, [facility] [place] [facility] [address] [id number] [place] [address] 30 Jul, 2013 [facility] [place] [facility] [address] [id number] [place] [address] 30 Jul, 2013 [facility] [place] [facility] [address] [id number] [place] [address] 29 Jul, 2013 [facility] [place] [facility] [address] [id number] [place] [address] 29 Jul, 2013 [facility] [place] [facility] [address] [id number] [place] [address] 28 Jul, 2013 [facility] [place] [facility] [address] [id number] [place] [address] Jul, [facility] [place] [facility] [address] [id number] [place] [address] Jul, [facility] [place] [facility] [address] [id number] [place] [address] Jul, [facility] [place] [facility] [address] [id number] [place] [address] Jul, [facility] [place] [facility] [address] [id number] [place] [address] 16 Jul, 2013 [facility] [place] [facility] [address] [id number] [place] [address] 16 Jul, 2013 [facility] [place] [facility] [address] [id number] [place] [address] 16 Jul, 2013 [facility] [place] [facility] [address] [id number] [place] [address] 16 Jul, 2013 [facility] [place] [facility] [address] [id number] [place] [address] 14 Jul, 2013 [facility] [place] [facility] [address] [id number] [place] [address] 14 Jul, 2013 [facility] [place] [facility] [address] [id number] [place] [address] 10 Jul, 2013 [facility] [place] [facility] [address] [id number] [id number] [address] Jul, [facility] [id number] [address] Jun, [facility] [id number] [id number] Jun, [facility] [id number] [address] Jun, [facility] [id number] [address] Jun, [facility] [id number] [place] [address] Jun, [facility] [id number] [address] Jun, [facility] [id number] [address] Jun, [facility] [id number] [address] Jun, [facility] [id number] [address] Jun, IMMUNIZATIONS No Known Immunizations SOCIAL HISTORY Never Assessed REASON FOR VISIT Hospital follow up PLAN OF CARE Activity Details Follow Up prn Reason: VITAL SIGNS MEDICATIONS Unknown Medications RESULTS No Results PROCEDURES Procedure Date Ordered Result Body Site Minor complication (15 mins) Dec 29, 2017 INSTRUCTIONS MEDICATIONS ADMINISTERED No Known Medications MEDICAL [...] Surgical history information Hospitalization History [facility] [place]- Nose Bleed 06/05/2017
--- OUTSIDE RECORDS SUMMARY | 2018-04-02 07:54 | XMS REPORT ---
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 Active 81858727 Problem Stomach ache R10.9 Active 575244646 Problem Reactive airway disease J45.909 Active 375236736251 Problem Dry eye H04.129 Active 528633106 Problem Type 2 diabetes mellitus without complication, without long-term current use of insulin E11.9 Active 404805155 Problem Constipation, unspecified constipation type K59.00 Active 48169321 Problem 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 Active 20001370 Problem Slow transit constipation K59.01 Active 54379833 Problem Morbid obesity E66.01 Active 819594773 Problem Acquired hypothyroidism E03.9 Active 349833567 Problem 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 [address]00565[address], [place] [address] Sep, 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 [facility] [address] [id number] Sep, Type 2 diabetes mellitus without complication, without long-term current use of insulin E11.9 ; Slow transit constipation K59.01 and 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 [place] [id number] [place] [address]160 Sep, [facility] [address] [id number] Jul, Pneumonia due to infectious organism, unspecified laterality, unspecified part of lung J18.9 and Morbid obesity E66.01 [facility] [id number] [place] [address] [id number]- 9745 Jul, [facility] [id number] [place] [address] [id number]- 7085 Jun, 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 [address] [address] Apr, [facility] [address] [place] [address] Apr, [facility] [address] [id number] Mar, Obesity due to excess calories with serious comorbidity, unspecified classification E66.09 and Reactive airway disease J45.909 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 [address] [id number], [place] [address] 2546 Jul, 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 [id number] [place] [address] 84088- 5824 May, [facility] [id number] [place] [address] [id number] Apr, [facility] [id number] [place] [address] 06146- 6251 Apr, Reactive airway disease J45.909 [facility] [id number] [place] [address] 02197- 6405 Apr, Reactive airway disease J45.909 [facility] [address] [place] [address] 86571- 5101 Apr, [facility] [id number] [place] [address] 66332- 3225 Mar, [facility] [address] [id number] Mar, Mood disorder F39 and Shortness of breath R06.02 [facility] [id number] [place] [address] 19534- 1342 Feb, [facility] [id number] [place] [address] 02878- 3327 Jan, [facility] [address] [id number] Jan, Moist breath sounds R06.89 and Constipation, unspecified constipation type K59.00 [facility] [id number] [place] [address] 73241- 5391 Jan, [facility] [address]00565[address], [place] [address] Dec, Uncomplicated asthma, unspecified asthma severity J45.909 [facility] [address] [place] [address] 06869- 9430 Dec, [facility] [id number] [place] [address] 84652- 5473 Dec, Uncomplicated asthma, unspecified asthma severity J45.909 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 [id number] [place] [address] 08639- 6285 Dec, [facility] [id number] [place] [address] 46261- 6920 Dec, Reactive airway disease J45.909 [facility] [id number] [place] [address] 26492- 6077 Nov, [facility] [id number] [place] [address] 46746- 5235 Nov, [facility] [id number] [place] [address] 98776- 0033 Nov, [facility] [address] [address] Nov, Shortness of breath R06.02 ; Family history of coronary arteriosclerosis Z82.[address] [facility] [id number] [place] [address] 85314- 5616 Nov, [facility] [id number] [place] [address] 14448- 4122 Oct, [facility] [address] [id number] [address] Oct, [facility] [address]005[address], [place] [address] 7180 Oct, [facility] [address]005[address], [place] [address] 8023 Oct, [facility] [address], [place] [address] 6894 Oct, 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 [address], [place] [address]- 9998 Sep, Stomach ache R10.9 [facility] [address], [place] [address]245 August, [facility] [address], [place] [address]- 5306 August, [facility] [address], [place] [address]- 9371 Jul, [facility] [address], [place] [address]- 3513 Jul, [facility] [address], [place] [address] 1959 Jul, [facility] [address], [place] [address] 2446 Jul, [facility] [address], [place] [address]- 6945 Jul, [facility] [address] [address] Jul, Fever R50.9 [facility] [address], [place] [address]- 9700 05 Jul, 2015 Reactive airway disease J45.909 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 and Mood disorder F39 [place] [id number] [place] [address] 42526- 5022 Apr, [place] [id number] [place] [address] 99841- 5521 Apr, [facility] [address] [id number] Apr, Unspecified mood [affective] disorder F39 [place] [id number] [place] [address] 19211- 4575 Feb, [facility] [address] [place] [address] Feb, Uncomplicated asthma, unspecified asthma severity J45.909 [place] [id number] [place] [address] 75068- 4913 17 Feb, 2015 [place] [id number] [place] [address] 75059- 3352 Feb, [place] [id number] [place] [address] 48479- 4897 Feb, [place] [id number] [place] [address] 86967- 7972 14 Jan, 2015 [place] [address], [place] [address]- 2594 24 Dec, 2014 [facility] [id number] [place] [address] 17426- 9244 16 Dec, 2014 Antisocial behavior V71.01 and History of poliomyelitis without residual effect V12.02 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 [id number] [place] [address] 37743- 0694 Sep, [facility] [id number] [place] [address] 98779- 9657 Sep, [facility] [id number] [place] [address] 53320- 5022 Sep, Abdominal pain, unspecified site 789.00 and Manipulative behavior V40.39 [facility] [address] [place] [address] 69125- 3216 Sep, [facility] [id number] [place] [address] 33451- 1524 Jul, [facility] [address], [place] [address]- 6548 Jul, [facility] [address] [place] [address] 58897- 0182 Jun, [facility] [address], [place] [address]- 7153 Jun, [facility] [id number] [place] [address] 18372- 1256 Jun, [facility] [address] [id number] Jun, [facility] [address], [place] [address]- 8936 May, [facility] [address] [id number] [place] [address]- 7759 May, [facility] [address] [facility] [id number] Apr, [facility] [address] [id number] [place] [address]- 6615 Apr, [facility] [address] [id number] [place] [address]- 4585 Apr, [facility] [address] [id number] [place] [address]- 5317 Apr, [facility] [address] [id number] [place] [address]- 9297 Apr, [facility] [address] [id number] [place] [address]- 4541 Apr, [facility] [address] [id number] [place] [address]- 7354 Apr, [facility] [address] [id number] [place] [address]- 7920 Apr, [facility] [address] [id number] [place] [address]- 6650 Apr, [facility] [address] [id number] [place] [address]- 2443 Apr, [facility] [address] [id number] [place] [address]- 5618 Mar, [facility] [address] [id number] [place] [address]- 7099 Mar, [facility] [place] [facility] [address] [id number] [place] [address]- 8116 Mar, [facility] [place] [facility] [address] [id number] [place] [address]- 1486 Mar, [facility] [place] [facility] [address] [id number] [place] [address]- 0681 Mar, [facility] [place] [facility] [address] [id number] [place] [address]- 0643 Mar, [facility] [place] [facility] [address] [id number] [place] [address]- 7229 Mar, [facility] [place] [facility] [address] [id number] [place] [address]- 5045 Mar, [facility] [place] [facility] [address] [id number] [place] [address]- 4469 Mar, [facility] [place] [facility] [address] [id number] [place] [address]- 3665 Mar, [facility] [place] [facility] [address] [id number] [place] [address]- 9194 Mar, [facility] [place] [facility] [address] [id number] [place] [address]- 4643 Feb, [facility] [place] [facility] [address] [id number] [place] [address]- 2939 Feb, [facility] [place] [facility] [address] [id number] [place] [address]- 4466 Feb, [facility] [place] [facility] [address] [id number] [place] [address]- 8092 Feb, [facility] [place] [facility] [address] [id number] [place] [address]- 4453 Feb, [facility] [place] [facility] [address] [id number], [place] [address]- 9568 Feb, [facility] [place] [facility] [address] [id number] [place] [address]- 4199 Feb, [facility] [place] [facility] [address] [id number] [place] [address]- 3743 Feb, [facility] [place] [facility] [address] [id number] [place] [address]- 0130 Feb, [facility] [place] [facility] [address] [id number] [place] [address]- 6695 18 Feb, 2014 [facility] [place] [facility] [address] [id number] [place] [address]- 1890 Feb, [facility] [place] [facility] [address] [id number] [place] [address]- 5952 Feb, [facility] [place] [facility] [address] [id number] [place] [address]- 1968 Feb, [facility] [place] [facility] [address] [id number] [place] [address]- 7952 Feb, [facility] [place] [facility] [address] [id number] [place] [address]- 9300 Feb, [facility] [place] [facility] [address] [id number] [place] [address]- 7345 Feb, [facility] [place] [facility] [address] [id number] [place] [address]- 2595 Feb, [facility] [place] [facility] [address] [id number] [place] [address]- 1128 Feb, [facility] [place] [facility] [address] [id number] [place] [address]- 0887 Feb, [facility] [place] [facility] [address] [facility] [id number] [place] [address]- 9546 Feb, [facility] [place] [facility] [address] [id number] [place] [address]- 2275 Jan, [facility] [place] [facility] [address] [id number] [place] [address]- 6964 Jan, [facility] [place] [facility] [address] [id number] [place] [address]- 1833 Jan, [facility] [place] [facility] [address] [id number] [place] [address]- 1751 Jan, [facility] [place] [facility] [address] [id number], [place] [address]- 3447 Jan, [facility] [place] [facility] [address] [id number] [place] [address]- 4071 Jan, [facility] [place] [facility] [address] [id number] [place] [address]- 9271 Jan, [facility] [place] [facility] [address] [id number] [place] [address]- 7036 Jan, [facility] [place] [facility] [address] [id number] [place] [address]- 0398 Jan, [facility] [place] [facility] [address] [id number] [place] [address]- 6993 Jan, [facility] [place] [facility] [address] [id number] [place] [address]- 1433 Jan, [facility] [place] [facility] [address] [id number] [place] [address]- 5997 Jan, [facility] [place] [facility] [address] [id number] [place] [address]- 9643 Jan, [facility] [place] [facility] [address] [id number] [place] [address]- 2927 Jan, [facility] [place] [facility] [address] [id number] [place] [address]- 9650 Jan, [facility] [place] [facility] [address] [id number] [place] [address]- 5891 Jan, [facility] [place] [facility] [address] [id number] [place] [address]- 0643 Jan, [facility] [place] [facility] [address] [id number] [place] [address]- 5476 Jan, [facility] [place] [facility] [address] [id number] [place] [address]- 0518 Jan, [facility] [place] [facility] [address] [id number] [place] [address]- 1837 Dec, [facility] [place] [facility] [address] [id number] [place] [address]- 4290 23 Dec, 2013 [facility] [place] [facility] [address] [id number] [place] [address]- 0954 22 Dec, 2013 [facility] [place] [facility] [address] [id number] [place] [address]- 1418 22 Dec, 2013 [facility] [place] [facility] [address] [id number] [place] [address] 2546 19 Dec, 2013 [facility] [place] [facility] [address] [id number] [place] [address] 2547 19 Dec, 2013 [facility] [place] [facility] [address] [id number] [place] [address]- 8150 18 Dec, 2013 [facility] [place] [facility] [address] [id number] [place] [address]- 6267 17 Dec, 2013 [facility] [place] [facility] [address] [id number] [place] [address]- 5733 17 Dec, 2013 [facility] [place] [facility] [address] [id number] [place] [address]- 4352 16 Dec, 2013 [facility] [place] [facility] [address] [id number] [place] [address]- 5664 16 Dec, 2013 [facility] [place] [facility] [address] [id number] [place] [address]- 9138 10 Dec, 2013 [facility] [place] [facility] [address] [id number] [place] [address]- 1432 10 Dec, 2013 [facility] [place] [facility] [address] [id number] [place] [address]- 8904 Nov, [facility] [place] [facility] [address] [id number] [place] [address] Nov, [facility] [place] [facility] [address] [id number] [place] [address] Nov, [facility] [place] [facility] [address] [id number] [place] [address] Nov, [facility] [place] [facility] [address] [id number] [place] [address] Nov, [facility] [place] [facility] [address] [id number] [place] [address] Nov, [facility] [place] [facility] [address] [id number] [place] [address] Nov, [facility] [place] [facility] [address] [id number] [place] [address] Nov, [facility] [place] [facility] [address] [id number] [place] [address] Nov, [facility] [place] [facility] [address] [id number] [place] [address] Nov, [facility] [place] [facility] [address] [id number] [place] [address] Oct, [facility] [place] [facility] [address] [id number] [place] [address] Oct, [facility] [place] [facility] [address] [id number] [place] [address] Oct, [facility] [place] [facility] [address] [id number] [place] [address] Oct, [facility] [place] [facility] [address] [id number] [place] [address] Oct, [facility] [place] [facility] [address] [id number] [place] [address] Oct, [facility] [place] [facility] [address] [id number] [place] [address] Oct, [facility] [place] [facility] [address] [id number] [place] [address] Oct, [facility] [place] [facility] [address] [id number] [place] [address] Oct, [facility] [place] [facility] [address] [id number] [place] [address] Oct, [facility] [place] [facility] [address] [id number] [place] [address] Oct, [facility] [place] [facility] [address] [id number] [place] [address] Oct, [facility] [place] [facility] [address] [id number] [place] [address] Oct, [facility] [place] [facility] [address] [id number] [place] [address] Sep, [facility] [place] [facility] [address] [id number] [place] [address] Sep, [facility] [place] [facility] [address] [id number] [place] [address] Sep, [facility] [place] [facility] [address] [id number] [place] [address] Sep, [facility] [place] [facility] [address] [id number] [place] [address] Sep, [facility] [place] [facility] [address] [id number] [place] [address] Sep, [facility] [place] [facility] [address] [id number] [place] [address] Sep, [facility] [place] [facility] [address] [id number] [place] [address] Sep, [facility] [place] [facility] [address] [id number], [place] [address] Sep, [facility] [place] [facility] [address] [id number] [place] [address] Sep, [facility] [place] [facility] [address] [id number] [place] [address] Sep, [facility] [place] [facility] [address] [id number] [place] [address] Sep, [facility] [place] [facility] [address] [id number], [place] [address] August, [facility] [address] [id number] [place] [address] August, [facility] [place] [facility] [address] [id number] [place] [address]68 August, [facility] [place] [facility] [address] [id number] [place] [address] August, [facility] [place] [facility] [address] [id number] [place] [address] August, [facility] [place] [facility] [address] [id number] [place] [address] August, [facility] [place] [facility] [address] [id number] [place] [address] August, [facility] [address] [id number] [place] [address] August, [facility] [place] [facility] [address] [id number] [place] [address] August, [facility] [place] [facility] [address] [id number] [place] [address]- [address] August, [facility] [place] [facility] [address] [id number] [place] [address] August, [facility] [facility] [place] [facility] [address] [id number] [place] [address] August, [facility] [place] [facility] [address] [id number] [place] [address] August, [facility] [place] [facility] [address] [id number] [place] [address] Jul, [facility] [place] [facility] [address] [id number] [place] [address] Jul, [facility] [place] [facility] [address] [id number] [place] [address] Jul, [facility] [place] [facility] [address] [id number] [place] [address] 29 Jul, 2013 [facility] [place] [facility] [address] [id number] [place] [address] 28 Jul, 2013 [facility] [place] [facility] [address] [id number] [place] [address] 23 Jul, 2013 [facility] [place] [facility] [address] [id number] [place] [address] 23 Jul, 2013 [facility] [place] [facility] [address] [id number] [place] [address] Jul, [facility] [place] [facility] [address] [id number] [place] [address] Jul, [facility] [place] [facility] [address] [id number] [place] [address] 16 Jul, 2013 [facility] [place] [facility] [address] [id number] [place] [address] 16 Jul, 2013 [facility] [place] [facility] [address] [id number] [place] [address] 16 Jul, 2013 [facility] [place] [facility] [address] [id number] [place] [address] 16 Jul, 2013 [facility] [place] [facility] [address] [id number] [place] [address] 14 Jul, 2013 [facility] [place] [facility] [address] [id number] [place] [address] 14 Jul, 2013 [facility] [place] [facility] [address] [id number] [place] [address] 10 Jul, 2013 [facility] [place] [facility] [address] [id number] [place] [address] 10 Jul, 2013 [facility] [place] [facility] [address] [id number] [place] [address] 25 Jun, 2013 [facility] [place] [facility] [address] [id number] [place] [address] Jun, [facility] [address] [id number] [address] Jun, [facility] [id number] [address] Jun, [facility] [address] [id number] [address] Jun, [facility] [id number] [address] Jun, [facility] [id number] [address] Jun, [facility] [id number], [place] [address] Jun, [facility] [id number], [place] [address] Jun, IMMUNIZATIONS No Known Immunizations SOCIAL HISTORY Never Assessed REASON FOR VISIT Med reconcilliation PLAN OF CARE VITAL SIGNS MEDICATIONS Medication Instructions Dosage Frequency Start Date End Date Duration Status Milk of Magnesia 400 MG/5ML Orally daily prn constipation 10 ml as needed Jan, Active Gabapentin 100 Orally Twice a day 1 capsule 12h Active Ibuprofen 600 MG Orally every 6 hours 1 tablet with food or milk as needed 6h Active Albuterol Sulfate (2.5 MG/3ML) 0.083% Inhalation every 4 hours 3 ml as needed for SOB/Cough 4h Jul, Active Pulmicort 0.5 mg/2ml Inhalation 2 times a day 2 ml 12h Active Aspirin 81 MG Orally Once a day 1 tablet 24h Active Biofreeze 4 % Externally 2 times a day 1 application to affected area as needed 12h Active Visine Advanced Relief 0.05-0.1-1-1 % Ophthalmic in both eyes 2 times a day 2 drops 12h Jan, Active Mylanta 200-200-20 MG/5ML Orally every 6 hrs 30 ml as needed 6h Active Trulicity 1.5 MG/0.5ML Subcutaneous once weekly 0.5 ml 16 Jun, 2015 30 days Active Losartan Potassium 50 Orally Once a day 1 tablet 24h Active Benadryl Itch Stopping 1-0.1 % Externally 2 times a day 1 application to affected area as needed 12h Active Hydrochlorothiazide 25 MG Orally Once a day 1 tablet in the morning 24h Active Singulair 10 MG Orally Once a day 1 tablet in the evening 24h Active Fexofenadine HCl 180 MG Orally Once a day 1 tablet 24h Active Toprol XL 50 Orally Once a day 1 tablet 24h Active Probiotic - Orally Once a day 1 capsule 24h Active Ibuprofen 200 mg Orally 2 times a day 3 tablets 12h Active Zoloft 100 MG Orally Once a day 1 tablet 24h Active Colace 100 mg Orally twice a day 1 capsule 12h Active Imodium A-D 2 MG Orally Four times a day 1 tablet as needed 6h Active RESULTS No Results PROCEDURES No Known [...] 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
--- OUTSIDE RECORDS SUMMARY | 2018-04-02 07:54 | XMS REPORT ---
Author Author GEORGIA DOWNEY Organization [facility] Address [address] [place] [address] Care Team Providers Care Resolute Professional Name Role Phone GEORGIA DOWNEY Unavailable PROBLEMS Type Condition ICD9-CM Code RYZ83-IJ Code Onset Dates Condition Status SNOMED Code Problem Weight gain R63.5 Active 3037349 Problem Reactive airway disease J45.909 Active 361703999913 Problem 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 Active 07193536 Problem Post-polio syndrome G14 Active 05878511 Problem Acquired hypothyroidism E03.9 Active 021623203 Problem 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 625213396 Problem Mood disorder F39 Active 45481382 Problem Slow transit constipation K59.01 Active 08363380 Problem Type 2 diabetes mellitus without complication, without long-term current use of insulin E11.9 Active 716937121 Problem 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 Active 88118187 Problem Stomach ache R10.9 Active 705003902 Problem Morbid obesity E66.01 Active 268783854 Problem Constipation, unspecified constipation type K59.00 Active 43266394 ALLERGIES No Information ENCOUNTERS Encounter Location Date Diagnosis [place] [id number] [address] Dec, Reactive airway disease J45.909 [place] [id number], [place] [address] Dec, [facility] [address] [place] [id number] Nov, Generalized abdominal pain R10.84 ; 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 and Reactive airway disease J45.909 [place] [id number], [place] [address] Sep, 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 [facility] [address] [place] [id number] Sep, Type 2 diabetes mellitus without complication, without long-term current use of insulin E11.9 ; Slow transit constipation K59.01 and 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 [address] [id number] [place] [address] 47914- 9406 Sep, [facility] [id number] Jul, Pneumonia due to infectious organism, unspecified laterality, unspecified part of lung J18.9 and Morbid obesity E66.01 [place] [id number] [place] [address] 59269- 9096 Jul, [place] [id number] [place] [address] 53549- 6088 Jun, [place] [id number] [place] [address] 96934- 8893 Jun, [facility] [address] [id number] May, [facility] [address] [id number] May, Acute superficial gastritis without hemorrhage K29.[address] [id number] May, 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 ; 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 and Acute superficial gastritis without hemorrhage K29.00 [place] [id number] [place] [address] 75362- 3496 Apr, [place] [id number] [place] [address] 66805- 3516 Apr, [address] [id number] Mar, Obesity due to excess calories with serious comorbidity, unspecified classification E66.09 and Reactive airway disease J45.909 [place] [address] [address] Mar, [facility] [address] [id number] [id number] Jan, [facility] [address] [id number] Jan, 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 ; Weight gain R63.5 and 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 [facility] [address] [id number] [id number] Dec, [facility] [address] [id number] [address] Dec, [facility] [address] [id number] Nov, Weight gain R63.5 ; 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 and Reactive airway disease J45.909 [facility] [address] [id number] [id number] Oct, [facility] [address] [id number] [id number] Sep, [facility] [id number], [place] [address] August, [facility] [address] [id number] August, 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 [facility] [id number], [place] [address] 2546 Jul, [facility] [id number], [place] [address] Jul, Reactive airway disease J45.909 [facility] [address] [id number] Jun, 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 [facility] [id number], [place] [address]46 Jun, 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 [facility] [address] [id number] May, 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 [facility] [id number] [place] [address] 18490- 7368 May, [facility] [id number] [place] [id number] Apr, [facility] [id number] [place] [address] 70875- 1491 Apr, Reactive airway disease J45.909 [facility] [id number] [place] [address] 33655- 7963 Apr, Reactive airway disease J45.909 [facility] [id number] [place] [address] 04558- 7563 Apr, [facility] [id number] [place] [address] 88009- 7832 Mar, [facility] [address] [address] Mar, Mood disorder F39 and Shortness of breath R06.02 [facility] [id number] [place] [address] 28857- 6343 Feb, [facility] [id number] [place] [address] 73201- 6808 Jan, [facility] [address] [id number] Jan, Moist breath sounds R06.89 and Constipation, unspecified constipation type K59.00 [facility] [id number] [place] [address] 18843- 1356 Jan, [facility] [id number] [place] [address] 24290- 4023 Dec, Uncomplicated asthma, unspecified asthma severity J45.909 [facility] [id number] [place] [address] 94058- 5017 Dec, [facility] [address] [id number], [place] [address] 4511 Dec, Uncomplicated asthma, unspecified asthma severity J45.909 [facility] [id number] [place] [address] 51626- 9305 Dec, [facility] [address] [id number] Dec, 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 and Unspecified mood [affective] disorder F39 [facility] [id number] [place] [address] 15831- 8254 Dec, [facility] [id number] [place] [address] 54446- 6714 Dec, Reactive airway disease J45.909 [facility] [id number] [place] [address] 13341- 2641 Nov, [facility] [id number] [place] [address] 50055- 2467 Nov, [facility] [id number] [place] [address] 33777- 9470 Nov, [facility] [address] [id number] Nov, Shortness of breath R06.02 ; Family history of coronary arteriosclerosis Z82.49 and Dysuria R30.0 [facility] [address], [place] [address] 3031 Nov, [facility] [id number] [place] [address] 47366- 1861 Oct, [facility] [id number] [place] [address] 31435- 9766 Oct, [facility] [id number] [place] [address] 06186- 1393 Oct, [facility] [address], [place] [address] 6124 Oct, [facility] [id number], [place] [address]- 4753 Oct, [facility] [id number] [place] [address] 79935- 1936 Oct, Recurrent bronchospasm J98.09 [facility] [address] [place] [id number] Sep, 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 and 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 [facility] [id number] [place] [address] 01023- 8872 Sep, Stomach ache R10.9 [facility] [id number] [place] [address] 50804- 8800 August, [facility] [id number] [place] [address] 14854- 6651 August, [facility] [id number] [place] [address] 88641- 6371 Jul, [facility] [id number] [place] [address] 59428- 1371 Jul, [facility] [id number] [place] [address] 73737- 4840 Jul, [facility] [address], [place] [address]- 6927 Jul, [facility] [id number] [place] [address] 26684- 2014 Jul, [facility] [address] [place] [id number] Jul, Fever R50.9 [facility] [id number] [place] [address] 76747- 6464 Jul, Reactive airway disease J45.909 [facility] [address], [place] [address]- 9622 Jun, [facility] [address] [place] [id number] Jun, Reactive airway disease J45.909 and 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 [place] [id number] [place] [address] 53152- 3907 May, [facility] [address] [id number] May, Recurrent bronchospasm J98.09 ; Weight gain R63.5 ; 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 and Mood disorder F39 [place] [id number] [place] [address] 71736- 8721 Apr, [place] [id number] [place] [address] 26474- 2384 Apr, [facility] [address] [id number] Apr, Unspecified mood [affective] disorder F39 [place] [id number] [place] [address] 35050- 9771 Feb, [facility] [address] [id number] Feb, Uncomplicated asthma, unspecified asthma severity J45.909 [place] [id number] [place] [address] 31689- 3543 17 Feb, 2015 [place] [id number] [place] [address] 98565- 3347 Feb, [place] [id number] [place] [address] 14878- 9609 Feb, [place] [id number] [place] [address] 60843- 6897 14 Jan, 2015 [place] [id number] [place] [address] 56005- 0440 24 Dec, 2014 [place] [id number] [place] [address] 50169- 1033 16 Dec, 2014 Antisocial behavior V71.01 and History of poliomyelitis without residual effect V12.02 [place] [id number] [place] [address] 29119- 0957 Oct, Essential hypertension, malignant 401.0 ; Unspecified hypothyroidism 244.9 and 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 [facility] [address], [place] [address]- 2676 Sep, [facility] [id number], [place] [address]- 6050 Sep, [facility] [id number] [place] [address] 71092- 9210 Sep, Abdominal pain, unspecified site 789.00 and Manipulative behavior V40.39 [facility] [id number] [place] [address] 97947- 4614 Sep, [facility] [address], [place] [address]- 7923 Jul, [facility] [id number] [place] [address] 628622- 3672 Jul, [facility] [address], [place] [address]- 3068 Jun, [facility] [address] 5350 Jun, [facility] [address], [place] [address]- 3411 Jun, [facility] [address] [place] [id number] Jun, [facility] [address], [place] [address]- 5536 May, [facility] [address], [place] [address]- 2236 May, [facility] [address] [place] [address] Apr, [facility] [address], [place] [address]- 4366 Apr, [facility] [address] [id number] [place] [address]- 7498 15 Apr, 2014 [facility] [place] [facility] [address] [id number] [place] [address]- 3244 Apr, [facility] [place] [facility] [address] [id number] [place] [address]- 6386 Apr, [facility] [place] [facility] [address] [id number] [place] [address]- 1409 Apr, [facility] [place] [facility] [address] [id number] [place] [address]- 4962 Apr, [facility] [place] [facility] [address] [id number] [place] [address]- 8829 Apr, [facility] [place] [facility] [address] [id number] [place] [address]- 5773 Apr, [facility] [place] [facility] [address] [id number] [place] [address]- 8734 Apr, [facility] [place] [facility] [address] [id number] [place] [address]- 2439 Mar, [facility] [place] [facility] [address] [id number] [place] [address]- 7289 Mar, [facility] [place] [facility] [address] [id number] [place] [address]- 3509 Mar, [facility] [place] [facility] [address] [id number] [place] [address]- 0356 Mar, [facility] [place] [facility] [address] [id number] [place] [address]- 5908 Mar, [facility] [place] [facility] [address] [id number] [place] [address]- 6674 Mar, [facility] [place] [facility] [address] [id number] [place] [address]- 9040 17 Mar, 2014 [facility] [place] [facility] [address] [id number], [place] [address]- 2109 Mar, [facility] [place] [facility] [address] [id number] [place] [address]- 7861 Mar, [facility] [place] [facility] [address] [id number] [place] [address]- 1626 Mar, [facility] [place] [facility] [address] [facility] [id number] [place] [address]- 3120 Mar, [facility] [place] [facility] [address] [id number] [place] [address]- 5903 Feb, [facility] [place] [facility] [address] [id number] [place] [address]- 8664 Feb, [facility] [place] [facility] [address] [id number] [place] [address]- 3718 Feb, [facility] [place] [facility] [address] [id number] [place] [address]- 5272 Feb, [facility] [place] [facility] [address] [id number] [place] [address]- 3347 Feb, [facility] [place] [facility] [address] [id number] [place] [address]- 5310 Feb, [facility] [place] [facility] [address] [id number] [place] [address]- 6286 Feb, [facility] [place] [facility] [address] [id number], [place] [address]- 9623 Feb, [facility] [place] [facility] [address] [id number], [place] [address]- 7776 Feb, [facility] [place] [facility] [address] [id number] [place] [address]- 6839 Feb, [facility] [place] [facility] [address] [id number], [place] [address]- 0251 Feb, [facility] [place] [facility] [address] [id number], [place] [address]- 7645 Feb, [facility] [place] [facility] [address] [id number] [place] [address]- 6512 Feb, [facility] [place] [facility] [address] [id number] [place] [address]- 1793 Feb, [facility] [place] [facility] [address] [id number] [place] [address]- 2669 Feb, [facility] [place] [facility] [address] [id number] [place] [address]- 2991 Feb, [facility] [place] [facility] [address] [id number] [place] [address]- 4271 Feb, [facility] [place] [facility] [address] [id number] [place] [address]- 2075 Feb, [facility] [place] [facility] [address] [id number] [place] [address]- 4935 Feb, [facility] [place] [facility] [address] [id number] [place] [address]- 8253 Feb, [facility] [place] [facility] [address] [id number] [place] [address]- 7746 Jan, [facility] [place] [facility] [address] [id number] [place] [address]- 7298 Jan, [facility] [place] [facility] [address] [facility] [id number] [place] [address]- 9249 Jan, [facility] [place] [facility] [address] [id number] [place] [address]- 6016 Jan, [facility] [place] [facility] [address] [id number] [place] [address]- 9564 Jan, [facility] [place] [facility] [address] [id number] [place] [address]- 1661 Jan, [facility] [place] [facility] [address] [facility] [id number] [place] [address]- 3975 Jan, [facility] [place] [facility] [address] [id number] [place] [address]- 7911 Jan, [facility] [place] [facility] [address] [id number] [place] [address]- 3597 15 Jan, 2014 [facility] [place] [facility] [address] [id number] [place] [address]- 0172 15 Jan, 2014 [facility] [place] [facility] [address] [id number] [place] [address]- 9060 15 Jan, 2014 [facility] [place] [facility] [address] [id number] [place] [address]- 2049 15 Jan, 2014 [facility] [place] [facility] [address] [id number] [place] [address]- 9198 14 Jan, 2014 [facility] [place] [facility] [address] [id number] [place] [address]- 8496 Jan, [facility] [place] [facility] [address] [id number] [place] [address]- 2133 Jan, [facility] [place] [facility] [address] [id number] [place] [address]- 6203 Jan, [facility] [place] [facility] [address] [id number] [place] [address]- 9818 Jan, [facility] [place] [facility] [address] [id number], [place] [address]- 5206 Jan, [facility] [place] [facility] [address] [id number], [place] [address]- 7255 Jan, [facility] [place] [facility] [address] [id number], [place] [address]- 8382 29 Dec, 2013 [facility] [place] [facility] [address] [id number] [place] [address]- 1742 23 Dec, 2013 [facility] [place] [facility] [address] [id number] [place] [address]- 2022 22 Dec, 2013 [facility] [place] [facility] [address] [id number], [place] [address]- 2591 22 Dec, 2013 [facility] [place] [facility] [address] [id number], [place] [address]- 0433 19 Dec, 2013 [facility] [place] [facility] [address] [id number] [place] [address]- 9429 19 Dec, 2013 [facility] [place] [facility] [address] [id number] [place] [address]- 7511 18 Dec, 2013 [facility] [place] [facility] [address] [id number] [place] [address]- 7041 17 Dec, 2013 [facility] [place] [facility] [address] [id number] [place] [address]- 2237 17 Dec, 2013 [facility] [place] [facility] [address] [id number] [place] [address]- 7746 16 Dec, 2013 [facility] [place] [facility] [address] [id number] [place] [address]- 5861 16 Dec, 2013 [facility] [place] [facility] [address] [id number] [place] [address]- 6397 10 Dec, 2013 [facility] [place] [facility] [address] [id number] [place] [address]- 6022 10 Dec, 2013 [facility] [place] [facility] [address] [id number] [place] [address]- 2150 Nov, [facility] [place] [facility] [address] [id number] [place] [address]- 0419 Nov, [facility] [place] [facility] [address] [id number] [place] [address]- 5990 Nov, [facility] [place] [facility] [address] [id number] [place] [address]- 8172 Nov, [facility] [place] [facility] [address] [id number] [place] [address]- 2151 Nov, [facility] [place] [facility] [address] [id number] [place] [address]- 7588 Nov, [facility] [place] [facility] [address] [id number] [place] [address]- 2874 Nov, [facility] [place] [facility] [address] [id number] [facility] [address]- 9569 Nov, [facility] [place] [facility] [address] [id number] [facility] [address]- 5808 Nov, [facility] [place] [facility] [address] [id number] [place] [address]- 3136 Nov, [facility] [place] [facility] [address] [id number] [place] [address] Oct, [facility] [place] [facility] [address] [id number] [place] [address] Oct, [facility] [place] [facility] [address] [id number] [place] [address] Oct, [facility] [place] [facility] [address] [id number] [place] [address] Oct, [facility] [place] [facility] [address] [id number] [place] [address] Oct, [facility] [place] [facility] [address] [id number] [place] [address] Oct, [facility] [place] [facility] [address] [id number] [place] [address] Oct, [facility] [place] [facility] [address] [id number] [place] [address] Oct, [facility] [place] [facility] [address] [id number] [place] [address] Oct, [facility] [place] [facility] [address] [id number] [place] [address] Oct, [facility] [place] [facility] [address] [id number] [place] [address] Oct, [facility] [place] [facility] [address] [id number] [place] [address] Oct, [facility] [place] [facility] [address] [id number] [place] [address] Oct, [facility] [place] [facility] [address] [id number] [place] [address]- [address] Sep, [facility] [place] [facility] [address] [id number] [place] [address]- [address] Sep, [facility] [place] [facility] [address] [id number] [place] [address] Sep, [facility] [place] [facility] [address] [id number] [place] [address] Sep, [facility] [place] [facility] [address] [id number] [place] [address]- [address] Sep, [facility] [place] [facility] [address] [id number] [place] [address]- [address] Sep, [facility] [place] [facility] [address] [id number] [place] [address]- [address] Sep, [facility] [place] [facility] [address] [id number] [place] [address] Sep, [facility] [place] [facility] [address] [id number] [place] [address]- [address]69 Sep, [facility] [place] [facility] [address] [id number] [place] [address]- 1106 Sep, [facility] [place] [facility] [address] [id number] [place] [address]- [address] Sep, [facility] [place] [facility] [address] [id number] [address] Sep, [facility] [place] [facility] [address] [id number] [place] [address] August, [facility] [place] [facility] [address] [id number] [place] [address]- [address] August, [facility] [place] [facility] [address] [id number] [place] [address]- [address] August, [facility] [place] [facility] [address] [id number] [place] [address] August, [facility] [address] [id number] [place] [address] August, [facility] [place] [facility] [address] [id number] [place] [address]- [address] August, [facility] [place] [facility] [address] [id number] [place] [address]- [address] August, [facility] [place] [facility] [address] [id number] [place] [address]147 August, [facility] [place] [facility] [address] [id number] [place] [address]- [address] August, [facility] [place] [facility] [address] [id number] [place] [address]- 113[address] August, [facility] [address] [id number] [place] [address] August, [facility] [place] [facility] [address] [id number] [place] [address] August, [facility] [place] [facility] [address] [id number] [place] [address]- [address] August, [facility] [place] [facility] [address] [id number] [place] [address] Jul, [facility] [place] [facility] [address] [id number] [place] [address]- [address] Jul, [facility] [place] [facility] [address] [id number] [place] [address]- [address] Jul, [facility] [place] [facility] [address] [id number] [place] [address]- [address] Jul, [facility] [place] [facility] [address] [id number] [place] [address]- [address] Jul, [facility] [place] [facility] [address] [id number] [place] [address]- [address] Jul, [facility] [place] [facility] [address] [id number] [place] [address]- [address] 23 Jul, 2013 [facility] [place] [facility] [address] [id number] [place] [address]- [address] Jul, [facility] [place] [facility] [address] [id number] [place] [address] Jul, [facility] [place] [facility] [address] [id number] [place] [address] Jul, [facility] [place] [facility] [address] [id number] [place] [address] Jul, [facility] [place] [facility] [address] [id number] [place] [address] Jul, [facility] [place] [facility] [address] [id number] [place] [address] Jul, [facility] [place] [facility] [address] [id number] [place] [address] Jul, [facility] [place] [facility] [address] [id number] [place] [address] Jul, [facility] [place] [facility] [address] [id number] [place] [address] Jul, [facility] [place] [facility] [address] [id number] [place] [address] Jul, [facility] [place] [facility] [address] [id number] [place] [address] Jun, [facility] [place] [facility] [address] [id number] [place] [address] 25 Jun, 2013 [facility] [place] [facility] [address] [id number] [place] [address] Jun, [facility] [place] [facility] [address] [id number] [place] [address] 10 Jun, 2013 [facility] [place] [facility] [address] [id number], [place] [address] Jun, [facility] [address] [facility] [id number][place] [address] [address] Jun, [facility] [address] [facility] [id number], [place] [address] Jun, [facility] [address] [facility] [id number], [place] [address] Jun, [facility] [address] [facility] [id number][place] [address] Jun, IMMUNIZATIONS No Known Immunizations SOCIAL HISTORY Never Assessed REASON FOR VISIT Routine visit PLAN OF CARE Activity Details Follow Up prn Reason: VITAL SIGNS MEDICATIONS Medication Instructions Dosage Frequency Start Date End Date Duration Status Ibuprofen 600 MG Orally every 6 hours 1 tablet with food or milk as needed 6h Active Aspirin 81 MG Orally Once a day 1 tablet 24h Active Trulicity 1.5 MG/0.5ML Subcutaneous once weekly 0.5 ml Jun, 30 days Active Imodium A-D 2 MG Orally Four times a day 1 tablet as needed 6h Active Milk of Magnesia 400 MG/5ML Orally daily prn constipation 10 ml as needed Jan, Active Hydrochlorothiazide 25 MG Orally Once a day 1 tablet in the morning 24h Active Gabapentin 100 Orally Twice a day 1 capsule 12h Active Biofreeze 4 % Externally 2 times a day 1 application to affected area as needed 12h Active Zantac 150 MG Orally twice a day 1 tablet 12h Active Losartan Potassium 50 Orally Once a day 1 tablet 24h Active Zoloft 100 MG Orally Once a day 1 tablet 24h Active Visine Advanced Relief 0.05-0.1-1-1 % Ophthalmic in both eyes 2 times a day 2 drops 12h 13 Jan, 2017 Active Fexofenadine HCl 180 MG Orally Once a day 1 tablet 24h Active Mylanta 200-200-20 MG/5ML Orally every 6 hrs 30 ml as needed 6h Active Toprol XL 50 Orally Once a day 1 tablet 24h Active Singulair 10 MG Orally Once a day 1 tablet in the evening 24h Active Ibuprofen 200 mg Orally 2 times a day 3 tablets 12h Active Calmoseptine 0.44-20.6 % Externally to coccyx and buttocks twice daily and every 4 hrs as needed Active Probiotic - Orally Once a day 1 capsule 24h Active Benadryl Itch Stopping 1-0.1 % Externally 2 times a day 1 application to affected area as needed 12h Active Albuterol Sulfate (2.5 MG/3ML) 0.083% Inhalation every 4 hours 3 ml as needed for SOB/Cough 4h Jul, Active Risperidone 0.25 MG Orally then stop 1 tablet once daily X 14 days Oct 14 days Active Pulmicort 0.5 mg/2ml Inhalation 2 times a day 2 ml 12h Active RESULTS No Results PROCEDURES Procedure Date Ordered Result Body Site Minor complication (15 mins) Nov 24, 2017 INSTRUCTIONS MEDICATIONS ADMINISTERED No Known Medications [...] nec ankle and foot (718.87) Hospitalization History [facility] 10/16/15
--- OUTSIDE RECORDS SUMMARY | 2018-04-02 07:55 | XMS REPORT ---
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 Active 25375531 Problem Post-polio syndrome G14 Active 56031296 Problem Acquired hypothyroidism E03.9 Active 830785180 Problem 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 685121390 Problem Mood disorder F39 Active 76859994 Problem Slow transit constipation K59.01 Active 37170793 Problem Type 2 diabetes mellitus without complication, without long-term current use of insulin E11.9 Active 629002652 Problem 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 Active 19274639 Problem Stomach ache R10.9 Active 158504613 Problem Morbid obesity E66.01 Active 654484118 Problem Constipation, unspecified constipation type K59.00 Active 52569962 ALLERGIES No Information ENCOUNTERS Encounter Location Date Diagnosis [facility] [address] [id number] Nov, Generalized abdominal pain R10.84 ; 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 and Reactive airway disease J45.909 [facility] [address] [facility] [id number] [address] Sep, 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 [facility] [address] [place] [address] Sep, Type 2 diabetes mellitus without complication, without long-term current use of insulin E11.9 ; Slow transit constipation K59.01 and 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 [facility] [address] [id number] [address] Sep, [facility] [address] [address] Jul, Pneumonia due to infectious organism, unspecified laterality, unspecified part of lung J18.9 and Morbid obesity E66.01 [facility] [address] [id number] [address] Jul, [facility] [address] [address] Jun, [facility] [address] [address] Jun, [facility] [id number] [place] [id number] May, [facility] [address] [place] [address] May, Acute superficial gastritis without hemorrhage K29.00 [facility] [address] [address] May, 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 ; 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 and Acute superficial gastritis without hemorrhage K29.00 [facility] [address]005[address], [place] [address] Apr, [facility] [address] [id number] [address] Apr, [facility] [address] [id number] Mar, Obesity due to excess calories with serious comorbidity, unspecified classification E66.09 and Reactive airway disease J45.909 [facility] [address] [id number] [address] Mar, [facility] [address] [id number] [address] Jan, [facility] [address] [address] Jan, 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 ; Weight gain R63.5 and 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 [facility] [id number] [address] Dec, [facility] [id number] [address] Dec, [facility] [address] [address] Nov, Weight gain R63.5 ; 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 and Reactive airway disease J45.909 [facility] [id number] [address] Oct, [facility] [address] [id number] [address] Sep, [facility] [address]005[address], [place] [address] August, [facility] [address] [address] August, 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 [facility] [address] [id number] [address] Jul, [facility] [address], [place] [address] Jul, Reactive airway disease J45.909 [facility] [address] [address] Jun, 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 [facility] [address] [id number] [address] Jun, 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 [facility] [address] [address] May, 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 [facility] [address] [id number] [address] May, [facility] [address] [id number] [address] Apr, [facility] [address] [place] [address]- 2006 Apr, Reactive airway disease J45.909 [facility] [address] [address] [address] Apr, Reactive airway disease J45.909 [facility] [address] [place] [address]26- 8437 Apr, [facility] [address] [place] [address] 09761- 5745 Mar, [facility] [address] [address] Mar, Mood disorder F39 and Shortness of breath R06.02 [place] [address] [place] [address]90- 7990 Feb, [facility] [id number] [place] [address]- 2402 Jan, [facility] [address] [address] Jan, Moist breath sounds R06.89 and Constipation, unspecified constipation type K59.00 [facility] [address]00565[address], [place] [address] Jan, [facility] [address] [place] [address]78- 1786 Dec, Uncomplicated asthma, unspecified asthma severity J45.909 [place] [address] [place] [address] 94162- 7940 Dec, [facility] [id number] [place] [address] 95181- 0103 Dec, Uncomplicated asthma, unspecified asthma severity J45.909 [facility] [facility] [address] [place] [address]- 5399 Dec, [facility] [address] [address] Dec, 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 and Unspecified mood [affective] disorder F39 [facility] [id number] [place] [address]- 2380 Dec, [facility] [id number] [place] [address] 36407- 5359 Dec, Reactive airway disease J45.909 [facility] [id number] [place] [address]79- 8684 Nov, [facility] [id number] [place] [address] 91906- 6701 Nov, [facility] [id number] [place] [address] 24222- 7713 Nov, [facility] [address] [id number] Nov, Shortness of breath R06.02 ; Family history of coronary arteriosclerosis Z82.49 and Dysuria R30.0 [facility] [id number] [place] [address]49- 7828 Nov, [facility] [id number] [place] [address] 99680- 3745 Oct, [facility] [id number] [place] [address] 22663- 2387 Oct, [facility] [id number] [place] [address] 80828- 6439 Oct, [facility] [id number] [place] [address] 04232- 3863 Oct, [facility] [id number] [place] [address] 59164- 4963 Oct, [facility] [address] [place] [address] 01508- 6524 Oct, Recurrent bronchospasm J98.09 [facility] [address] [address] Sep, 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 and 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 [facility] [id number] [place] [address] 47787- 2348 Sep, Stomach ache R10.9 [facility] [address] [place] [address] 53047- 8835 August, [facility] [id number] [place] [address] 11376- 3816 August, [facility] [id number] [place] [address] 38584- 0559 Jul, [facility] [id number] [place] [address] 77306- 3238 Jul, [facility] [id number] [place] [address] 32825- 4344 Jul, [facility] [id number] [place] [address] 52563- 4138 Jul, [facility] [id number] [place] [address] 33750- 6498 Jul, [facility] [address] [place] [address] Jul, Fever R50.9 [facility] [id number] [place] [address] 69092- 3414 Jul, Reactive airway disease J45.909 [facility] [id number] [place] [address] 00904- 1810 Jun, [facility] [address] [address] Jun, Reactive airway disease J45.909 and 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 [facility] [address] [place] [address] 35197- 6267 May, [facility] [address] [address] May, Recurrent bronchospasm J98.09 ; Weight gain R63.5 ; 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 and Mood disorder F39 [facility] [id number] [place] [address] 13627- 2287 Apr, [facility] [id number] [place] [address] 82091- 6188 Apr, [facility] [address] [address] Apr, Unspecified mood [affective] disorder F39 [facility] [facility] [id number] [place] [address] 84605- 9234 Feb, [facility] [address] [address] Feb, Uncomplicated asthma, unspecified asthma severity J45.909 [place] [id number] [place] [address] 16152- 6822 17 Feb, 2015 [place] [id number] [place] [address] 48899- 0030 Feb, [facility] [id number] [place] [address] 38492- 2159 Feb, [place] [facility] [id number] [place] [address] 27806- 7779 14 Jan, 2015 [place] [id number] [place] [address] 79629- 1934 24 Dec, 2014 [place] [address] [place] [address] 59426- 9304 16 Dec, 2014 Antisocial behavior V71.01 and History of poliomyelitis without residual effect V12.02 [place] [facility] [id number] [place] [address] 78762- 2542 29 Oct, 2014 Essential hypertension, malignant 401.0 ; Unspecified hypothyroidism 244.9 and 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 [place] [facility] [id number] [place] [address] 07684- 9906 Sep, [facility] [address] [facility] [id number], [place] [address]- 2861 Sep, [facility] [address], [place] [address]- 2290 Sep, Abdominal pain, unspecified site 789.00 and Manipulative behavior V40.39 [facility] [address], [place] [address]- 3761 Sep, [facility] [address], [place] [address]- 6339 Jul, [facility] [address], [place] [address]- 6756 Jul, [facility] [address], [place] [address]- 5020 Jun, [facility] [address], [place] [address]- 0889 Jun, [facility] [address] [address]- 7670 Jun, [facility] [address] [address] Jun, [facility] [address], [place] [address]- 5224 May, [facility] [address] [id number], [place] [address]- 5550 May, [facility] [address] [id number] Apr, [facility] [address] [id number] [address]- 8905 Apr, [facility] [address], [place] [address]- 7888 Apr, [facility] [address] [id number], [place] [address]- 6105 Apr, [facility] [address] [place] [address]- 6293 14 Apr, 2014 [facility] [address] [id number] [place] [address]- 2080 Apr, [facility] [place] [facility] [address] [id number] [place] [address]- 9032 Apr, [facility] [address] [id number] [place] [address]- 6271 Apr, [facility] [place] [facility] [address] [id number] [place] [address]- 8119 Apr, [facility] [place] [facility] [address] [id number] [place] [address]- 0678 Apr, [facility] [place] [facility] [address] [id number] [place] [address]- 6663 Mar, [facility] [address] [id number] [place] [address]- 0664 Mar, [facility] [place] [facility] [address] [id number] [place] [address]- 0769 Mar, [facility] [place] [facility] [address] [id number] [place] [address]- 4130 Mar, [facility] [place] [facility] [address] [id number] [place] [address]- 8440 Mar, [facility] [place] [facility] [address] [id number] [place] [address]- 7796 Mar, [facility] [place] [facility] [address] [id number] [place] [address]- 6523 Mar, [facility] [place] [facility] [address] [id number] [place] [address]- 2413 Mar, [facility] [place] [facility] [address] [id number] [place] [address]- 5655 Mar, [facility] [place] [facility] [address] [id number] [place] 8215 Mar, [facility] [place] [facility] [address] [id number] [place] [address]- 9901 Mar, [facility] [place] [facility] [address] [id number] [place] [address]- 5454 Feb, [facility] [place] [facility] [address] [id number] [place] [address]- 9711 Feb, [facility] [place] [facility] [address] [id number] [place] [address]- 2562 Feb, [facility] [place] [facility] [address] [id number] [place] [address]- 4816 Feb, [facility] [place] [facility] [address] [id number] [place] [address]- 7722 Feb, [facility] [place] [facility] [address] [id number] [place] [address]- 6616 Feb, [facility] [place] [facility] [address] [id number] [place] [address]- 9608 Feb, [facility] [place] [facility] [address] [id number] [place] [address]- 6873 Feb, [facility] [place] [facility] [address] [id number] [place] [address]- 0453 Feb, [facility] [place] [facility] [address] [id number] [place] [address]- 3597 Feb, [facility] [place] [facility] [address] [id number] [place] [address]- 4326 Feb, [facility] [place] [facility] [address] [id number] [place] [address]- 2873 Feb, [facility] [place] [facility] [address] [id number] [place] [address]- 8430 Feb, [facility] [place] [facility] [address] [id number] [place] [address]- 0326 Feb, [facility] [place] [facility] [address] [id number], [place] [address]- 7108 Feb, [facility] [place] [facility] [address] [id number] [place] [address]- 2861 Feb, [facility] [place] [facility] [address] [id number] [place] 9220 Feb, [facility] [place] [facility] [address] [id number] [place] [address]- 5104 Feb, [facility] [place] [facility] [address] [id number], [place] [address]- 9146 Feb, [facility] [place] [facility] [address] [id number] [place] [address]- 5020 Feb, [facility] [place] [facility] [address] [id number] [place] [address]- 0238 Jan, [facility] [place] [facility] [address] [id number] [place] [address]- 3036 Jan, [facility] [place] [facility] [address] [id number], [place] [address]- 1888 Jan, [facility] [place] [facility] [address] [id number], [place] [address]- 4120 Jan, [facility] [place] [facility] [address] [id number] [place] [address]- 8718 Jan, [facility] [place] [facility] [address] [id number], [place] [address]- 5926 Jan, [facility] [place] [facility] [address] [id number], [place] [address]- 6188 Jan, [facility] [place] [facility] [address] [id number] [place] [address]- 7628 Jan, [facility] [place] [facility] [address] [id number], [place] [address]- 4893 Jan, [facility] [place] [facility] [address] [id number], [place] [address]- 6578 Jan, [facility] [place] [facility] [address] [id number] [place] [address]- 6856 15 Jan, 2014 [facility] [place] [facility] [address] [id number] [place] [address]- 0014 15 Jan, 2014 [facility] [place] [facility] [address] [id number] [place] [address]- 6318 14 Jan, 2014 [facility] [place] [facility] [address] [id number] [place] [address]- 5201 09 Jan, 2014 [facility] [place] [facility] [address] [id number] [place] [address]- 7808 08 Jan, 2014 [facility] [place] [facility] [address] [id number] [place] [address]- 9837 Jan, [facility] [place] [facility] [address] [id number] [place] [address]- 7135 Jan, [facility] [place] [facility] [address] [id number] [place] [address]- 0604 Jan, [facility] [place] [facility] [address] [id number] [place] [address]- 5114 06 Jan, 2014 [facility] [place] [facility] [address] [id number] [place] [address]- 5923 29 Dec, 2013 [facility] [place] [facility] [address] [id number] [place] [address]- 6627 23 Dec, 2013 [facility] [place] [facility] [address] [id number] [place] [address]- 5240 22 Dec, 2013 [facility] [place] [facility] [address] [id number] [place] [address]- 8236 22 Dec, 2013 [facility] [place] [facility] [address] [id number] [place] [address]- 1259 19 Dec, 2013 [facility] [place] [facility] [address] [id number] [place] [address]- 1927 19 Dec, 2013 [facility] [place] [facility] [address] [id number] [place] [address]- 8418 18 Sep, 2013 [facility] [place] [facility] [address] [id number] [place] [address]- 8102 17 Dec, 2013 [facility] [place] [facility] [address] [id number] [place] [address]- 1716 17 Dec, 2013 [facility] [place] [facility] [address] [id number] [place] [address]- 0455 16 Dec, 2013 [facility] [place] [facility] [address] [id number] [place] [address]- 9385 16 Dec, 2013 [facility] [place] [facility] [address] [id number] [place] [address]- 1837 10 Dec, 2013 [facility] [place] [facility] [address] [id number] [place] [address]- 0580 Dec, [facility] [place] [facility] [address] [id number] [place] [address]- 2991 Nov, [facility] [place] [facility] [address] [id number] [place] [address]- 3689 Nov, [facility] [place] [facility] [address] [id number] [place] [address]- 2634 Nov, [facility] [place] [facility] [address] [id number] [place] [address]- 9863 Nov, [facility] [place] [facility] [address] [id number] [place] [address]- 9046 Nov, [facility] [place] [facility] [address] [id number] [place] [address]- 2999 Nov, [facility] [place] [facility] [address] [id number] [place] [address]- 7114 Nov, [facility] [place] [facility] [address] [id number] [place] [address]- 3610 Nov, [facility] [place] [facility] [address] [id number] [place] [address]- 9319 Nov, [facility] [place] [facility] [address] [id number] [place] [address] Nov, [facility] [place] [facility] [address] [id number] [place] [address] Oct, [facility] [place] [facility] [address] [id number] [place] [address] Oct, [facility] [place] [facility] [address] [id number] [place] [address] Oct, [facility] [place] [facility] [address] [id number] [place] [address] Oct, [facility] [place] [facility] [address] [id number] [place] [address] Oct, [facility] [place] [facility] [address] [id number] [place] [address] Oct, [facility] [place] [facility] [address] [id number] [place] [address] Oct, [facility] [place] [facility] [address] [id number] [place] [address] Oct, [facility] [place] [facility] [address] [id number] [place] [address] Oct, [facility] [place] [facility] [address] [id number] [place] [address] Oct, [facility] [place] [facility] [address] [id number] [place] [address] Oct, [facility] [place] [facility] [address] [id number] [place] [address] Oct, [facility] [place] [facility] [address] [id number] [place] [address] Oct, [facility] [place] [facility] [address] [id number] [place] [address] Sep, [facility] [place] [facility] [address] [id number] [place] [address] Sep, [facility] [place] [facility] [address] [id number] [place] [address] Sep, [facility] [place] [facility] [address] [id number] [place] [address] Sep, [facility] [place] [facility] [address] [id number] [place] [address] Sep, [facility] [place] [facility] [address] [id number] [place] [address] Sep, [facility] [place] [facility] [address] [id number] [place] [address] Sep, [facility] [place] [facility] [address] [id number] [place] [address] Sep, [facility] [place] [facility] [address] [id number] [place] [address] Sep, [facility] [place] [facility] [address] [id number] [place] [address]- [address] Sep, [facility] [place] [facility] [address] [id number] [place] [address] Sep, [facility] [place] [facility] [address] [id number] [place] [address] Sep, [facility] [place] [facility] [address] [id number] [place] [address] August, [facility] [place] [facility] [address] [id number] [place] [address]- [address] August, [facility] [place] [facility] [address] [id number] [place] [address]- [address] August, [facility] [place] [facility] [address] [id number] [place] [address] August, [facility] [place] [facility] [address] [id number] [place] [address] August, [facility] [place] [facility] [address] [id number] [place] [address] August, [facility] [place] [facility] [address] [id number] [place] [address]- [address] August, [facility] [place] [facility] [address] [id number] [place] [address] August, [facility] [place] [facility] [address] [id number] [place] [address]- [address] August, [facility] [place] [facility] [address] [id number] [place] [address] August, [facility] [place] [facility] [address] [id number] [place] [address] August, [facility] [place] [facility] [address] [id number] [place] [address] August, [facility] [place] [facility] [address] [id number] [place] [address] August, [facility] [place] [facility] [address] [id number] [place] [address] Jul, [facility] [place] [facility] [address] [id number] [place] [address] Jul, [facility] [place] [facility] [address] [id number] [place] [address] Jul, [facility] [place] [facility] [address] [id number] [place] [address] Jul, [facility] [place] [facility] [address] [id number] [place] [address] Jul, [facility] [place] [facility] [address] [id number] [place] [address] Jul, [facility] [place] [facility] [address] [id number] [place] [address] Jul, [facility] [place] [facility] [address] [id number] [place] [address] Jul, [facility] [place] [facility] [address] [id number] [place] [address]- [address] 21 Jul, 2013 [facility] [place] [facility] [address] [id number] [place] [address]- [address] 16 Jul, 2013 [facility] [place] [facility] [address] [id number] [place] [address]- [address] 16 Jul, 2013 [facility] [place] [facility] [address] [address] [id number] [place] [address] 16 Jul, 2013 [facility] [place] [facility] [address] [id number] [place] [address] 16 Jul, 2013 [facility] [place] [facility] [address] [id number] [place] [address] 14 Jul, 2013 [facility] [place] [facility] [address] [id number] [place] [address] 14 Jul, 2013 [facility] [place] [facility] [address] [id number] [place] [address] 10 Jul, 2013 [facility] [place] [facility] [address] [id number] [place] [address] 10 Jul, 2013 [facility] [place] [facility] [address] [id number] [place] [address] 25 Jun, 2013 [facility] [place] [facility] [address] [id number] [place] [address] 25 Jun, 2013 [facility] [place] [facility] [address] [id number] [place] [address] 10 Jun, 2013 [facility] [place] [facility] [address] [id number] [place] [address] 10 Jun, 2013 [facility] [place] [facility] [address] [id number] [place] [address] 10 Jun, 2013 [facility] [place] [facility] [address] [id number] [place] [address] 10 Jun, 2013 [facility] [place] [facility] [address] [id number] [place] [address] 07 Jun, 2013 [facility] [address] [facility] [id number] [address] Jun, [facility] [address] [facility] [id number] [address] Jun, IMMUNIZATIONS No Known Immunizations SOCIAL HISTORY Never Assessed REASON FOR VISIT routine visit PLAN OF CARE Activity Details Follow Up 2 Months Reason: VITAL SIGNS MEDICATIONS Medication Instructions Dosage Frequency Start Date End Date Duration Status Milk of Magnesia 400 MG/5ML Orally daily prn constipation 10 ml as needed Jan, Active Pulmicort 0.5 mg/2ml Inhalation 2 times a day 2 ml 12h Active Toprol XL 50 Orally Once a day 1 tablet 24h Active Probiotic - Orally Once a day 1 capsule 24h Active Trulicity 1.5 MG/0.5ML Subcutaneous once weekly 0.5 ml Jun, 30 days Active Albuterol Sulfate (2.5 MG/3ML) 0.083% Inhalation every 4 hours 3 ml as needed for SOB/Cough 4h Jul, Active Aspirin 81 MG Orally Once a day 1 tablet 24h Active Visine Advanced Relief 0.05-0.1-1-1 % Ophthalmic in both eyes 2 times a day 2 drops 12h Jan, Active Imodium A-D 2 MG Orally Four times a day 1 tablet as needed 6h Active Mylanta 200-200-20 MG/5ML Orally every 6 hrs 30 ml as needed 6h Active Ibuprofen 600 MG Orally every 6 hours 1 tablet with food or milk as needed 6h Active Benadryl Itch Stopping 1-0.1 % Externally 2 times a day 1 application to affected area as needed 12h Active Calmoseptine 0.44-20.6 % Externally to coccyx and buttocks twice daily and every 4 hrs as needed Active Biofreeze 4 % Externally 2 times a day 1 application to affected area as needed 12h Active Zantac 150 MG Orally twice a day 1 tablet 12h Active Ibuprofen 200 mg Orally 2 times a day 3 tablets 12h Active Singulair 10 MG Orally Once a day 1 tablet in the evening 24h Active Losartan Potassium 50 Orally Once a day 1 tablet 24h Active Hydrochlorothiazide 25 MG Orally Once a day 1 tablet in the morning 24h Active Zoloft 100 MG Orally Once a day 1 tablet 24h Active Risperidone 0.5 MG Orally Once a day 1 tablet 24h Oct, Active Gabapentin 100 Orally Twice a day 1 capsule 12h Active Fexofenadine HCl 180 MG Orally Once a day 1 tablet 24h Active RESULTS No Results PROCEDURES Procedure Date Ordered Result Body Site Stable Visit (10 minutes) September 27, 2017 [facility] VISIT ESTABLISHED PATIENT September 27, 2017 INSTRUCTIONS MEDICATIONS ADMINISTERED No Known Medications [...] ankle and foot (718.87) Hospitalization History [facility] 10/16/15
--- OUTSIDE RECORDS SUMMARY | 2018-04-02 07:56 | XMS REPORT ---
Author Author GEORGIA DOWNEY [facility] Address [address] [place] [address] Care Team Providers Care Location Manager Name Role Phone GEORGIA DOWNEY Unavailable PROBLEMS Type Condition ICD9-CM Code XLE70-XL Code Onset Dates Condition Status SNOMED Code Problem Weight gain R63.5 Active 3961847 Problem Reactive airway disease J45.909 Active 033961053160 Problem 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 Active 31240958 Problem Post-polio syndrome G14 Active 74042746 Problem Acquired hypothyroidism E03.9 Active 359962627 Problem 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 821816147 Problem Mood disorder F39 Active 68227751 Problem Slow transit constipation K59.01 Active 64317842 Problem Type 2 diabetes mellitus without complication, without long-term current use of insulin E11.9 Active 121289357 Problem 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 Active 26623851 Problem Stomach ache R10.9 Active 698780899 Problem Morbid obesity E66.01 Active 286499512 Problem Constipation, unspecified constipation type K59.00 Active 33035513 ALLERGIES No Information ENCOUNTERS Encounter Location Date Diagnosis [facility] [address] [place] [id number] Nov, Generalized abdominal pain R10.84 ; 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 and Reactive airway disease J45.909 [facility] [address] [facility] [id number] [address] [address] Sep, 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 [facility] [address] [place] [id number] Sep, Type 2 diabetes mellitus without complication, without long-term current use of insulin E11.9 ; Slow transit constipation K59.01 and 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 [facility] [address] [address] Sep, [facility] [address] [place] [id number] Jul, Pneumonia due to infectious organism, unspecified laterality, unspecified part of lung J18.9 and Morbid obesity E66.01 [facility] [address] [address] 47[address] Jul, [facility] [id number] [place] [address] 180860- 5029 Jun, [facility] [id number] [place] [address] 28973- 3517 Jun, [facility] [id number] [place] [address] [id number] May, [facility] [id number] [place] [address] [id number] May, Acute superficial gastritis without hemorrhage K29.00 [facility] [address] [place] [id number] May, 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 ; 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 and Acute superficial gastritis without hemorrhage K29.00 [facility] [address] [place] [address] 59121- 3216 Apr, [facility] [address] [address] 2[address] Apr, [facility] [address] [address] Mar, Obesity due to excess calories with serious comorbidity, unspecified classification E66.09 and Reactive airway disease J45.909 [facility] [id number] [place] [address] 50103- 0406 Mar, [facility] [id number] [place] [address] [id number] Jan, [facility] [address] [place] [id number] Jan, 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 ; Weight gain R63.5 and 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 [facility] [id number] [address] Dec, [facility] [address] [id number] [address] Dec, [facility] [address] [place] [id number] Nov, Weight gain R63.5 ; 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 and Reactive airway disease J45.909 [facility] [id number] [id number] Oct, [facility] [address] [id number] [address] Sep, [facility] [address] [id number] [address]- [address] August, [facility] [address] [id number] August, 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 [facility] [address] [id number] [address] 8536 Jul, [facility] [address] [address] Jul, Reactive airway disease J45.909 [facility] [address] [id number] Jun, 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 [facility] [address] [id number] [address] 9[address] Jun, 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 [facility] [address] [place] [id number] May, 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 [facility] [address] [id number] [address] 6746 May, [facility] [address] [id number] [id number] Apr, [facility] [address], [place] [address] 0476 Apr, Reactive airway disease J45.909 [facility] [address], [place] [address] 4[address] Apr, Reactive airway disease J45.909 [facility] [id number] [place] [address] 82241- 6932 Apr, [place] [address] [place] [address] 33338- 5976 Mar, [facility] [address] [id number] Mar, Mood disorder F39 and Shortness of breath R06.02 [place] [address] [place] [address] 14340- 5921 Feb, [facility] [id number] [place] [address] 64888- 8013 Jan, [facility] [address] [place] [address] Jan, Moist breath sounds R06.89 and Constipation, unspecified constipation type K59.00 [facility] [address]005[address], [place] [address]- 3[address] Jan, [facility] [address] [place] [address] 33847- 3730 Dec, Uncomplicated asthma, unspecified asthma severity J45.909 [facility] [address]005[address]100[place], [place] [address]- 5322 Dec, [facility] [id number] [place] [address] 28687- 4472 Dec, Uncomplicated asthma, unspecified asthma severity J45.909 [facility] [address], [place] [address]- 2658 Dec, [facility] [address] [address] Dec, 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 and Unspecified mood [affective] disorder F39 [facility] [id number] [place] [address] 32496- 2068 Dec, [facility] [id number] [place] [address] 83222- 3236 Dec, Reactive airway disease J45.909 [facility] [id number] [place] [address] 79523- 7184 Nov, [facility] [id number] [place] [address] 87739- 9684 Nov, [facility] [id number] [place] [address] 11115- 3339 Nov, [facility] [address] [id number] Nov, Shortness of breath R06.02 ; Family history of coronary arteriosclerosis Z82.49 and Dysuria R30.0 [facility] [id number] [place] [address] 21610- 1789 Nov, [facility] [id number] [place] [address] 61276- 0161 Oct, [facility] [id number] [place] [address] 51202- 6772 Oct, [facility] [id number] [place] [address] 03336- 8521 Oct, [facility] [address] [place] [address] 71726- 8200 Oct, [facility] [id number] [place] [address] 79452- 9290 Oct, [facility] [address] [place] [address] 83474- 3528 Oct, Recurrent bronchospasm J98.09 [facility] [address] [address] Sep, 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 and 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 [facility] [id number] [place] [address] 02638- 7797 Sep, Stomach ache R10.9 [facility] [id number] [place] [address] 29539- 6747 August, [facility] [id number] [place] [address] 14581- 2078 August, [facility] [id number] [place] [address] 87939- 3927 Jul, [facility] [id number] [place] [address] 75562- 5525 Jul, [facility] [id number] [place] [address] 25894- 9338 Jul, [facility] [id number] [place] [address] 02009- 5684 Jul, [facility] [id number] [place] [address] 97464- 4577 Jul, [facility] [address] [id number] Jul, Fever R50.9 [facility] [id number] [place] [address] 43722- 9524 Jul, Reactive airway disease J45.909 [facility] [address] [place] [address] 45068- 0626 Jun, [facility] [address] [address] Jun, Reactive airway disease J45.909 and 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 [facility] [address] [address]- 9030 May, [facility] [address] [address] May, Recurrent bronchospasm J98.09 ; Weight gain R63.5 ; 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 and Mood disorder F39 [facility] [id number] [place] [address] 05895- 1138 Apr, [facility] [id number] [place] [address] 82463- 6815 Apr, [facility] [address] [place] [id number] Apr, Unspecified mood [affective] disorder F39 [facility] [id number] [place] [address] 02349- 3749 Feb, [facility] [address] [place] [address] Feb, Uncomplicated asthma, unspecified asthma severity J45.909 [facility] [id number] [place] [address] 21963- 7605 Feb, [facility] [id number] [place] [address] 80860- 1910 Feb, [facility] [id number] [place] [address] 62988- 6509 Feb, [facility] [id number] [place] [address] 67695- 1421 Jan, [facility] [id number] [place] [address] 56669- 0047 24 Dec, 2014 [facility] [id number] [place] [address] 77397- 8794 16 Dec, 2014 Antisocial behavior V71.01 and History of poliomyelitis without residual effect V12.02 [facility] [id number] [place] [address] 32309- 8485 Oct, Essential hypertension, malignant 401.0 ; Unspecified hypothyroidism 244.9 and 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 [place] [address] 40130- 5867 Sep, [facility] [address] [id number] [address]- 8465 Sep, [facility] [address], [place] [address]- 2365 Sep, Abdominal pain, unspecified site 789.00 and Manipulative behavior V40.39 [facility] [address], [place] [address]- 8986 Sep, [facility] [address] [id number] [address]- 2164 Jul, [facility] [address], [place] [address]- 9092 Jul, [facility] [address], [place] [address]- 5667 Jun, [facility] [address] [address]- 3807 Jun, [facility] [address], [place] [address]- 4098 Jun, [facility] [address] [id number] Jun, [facility] [address] [address]- 3115 May, [facility] [id number] [address]- 6495 May, [facility] [address] [id number] Apr, [facility] [id number], [place] [address]- 9597 Apr, [facility] [id number] [address]- 3665 Apr, [facility] [address] [id number] [address]- 3992 Apr, [facility] [address] [place] [address]- 1668 14 Apr, 2014 [facility] [address] [id number] [place] [address]- 5011 Apr, [facility] [address] [id number] [place] [address]- 5060 Apr, [facility] [address] [id number] [place] [address]- 5165 Apr, [facility] [address] [id number] [place] [address]- 8889 Apr, [facility] [address] [id number] [place] [address]- 0447 Apr, [facility] [address] [id number] [place] [address]- 4180 Mar, [facility] [address] [id number] [place] [address]- 9159 Mar, [facility] [address] [id number] [place] [address]- 7764 Mar, [facility] [address] [id number] [place] [address]- 0700 Mar, [facility] [address] [id number] [place] [address]- 2745 Mar, [facility] [address] [id number] [place] [address]- 3552 Mar, [facility] [address] [id number] [place] [address]- 7368 Mar, [facility] [place] [facility] [address] [id number] [place] [address]- 9583 Mar, [facility] [place] [facility] [address] [id number] [place] [address]- 4785 Mar, [facility] [address] [id number] [place] 4114 Mar, [facility] [place] [facility] [address] [id number] [place] [address]- 3778 Mar, [facility] [place] [facility] [address] [id number] [place] [address]- 1570 Feb, [facility] [place] [facility] [address] [id number] [place] [address]- 0792 Feb, [facility] [place] [facility] [address] [id number] [place] [address]- 5695 Feb, [facility] [place] [facility] [address] [id number] [place] [address]- 9418 Feb, [facility] [place] [facility] [address] [id number] [place] [address]- 0059 Feb, [facility] [place] [facility] [address] [id number] [place] [address]- 1506 Feb, [facility] [place] [facility] [address] [id number] [place] [address]- 0642 Feb, [facility] [place] [facility] [address] [id number] [place] [address]- 6687 Feb, [facility] [place] [facility] [address] [id number], [place] [address]- 3175 Feb, [facility] [place] [facility] [address] [id number], [place] [address]- 9217 Feb, [facility] [place] [facility] [address] [id number], [place] [address]- 3588 Feb, [facility] [place] [facility] [address] [id number] [place] [address]- 1006 Feb, [facility] [place] [facility] [address] [id number], [place] [address]- 9368 Feb, [facility] [place] [facility] [address] [id number], [place] [address]- 4550 Feb, [facility] [place] [facility] [address] [id number], [place] [address]- 7487 Feb, [facility] [place] [facility] [address] [id number] [place] [address]- 7333 Feb, [facility] [place] [facility] [address] [id number] [place] [address]- 2948 Feb, [facility] [place] [facility] [address] [id number] [place] [address]- 6756 Feb, [facility] [place] [facility] [address] [id number] [place] [address]- 1324 Feb, [facility] [place] [facility] [address] [id number] [place] [address]- 9798 Feb, [facility] [place] [facility] [address] [id number] [place] [address]- 0550 Jan, [facility] [place] [facility] [address] [id number] [place] [address]- 9904 Jan, [facility] [place] [facility] [address] [id number] [place] [address]- 1447 Jan, [facility] [place] [facility] [address] [facility] [id number] [place] [address]- 9810 Jan, [facility] [place] [facility] [address] [facility] [id number] [place] [address]- 6429 Jan, [facility] [place] [facility] [address] [id number], [place] [address]- 4962 Jan, [facility] [place] [facility] [address] [id number], [place] [address]- 8550 Jan, [facility] [place] [facility] [address] [id number] [place] [address]- 0714 Jan, [facility] [place] [facility] [address] [facility] [id number], [place] [address]- 7364 Jan, [facility] [place] [facility] [address] [facility] [id number], [place] [address]- 2182 15 Jan, 2014 [facility] [place] [facility] [address] [id number] [place] [address]- 6788 15 Jan, 2014 [facility] [place] [facility] [address] [id number] [place] [address]- 7044 15 Jan, 2014 [facility] [place] [facility] [address] [id number] [place] [address]- 0326 14 Jan, 2014 [facility] [place] [facility] [address] [id number] [place] [address]- 3068 09 Jan, 2014 [facility] [place] [facility] [address] [id number] [place] [address]- 9604 08 Jan, 2014 [facility] [place] [facility] [address] [id number] [place] [address]- 4043 Jan, [facility] [place] [facility] [address] [id number] [place] [address]- 3241 Jan, [facility] [place] [facility] [address] [id number] [place] [address]- 2379 Jan, 2013 [facility] [place] [facility] [address] [id number] [place] [address]- 4467 06 Jan, 2014 [facility] [place] [facility] [address] [id number] [place] [address]- 5787 29 Dec, 2013 [facility] [place] [facility] [address] [id number] [place] [address]- 6359 23 Sep, 2013 [facility] [place] [facility] [address] [id number] [place] [address]- 9681 22 Dec, 2013 [facility] [place] [facility] [address] [id number] [place] [address]- 2109 22 Sep, 2013 [facility] [place] [facility] [address] [id number] [place] [address]- 9169 19 Dec, 2013 [facility] [place] [facility] [address] [id number] [place] [address]- 7405 19 Dec, 2013 [facility] [place] [facility] [address] [id number] [place] [address]- 1118 18 Sep, 2013 [facility] [place] [facility] [address] [id number] [place] [address]- 4274 17 Dec, 2013 [facility] [place] [facility] [address] [id number] [place] [address]- 7250 17 Dec, 2013 [facility] [place] [facility] [address] [id number] [place] [address]- 0177 16 Dec, 2013 [facility] [place] [facility] [address] [id number] [place] [address]- 3389 16 Dec, 2013 [facility] [place] [facility] [address] [id number] [place] [address]- 2485 10 Dec, 2013 [facility] [place] [facility] [address] [id number] [place] [address]- 4226 Dec, [facility] [place] [facility] [address] [id number] [place] [address]- 2173 Nov, [facility] [place] [facility] [address] [id number] [place] [address]- 2656 Nov, [facility] [place] [facility] [address] [id number] [place] [address]- 7435 Nov, [facility] [place] [facility] [address] [id number] [place] [address]- 7590 Nov, [facility] [place] [facility] [address] [id number] [place] [address]- 3411 Nov, [facility] [place] [facility] [address] [id number] [place] [address]- 7922 Nov, [facility] [place] [facility] [address] [id number] [place] [address]- 3757 Nov, [facility] [place] [facility] [address] [id number] [place] [address]- 4990 Nov, [facility] [place] [facility] [address] [id number] [place] [address]- 5480 Nov, [facility] [place] [facility] [address] [id number] [place] [address]- 0351 Nov, [facility] [place] [facility] [address] [id number] [place] [address]- 6850 Oct, [facility] [place] [facility] [address] [id number] [place] [address]- 4375 Oct, [facility] [place] [facility] [address] [id number] [place] [address]- 0826 Oct, [facility] [place] [facility] [address] [id number] [place] [address] Oct, [facility] [place] [facility] [address] [id number] [place] [address] Oct, [facility] [place] [facility] [address] [id number] [place] [address] Oct, [facility] [place] [facility] [address] [id number] [place] [address] Oct, [facility] [place] [facility] [address] [id number] [place] [address] Oct, [facility] [place] [facility] [address] [id number] [place] [address] Oct, [facility] [place] [facility] [address] [id number] [place] [address] Oct, [facility] [place] [facility] [address] [id number] [place] [address] Oct, [facility] [place] [facility] [address] [id number] [place] [address] Oct, [facility] [place] [facility] [address] [id number] [place] [address] Oct, [facility] [place] [facility] [address] [id number] [place] [address] Sep, [facility] [place] [facility] [address] [id number] [place] [address] Sep, [facility] [place] [facility] [address] [id number] [place] [address] Sep, [facility] [place] [facility] [address] [id number] [place] [address] Sep, [facility] [place] [facility] [address] [id number] [place] [address] Sep, [facility] [place] [facility] [address] [id number] [place] [address] Sep, [facility] [place] [facility] [address] [id number] [place] [address] Sep, [facility] [place] [facility] [address] [id number] [place] [address] Sep, [facility] [place] [facility] [address] [id number] [place] [address] Sep, [facility] [place] [facility] [address] [id number] [place] [address]- [address] Sep, [facility] [place] [facility] [address] [id number] [place] [address] Sep, [facility] [place] [facility] [address] [id number] [place] [address] Sep, [facility] [place] [facility] [address] [id number] [place] [address] August, [facility] [place] [facility] [address] [id number] [place] [address] August, [facility] [place] [facility] [address] [id number] [place] [address] August, [facility] [place] [facility] [address] [id number] [place] [address] August, [facility] [place] [facility] [address] [id number] [place] [address] August, [facility] [place] [facility] [address] [id number] [place] [address] August, [facility] [place] [facility] [address] [id number] [place] [address] August, [facility] [place] [facility] [address] [id number] [place] [address] August, [facility] [place] [facility] [address] [id number] [place] [address] August, [facility] [place] [facility] [address] [id number] [place] [address] August, [facility] [place] [facility] [address] [id number] [place] [address] August, [facility] [place] [facility] [address] [id number] [place] [address] August, [facility] [place] [facility] [address] [id number] [place] [address] August, [facility] [place] [facility] [address] [id number] [place] [address] Jul, [facility] [place] [facility] [address] [id number] [place] [address] Jul, [facility] [place] [facility] [address] [id number] [place] [address] Jul, [facility] [place] [facility] [address] [id number] [place] [address] Jul, [facility] [place] [facility] [address] [id number] [place] [address] Jul, [facility] [place] [facility] [address] [id number] [place] [address] Jul, [facility] [place] [facility] [address] [id number] [place] [address]- 1612 Jul, [facility] [place] [facility] [address] [id number] [place] [address] Jul, [facility] [place] [facility] [address] [id number] [place] [address] 21 Jul, 2013 [facility] [address] [id number] [place] [address] 16 Jul, 2013 [facility] [place] [facility] [address] [id number] [place] [address] 16 Jul, 2013 [facility] [place] [facility] [address] [id number] [place] [address] 16 Jul, 2013 [facility] [place] [facility] [address] [id number] [place] [address] 16 Jul, 2013 [facility] [place] [facility] [address] [id number] [place] [address] 14 Jul, 2013 [facility] [place] [facility] [address] [id number] [place] [address] 14 Jul, 2013 [facility] [place] [facility] [address] [id number] [place] [address] 10 Jul, 2013 [facility] [place] [facility] [address] [id number] [place] [address] 10 Jul, 2013 [facility] [place] [facility] [address] [id number] [place] [address] 25 Jun, 2013 [facility] [place] [facility] [address] [id number] [place] [address] 25 Jun, 2013 [facility] [place] [facility] [address] [id number] [place] [address] 10 Jun, 2013 [facility] [place] [facility] [address] [id number] [place] [address] 10 Jun, 2013 [facility] [place] [facility] [address] [id number] [place] [address] 10 Jun, 2013 [facility] [place] [facility] [address] [id number] [place] [address] 10 Jun, 2013 [facility] [place] [facility] [address] [id number] [place] [address] Jun, [facility] [address] [facility] [id number] [place] [address] Jun, [facility] [address] [facility] [id number] [address] Jun, IMMUNIZATIONS No Known Immunizations SOCIAL HISTORY Never Assessed REASON FOR VISIT Med list update PLAN OF CARE VITAL SIGNS MEDICATIONS Medication Instructions Dosage Frequency Start Date End Date Duration Status Toprol XL 50 Orally Once a day 1 tablet 24h Active Probiotic - Orally Once a day 1 capsule 24h Active Ibuprofen 200 mg Orally 2 times a day 3 tablets 12h Active Benadryl Itch Stopping 1-0.1 % Externally 2 times a day 1 application to affected area as needed 12h Active Zantac 150 MG Orally twice a day 1 tablet 12h Active Albuterol Sulfate (2.5 MG/3ML) 0.083% Inhalation every 4 hours 3 ml as needed for SOB/Cough 4h Jul, Active Hydrochlorothiazide 25 MG Orally Once a day 1 tablet in the morning 24h Active Singulair 10 MG Orally Once a day 1 tablet in the evening 24h Active Trulicity 1.5 MG/0.5ML Subcutaneous once weekly 0.5 ml Jun, 30 days Active Zoloft 100 MG Orally Once a day 1 tablet 24h Active Gabapentin 100 Orally Twice a day 1 capsule 12h Active Calmoseptine 0.44-20.6 % Externally to coccyx and buttocks twice daily and every 4 hrs as needed Active Ibuprofen 600 MG Orally every 6 hours 1 tablet with food or milk as needed 6h Active Imodium A-D 2 MG Orally Four times a day 1 tablet as needed 6h Active Milk of Magnesia 400 MG/5ML Orally daily prn constipation 10 ml as needed Jan, Active Mylanta 200-200-20 MG/5ML Orally every 6 hrs 30 ml as needed 6h Active Aspirin 81 MG Orally Once a day 1 tablet 24h Active Biofreeze 4 % Externally 2 times a day 1 application to affected area as needed 12h Active Risperidone 0.5 MG Orally Once a day 1 tablet 24h 25 Oct, 2015 Active Pulmicort 0.5 mg/2ml Inhalation 2 times [...] nec ankle and foot (718.87) Hospitalization History [facility] 10/16/15
--- OUTSIDE RECORDS SUMMARY | 2018-04-02 07:56 | XMS REPORT ---
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 Active 01583503 Problem Post-polio syndrome G14 Active 06293362 Problem Acquired hypothyroidism E03.9 Active 233902508 Problem 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 286763197 Problem Mood disorder F39 Active 57089016 Problem Slow transit constipation K59.01 Active 67422770 Problem Type 2 diabetes mellitus without complication, without long-term current use of insulin E11.9 Active 061640722 Problem 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 [facility] [place] [address] [address] Sep, [facility] [address] [place] [id number] Jul, Pneumonia due to infectious organism, unspecified laterality, unspecified part of lung J18.9 and Morbid obesity E66.01 [facility] [place] [address] [address] Jul, [facility] [place] [id number] [place] [address]9987- 9153 Jun, [facility] [place] [id number] [place] [address] 56136- 2521 Jun, [facility] [id number] [place] [id number] May, [facility] [id number] [place] [id number] May, Acute superficial gastritis without hemorrhage K29.00 [facility] [address] [place] [address] May, 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 ; 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 and Acute superficial gastritis without hemorrhage K29.00 [facility] [place] [id number] [place] [address] 59937- 5126 Apr, [facility] [place] [address] [address] Apr, [facility] [address] [id number] Mar, Obesity due to excess calories with serious comorbidity, unspecified classification E66.09 and Reactive airway disease J45.909 [facility] [place] [id number] [place] [address] 91987- 1836 Mar, [facility] [id number] [place] [address] [id number] Jan, [facility] [address] [place] [address] Jan, 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 ; Weight gain R63.5 and 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 [facility] [id number] [place] [address] Dec, [facility] [address] [id number] [address] Dec, [facility] [address] [place] [id number] Nov, Weight gain R63.5 ; 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 and Reactive airway disease J45.909 [facility] [id number] [place] [address] Oct, [facility] [address] [id number] [id number] Sep, [facility] [place] [address] [id number] [address] August, [facility] [address] [id number] August, 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 [facility] [place] [address] [id number] [address] Jul, [facility] [place] [address] [address] Jul, Reactive airway disease J45.909 [facility] [address] [place] [id number] Jun, 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 [facility] [place] [address] [id number] [address] Jun, 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 [facility] [address] [place] [id number] May, 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 [facility] [place] [address] [id number] [address] May, [facility] [address] [id number] [id number] Apr, [facility] [place] [address]005[address] [address] Apr, Reactive airway disease J45.909 [facility] [place] [address] [address] 00[address] Apr, Reactive airway disease J45.909 [facility] [id number] [place] [address] 40578- 0814 Apr, [facility] [id number] [place] [address] 72894- 6004 Mar, [facility] [address] [id number] Mar, Mood disorder F39 and Shortness of breath R06.02 [facility] [id number] [place] [address] 67422- 0848 Feb, [facility] [id number] [place] [address] 00122- 3471 Jan, [facility] [address] [place] [id number] Jan, Moist breath sounds R06.89 and Constipation, unspecified constipation type K59.00 [facility] [address]005[address] [address]2 Jan, [facility] [id number] [place] [address] 44955- 9176 Dec, Uncomplicated asthma, unspecified asthma severity J45.909 [facility] [address]005[address] [address] 2826 Dec, [facility] [id number] [place] [address] 91207- 5004 Dec, Uncomplicated asthma, unspecified asthma severity J45.909 [facility] [place] [address]005[address]100[place] [address] Dec, [facility] [address] [place] [id number] Dec, 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 and Unspecified mood [affective] disorder F39 [facility] [place] [id number] [place] [address] 29385- 7768 Dec, [facility] [place] [id number] [place] [address] 20865- 5404 Dec, Reactive airway disease J45.909 [facility] [place] [id number] [place] [address] 25886- 9911 Nov, [facility] [place] [id number] [place] [address] 21082- 5482 Nov, [facility] [place] [id number] [place] [address] 69335- 2383 Nov, [facility] [address] [id number] Nov, Shortness of breath R06.02 ; Family history of coronary arteriosclerosis Z82.49 and Dysuria R30.0 [facility] [place] [id number] [place] [address] 03680- 5253 Nov, [facility] [place] [id number] [place] [address] 98204- 9321 Oct, [facility] [place] [id number] [place] [address] 34146- 8590 Oct, [facility] [place] [id number] [place] [address] 34547- 3498 Oct, [facility] [place] [id number] [place] [address] 26206- 4428 Oct, [facility] [place] [id number] [place] [address] 50703- 7034 Oct, [facility] [place] [id number] [place] [address] 41131- 3837 Oct, Recurrent bronchospasm J98.09 [facility] [address] [place] [address] Sep, 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 and 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 [facility] [place] [id number] [place] [address] 34647- 5937 Sep, Stomach ache R10.9 [facility] [place] [id number] [place] [address] 88676- 3240 August, [facility] [place] [id number] [place] [address] 28879- 2352 August, [facility] [place] [id number] [place] [address] 88396- 2798 Jul, [facility] [place] [id number] [place] [address] 65585- 4600 Jul, [facility] [place] [id number] [place] [address] 15214- 2431 Jul, [facility] [place] [id number] [place] [address] 47479- 8566 Jul, [facility] [place] [id number] [place] [address] 46076- 9562 Jul, [facility] [address] [id number] Jul, Fever R50.9 [facility] [id number] [place] [address] 40871- 6096 Jul, Reactive airway disease J45.909 [facility] [place] [address] [place] [address] 97868- 2533 Jun, [facility] [address] [place] [id number] Jun, Reactive airway disease J45.909 and 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 [facility] [place] [address] [address]- 6135 May, [facility] [address] [place] [id number] May, Recurrent bronchospasm J98.09 ; Weight gain R63.5 ; 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 and Mood disorder F39 [facility] [id number] [place] [address] 90249- 0053 Apr, [facility] [id number] [place] [address] 18294- 4389 Apr, [facility] [address] [place] [id number] Apr, Unspecified mood [affective] disorder F39 [facility] [id number] [place] [address] 75721- 9274 Feb, [facility] [address] [place] [id number] Feb, Uncomplicated asthma, unspecified asthma severity J45.909 [facility] [id number] [place] [address] 24573- 0959 Feb, [facility] [id number] [place] [address] 36910- 9301 Feb, [facility] [id number] [place] [address] 31677- 8250 Feb, [facility] [id number] [place] [address] 82275- 3301 Jan, [facility] [id number] [place] [address] 98077- 2826 24 Dec, 2014 [facility] [id number] [place] [address] 58098- 3623 16 Dec, 2014 Antisocial behavior V71.01 and History of poliomyelitis without residual effect V12.02 [facility] [id number] [place] [address] 58001- 0797 Oct, Essential hypertension, malignant 401.0 ; Unspecified hypothyroidism 244.9 and 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 [facility] [address] 56413- 9125 Sep, [facility] [place] [address] [id number] [address]- 7213 Sep, [facility] [place] [address] [address]- 7201 Sep, Abdominal pain, unspecified site 789.00 and Manipulative behavior V40.39 [facility] [place] [address] [address]- 0800 Sep, [facility] [place] [address] [id number] [address]- 7614 Jul, [facility] [place] [address] [address]- 3105 Jul, [facility] [place] [address] [address]- 6415 Jun, [facility] [place] [address] [address]- 1168 Jun, [facility] [place] [address] [address]- 7519 Jun, [facility] [address] [id number] Jun, [facility] [place] [address] [address]- 7238 May, [facility] [place] [address] [id number] [address]- 3387 May, [facility] [address] [place] [id number] Apr, [facility] [place] [id number] [address]- 4284 Apr, [facility] [place] [id number] [address]- 7221 Apr, [facility] [place] [address] [id number] [address]- 1550 Apr, [facility] [place] [address] [place] [address]- 7814 14 Apr, 2014 [facility] [address] [id number] [place] [address]- 1939 Apr, [facility] [address] [id number] [place] [address]- 9848 Apr, [facility] [address] [id number] [place] [address]- 2983 Apr, [facility] [address] [id number] [place] [address]- 5119 Apr, [facility] [address] [id number] [place] [address]- 2688 Apr, [facility] [address] [id number] [place] [address]- 8044 Mar, [facility] [address] [id number] [place] [address]- 6084 Mar, [facility] [address] [id number] [place] [address]- 4301 Mar, [facility] [address] [id number] [place] [address]- 5673 Mar, [facility] [address] [id number] [place] [address]- 0867 Mar, [facility] [address] [id number] [place] [address]- 4540 Mar, [facility] [address] [id number] [place] [address]- 7024 Mar, [facility] [place] [facility] [address] [id number] [place] [address]- 7083 Mar, [facility] [place] [facility] [address] [id number] [place] [address]- 5565 Mar, [facility] [address] [id number] [place] 7603 Mar, [facility] [place] [facility] [address] [id number] [place] [address]- 8440 Mar, [facility] [place] [facility] [address] [id number] [place] [address]- 3058 Feb, [facility] [place] [facility] [address] [id number] [place] [address]- 3510 Feb, [facility] [place] [facility] [address] [id number] [place] [address]- 3369 Feb, [facility] [place] [facility] [address] [id number] [place] [address]- 9579 Feb, [facility] [place] [facility] [address] [id number] [place] [address]- 6423 Feb, [facility] [place] [facility] [address] [id number] [place] [address]- 3465 Feb, [facility] [place] [facility] [address] [id number] [place] [address]- 2964 Feb, [facility] [place] [facility] [address] [id number] [place] [address]- 1553 Feb, [facility] [place] [facility] [address] [id number] [place] [address]- 4407 Feb, [facility] [place] [facility] [address] [id number] [place] [address]- 3903 Feb, [facility] [place] [facility] [address] [id number] [place] [address]- 7118 Feb, [facility] [place] [facility] [address] [id number] [place] [address]- 9820 Feb, [facility] [place] [facility] [address] [id number] [place] [address]- 3625 Feb, [facility] [place] [facility] [address] [id number] [place] [address]- 0364 Feb, [facility] [place] [facility] [address] [id number] [place] [address]- 7476 Feb, [facility] [place] [facility] [address] [id number] [place] [address]- 4023 Feb, [facility] [place] [facility] [address] [id number] [place] [address]- 6476 Feb, [facility] [place] [facility] [address] [id number] [place] [address]- 6571 Feb, [facility] [place] [facility] [address] [id number] [place] [address]- 8264 Feb, [facility] [place] [facility] [address] [id number] [place] [address]- 9530 Feb, [facility] [place] [facility] [address] [id number] [place] [address]- 1535 Jan, [facility] [place] [facility] [address] [id number] [place] [address]- 9167 Jan, [facility] [place] [facility] [address] [id number] [place] [address]- 4469 Jan, [facility] [place] [facility] [address] [facility] [id number] [place] [address]- 5979 Jan, [facility] [place] [facility] [address] [facility] [id number] [place] [address]- 2359 Jan, [facility] [place] [facility] [address] [id number] [place] [address]- 6341 Jan, [facility] [place] [facility] [address] [id number] [place] [address]- 2057 Jan, [facility] [place] [facility] [address] [id number] [place] [address]- 9740 Jan, [facility] [place] [facility] [address] [facility] [id number] [place] [address]- 2286 Jan, [facility] [place] [facility] [address] [facility] [id number] [place] [address]- 4849 15 Jan, 2014 [facility] [place] [facility] [address] [id number] [place] [address]- 9257 15 Jan, 2014 [facility] [place] [facility] [address] [id number] [place] [address]- 4917 15 Jan, 2014 [facility] [place] [facility] [address] [id number] [place] [address]- 7896 14 Jan, 2014 [facility] [place] [facility] [address] [id number] [place] [address]- 8176 09 Jan, 2014 [facility] [place] [facility] [address] [id number] [place] [address]- 6041 08 Jan, 2014 [facility] [place] [facility] [address] [id number] [place] [address]- 7696 Jan, [facility] [place] [facility] [address] [id number] [place] [address]- 1872 Jan, [facility] [place] [facility] [address] [id number] [place] [address]- 2873 Jan, 2013 [facility] [place] [facility] [address] [id number] [place] [address]- 7116 06 Jan, 2014 [facility] [place] [facility] [address] [id number] [place] [address]- 3115 29 Dec, 2013 [facility] [place] [facility] [address] [id number] [place] [address]- 2169 23 Sep, 2013 [facility] [place] [facility] [address] [id number] [place] [address]- 8920 22 Dec, 2013 [facility] [place] [facility] [address] [id number] [place] [address]- 6277 22 Sep, 2013 [facility] [place] [facility] [address] [id number] [place] [address]- 5258 19 Dec, 2013 [facility] [place] [facility] [address] [id number] [place] [address]- 6031 19 Dec, 2013 [facility] [place] [facility] [address] [id number] [place] [address]- 8549 18 Sep, 2013 [facility] [place] [facility] [address] [id number] [place] [address]- 9197 17 Dec, 2013 [facility] [place] [facility] [address] [id number] [place] [address] 17 Dec, 2013 [facility] [place] [facility] [address] [id number] [place] [address] 16 Dec, 2013 [facility] [place] [facility] [address] [id number] [place] [address] 16 Dec, 2013 [facility] [place] [facility] [address] [id number] [place] [address] 10 Dec, 2013 [facility] [place] [facility] [address] [id number] [place] [address] Dec, [facility] [place] [facility] [address] [id number] [place] [address] Nov, [facility] [place] [facility] [address] [id number] [place] [address] Nov, [facility] [place] [facility] [address] [id number] [place] [address] Nov, [facility] [place] [facility] [address] [id number] [place] [address] Nov, [facility] [place] [facility] [address] [id number] [place] [address] Nov, [facility] [place] [facility] [address] [id number] [place] [address] Nov, [facility] [place] [facility] [address] [id number] [place] [address] Nov, [facility] [place] [facility] [address] [id number] [place] [address] Nov, [facility] [place] [facility] [address] [id number] [place] [address] Nov, [facility] [place] [facility] [address] [id number] [place] [address] Nov, [facility] [place] [facility] [address] [id number] [place] [address] Oct, [facility] [place] [facility] [address] [id number] [place] [address] Oct, [facility] [place] [facility] [address] [id number] [place] [address] Oct, [facility] [place] [facility] [address] [id number] [place] [address] Oct, [facility] [place] [facility] [address] [id number] [place] [address] Oct, [facility] [place] [facility] [address] [id number] [place] [address] Oct, [facility] [place] [facility] [address] [id number] [place] [address]- [address] Oct, [facility] [place] [facility] [address] [id number] [place] [address] Oct, [facility] [place] [facility] [address] [id number] [place] [address] Oct, [facility] [place] [facility] [address] [id number] [place] [address] Oct, [facility] [place] [facility] [address] [id number] [place] [address] Oct, [facility] [place] [facility] [address] [id number] [place] [address] Oct, [facility] [place] [facility] [address] [id number] [place] [address] Oct, [facility] [place] [facility] [address] [id number] [place] [address] Sep, [facility] [place] [facility] [address] [id number] [place] [address] Sep, [facility] [place] [facility] [address] [id number] [place] [address] Sep, [facility] [place] [facility] [address] [id number] [place] [address] Sep, [facility] [place] [facility] [address] [id number] [place] [address] Sep, [facility] [place] [facility] [address] [id number] [place] [address] Sep, [facility] [place] [facility] [address] [id number] [place] [address] Sep, [facility] [place] [facility] [address] [id number] [place] [address] Sep, [facility] [place] [facility] [address] [id number] [place] [address] Sep, [facility] [place] [facility] [address] [id number] [place] [address] Sep, [facility] [place] [facility] [address] [id number] [place] [address] Sep, [facility] [place] [facility] [address] [id number] [place] [address] Sep, [facility] [place] [facility] [address] [id number] [place] [address] August, [facility] [place] [facility] [address] [id number] [place] [address] August, [facility] [place] [facility] [address] [id number] [place] [address] August, [facility] [place] [facility] [address] [id number] [place] [address] August, [facility] [place] [facility] [address] [id number] [place] [address] August, [facility] [place] [facility] [address] [id number] [place] [address] August, [facility] [place] [facility] [address] [id number] [place] [address] August, [facility] [place] [facility] [address] [id number] [place] [address] August, [facility] [place] [facility] [address] [id number] [place] [address] August, [facility] [place] [facility] [address] [id number] [place] [address] August, [facility] [place] [facility] [address] [id number] [place] [address] August, [facility] [place] [facility] [address] [id number] [place] [address] August, [facility] [place] [facility] [address] [id number] [place] [address] August, [facility] [place] [facility] [address] [id number] [place] [address] Jul, [facility] [place] [facility] [address] [id number] [place] [address] Jul, [facility] [place] [facility] [address] [id number] [place] [address] Jul, [facility] [place] [facility] [address] [id number] [place] [address] Jul, [facility] [place] [facility] [address] [id number] [place] [address] Jul, [facility] [place] [facility] [address] [id number] [place] [address] Jul, [facility] [place] [facility] [address] [id number] [place] [address] Jul, [facility] [place] [facility] [address] [id number] [place] [address] Jul, [facility] [place] [facility] [address] [id number] [place] [address] 21 Jul, 2013 [facility] [address] [id number] [place] [address] 16 Jul, 2013 [facility] [place] [facility] [address] [id number] [place] [address] 16 Jul, 2013 [facility] [place] [facility] [address] [id number] [place] [address] 16 Jul, 2013 [facility] [place] [facility] [address] [id number] [place] [address] 16 Jul, 2013 [facility] [place] [facility] [address] [id number] [place] [address] 14 Jul, 2013 [facility] [place] [facility] [address] [id number] [place] [address] 14 Jul, 2013 [facility] [place] [facility] [address] [id number] [place] [address] 10 Jul, 2013 [facility] [place] [facility] [address] [id number] [place] [address] 10 Jul, 2013 [facility] [place] [facility] [address] [id number] [place] [address] 25 Jun, 2013 [facility] [place] [facility] [address] [id number] [place] [address] 25 Jun, 2013 [facility] [place] [facility] [address] [id number] [place] [address] 10 Jun, 2013 [facility] [place] [facility] [address] [id number] [place] [address] 10 Jun, 2013 [facility] [place] [facility] [address] [id number] [place] [address] 10 Jun, 2013 [facility] [place] [facility] [address] [id number] [place] [address] 10 Jun, 2013 [facility] [place] [facility] [address] [id number] [place] [address] Jun, [facility] [place] [address] [facility] [id number] [place] [address] Jun, [facility] [place] [address] [facility] [id number] [place] [address] Jun, IMMUNIZATIONS No Known Immunizations SOCIAL HISTORY Never Assessed REASON FOR VISIT Will attempt GDR of Risperadol PLAN OF CARE VITAL SIGNS MEDICATIONS Medication Instructions Dosage Frequency Start Date End Date Duration Status Risperidone 0.25 MG Orally then stop 1 tablet once daily X 14 days Oct 14 days Active RESULTS No Results PROCEDURES No [...] nec ankle and foot (718.87) Hospitalization History [facility] 10/16/15
--- OUTSIDE RECORDS SUMMARY | 2018-04-02 07:57 | XMS REPORT ---
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 Active 71730581 Problem Post-polio syndrome G14 Active 12774152 Problem Acquired hypothyroidism E03.9 Active 929599108 Problem 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 893936807 Problem Mood disorder F39 Active 78549259 Problem Slow transit constipation K59.01 Active 31221284 Problem Type 2 diabetes mellitus without complication, without long-term current use of insulin E11.9 Active 080278745 Problem 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 Active 59758153 Problem Stomach ache R10.9 Active 966384303 Problem Morbid obesity E66.01 Active 374442054 Problem Constipation, unspecified constipation type K59.00 Active 85827571 ALLERGIES No Information ENCOUNTERS Encounter Location Date Diagnosis [facility] [id number] [address] Sep, 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 [facility] [address] [place] [id number] Sep, Type 2 diabetes mellitus without complication, without long-term current use of insulin E11.9 ; Slow transit constipation K59.01 and 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 [facility] [id number] [place] [address] 32897- 5941 Sep, [facility] [address] [place] [id number] Jul, Pneumonia due to infectious organism, unspecified laterality, unspecified part of lung J18.9 and Morbid obesity E66.01 [place] [address] [address] Jul, [place] [address] [address] [address] Jun, [place] [address] [address] Jun, [place] [id number] [place] [address] [id number] May, [place] [id number] [place] [id number] May, Acute superficial gastritis without hemorrhage K29.00 [facility] [address] [place] [address] May, 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 ; 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 and Acute superficial gastritis without hemorrhage K29.00 [place] [address], [place] [address] 6[address] Apr, [place] [address] [place] [address] 75517- 7606 Apr, [facility] [address] [place] [place] [id number] Mar, Obesity due to excess calories with serious comorbidity, unspecified classification E66.09 and Reactive airway disease J45.909 [place] [address] [address] Mar, [place] [id number] [place] [address] [id number] Jan, [facility] [address] [place] [place] [address] Jan, 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 ; Weight gain R63.5 and 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 [place] [id number] [place] [address] [id number] Dec, [place] [id number] [address] Dec, [facility] [address] [place] [place] [address] Nov, Weight gain R63.5 ; 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 and Reactive airway disease J45.909 [facility] [id number] [id number] Oct, [facility] [id number] [address] Sep, [facility] [address], [place] [address] August, [facility] [address] [place] [place] [id number] August, 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 [facility] [address], [place] [address] 111[address] Jul, [facility] [id number], [place] [address] Jul, Reactive airway disease J45.909 [facility] [address] [place] [address] Jun, 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 [facility] [id number], [place] [address] Jun, 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 [facility] [address] [place] [place] [id number] May, 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 [facility] [id number], [place] [address] 25[address] May, [facility] [id number] [address] Apr, [facility] [id number], [place] [address] Apr, Reactive airway disease J45.909 [place] [address] [place] [address] 09510- 2712 Apr, Reactive airway disease J45.909 [facility] [id number] [place] [address] 07790- 2306 Apr, [place] [id number] [place] [address] 22790- 4589 Mar, [facility] [address] [place] [address] Mar, Mood disorder F39 and Shortness of breath R06.02 [place] [id number] [place] [address] 36700- 2405 Feb, [place] [id number] [place] [address] 01958- 6442 Jan, [facility] [address] [place] [address] Jan, Moist breath sounds R06.89 and Constipation, unspecified constipation type K59.00 [place] [id number] [place] [address] 88321- 4411 Jan, [place] [id number] [place] [address] 58154- 3296 Dec, Uncomplicated asthma, unspecified asthma severity J45.909 [place] [id number] [place] [address] 60622- 5972 Dec, [place] [id number] [place] [address] 04274- 5786 Dec, Uncomplicated asthma, unspecified asthma severity J45.909 [place] [address] [place] [address] 67376- 9618 Dec, [facility] [address] [place] [address] Dec, 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 and Unspecified mood [affective] disorder F39 [place] [id number] [place] [address] 96838- 6798 Dec, [facility] [address], [place] [address]- [address] Dec, Reactive airway disease J45.909 [facility] [address], [place] [address] 5[address] Nov, [facility] [address] [place] [address] 25429- 2956 Nov, [facility] [id number] [place] [address] 90896- 8891 Nov, [facility] [address] [place] [place] [address] Nov, Shortness of breath R06.02 ; Family history of coronary arteriosclerosis Z82.49 and Dysuria R30.0 [facility] [address] [place] [address] 15944- 1810 Nov, [facility] [id number] [place] [address] 94998- 3559 Oct, [facility] [address] [place] [address] 84726- 2761 Oct, [facility] [address] [place] [address] 43034- 4153 Oct, [facility] [address], [place] [address]- 7008 Oct, [facility] [id number] [place] [address] 99098- 2382 Oct, [facility] [address] [place] [address] 04247- 1713 Oct, Recurrent bronchospasm J98.09 [facility] [address] [place] [place] [address] Sep, 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 and 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 [facility] [address] [place] [address] 07979- 6651 Sep, Stomach ache R10.9 [facility] [address], [place] [address]- 3[address] August, [facility] [address], [place] [address] 3964 August, [facility] [address], [place] [address]- 0354 Jul, [facility] [id number] [place] [address] 88235- 3540 Jul, [facility] [address] [place] [address] 21449- 5627 Jul, [facility] [id number] [place] [address] 50839- 8403 Jul, [facility] [id number] [place] [address] 74110- 7976 Jul, [facility] [address] [place] [address] Jul, Fever R50.9 [facility] [address] [place] [address] 99694- 1237 Jul, Reactive airway disease J45.909 [place] [address] [place] [address] 24586- 5936 Jun, [facility] [address] [place] [address] Jun, Reactive airway disease J45.909 and 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 [facility] [address], [place] [address]- 8026 May, [facility] [address] [place] [address] May, Recurrent bronchospasm J98.09 ; Weight gain R63.5 ; 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 and Mood disorder F39 [facility] [address] [place] [address] 86192- 7632 Apr, [facility] [address], [place] [address]- 3648 Apr, [facility] [address] [place] [address] Apr, Unspecified mood [affective] disorder F39 [facility] [address] [place] [address] 25946- 1893 Feb, [facility] [address] [place] [place] [address] Feb, Uncomplicated asthma, unspecified asthma severity J45.909 [facility] [address] [place] [address] 78917- 3922 Feb, [facility] [id number] [place] [address] 42074- 2733 Feb, [facility] [id number] [place] [address] 66346- 3913 Feb, [facility] [id number] [place] [address] 46910- 1359 Jan, [facility] [id number] [place] [address] 31289- 6923 24 Dec, 2014 [facility] [address] [place] [address] 56173- 9443 16 Dec, 2014 Antisocial behavior V71.01 and History of poliomyelitis without residual effect V12.02 [facility] [address] [place] [address] 32203- 6835 Oct, Essential hypertension, malignant 401.0 ; Unspecified hypothyroidism 244.9 and 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 [facility] [address] [place] [address] 50478- 1356 Sep, [facility] [id number] [place] [address] 77971- 8446 Sep, [facility] [id number] [place] [address] 06115- 2546 Sep, Abdominal pain, unspecified site 789.00 and Manipulative behavior V40.39 [facility] [address], [place] [address]- 0161 Sep, [facility] [id number], [place] [address]- 5661 Jul, [facility] [address], [place] [address]- 5897 Jul, [facility] [address], [place] [address]- 8920 Jun, [facility] [address], [place] [address]- 3523 Jun, [facility] [address], [place] [address]- 2684 Jun, [facility] [address] [place] [id number] Jun, [facility] [address], [place] [address]- 0931 May, [facility] [address], [place] [address]- 7521 May, [facility] [address] [place] [address] Apr, [facility] [address], [place] [address]- 6735 Apr, [facility] [address], [place] [address]- 2313 Apr, [facility] [id number], [place] [address]- 1399 Apr, [facility] [address], [place] [address]- 6632 Apr, [facility] [id number], [place] [address]- 8573 Apr, [facility] [address] [id number] [place] [address]- 2707 Apr, [facility] [address] [id number] [place] [address]- 4210 Apr, [facility] [place] [facility] [address] [id number] [place] [address]- 3831 Apr, [facility] [address] [id number] [place] [address]- 4664 Apr, [facility] [address] [id number] [place] [address]- 8815 Mar, [facility] [place] [facility] [address] [id number] [place] [address]- 5500 Mar, [facility] [address] [id number] [place] [address]- 5994 Mar, [facility] [address] [id number] [place] [address]- 8025 Mar, [facility] [address] [id number] [place] [address]- 1890 Mar, [facility] [place] [facility] [address] [id number] [place] [address]- 1938 Mar, [facility] [place] [facility] [address] [id number] [place] [address]- 9656 Mar, [facility] [place] [facility] [address] [id number] [place] [address]- 0570 Mar, [facility] [place] [facility] [address] [id number] [place] [address]- 2381 Mar, [facility] [place] [facility] [address] [id number] [place] [address]- 5845 Mar, [facility] [place] [facility] [address] [id number] [place] [address]- 4864 Mar, [facility] [place] [facility] [address] [id number] [place] [address]- 2327 Feb, [facility] [place] [facility] [address] [id number] [place] [address]- 4310 Feb, [facility] [place] [facility] [address] [id number] [place] [address]- 5449 Feb, [facility] [place] [facility] [address] [id number] [place] [address]- 2270 Feb, [facility] [place] [facility] [address] [id number] [place] [address]- 6326 Feb, [facility] [place] [facility] [address] [id number] [place] [address]- 7381 Feb, [facility] [place] [facility] [address] [id number] [place] [address]- 1114 Feb, [facility] [place] [facility] [address] [id number] [place] [address]- 5576 Feb, [facility] [place] [facility] [address] [id number] [place] [address]- 1892 Feb, [facility] [place] [facility] [address] [id number] [place] [address]- 1231 Feb, [facility] [place] [facility] [address] [id number] [place] [address]- 6982 Feb, [facility] [place] [facility] [address] [id number], [place] [address]- 1582 Feb, [facility] [place] [facility] [address] [id number], [place] [address]- 6315 Feb, [facility] [place] [facility] [address] [id number] [place] [address]- 8211 Feb, [facility] [place] [facility] [address] [id number] [place] [address]- 7632 Feb, [facility] [place] [facility] [address] [id number] [place] [address]- 1232 Feb, [facility] [place] [facility] [address] [id number] [place] [address]- 7343 Feb, [facility] [place] [facility] [address] [id number] [place] [address]- 4114 Feb, [facility] [place] [facility] [address] [id number] [place] [address]- 0719 Feb, [facility] [place] [facility] [address] [id number] [place] [address]- 6058 Feb, [facility] [place] [facility] [address] [id number] [place] [address]- 2090 Jan, [facility] [place] [facility] [address] [id number] [place] [address]- 0287 Jan, [facility] [place] [facility] [address] [id number] [place] [address]- 6817 Jan, [facility] [place] [facility] [address] [id number] [place] [address]- 8134 Jan, [facility] [place] [facility] [address] [id number] [place] [address]- 6537 Jan, [facility] [place] [facility] [address] [id number] [place] [address]- 4746 Jan, [facility] [place] [facility] [address] [id number] [place] [address]- 0904 Jan, [facility] [place] [facility] [address] [id number] [place] [address]- 5626 Jan, [facility] [place] [facility] [address] [id number] [place] [address]- 9978 Jan, [facility] [place] [facility] [address] [id number] [place] [address]- 3076 15 Jan, 2014 [facility] [place] [facility] [address] [id number] [place] [address]- 3730 15 Jan, 2014 [facility] [place] [facility] [address] [id number] [place] [address]- 3544 Jan, [facility] [place] [facility] [address] [id number] [place] [address]- 2893 14 Jan, 2014 [facility] [place] [facility] [address] [id number] [place] [address]- 8152 09 Jan, 2014 [facility] [place] [facility] [address] [id number] [place] [address]- 6287 08 Jan, 2014 [facility] [place] [facility] [address] [id number] [place] [address]- 5724 Jan, [facility] [place] [facility] [address] [id number] [place] [address]- 8509 Jan, [facility] [place] [facility] [address] [id number] [place] [address]- 0309 Jan, [facility] [place] [facility] [address] [id number] [place] [address]- 3687 Jan, [facility] [place] [facility] [address] [id number] [place] [address]- 1767 29 Dec, 2013 [facility] [place] [facility] [address] [id number] [place] [address]- 1410 23 Dec, 2013 [facility] [place] [facility] [address] [id number], [place] [address]- 9313 22 Dec, 2013 [facility] [place] [facility] [address] [id number], [place] [address]- 4156 22 Dec, 2013 [facility] [place] [facility] [address] [id number], [place] [address]- 3540 19 Dec, 2013 [facility] [place] [facility] [address] [id number] [place] [address]- 6398 19 Dec, 2013 [facility] [place] [facility] [address] [id number], [place] [address]- 7972 18 Sep, 2013 [facility] [place] [facility] [address] [id number], [place] [address]- 6575 17 Sep, 2013 [facility] [place] [facility] [address] [id number], [place] [address]- 5970 17 Dec, 2013 [facility] [place] [facility] [address] [id number] [place] [address]- 8755 16 Dec, 2013 [facility] [place] [facility] [address] [id number] [place] [address]- 0081 16 Dec, 2013 [facility] [place] [facility] [address] [id number] [place] [address]- 9962 10 Dec, 2013 [facility] [place] [facility] [address] [id number] [place] [address]- 1870 Dec, [facility] [place] [facility] [address] [id number] [place] [address]- 1242 Nov, [facility] [place] [facility] [address] [id number] [place] [address]- 9836 Nov, [facility] [place] [facility] [address] [id number] [place] [address]- 5137 Nov, [facility] [place] [facility] [address] [id number] [place] [address]- 2825 Nov, [facility] [place] [facility] [address] [id number] [place] [address]- 1119 Nov, [facility] [place] [facility] [address] [id number] [place] [address]- 8547 Nov, [facility] [place] [facility] [address] [id number] [place] [address]- 4275 Nov, [facility] [place] [facility] [address] [id number] [place] [address]- 7429 Nov, [facility] [place] [facility] [address] [id number] [place] [address]- 1233 Nov, [facility] [place] [facility] [address] [id number] [place] [address]- 5634 Nov, [facility] [place] [facility] [address] [id number] [place] [address]- 8859 Oct, [facility] [place] [facility] [address] [id number] [place] [address]- 8328 Oct, [facility] [place] [facility] [address] [id number] [place] [address]- 9495 Oct, [facility] [place] [facility] [address] [id number] [place] [address]- 3240 Oct, [facility] [place] [facility] [address] [id number] [place] [address]- 2479 Oct, [facility] [place] [facility] [address] [id number] [place] [address] Oct, [facility] [place] [facility] [address] [id number] [place] [address] Oct, [facility] [place] [facility] [address] [id number] [place] [address] Oct, [facility] [place] [facility] [address] [id number] [place] [address] Oct, [facility] [place] [facility] [address] [id number] [place] [address] Oct, [facility] [place] [facility] [address] [id number] [place] [address] Oct, [facility] [place] [facility] [address] [id number] [place] [address] Oct, [facility] [place] [facility] [address] [id number] [place] [address] Oct, [facility] [place] [facility] [address] [id number] [place] [address] Sep, [facility] [place] [facility] [address] [id number] [place] [address] Sep, [facility] [place] [facility] [address] [id number] [place] [address] Sep, [facility] [place] [facility] [address] [id number] [place] [address] Sep, [facility] [place] [facility] [address] [id number] [place] [address] Sep, [facility] [place] [facility] [address] [id number] [place] [address] Sep, [facility] [place] [facility] [address] [id number] [place] [address] Sep, [facility] [place] [facility] [address] [id number] [place] [address] Sep, [facility] [place] [facility] [address] [id number] [place] [address] Sep, [facility] [place] [facility] [address] [id number] [place] [address] Sep, [facility] [place] [facility] [address] [id number] [place] [address] Sep, [facility] [place] [facility] [address] [id number] [place] [address] Sep, [facility] [place] [facility] [address] [id number] [place] [address] August, [facility] [place] [facility] [address] [id number] [place] [address] August, [facility] [place] [facility] [address] [id number] [place] [address] August, [facility] [place] [facility] [address] [id number] [place] [address] August, [facility] [place] [facility] [address] [id number] [place] [address] August, [facility] [place] [facility] [address] [id number] [place] [address] August, [facility] [place] [facility] [address] [id number] [place] [address] August, [facility] [place] [facility] [address] [id number] [place] [address] August, [facility] [place] [facility] [address] [id number] [place] [address] August, [facility] [place] [facility] [address] [id number] [place] [address] August, [facility] [place] [facility] [address] [id number] [place] [address] August, [facility] [place] [facility] [address] [id number] [place] [address] August, [facility] [place] [facility] [address] [id number] [place] [address] August, [facility] [place] [facility] [address] [id number] [place] [address] Jul, [facility] [place] [facility] [address] [id number] [place] [address] Jul, [facility] [place] [facility] [address] [id number] [place] [address] Jul, [facility] [place] [facility] [address] [id number] [place] [address] Jul, [facility] [place] [facility] [address] [id number] [place] [address] Jul, [facility] [place] [facility] [address] [id number] [place] [address] Jul, [facility] [place] [facility] [address] [id number] [place] [address] Jul, [facility] [place] [facility] [address] [id number] [place] [address] Jul, [facility] [place] [facility] [address] [id number] [place] [address] Jul, [facility] [place] [facility] [address] [id number] [place] [address] 16 Jul, 2013 [facility] [place] [facility] [address] [id number] [place] [address] 16 Jul, 2013 [facility] [place] [facility] [address] [id number] [place] [address] 16 Jul, 2013 [facility] [place] [facility] [address] [id number] [place] [address] 16 Jul, 2013 [facility] [place] [facility] [address] [id number] [place] [address] Jul, [facility] [place] [facility] [address] [id number] [place] [address] 14 Jul, 2013 [facility] [place] [facility] [address] [id number] [place] [address] Jul, [facility] [place] [facility] [address] [id number] [place] [address] Jul, [facility] [place] [facility] [address] [id number] [place] [address] Jun, [facility] [place] [facility] [address] [id number] [place] [address] 25 Jun, 2013 [facility] [place] [facility] [address] [id number] [place] [address] 10 Jun, 2013 [facility] [place] [facility] [address] [id number] [place] [address] 10 Jun, 2013 [facility] [place] [facility] [address] [id number] [place] [address] 10 Jun, 2013 [facility] [place] [facility] [address] [id number] [place] [address] 10 Jun, 2013 [facility] [place] [facility] [address] [id number] [place] [address] 07 Jun, 2013 [facility] [place] [facility] [address] [id number] [place] [address] 04 Jun, 2013 [facility] [place] [facility] [address] [id number] [place] [address] Jun, IMMUNIZATIONS No Known Immunizations SOCIAL HISTORY Never Assessed REASON FOR VISIT Completed abx/not feeling well PLAN OF CARE VITAL SIGNS MEDICATIONS Unknown [...] nec ankle and foot (718.87) Hospitalization History [facility] 10/16/15
--- OUTSIDE RECORDS SUMMARY | 2018-04-02 07:57 | XMS REPORT ---
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 Name Role Phone GEORGIA DOWNEY Unavailable PROBLEMS Type Condition ICD9-CM Code VVM62-XV Code Onset Dates Condition Status SNOMED Code Problem Weight gain R63.5 Active 3479753 Problem Reactive airway disease J45.909 Active 570642085961 Problem 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 Active 81059613 Problem Post-polio syndrome G14 Active 94520592 Problem Acquired hypothyroidism E03.9 Active 344405438 Problem 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 944283400 Problem Mood disorder F39 Active 32404591 Problem Slow transit constipation K59.01 Active 43777224 Problem Type 2 diabetes mellitus without complication, without long-term current use of insulin E11.9 Active 318369244 Problem 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 Active 76378069 Problem Stomach ache R10.9 Active 584969710 Problem Morbid obesity E66.01 Active 093636202 Problem Constipation, unspecified constipation type K59.00 Active 14801818 ALLERGIES No Information ENCOUNTERS Encounter Location Date Diagnosis [facility] [id number] [address] Sep, 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 [facility] [address] [place] [id number] Sep, Type 2 diabetes mellitus without complication, without long-term current use of insulin E11.9 ; Slow transit constipation K59.01 and 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 [facility] [address] [place] [address]- 2642 Sep, [facility] [address] [place] [id number] Jul, Pneumonia due to infectious organism, unspecified laterality, unspecified part of lung J18.9 and Morbid obesity E66.01 [place] [address] [address] Jul, [place] [address] [address] [address] Jun, [place] [address] [address] Jun, [place] [id number] [place] [id number] May, [place] [id number] [place] [address] [id number] May, Acute superficial gastritis without hemorrhage K29.00 [facility] [address] [place] [address] May, 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 ; 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 and Acute superficial gastritis without hemorrhage K29.00 [place] [address] [address] Apr, [place] [address] [place] [address] 01691- 1810 Apr, [facility] [address] [place] [address] Mar, Obesity due to excess calories with serious comorbidity, unspecified classification E66.09 and Reactive airway disease J45.909 [place] [address] [address] Mar, [place] [id number] [place] [id number] Jan, [facility] [address] [place] [address] Jan, 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 ; Weight gain R63.5 and 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 [place] [id number] [place] [id number] Dec, [address] [id number] [address] Dec, [facility] [address] [place] [address] Nov, Weight gain R63.5 ; 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 and Reactive airway disease J45.909 [facility] [place] [id number] [id number] Oct, [facility] [place] [id number] [address] Sep, [facility] [address] [address] August, [facility] [address] [place] [address] August, 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 [facility] [address] [address] 250[address] Jul, [facility] [id number] [address] Jul, Reactive airway disease J45.909 [facility] [address] [place] [address] Jun, 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 [facility] [id number] [address] Jun, 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 [facility] [address] [place] [address] May, 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 [facility] [id number] [address] 2546 May, [facility] [place] [id number] [address] Apr, [facility] [id number] [address]- 7676 Apr, Reactive airway disease J45.909 [address] [address] [place] [address] 11513- 5371 Apr, Reactive airway disease J45.909 [facility] [id number] [place] [address] 13905- 9371 Apr, [place] [id number] [place] [address] 73[address]- 8328 Mar, [facility] [address] [place] [address] Mar, Mood disorder F39 and Shortness of breath R06.02 [place] [id number] [place] [address] 35469- 5287 Feb, [place] [id number] [place] [address] 63735- 0649 Jan, [facility] [address] [place] [address] Jan, Moist breath sounds R06.89 and Constipation, unspecified constipation type K59.00 [place] [id number] [place] [address] 75837- 2966 Jan, [place] [id number] [place] [address] 62659- 6012 Dec, Uncomplicated asthma, unspecified asthma severity J45.909 [place] [id number] [place] [address] 66582- 1995 Dec, [place] [id number] [place] [address] 66809- 5151 Dec, Uncomplicated asthma, unspecified asthma severity J45.909 [place] [address] [place] [address] 83361- 6392 Dec, [facility] [address] [place] [address] Dec, 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 and Unspecified mood [affective] disorder F39 [place] [id number] [place] [address] 97165- 5485 Dec, [facility] [address] [address]- 7564 Dec, Reactive airway disease J45.909 [facility] [address], [place] [address] 6116 Nov, [facility] [address] [place] [address] 48109- 1763 Nov, [facility] [id number] [place] [address] 64337- 8702 Nov, [facility] [address] [place] [address] Nov, Shortness of breath R06.02 ; Family history of coronary arteriosclerosis Z82.49 and Dysuria R30.0 [facility] [address] [place] [address] 50842- 6568 Nov, [facility] [id number] [place] [address] 08094- 2284 Oct, [facility] [id number] [place] [address] 31086- 7837 Oct, [facility] [address] [place] [address] 81519- 3446 Oct, [facility] [address] [address]- 6063 Oct, [facility] [id number] [place] [address] 55070- 7501 Oct, [facility] [address] [place] [address] 03439- 0522 Oct, Recurrent bronchospasm J98.09 [facility] [address] [place] [address] Sep, 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 and 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 [facility] [address] [place] [address] 41127- 3589 Sep, Stomach ache R10.9 [facility] [address] [address]- 5[address] August, [facility] [address], [place] [address]- 0049 August, [facility] [address], [place] [address]- 7814 Jul, [facility] [id number] [place] [address] 77070- 8210 Jul, [facility] [address] [place] [address] 08162- 4083 Jul, [facility] [id number] [place] [address] 90871- 2947 Jul, [facility] [id number] [place] [address] 11063- 2601 Jul, [facility] [address] [place] [address] Jul, Fever R50.9 [facility] [address] [place] [address] 32564- 6755 Jul, Reactive airway disease J45.909 [place] [address] [place] [address] 23741- 6336 Jun, [facility] [address] [place] [address] Jun, Reactive airway disease J45.909 and 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 [facility] [address] [address]- 1870 May, [facility] [address] [place] [address] May, Recurrent bronchospasm J98.09 ; Weight gain R63.5 ; 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 and Mood disorder F39 [facility] [address] [place] [address] 61404- 9979 Apr, [facility] [address], [place] [address]- 2813 Apr, [facility] [address] [place] [id number] Apr, Unspecified mood [affective] disorder F39 [facility] [id number] [place] [address] 54023- 7748 Feb, [facility] [address] [place] [id number] Feb, Uncomplicated asthma, unspecified asthma severity J45.909 [facility] [id number] [place] [address] 17122- 0288 Feb, [facility] [id number] [place] [address] 78021- 8196 Feb, [facility] [id number] [place] [address] 83144- 8171 Feb, [facility] [id number] [place] [address] 39225- 2439 Jan, [facility] [id number] [place] [address] 94386- 3665 24 Dec, 2014 [facility] [id number] [place] [address] 31645- 3667 16 Dec, 2014 Antisocial behavior V71.01 and History of poliomyelitis without residual effect V12.02 [facility] [id number] [place] [address] 80085- 1350 Oct, Essential hypertension, malignant 401.0 ; Unspecified hypothyroidism 244.9 and 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 [facility] [id number] [place] [address] 49001- 2344 Sep, [facility] [id number] [place] [address] 28992- 9548 Sep, [facility] [id number] [place] [address] 49258- 2546 Sep, Abdominal pain, unspecified site 789.00 and Manipulative behavior V40.39 [facility] [address], [place] [address]- 9509 Sep, [facility] [id number] [address]- 7819 Jul, [facility] [address], [place] [address]- 2536 Jul, [facility] [address], [place] [address]- 5029 Jun, [facility] [address], [place] [address]- 6898 Jun, [facility] [address], [place] [address]- 5834 Jun, [facility] [address] [place] [id number] Jun, [facility] [address], [place] [address]- 2596 May, [facility] [address], [place] [address]- 0850 May, [facility] [address] [address] Apr, [facility] [address], [place] [address]- 5060 Apr, [facility] [address], [place] [address]- 9921 Apr, [facility] [id number], [place] [address]- 1933 Apr, [facility] [address], [place] [address]- 8025 Apr, [facility] [id number], [place] [address]- 9004 Apr, [facility] [address] [id number] [place] [address]- 0264 Apr, [facility] [address] [id number] [place] [address]- 1662 Apr, [facility] [place] [facility] [address] [id number] [place] [address]- 4260 Apr, [facility] [address] [id number] [place] [address]- 5420 Apr, [facility] [address] [id number] [place] [address]- 9773 Mar, [facility] [place] [facility] [address] [id number] [place] [address]- 7030 Mar, [facility] [address] [id number] [place] [address]- 7833 Mar, [facility] [address] [id number] [place] [address]- 3735 Mar, [facility] [address] [id number] [place] [address]- 5172 Mar, [facility] [place] [facility] [address] [id number] [place] [address]- 4674 Mar, [facility] [place] [facility] [address] [id number] [place] [address]- 4830 Mar, [facility] [place] [facility] [address] [id number] [place] [address]- 9843 Mar, [facility] [place] [facility] [address] [id number] [place] [address]- 2833 Mar, [facility] [place] [facility] [address] [id number] [place] [address]- 2091 Mar, [facility] [place] [facility] [address] [id number] [place] [address]- 7437 Mar, [facility] [place] [facility] [address] [id number] [place] [address]- 0400 Feb, [facility] [place] [facility] [address] [id number] [place] [address]- 5078 Feb, [facility] [place] [facility] [address] [id number] [place] [address]- 8104 Feb, [facility] [place] [facility] [address] [id number] [place] [address]- 8716 Feb, [facility] [place] [facility] [address] [id number] [place] [address]- 0131 Feb, [facility] [place] [facility] [address] [id number] [place] [address]- 1153 Feb, [facility] [place] [facility] [address] [id number] [place] [address]- 6283 Feb, [facility] [place] [facility] [address] [id number] [place] [address]- 6467 Feb, [facility] [place] [facility] [address] [id number] [place] [address]- 2256 Feb, [facility] [place] [facility] [address] [id number] [place] [address]- 7924 Feb, [facility] [place] [facility] [address] [id number] [place] [address]- 5395 Feb, [facility] [place] [facility] [address] [id number], [place] [address]- 2185 Feb, [facility] [place] [facility] [address] [id number], [place] [address]- 7218 Feb, [facility] [place] [facility] [address] [id number] [place] [address]- 3723 Feb, [facility] [place] [facility] [address] [id number] [place] [address]- 9925 Feb, [facility] [place] [facility] [address] [id number] [place] [address]- 5304 Feb, [facility] [place] [facility] [address] [id number] [place] [address]- 3668 Feb, [facility] [place] [facility] [address] [id number] [place] [address]- 9590 Feb, [facility] [place] [facility] [address] [id number] [place] [address]- 1806 Feb, [facility] [place] [facility] [address] [id number] [place] [address]- 5544 Feb, [facility] [place] [facility] [address] [id number] [place] [address]- 4446 Jan, [facility] [place] [facility] [address] [id number] [place] [address]- 9823 Jan, [facility] [place] [facility] [address] [id number] [place] [address]- 8349 Jan, [facility] [place] [facility] [address] [id number] [place] [address]- 3208 Jan, [facility] [place] [facility] [address] [id number] [place] [address]- 2408 Jan, [facility] [place] [facility] [address] [id number] [place] [address]- 5104 Jan, [facility] [place] [facility] [address] [id number] [place] [address]- 6905 Jan, [facility] [place] [facility] [address] [id number] [place] [address]- 6288 Jan, [facility] [place] [facility] [address] [id number] [place] [address]- 4729 Jan, [facility] [place] [facility] [address] [id number] [place] [address]- 4465 15 Jan, 2014 [facility] [place] [facility] [address] [id number] [place] [address]- 1583 15 Jan, 2014 [facility] [place] [facility] [address] [id number] [place] [address]- 5484 Jan, [facility] [place] [facility] [address] [id number] [place] [address]- 1750 14 Jan, 2014 [facility] [place] [facility] [address] [id number] [place] [address]- 5338 09 Jan, 2014 [facility] [place] [facility] [address] [id number] [place] [address]- 7409 08 Jan, 2014 [facility] [place] [facility] [address] [id number] [place] [address]- 3388 Jan, [facility] [place] [facility] [address] [id number] [place] [address]- 7692 Jan, [facility] [place] [facility] [address] [id number] [place] [address]- 2776 Jan, [facility] [place] [facility] [address] [id number] [place] [address]- 7202 Jan, [facility] [place] [facility] [address] [id number] [place] [address]- 8695 29 Dec, 2013 [facility] [place] [facility] [address] [id number] [place] [address]- 5268 23 Dec, 2013 [facility] [place] [facility] [address] [id number], [place] [address]- 4012 22 Dec, 2013 [facility] [place] [facility] [address] [id number], [place] [address]- 2460 22 Dec, 2013 [facility] [place] [facility] [address] [id number], [place] [address]- 1695 19 Dec, 2013 [facility] [place] [facility] [address] [id number] [place] [address]- 2300 19 Dec, 2013 [facility] [place] [facility] [address] [id number], [place] [address]- 1013 18 Sep, 2013 [facility] [place] [facility] [address] [id number], [place] [address]- 4827 17 Sep, 2013 [facility] [place] [facility] [address] [id number], [place] [address]- 2507 17 Dec, 2013 [facility] [place] [facility] [address] [id number] [place] [address]- 1891 16 Dec, 2013 [facility] [place] [facility] [address] [id number] [place] [address]- 6235 16 Dec, 2013 [facility] [place] [facility] [address] [id number] [place] [address]- 0053 10 Dec, 2013 [facility] [place] [facility] [address] [id number] [place] [address]- 6232 Dec, [facility] [place] [facility] [address] [id number] [place] [address]- 7240 Nov, [facility] [place] [facility] [address] [id number] [place] [address]- 3172 Nov, [facility] [place] [facility] [address] [id number] [place] [address]- 3774 Nov, [facility] [place] [facility] [address] [id number] [place] [address]- 1181 Nov, [facility] [place] [facility] [address] [id number] [place] [address]- 7174 Nov, [facility] [place] [facility] [address] [id number] [place] [address]- 9150 Nov, [facility] [place] [facility] [address] [id number] [place] [address]- 5328 Nov, [facility] [place] [facility] [address] [id number] [place] [address]- 7230 Nov, [facility] [place] [facility] [address] [id number] [place] [address]- 5150 Nov, [facility] [place] [facility] [address] [id number] [place] [address]- 3941 Nov, [facility] [place] [facility] [address] [id number] [place] [address]- 7884 Oct, [facility] [place] [facility] [address] [id number] [place] [address]- 5008 Oct, [facility] [place] [facility] [address] [id number] [place] [address]- 9530 Oct, [facility] [place] [facility] [address] [id number] [place] [address]- 4950 Oct, [facility] [place] [facility] [address] [id number] [place] [address]- 4147 Oct, [facility] [place] [facility] [address] [id number] [place] [address]- 6087 Oct, [facility] [place] [facility] [address] [id number] [place] [address]- 4411 Oct, [facility] [place] [facility] [address] [id number] [place] [address]- 0926 Oct, [facility] [place] [facility] [address] [id number] [place] [address]- 7821 Oct, [facility] [place] [facility] [address] [id number] [place] [address]- 4520 Oct, [facility] [place] [facility] [address] [id number] [place] [address] Oct, [facility] [place] [facility] [address] [id number] [place] [address] Oct, [facility] [place] [facility] [address] [id number] [place] [address] Oct, [facility] [place] [facility] [address] [id number] [place] [address] Sep, [facility] [place] [facility] [address] [id number] [place] [address] Sep, [facility] [place] [facility] [address] [id number] [place] [address] Sep, [facility] [place] [facility] [address] [id number] [place] [address] Sep, [facility] [place] [facility] [address] [id number] [place] [address] Sep, [facility] [place] [facility] [address] [id number] [place] [address] Sep, [facility] [place] [facility] [address] [id number] [place] [address]- [address] Sep, [facility] [place] [facility] [address] [id number] [place] [address] Sep, [facility] [place] [facility] [address] [id number] [place] [address] Sep, [facility] [place] [facility] [address] [id number] [place] [address] Sep, [facility] [place] [facility] [address] [id number] [place] [address] Sep, [facility] [place] [facility] [address] [id number] [place] [address] Sep, [facility] [place] [facility] [address] [id number] [place] [address] August, [facility] [place] [facility] [address] [id number] [place] [address] August, [facility] [place] [facility] [address] [id number] [place] [address] August, [facility] [place] [facility] [address] [id number] [place] [address] August, [facility] [place] [facility] [address] [id number] [place] [address] August, [facility] [place] [facility] [address] [id number] [place] [address] August, [facility] [place] [facility] [address] [id number] [place] [address]- [address] August, [facility] [place] [facility] [address] [id number] [place] [address] August, [facility] [place] [facility] [address] [id number] [place] [address]- [address] August, [facility] [place] [facility] [address] [id number] [place] [address] August, [facility] [place] [facility] [address] [id number] [place] [address] August, [facility] [place] [facility] [address] [id number] [place] [address] August, [facility] [place] [facility] [address] [id number] [place] [address] August, [facility] [place] [facility] [address] [id number] [place] [address] Jul, [facility] [place] [facility] [address] [id number] [place] [address] Jul, [facility] [place] [facility] [address] [id number] [place] [address] Jul, [facility] [place] [facility] [address] [id number] [place] [address] Jul, [facility] [place] [facility] [address] [id number] [place] [address] Jul, [facility] [place] [facility] [address] [id number] [place] [address] Jul, [facility] [place] [facility] [address] [id number] [place] [address] Jul, [facility] [place] [facility] [address] [id number] [place] [address] Jul, [facility] [place] [facility] [address] [id number] [place] [address] Jul, [facility] [place] [facility] [address] [id number] [place] [address] 16 Jul, 2013 [facility] [place] [facility] [address] [id number] [place] [address] 16 Jul, 2013 [facility] [place] [facility] [address] [id number] [place] [address]- [address] 16 Jul, 2013 [facility] [place] [facility] [address] [id number] [place] [address] 16 Jul, 2013 [facility] [place] [facility] [address] [id number] [place] [address] Jul, [facility] [place] [facility] [address] [id number] [place] [address]- [address] 14 Jul, 2013 [facility] [place] [facility] [address] [id number] [place] [address] Jul, [facility] [place] [facility] [address] [id number] [place] [address] Jul, [facility] [place] [facility] [address] [id number] [place] [address] Jun, [facility] [place] [facility] [address] [id number] [place] [address] 25 Jun, 2013 [facility] [place] [facility] [address] [id number] [place] [address] 10 Jun, 2013 [facility] [place] [facility] [address] [id number] [place] [address] 10 Jun, 2013 [facility] [place] [facility] [address] [id number] [place] [address] 10 Jun, 2013 [facility] [place] [facility] [address] [id number] [place] [address] 10 Jun, 2013 [facility] [place] [facility] [address] [id number] [place] [address] 07 Jun, 2013 [facility] [place] [facility] [address] [id number] [place] [address] 04 Jun, 2013 [facility] [place] [facility] [address] [id number] [place] [id number] Jun, IMMUNIZATIONS No Known Immunizations SOCIAL HISTORY Never Assessed REASON FOR VISIT FU pneumona PLAN OF CARE Activity Details Follow Up prn Reason: VITAL SIGNS MEDICATIONS Unknown Medications RESULTS No Results PROCEDURES Procedure Date Ordered Result Body Site Minor complication (15 mins) July 07, 2017 INSTRUCTIONS MEDICATIONS ADMINISTERED No Known Medications [...] ankle and foot (718.87) Hospitalization History Formerly [facility] 10/16/15
--- OUTSIDE RECORDS SUMMARY | 2018-04-02 07:58 | XMS REPORT ---
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 Active 22962614 Problem Post-polio syndrome G14 Active 86927274 Problem Acquired hypothyroidism E03.9 Active 394687149 Problem 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 729856357 Problem Mood disorder F39 Active 79032658 Problem Slow transit constipation K59.01 Active 86168370 Problem Type 2 diabetes mellitus without complication, without long-term current use of insulin E11.9 Active 778957748 Problem 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 Active 17285194 Problem Stomach ache R10.9 Active 580917745 Problem Morbid obesity E66.01 Active 802521519 Problem Constipation, unspecified constipation type K59.00 Active 05004280 ALLERGIES No Information ENCOUNTERS Encounter Location Date Diagnosis [facility] [id number] [address] Sep, 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 [facility] [address] [place] [id number] Sep, Type 2 diabetes mellitus without complication, without long-term current use of insulin E11.9 ; Slow transit constipation K59.01 and 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 [facility] [id number] [place] [address]53- 7773 Sep, [facility] [address] [place] [id number] Jul, Pneumonia due to infectious organism, unspecified laterality, unspecified part of lung J18.9 and Morbid obesity E66.01 [facility] [address] [place] [address] Jul, [facility] [address], [place] [address] Jul, [facility] [address], [place] [address] 7[address] Jun, [facility] [address], [place] [address] Jun, [facility] [place] [id number] [id number] May, [facility] [place] [id number] [place] [id number] May, Acute superficial gastritis without hemorrhage K29.00 [facility] [address] [place] [address] May, 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 ; 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 and Acute superficial gastritis without hemorrhage K29.00 [facility] [address], [place] [address] Apr, [facility] [address], [place] [address] Apr, [facility] [address] [place] [id number] Mar, Obesity due to excess calories with serious comorbidity, unspecified classification E66.09 and Reactive airway disease J45.909 [facility] [id number], [place] [address] Mar, [facility] [place] [id number] [place] [id number] Jan, [facility] [address] [place] [address] Jan, 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 ; Weight gain R63.5 and 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 [facility] [place] [address] [id number] [address] Dec, [facility] [place] [id number] [address] Dec, [facility] [address] [place] [address] Nov, Weight gain R63.5 ; 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 and Reactive airway disease J45.909 [facility] [place] [id number] [address] Oct, [facility] [place] [id number] [address] Sep, [facility] [id number], [place] [address] August, [facility] [address] [place] [id number] August, 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 [facility] [id number], [place] [address] Jul, [facility] [id number], [place] [address] Jul, Reactive airway disease J45.909 [facility] [address] [place] [address] Jun, 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 [facility] [id number], [place] [address] Jun, 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 [facility] [address] [place] [id number] May, 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 [facility] [id number], [place] [address] May, [facility] [place] [id number] [address] Apr, [facility] [id number] [place] [address]- 4343 Apr, Reactive airway disease J45.909 [facility] [id number] [place] [address] 42[address]- 1214 Apr, Reactive airway disease J45.909 [facility] [id number] [place] [address] 00304- 2518 Apr, [facility] [id number] [place] [address] 64[address]- 7372 Mar, [facility] [address] [id number] Mar, Mood disorder F39 and Shortness of breath R06.02 [facility] [id number] [place] [address] 751[address]- 6189 Feb, [facility] [id number] [place] [address] 11080- 0142 Jan, [facility] [address] [place] [id number] Jan, Moist breath sounds R06.89 and Constipation, unspecified constipation type K59.00 [facility] [id number] [place] [address] 96292- 0009 Jan, [facility] [id number] [place] [address] 66[address]- 0561 Dec, Uncomplicated asthma, unspecified asthma severity J45.909 [facility] [id number] [place] [address] 49931- 9983 Dec, [facility] [address] [place] [address] 50984- 3495 Dec, Uncomplicated asthma, unspecified asthma severity J45.909 [facility] [address] [place] [address]- 2721 Dec, [facility] [address] [place] [address] Dec, 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 and Unspecified mood [affective] disorder F39 [facility] [address] [place] [address] 17458- 9003 Dec, [facility] [id number] [place] [address] 74469- 7576 Dec, Reactive airway disease J45.909 [facility] [id number] [place] [address] 01185- 1212 Nov, [facility] [id number] [place] [address] 79224- 5907 Nov, [facility] [id number] [place] [address] 13710- 4918 Nov, [facility] [address] [place] [address] Nov, Shortness of breath R06.02 ; Family history of coronary arteriosclerosis Z82.49 and Dysuria R30.0 [facility] [id number] [place] [address] 85556- 2751 Nov, [facility] [id number] [place] [address] 14727- 7973 Oct, [facility] [id number] [place] [address] 37705- 1755 Oct, [facility] [id number] [place] [address] 87404- 9585 Oct, [facility] [id number] [place] [address] 82366- 2818 Oct, [facility] [id number] [place] [address] 88512- 0093 Oct, [facility] [id number] [place] [address] 30020- 0038 Oct, Recurrent bronchospasm J98.09 [facility] [address] [place] [address] Sep, 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 and 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 [facility] [address], [place] [address] 8014 Sep, Stomach ache R10.9 [facility] [address] [place] [address] 50983- 5956 August, [facility] [id number] [place] [address] 67730- 7514 August, [facility] [id number] [place] [address] 78068- 0700 Jul, [facility] [id number] [place] [address] 60896- 4283 Jul, [facility] [id number] [place] [address] 75299- 3578 Jul, [facility] [id number] [place] [address] 46027- 3106 Jul, [facility] [id number] [place] [address] 75540- 4659 Jul, [facility] [address] [id number] Jul, Fever R50.9 [facility] [id number] [place] [address] 83662- 0631 Jul, Reactive airway disease J45.909 [facility] [id number] [place] [address] 60726- 2781 Jun, [facility] [address] [place] [address] Jun, Reactive airway disease J45.909 and 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 [facility] [address] [place] [address] 86609- 3603 May, [facility] [address] [place] [address] May, Recurrent bronchospasm J98.09 ; Weight gain R63.5 ; 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 and Mood disorder F39 [facility] [address], [place] [address] 2162 Apr, [facility] [id number] [place] [address] 28459- 6501 Apr, [facility] [address] [id number] Apr, Unspecified mood [affective] disorder F39 [facility] [id number] [place] [address] 84769- 7855 Feb, [facility] [address] [place] [address] Feb, Uncomplicated asthma, unspecified asthma severity J45.909 [facility] [id number] [place] [address] 12319- 3937 17 Feb, 2015 [facility] [id number] [place] [address] 89330- 0959 Feb, [facility] [id number] [place] [address] 86205- 0287 Feb, [facility] [id number] [place] [address] 93821- 5570 14 Jan, 2015 [facility] [id number] [place] [address] 00953- 4844 24 Dec, 2014 [facility] [id number] [place] [address] 63136- 1176 16 Dec, 2014 Antisocial behavior V71.01 and History of poliomyelitis without residual effect V12.02 [facility] [address], [place] [address]- 4639 29 Oct, 2014 Essential hypertension, malignant 401.0 ; Unspecified hypothyroidism 244.9 and 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 [facility] [address], [place] [address]- 1766 Sep, [facility] [id number] [place] [address] 14626- 3008 Sep, [facility] [id number], [place] [address]- 5189 17 Sep, 2014 Abdominal pain, unspecified site 789.00 and Manipulative behavior V40.39 [facility] [address], [place] [address]- 7696 09 Sep, 2014 [facility] [address], [place] [address]- 1501 Jul, [facility] [address], [place] [address]- 5933 Jul, [facility] [address], [place] [address]- 8533 Jun, [facility] [address], [place] [address]- 8309 Jun, [facility] [address], [place] [address]- 4035 Jun, [facility] [address] [address] Jun, [facility] [address], [place] [address]- 3526 May, [facility] [address], [place] [address]- 5076 09 May, 2014 [facility] [address] [id number] Apr, [facility] [id number], [place] [address]- 0586 Apr, [facility] [address], [place] [address]- 9751 Apr, [facility] [address], [place] [address]- 9408 Apr, [facility] [id number], [place] [address]- 7216 Apr, [facility] [address] [facility] [id number] [place] [address]- 5943 Apr, [facility] [address] [id number] [place] [address]- 8837 Apr, [facility] [place] [facility] [address] [id number] [place] [address]- 1442 Apr, [facility] [address] [id number] [place] [address]- 7795 Apr, [facility] [address] [id number] [place] [address]- 7845 Apr, [facility] [address] [id number] [place] [address]- 3123 Mar, [facility] [address] [id number] [place] [address]- 5395 Mar, [facility] [address] [id number] [place] [address]- 6268 Mar, [facility] [address] [id number] [place] [address]- 1999 Mar, [facility] [address] [id number] [place] [address]- 1971 Mar, [facility] [address] [id number] [place] [address]- 9696 Mar, [facility] [place] [facility] [address] [id number] [place] [address]- 0392 Mar, [facility] [place] [facility] [address] [id number] [place] [address]- 0673 Mar, [facility] [place] [facility] [address] [id number] [place] [address]- 2601 Mar, [facility] [place] [facility] [address] [id number] [place] [address]- 4266 Mar, [facility] [place] [facility] [address] [id number] [place] [address]- 6558 Mar, [facility] [place] [facility] [address] [id number] [place] [address]- 0123 Feb, [facility] [place] [facility] [address] [id number] [place] [address]- 3165 Feb, [facility] [place] [facility] [address] [id number] [place] [address]- 8943 Feb, [facility] [place] [facility] [address] [id number] [place] [address]- 6505 Feb, [facility] [place] [facility] [address] [id number] [place] [address]- 9820 Feb, [facility] [place] [facility] [address] [id number] [place] [address]- 0987 Feb, [facility] [place] [facility] [address] [id number] [place] [address]- 5130 Feb, [facility] [place] [facility] [address] [id number] [place] [address]- 4011 Feb, [facility] [place] [facility] [address] [id number] [place] [address]- 6320 Feb, [facility] [place] [facility] [address] [id number] [place] [address]- 1327 Feb, [facility] [place] [facility] [address] [id number], [place] [address]- 3653 Feb, [facility] [place] [facility] [address] [id number], [place] [address]- 9191 Feb, [facility] [place] [facility] [address] [id number] [place] [address]- 3359 Feb, [facility] [place] [facility] [address] [id number] [place] [address]- 5469 Feb, [facility] [place] [facility] [address] [id number] [place] [address]- 0436 Feb, [facility] [place] [facility] [address] [id number] [place] [address]- 8154 Feb, [facility] [place] [facility] [address] [id number] [place] [address]- 0124 Feb, [facility] [place] [facility] [address] [id number] [place] [address]- 6274 Feb, [facility] [place] [facility] [address] [id number] [place] [address]- 9291 Feb, [facility] [place] [facility] [address] [id number] [place] [address]- 7364 Feb, [facility] [place] [facility] [address] [id number] [place] [address]- 2345 Jan, [facility] [place] [facility] [address] [id number] [place] [address]- 3680 Jan, [facility] [place] [facility] [address] [id number] [place] [address]- 7392 Jan, [facility] [place] [facility] [address] [id number] [place] [address]- 3250 Jan, [facility] [place] [facility] [address] [id number] [place] [address]- 2393 Jan, [facility] [place] [facility] [address] [facility] [id number] [place] [address]- 8351 Jan, [facility] [place] [facility] [address] [id number] [place] [address]- 9726 Jan, [facility] [place] [facility] [address] [id number] [place] [address]- 3614 Jan, [facility] [place] [facility] [address] [id number] [place] [address]- 3116 15 Jan, 2014 [facility] [place] [facility] [address] [id number] [place] [address]- 1427 15 Jan, 2014 [facility] [place] [facility] [address] [id number] [place] [address]- 8465 15 Jan, 2014 [facility] [place] [facility] [address] [id number] [place] [address]- 8801 15 Jan, 2014 [facility] [place] [facility] [address] [id number] [place] [address]- 2959 14 Jan, 2014 [facility] [place] [facility] [address] [id number] [place] [address]- 0015 09 Jan, 2014 [facility] [place] [facility] [address] [id number] [place] [address]- 4261 08 Jan, 2014 [facility] [place] [facility] [address] [id number] [place] [address]- 6247 Jan, [facility] [place] [facility] [address] [id number] [place] [address]- 6552 Jan, [facility] [place] [facility] [address] [id number] [place] [address]- 6230 Jan, [facility] [place] [facility] [address] [id number] [place] [address]- 0097 Jan, [facility] [place] [facility] [address] [id number] [place] [address]- 3735 29 Dec, 2013 [facility] [place] [facility] [address] [id number] [place] [address]- 4719 23 Dec, 2013 [facility] [place] [facility] [address] [id number] [place] [address]- 0571 22 Dec, 2013 [facility] [place] [facility] [address] [id number] [place] [address]- 6729 22 Dec, 2013 [facility] [place] [facility] [address] [id number] [place] [address]- 9459 19 Dec, 2013 [facility] [place] [facility] [address] [id number] [place] [address]- 2231 19 Dec, 2013 [facility] [place] [facility] [address] [id number] [place] [address]- 5861 18 Sep, 2013 [facility] [place] [facility] [address] [id number] [place] [address]- 3924 17 Dec, 2013 [facility] [place] [facility] [address] [id number] [place] [address]- 4832 17 Dec, 2013 [facility] [place] [facility] [address] [id number] [place] [address]- 8855 16 Dec, 2013 [facility] [place] [facility] [address] [id number] [place] [address]- 1632 16 Dec, 2013 [facility] [place] [facility] [address] [id number] [place] [address]- 6403 Dec, [facility] [place] [facility] [address] [id number] [place] [address]- 9759 Dec, [facility] [place] [facility] [address] [id number] [place] [address]- 1170 Nov, [facility] [place] [facility] [address] [id number] [place] [address]- 0395 Nov, [facility] [place] [facility] [address] [id number] [place] [address]- 5764 Nov, [facility] [place] [facility] [address] [id number] [place] [address]- 4984 Nov, [facility] [place] [facility] [address] [id number] [place] [address]- 1959 Nov, [facility] [place] [facility] [address] [id number] [place] [address]- 8944 Nov, [facility] [place] [facility] [address] [id number] [place] [address]- 8787 Nov, [facility] [place] [facility] [address] [id number] [place] [address]- 6984 Nov, [facility] [place] [facility] [address] [id number] [place] [address]- 9331 Nov, [facility] [place] [facility] [address] [id number] [place] [address]- 3965 Nov, [facility] [place] [facility] [address] [id number] [place] [address]- 0037 Oct, [facility] [place] [facility] [address] [id number] [place] [address]- 1689 Oct, [facility] [place] [facility] [address] [id number] [place] [address]- 0889 Oct, [facility] [place] [facility] [address] [id number] [place] [address]- 9638 Oct, [facility] [place] [facility] [address] [id number] [place] [address] Oct, [facility] [place] [facility] [address] [id number] [place] [address] Oct, [facility] [place] [facility] [address] [id number] [place] [address] Oct, [facility] [place] [facility] [address] [id number] [place] [address] Oct, [facility] [place] [facility] [address] [id number] [place] [address] Oct, [facility] [place] [facility] [address] [id number] [place] [address] Oct, [facility] [place] [facility] [address] [id number] [place] [address] Oct, [facility] [place] [facility] [address] [id number] [place] [address] Oct, [facility] [place] [facility] [address] [id number] [place] [address] Oct, [facility] [place] [facility] [address] [id number] [place] [address] Sep, [facility] [place] [facility] [address] [id number] [place] [address] Sep, [facility] [place] [facility] [address] [id number] [place] [address] Sep, [facility] [place] [facility] [address] [id number] [place] [address] Sep, [facility] [place] [facility] [address] [id number] [place] [address] Sep, [facility] [place] [facility] [address] [id number] [place] [address] Sep, [facility] [place] [facility] [address] [id number] [place] [address] Sep, [facility] [place] [facility] [address] [id number] [place] [address] Sep, [facility] [place] [facility] [address] [id number] [place] [address] Sep, [facility] [place] [facility] [address] [id number] [place] [address]- [address] Sep, [facility] [place] [facility] [address] [id number] [place] [address]- [address] Sep, [facility] [place] [facility] [address] [id number] [place] [address] Sep, [facility] [place] [facility] [address] [id number] [place] [address] August, [facility] [place] [facility] [address] [id number] [place] [address] August, [facility] [place] [facility] [address] [id number] [place] [address] August, [facility] [place] [facility] [address] [id number] [place] [address] August, [facility] [place] [facility] [address] [id number] [place] [address] August, [facility] [place] [facility] [address] [id number] [place] [address] August, [facility] [place] [facility] [address] [id number] [place] [address] August, [facility] [address] [id number] [place] [address] August, [facility] [place] [facility] [address] [id number] [place] [address] August, [facility] [place] [facility] [address] [id number] [place] [address] August, [facility] [place] [facility] [address] [id number] [place] [address] August, [facility] [place] [facility] [address] [id number] [place] [address] August, [facility] [place] [facility] [address] [id number] [place] [address] August, [facility] [place] [facility] [address] [id number] [place] [address] Jul, [facility] [place] [facility] [address] [id number] [place] [address] Jul, [facility] [place] [facility] [address] [id number] [place] [address] Jul, [facility] [place] [facility] [address] [id number] [place] [address] Jul, [facility] [place] [facility] [address] [id number] [place] [address] Jul, [facility] [place] [facility] [address] [id number] [place] [address] Jul, [facility] [place] [facility] [address] [id number] [place] [address] Jul, [facility] [place] [facility] [address] [address] [id number] [place] [address] Jul, [facility] [place] [facility] [address] [id number] [place] [address] Jul, [facility] [place] [facility] [address] [id number] [place] [address] 16 Jul, 2013 [facility] [place] [facility] [address] [id number] [place] [address] 16 Jul, 2013 [facility] [place] [facility] [address] [id number] [place] [address] 16 Jul, 2013 [facility] [place] [facility] [address] [id number] [place] [address] 16 Jul, 2013 [facility] [place] [facility] [address] [id number] [place] [address] 14 Jul, 2013 [facility] [place] [facility] [address] [id number] [place] [address] 14 Jul, 2013 [facility] [place] [facility] [address] [id number] [place] [address] 10 Jul, 2013 [facility] [place] [facility] [address] [id number] [place] [address] 10 Jul, 2013 [facility] [place] [facility] [address] [id number] [place] [address] 25 Jun, 2013 [facility] [place] [facility] [address] [id number] [place] [address] 25 Jun, 2013 [facility] [place] [facility] [address] [id number] [place] [address] 10 Jun, 2013 [facility] [place] [facility] [address] [id number] [place] [address] 10 Jun, 2013 [facility] [place] [facility] [address] [id number] [place] [address] 10 Jun, 2013 [facility] [place] [facility] [address] [id number] [place] [address] 10 Jun, 2013 [facility] [place] [facility] [address] [id number] [place] [address] 07 Jun, 2013 [facility] [place] [facility] [address] [id number] [place] [address] Jun, [facility] [address] [facility] [id number] [place] [address] Jun, IMMUNIZATIONS No Known Immunizations SOCIAL HISTORY Never Assessed REASON FOR VISIT Order for Diflucan by Wound Care PLAN OF CARE VITAL SIGNS MEDICATIONS Medication Instructions Dosage Frequency Start Date End Date Duration Status Diflucan 150 MG Orally Once a day 1 tablet 24h Jun, Jun, 05 days Active RESULTS No Results PROCEDURES No [...] nec ankle and foot (718.87) Hospitalization History [facility] 10/16/15
--- OUTSIDE RECORDS SUMMARY | 2018-04-02 07:58 | XMS REPORT ---
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 Active 32759844 Problem Post-polio syndrome G14 Active 91164857 Problem Acquired hypothyroidism E03.9 Active 725615398 Problem 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 952592319 Problem Mood disorder F39 Active 92633283 Problem Slow transit constipation K59.01 Active 48115215 Problem Type 2 diabetes mellitus without complication, without long-term current use of insulin E11.9 Active 564795050 Problem 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 Active 45311297 Problem Stomach ache R10.9 Active 341392496 Problem Morbid obesity E66.01 Active 634140179 Problem Constipation, unspecified constipation type K59.00 Active 63328611 ALLERGIES No Information ENCOUNTERS Encounter Location Date Diagnosis [facility] [id number] [address] Sep, 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 [facility] [address] [place] [id number] Sep, Type 2 diabetes mellitus without complication, without long-term current use of insulin E11.9 ; Slow transit constipation K59.01 and 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 [facility] [id number] [place] [address]854- 7173 Sep, [facility] [address] [place] [id number] Jul, Pneumonia due to infectious organism, unspecified laterality, unspecified part of lung J18.9 and Morbid obesity E66.01 [place] [address] [address] Jul, [place] [address] [address] [address] Jun, [place] [address] [address] [address] Jun, [place] [id number] [place] [address] [id number] May, [place] [id number] [place] [address] [id number] May, Acute superficial gastritis without hemorrhage K29.00 [facility] [address] [id number] May, 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 ; 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 and Acute superficial gastritis without hemorrhage K29.00 [place] [address] [address] Apr, [place] [address] [place] [address] 84674- 3740 Apr, [facility] [address] [id number] Mar, Obesity due to excess calories with serious comorbidity, unspecified classification E66.09 and Reactive airway disease J45.909 [address] [address] Mar, [place] [id number] [place] [address] [id number] Jan, [facility] [address] [address] Jan, 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 ; Weight gain R63.5 and 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 [place] [id number] [address] [id number] Dec, [place] [id number] [address] Dec, [facility] [address] [address] Nov, Weight gain R63.5 ; 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 and Reactive airway disease J45.909 [facility] [id number] [id number] Oct, [facility] [id number] [address] Sep, [facility] [address] [address] August, [facility] [address] [address] August, 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 [facility] [address] [address] 0036 Jul, [facility] [id number] [address] 6096 Jul, Reactive airway disease J45.909 [facility] [address] [id number] Jun, 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 [facility] [id number] [address]46 Jun, 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 [facility] [address] [id number] May, 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 [facility] [address] [id number] [address]- 2546 May, [facility] [id number] [address] Apr, [facility] [address] [id number] [address] 4306 Apr, Reactive airway disease J45.909 [place] [address] [address] 04426- 4288 Apr, Reactive airway disease J45.909 [facility] [id number] [place] [address] 29643- 1107 Apr, [place] [id number] [place] [address] 24245- 6657 Mar, [facility] [address] [id number] Mar, Mood disorder F39 and Shortness of breath R06.02 [place] [id number] [place] [address] 42933- 5589 Feb, [place] [id number] [place] [address] 84110- 3529 Jan, [facility] [address] [address] Jan, Moist breath sounds R06.89 and Constipation, unspecified constipation type K59.00 [place] [id number] [place] [address] 96317- 1028 Jan, [place] [id number] [address] 28107- 1030 Dec, Uncomplicated asthma, unspecified asthma severity J45.909 [place] [id number] [address] 35483- 9183 Dec, [place] [id number] [address] 41813- 9388 Dec, Uncomplicated asthma, unspecified asthma severity J45.909 [place] [address] [place] [address] 49413- 5425 Dec, [facility] [address] [address] Dec, 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 and Unspecified mood [affective] disorder F39 [place] [id number] [place] [address] 39784- 5629 Dec, [facility] [address] [address]- 5256 Dec, Reactive airway disease J45.909 [facility] [address] [address]- 8141 Nov, [facility] [address] [place] [address] 66790- 6617 Nov, [facility] [id number] [place] [address] 27812- 3461 Nov, [facility] [address] [address] Nov, Shortness of breath R06.02 ; Family history of coronary arteriosclerosis Z82.49 and Dysuria R30.0 [facility] [address] [place] [address] 66357- 8212 Nov, [facility] [id number] [place] [address] 94190- 2881 Oct, [facility] [address] [place] [address] 70223- 8382 Oct, [facility] [address] [place] [address] 66025- 5282 Oct, [facility] [address] [address]- 1215 Oct, [facility] [id number] [place] [address] 95398- 0544 Oct, [facility] [address] [place] [address] 67763- 3214 Oct, Recurrent bronchospasm J98.09 [facility] [address] [address] Sep, 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 and 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 [facility] [address] [address] 18137- 8867 Sep, Stomach ache R10.9 [facility] [address] [address]- 3445 August, [facility] [address] [address]- 4735 August, [facility] [address] [address]- 7370 Jul, [facility] [id number] [place] [address] 20118- 9926 Jul, [facility] [address] [place] [address] 26293- 7591 Jul, [facility] [id number] [place] [address] 52857- 1400 Jul, [facility] [id number] [place] [address] 38347- 6912 Jul, [facility] [address] [place] [id number] Jul, Fever R50.9 [facility] [address] [address] 71690- 1404 Jul, Reactive airway disease J45.909 [place] [address] [place] [address] 16922- 4482 Jun, [facility] [address] [place] [address] Jun, Reactive airway disease J45.909 and 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 [facility] [address] [address]- 5149 May, [facility] [address] [address] May, Recurrent bronchospasm J98.09 ; Weight gain R63.5 ; 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 and Mood disorder F39 [facility] [address] [address] 18546- 4691 Apr, [facility] [address] [address]- 2929 Apr, [facility] [address] [id number] Apr, Unspecified mood [affective] disorder F39 [facility] [id number] [address] 71128- 0350 Feb, [facility] [address] [address] Feb, Uncomplicated asthma, unspecified asthma severity J45.909 [facility] [id number] [address] 57205- 5742 Feb, [facility] [id number] [place] [address] 05914- 1345 Feb, [facility] [id number] [place] [address] 46374- 0357 Feb, [facility] [id number] [place] [address] 79917- 5780 Jan, [facility] [id number] [place] [address] 41577- 4904 24 Dec, 2014 [facility] [id number] [address] 52401- 5877 16 Dec, 2014 Antisocial behavior V71.01 and History of poliomyelitis without residual effect V12.02 [facility] [id number] [place] [address] 00767- 4530 Oct, Essential hypertension, malignant 401.0 ; Unspecified hypothyroidism 244.9 and 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 [facility] [id number] [address] 03127- 7056 Sep, [facility] [id number] [address] 65792- 3479 Sep, [facility] [id number] [place] [address] 59811- 2546 Sep, Abdominal pain, unspecified site 789.00 and Manipulative behavior V40.39 [facility] [address] [address]- 3150 Sep, [facility] [id number] [address]- 2274 Jul, [facility] [address] [address]- 6635 Jul, [facility] [address] [address]- 9135 Jun, [facility] [address] [address]- 7613 Jun, [facility] [address] [address]- 0953 Jun, [facility] [address] [address] Jun, [facility] [address] [address]- 8435 May, [facility] [address] [address]- 8197 May, [facility] [address] [id number] Apr, [facility] [address] [address]- 3626 Apr, [facility] [address] [address]- 9014 Apr, [facility] [id number] [address]- 4075 Apr, [facility] [address] [address]- 6540 Apr, [facility] [id number] [address]- 7397 Apr, [facility] [address] [id number] [place] [address]- 8355 Apr, [facility] [address] [id number] [place] [address]- 9132 Apr, [facility] [place] [facility] [address] [id number] [place] [address]- 6208 Apr, [facility] [address] [id number] [place] [address]- 2045 Apr, [facility] [address] [id number] [place] [address]- 9197 Mar, [facility] [place] [facility] [address] [id number] [place] [address]- 0460 Mar, [facility] [address] [id number] [place] [address]- [address] Mar, [facility] [address] [id number] [place] [address]- 7627 Mar, [facility] [address] [id number] [place] [address]- 4105 Mar, [facility] [place] [facility] [address] [id number] [place] [address]- 1641 Mar, [facility] [place] [facility] [address] [id number] [place] [address]- 8379 Mar, [facility] [place] [facility] [address] [id number] [place] [address]- 4564 Mar, [facility] [place] [facility] [address] [id number] [place] [address]- 8726 Mar, [facility] [place] [facility] [address] [id number] [place] [address]- 4122 Mar, [facility] [place] [facility] [address] [id number] [place] [address]- 2791 Mar, [facility] [place] [facility] [address] [id number] [place] [address]- 3966 Feb, [facility] [place] [facility] [address] [id number] [place] [address]- 3985 Feb, [facility] [place] [facility] [address] [id number] [place] [address]- 3301 Feb, [facility] [place] [facility] [address] [id number] [place] [address]- 6212 Feb, [facility] [place] [facility] [address] [id number] [place] [address]- 3143 Feb, [facility] [place] [facility] [address] [id number] [place] [address]- 9211 Feb, [facility] [place] [facility] [address] [id number] [place] [address]- 9836 Feb, [facility] [place] [facility] [address] [id number] [place] [address]- 0123 Feb, [facility] [place] [facility] [address] [id number] [place] [address]- 6239 Feb, [facility] [place] [facility] [address] [id number] [place] [address]- 4399 Feb, [facility] [place] [facility] [address] [id number] [place] [address]- 7045 Feb, [facility] [place] [facility] [address] [id number] [address]- 9551 Feb, [facility] [place] [facility] [address] [id number] [address]- 2078 Feb, [facility] [place] [facility] [address] [id number] [place] [address]- 8816 Feb, [facility] [place] [facility] [address] [id number] [place] [address]- 1919 Feb, [facility] [place] [facility] [address] [id number] [place] [address]- 0306 Feb, [facility] [place] [facility] [address] [id number] [place] [address]- 4049 Feb, [facility] [place] [facility] [address] [id number] [place] [address]- 6879 Feb, [facility] [place] [facility] [address] [id number] [place] [address]- 9608 Feb, [facility] [place] [facility] [address] [id number] [place] [address]- 1014 Feb, [facility] [place] [facility] [address] [id number] [place] [address]- 7573 Jan, [facility] [place] [facility] [address] [id number] [place] [address]- 6104 Jan, [facility] [place] [facility] [address] [id number] [place] [address]- 7389 Jan, [facility] [place] [facility] [address] [id number] [place] [address]- 1787 Jan, [facility] [place] [facility] [address] [id number] [place] [address]- 0404 Jan, [facility] [place] [facility] [address] [id number] [place] [address]- 2112 Jan, [facility] [place] [facility] [address] [id number] [place] [address]- 4331 Jan, [facility] [place] [facility] [address] [id number] [place] [address]- 3879 Jan, [facility] [place] [facility] [address] [id number] [place] [address]- 3797 Jan, [facility] [place] [facility] [address] [id number] [place] [address]- 6908 15 Jan, 2014 [facility] [place] [facility] [address] [id number] [place] [address]- 3109 15 Jan, 2014 [facility] [place] [facility] [address] [id number] [place] [address]- 8005 Jan, [facility] [place] [facility] [address] [id number] [place] [address]- 4014 14 Jan, 2014 [facility] [place] [facility] [address] [id number] [place] [address]- 2082 09 Jan, 2014 [facility] [place] [facility] [address] [id number] [place] [address]- 3276 08 Jan, 2014 [facility] [place] [facility] [address] [id number] [place] [address]- 9019 Jan, [facility] [place] [facility] [address] [id number] [place] [address]- 9290 Jan, [facility] [place] [facility] [address] [id number] [place] [address]- 4775 Jan, [facility] [place] [facility] [address] [id number] [place] [address]- 6773 Jan, [facility] [place] [facility] [address] [id number] [place] [address]- 7651 29 Dec, 2013 [facility] [place] [facility] [address] [id number] [place] [address]- 4557 23 Dec, 2013 [facility] [place] [facility] [address] [id number] [address]- 5156 22 Dec, 2013 [facility] [place] [facility] [address] [id number] [place] [address]- 2334 22 Dec, 2013 [facility] [place] [facility] [address] [id number] [place] [address]- 1891 19 Dec, 2013 [facility] [place] [facility] [address] [id number] [place] [address]- 4944 19 Dec, 2013 [facility] [place] [facility] [address] [id number] [place] [address]- 5961 18 Sep, 2013 [facility] [place] [facility] [address] [id number] [place] [address]- 5590 17 Sep, 2013 [facility] [place] [facility] [address] [id number] [place] [address]- 2946 17 Dec, 2013 [facility] [place] [facility] [address] [id number] [place] [address]- 0617 16 Dec, 2013 [facility] [place] [facility] [address] [id number] [place] [address]- 7995 16 Dec, 2013 [facility] [place] [facility] [address] [id number] [place] [address]- 2816 10 Dec, 2013 [facility] [place] [facility] [address] [id number] [place] [address]- 0744 Dec, [facility] [place] [facility] [address] [id number] [place] [address]- 7565 Nov, [facility] [place] [facility] [address] [id number] [place] [address]- 7755 Nov, [facility] [place] [facility] [address] [id number] [place] [address]- 1304 Nov, [facility] [place] [facility] [address] [id number] [place] [address]- 3062 Nov, [facility] [place] [facility] [address] [id number] [place] [address]- 9345 Nov, [facility] [place] [facility] [address] [id number] [place] [address]- 0558 Nov, [facility] [place] [facility] [address] [id number] [place] [address]- 4812 Nov, [facility] [place] [facility] [address] [id number] [place] [address]- 2601 Nov, [facility] [place] [facility] [address] [id number] [place] [address]- 3696 Nov, [facility] [place] [facility] [address] [id number] [place] [address]- 9294 Nov, [facility] [place] [facility] [address] [id number] [place] [address]- 1862 Oct, [facility] [place] [facility] [address] [id number] [place] [address]- 6798 Oct, [facility] [place] [facility] [address] [id number] [place] [address]- 0557 Oct, [facility] [place] [facility] [address] [id number] [place] [address]- 7185 Oct, [facility] [place] [facility] [address] [id number] [place] [address]- 5941 Oct, [facility] [place] [facility] [address] [id number] [place] [address]- 3837 Oct, [facility] [place] [facility] [address] [id number] [place] [address]- 7311 Oct, [facility] [place] [facility] [address] [id number] [place] [address]- 6687 Oct, [facility] [place] [facility] [address] [id number] [place] [address]- 7599 Oct, [facility] [place] [facility] [address] [id number] [place] [address] Oct, [facility] [place] [facility] [address] [id number] [place] [address] Oct, [facility] [place] [facility] [address] [id number] [place] [address] Oct, [facility] [place] [facility] [address] [id number] [place] [address] Oct, [facility] [place] [facility] [address] [id number] [place] [address] Sep, [facility] [place] [facility] [address] [id number] [place] [address] Sep, [facility] [place] [facility] [address] [id number] [place] [address] Sep, [facility] [place] [facility] [address] [id number] [place] [address] Sep, [facility] [place] [facility] [address] [id number] [place] [address] Sep, [facility] [place] [facility] [address] [id number] [place] [address] Sep, [facility] [place] [facility] [address] [id number] [place] [address] Sep, [facility] [place] [facility] [address] [id number] [place] [address] Sep, [facility] [place] [facility] [address] [id number] [place] [address] Sep, [facility] [place] [facility] [address] [id number] [place] [address] Sep, [facility] [place] [facility] [address] [id number] [place] [address] Sep, [facility] [place] [facility] [address] [id number] [place] [address] Sep, [facility] [place] [facility] [address] [id number] [place] [address] August, [facility] [place] [facility] [address] [id number] [place] [address] August, [facility] [place] [facility] [address] [id number] [place] [address] August, [facility] [place] [facility] [address] [id number] [place] [address] August, [facility] [place] [facility] [address] [id number] [place] [address] August, [facility] [place] [facility] [address] [id number] [place] [address] August, [facility] [place] [facility] [address] [id number] [place] [address] August, [facility] [place] [facility] [address] [id number] [place] [address] August, [facility] [place] [facility] [address] [id number] [place] [address] August, [facility] [place] [facility] [address] [id number] [place] [address] August, [facility] [place] [facility] [address] [id number] [place] [address] August, [facility] [place] [facility] [address] [id number] [place] [address] August, [facility] [place] [facility] [address] [id number] [place] [address] August, [facility] [place] [facility] [address] [id number] [place] [address] Jul, [facility] [place] [facility] [address] [id number] [place] [address] Jul, [facility] [place] [facility] [address] [id number] [place] [address] Jul, [facility] [place] [facility] [address] [id number] [place] [address] Jul, [facility] [place] [facility] [address] [id number] [place] [address] Jul, [facility] [place] [facility] [address] [id number] [place] [address] Jul, [facility] [place] [facility] [address] [id number] [place] [address] Jul, [facility] [place] [facility] [address] [id number] [place] [address] Jul, [facility] [place] [facility] [address] [id number] [place] [address] Jul, [facility] [place] [facility] [address] [id number] [place] [address]- [address] 16 Jul, 2013 [facility] [place] [facility] [address] [id number] [place] [address] 16 Jul, 2013 [facility] [place] [facility] [address] [id number] [place] [address] 16 Jul, 2013 [facility] [place] [facility] [address] [id number] [place] [address]- [address] 16 Jul, 2013 [facility] [facility] [address] [id number] [place] [address] Jul, [facility] [place] [facility] [address] [id number] [place] [address] 14 Jul, 2013 [facility] [place] [facility] [address] [id number] [place] [address] Jul, [facility] [place] [facility] [address] [id number] [place] [address] Jul, [facility] [place] [facility] [address] [id number] [place] [address] Jun, [facility] [place] [facility] [address] [id number] [place] [address] 25 Jun, 2013 [facility] [place] [facility] [address] [id number] [place] [address] 10 Jun, 2013 [facility] [place] [facility] [address] [id number] [place] [address] 10 Jun, 2013 [facility] [place] [facility] [address] [id number] [place] [address] 10 Jun, 2013 [facility] [place] [facility] [address] [id number] [place] [address] 10 Jun, 2013 [facility] [place] [facility] [address] [id number] [place] [address] 07 Jun, 2013 [facility] [place] [facility] [address] [id number] [place] [address] 04 Jun, 2013 [facility] [place] [facility] [address] [id number] [place] [address] Jun, IMMUNIZATIONS No Known Immunizations SOCIAL HISTORY Never Assessed REASON FOR VISIT Shortness of breath PLAN OF CARE VITAL SIGNS MEDICATIONS Unknown [...] nec ankle and foot (718.87) Hospitalization History [facility] 10/16/15
[2018-04-02 07:59] LABS: BASOPHILS % (AUTO) 0 % (0-10); EOSINOPHILS # (AUTO) 0.2 10^3/uL (0.0-0.3); EOSINOPHILS % (AUTO) 2 % (0-10); HEMATOCRIT 40 % (40-54); HEMOGLOBIN 11.9 G/DL (13.3-17.7); LYMPHOCYTES # (AUTO) 1.9 X 10^3 (1.0-4.0); LYMPHOCYTES % (AUTO) 16 % (12-44); MEAN CORPUSCULAR HEMOGLOBIN 26 PG (25-34); MEAN CORPUSCULAR HGB CONC 30 G/DL (32-36); MEAN CORPUSCULAR VOLUME 88 FL (80-99); MEAN PLATELET VOLUME 11.7 FL (7.4-10.4); MONOCYTES # (AUTO) 0.6 X 10^3 (0.0-1.0); MONOCYTES % (AUTO) 5 % (0-12); NEUTROPHILS # (AUTO) 9.1 X 10^3 (1.8-7.8); NEUTROPHILS % (AUTO) 77 % (42-75); PLATELET COUNT 311 10^3/uL (130-400); RED CELL DISTRIBUTION WIDTH 19.4 % (10.0-14.5); WHITE BLOOD COUNT 11.8 10^3/uL (4.3-11.0)
--- OUTSIDE RECORDS SUMMARY | 2018-04-02 07:59 | XMS REPORT ---
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 367976221 Problem Acquired hypothyroidism E03.9 Active 804873304 Problem Post-polio syndrome G14 Active 92110881 Problem Morbid obesity E66.01 Active 495407744 Problem Constipation, unspecified constipation type K59.00 Active 01006173 Problem Reactive airway disease J45.909 Active 861129015481 Problem 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 Active 36962282 Problem 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 Active 57030751 Problem Stomach ache R10.9 Active [id number] ALLERGIES No Information ENCOUNTERS Encounter Location Date Diagnosis [facility] [id number] [place] [address]933- 5951 Sep, [facility] [address] [id number] Jul, Pneumonia due to infectious organism, unspecified laterality, unspecified part of lung J18.9 and Morbid obesity E66.01 [facility] [address] [id number] Jul, [facility] [id number] [address] Jul, [facility] [id number] [place] [address] 77357- 5065 Jun, [facility] [id number] [place] [address] 85352- 7822 Jun, [facility] [address] [id number] [id number] May, [facility] [id number] [id number] 08 May, 2017 Acute superficial gastritis without hemorrhage K29.00 [facility] [address] [address] 08 May, 2017 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 ; 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 and Acute superficial gastritis without hemorrhage K29.00 [facility] [address] [id number] [address] Apr, [place] [address] [address] Apr, [facility] [address] [id number] Mar, Obesity due to excess calories with serious comorbidity, unspecified classification E66.09 and Reactive airway disease J45.909 [place] [id number] [address] Mar, [facility] [id number] [id number] Jan, [facility] [address] [place] [id number] Jan, 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 [facility] [address] [id number] [address] Jun, 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 [facility] [address] [id number] May, 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 [facility] [address] [id number] [address] May, [facility] [id number][place] [id number] Apr, [facility] [address] [id number] [address] 9[address] Apr, Reactive airway disease J45.909 [facility] [address] [id number] [address] Apr, Reactive airway disease J45.909 [facility] [address] [id number] [address] 4246 Apr, [facility] [address] [id number] [address] Mar, [facility] [address] [id number] Mar, Mood disorder F39 and Shortness of breath R06.02 [facility] [id number] [place] [address] 41506- 0863 Feb, [facility] [id number] [place] [address] 69977- 1007 Jan, [facility] [address] [address] Jan, Moist breath sounds R06.89 and Constipation, unspecified constipation type K59.00 [facility] [id number] [place] [address] 93333- 1868 Jan, [place] [id number] [place] [address] 54042- 1478 Dec, Uncomplicated asthma, unspecified asthma severity J45.909 [place] [id number] [place] [address] 69787- 5900 Dec, [place] [id number] [place] [address] 66011- 6953 Dec, Uncomplicated asthma, unspecified asthma severity J45.909 [place] [id number] [place] [address] 29557- 2719 Dec, [facility] [address] [address] Dec, 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 and Unspecified mood [affective] disorder F39 [facility] [id number] [place] [address] 75027- 6469 Dec, [place] [id number] [place] [address] 94354- 1800 Dec, Reactive airway disease J45.909 [place] [id number] [place] [address] 35714- 0056 Nov, [facility] [id number] [place] [address] 53071- 3330 Nov, [facility] [address]00565100[place], [place] [address] Nov, [facility] [address] [address] Nov, Shortness of breath R06.02 ; Family history of coronary arteriosclerosis Z82.49 and Dysuria R30.0 [facility] [id number] [place] [address] 22598- 1186 Nov, [facility] [id number] [place] [address] 49010- 7867 Oct, [facility] [id number] [place] [address] 18186- 0700 Oct, [facility] [id number] [place] [address] 42392- 9593 Oct, [facility] [id number] [place] [address] 49471- 4690 Oct, [facility] [id number] [place] [address] 22140- 2077 Oct, [facility] [id number] [place] [address] 51735- 4198 Oct, Recurrent bronchospasm J98.09 [facility] [address] [address] Sep, 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 and 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 [facility] [address], [place] [address] 12[address] Sep, Stomach ache R10.9 [facility] [id number] [place] [address] 53648- 1485 August, [facility] [address] [id number] [address]- 7178 August, [facility] [id number] [place] [address] 75141- 7279 Jul, [facility] [address], [place] [address]- 2270 Jul, [facility] [address], [place] [address]- 3446 14 Jul, 2015 [facility] [address], [place] [address]- 2622 Jul, [facility] [id number] [place] [address] 20462- 7416 Jul, [facility] [address] [address] Jul, Fever R50.9 [place] [id number] [place] [address] 28383- 7932 Jul, Reactive airway disease J45.909 [place] [id number] [place] [address] 55318- 2190 Jun, [facility] [address] [address] Jun, Reactive airway disease J45.909 and 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 [place] [id number] [place] [address] 74039- 4981 May, [facility] [address] [address] May, Recurrent bronchospasm J98.09 ; Weight gain R63.5 ; 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 and Mood disorder F39 [facility] [address], [place] [address] Apr, [facility] [address], [place] [address]- 9320 Apr, [facility] [address] [id number] Apr, Unspecified mood [affective] disorder F39 [place] [address], [place] [address] 1991 Feb, [facility] [address] [address] 18 Feb, 2015 Uncomplicated asthma, unspecified asthma severity J45.909 [facility] [id number] [place] [address] 13387- 8705 17 Feb, 2015 [facility] [id number] [place] [address] 83243- 5061 13 Feb, 2015 [facility] [id number] [place] [address] 04323- 7392 12 Feb, 2015 [facility] [id number] [place] [address] 81675- 1476 14 Jan, 2015 [facility] [id number] [place] [address] 33832- 9726 24 Dec, 2014 [facility] [id number] [place] [address] 64528- 4903 16 Dec, 2014 Antisocial behavior V71.01 and History of poliomyelitis without residual effect V12.02 [facility] [id number] [place] [address] 61195- 9239 Oct, Essential hypertension, malignant 401.0 ; Unspecified hypothyroidism 244.9 and 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 [facility] [address], [place] [address]- 1719 Sep, [facility] [id number] [place] [address] 50392- 0178 Sep, [facility] [id number] [place] [address] 93188- 2779 Sep, Abdominal pain, unspecified site 789.00 and Manipulative behavior V40.39 [facility] [id number] [place] [address] 75965- 6122 09 Sep, 2014 [facility] [address] [place] [address] 71590- 8010 14 Jul, 2014 [facility] [id number] [place] [address] 94139- 2512 Jul, [facility] [address] [id number], [place] [address]- 1054 Jun, [facility] [address] [id number], [place] [address]- 3908 Jun, [facility] [address] [id number], [place] [address]- 3650 Jun, [facility] [address] [facility] [id number] Jun, [facility] [address] [id number], [place] [address]- 0467 May, [facility] [address] [id number] [address]- 7033 May, [facility] [address] [facility] [id number] Apr, [facility] [address] [id number], [place] [address]- 7637 Apr, [facility] [address] [id number], [place] [address]- 5017 Apr, [facility] [address] [id number], [place] [address]- 1610 Apr, [facility] [address] [id number], [place] [address]- 3594 Apr, [facility] [place] [facility] [address] [id number], [place] [address]- 5172 Apr, [facility] [place] [facility] [address] [id number], [place] [address]- 2609 Apr, [facility] [place] [facility] [address] [id number], [place] [address]- 9050 Apr, [facility] [place] [facility] [address] [id number], [place]16- 9996 Apr, [facility] [place] [facility] [address] [id number] [place] [address]- 0826 Apr, [facility] [address] [id number] [place] [address]- 6703 Mar, [facility] [place] [facility] [address] [id number] [place] [address]- 0957 Mar, [facility] [place] [facility] [address] [id number] [place] [address]- 2288 Mar, [facility] [place] [facility] [address] [id number] [place] [address]- 3777 Mar, [facility] [place] [facility] [address] [id number] [place] [address]- 2585 Mar, [facility] [place] [facility] [address] [id number] [place] [address]- 8810 Mar, [facility] [place] [facility] [address] [id number] [place] [address]- 6415 Mar, [facility] [place] [facility] [address] [id number] [place] [address]- 4329 Mar, [facility] [place] [facility] [address] [id number] [place] [address]- 3935 Mar, [facility] [place] [facility] [address] [id number] [place] [address]- 0811 Mar, [facility] [place] [facility] [address] [id number] [place] [address]- 1462 Mar, [facility] [place] [facility] [address] [id number] [place] [address]- 0043 Feb, [facility] [place] [facility] [address] [id number] [place] [address]- 0603 Feb, [facility] [place] [facility] [address] [id number] [place] [address]- 4047 Feb, [facility] [place] [facility] [address] [id number] [place] [address]- 0373 Feb, [facility] [place] [facility] [address] [id number] [place] [address]- 9051 Feb, [facility] [place] [facility] [address] [id number] [place] [address]- 0028 Feb, [facility] [place] [facility] [address] [id number] [place] [address]- 0799 Feb, [facility] [place] [facility] [address] [id number] [place] [address]- 5528 Feb, [facility] [place] [facility] [address] [id number] [place] [address]- 9291 Feb, [facility] [place] [facility] [address] [id number] [place] [address]- 9595 Feb, [facility] [place] [facility] [address] [id number] [place] [address]- 0803 Feb, [facility] [place] [facility] [address] [id number] [place] [address]- 2730 Feb, [facility] [place] [facility] [address] [id number] [place] [address]- 7322 Feb, [facility] [place] [facility] [address] [id number] [place] [address]- 3056 Feb, [facility] [place] [facility] [address] [id number] [place] [address]- 1871 Feb, [facility] [place] [facility] [address] [id number] [place] [address]- 5020 Feb, [facility] [place] [facility] [address] [id number] [place] [address]- 5807 Feb, [facility] [place] [facility] [address] [id number] [place] [address]- 2138 Feb, [facility] [place] [facility] [address] [id number] [place] [address]- 3853 06 Feb, 2014 [facility] [place] [facility] [address] [id number] [place] [address]- 0792 Feb, [facility] [place] [facility] [address] [id number] [place] [address]- 7068 Jan, [facility] [place] [facility] [address] [id number] [place] [address]- 2236 Jan, [facility] [place] [facility] [address] [id number] [place] [address]- 9148 Jan, [facility] [place] [facility] [address] [id number] [place] [address]- 3436 Jan, [facility] [place] [facility] [address] [id number] [place] [address]- 8941 Jan, [facility] [place] [facility] [address] [id number] [place] [address]- 4269 Jan, [facility] [place] [facility] [address] [id number] [place] [address]- 9507 Jan, [facility] [place] [facility] [address] [id number], [place] [address]- 8258 Jan, [facility] [place] [facility] [address] [id number], [place] [address]- 3763 Jan, [facility] [place] [facility] [address] [id number], [place] [address]- 9854 15 Jan, 2014 [facility] [place] [facility] [address] [id number], [place] [address]- 3851 15 Jan, 2014 [facility] [place] [facility] [address] [id number], [place] [address]- 2902 15 Jan, 2014 [facility] [place] [facility] [address] [id number] [place] [address]- 7036 14 Jan, 2014 [facility] [place] [facility] [address] [id number], [place] [address]- 7917 09 Jan, 2014 [facility] [place] [facility] [address] [id number], [place] [address]- 4731 08 Jan, 2014 [facility] [place] [facility] [address] [id number] [place] [address]- 0566 06 Jan, 2013 [facility] [place] [facility] [address] [id number] [place] [address]- 0950 Jan, [facility] [place] [facility] [address] [id number] [place] [address]- 4288 Jan, [facility] [place] [facility] [address] [id number] [place] [address]- 5654 Jan, 2013 [facility] [place] [facility] [address] [id number] [place] [address]- 7512 29 Dec, 2013 [facility] [place] [facility] [address] [id number] [place] [address]- 5845 23 Dec, 2013 [facility] [place] [facility] [address] [id number] [place] [address]- 8728 22 Dec, 2013 [facility] [place] [facility] [address] [id number] [place] [address]- 6191 22 Dec, 2013 [facility] [place] [facility] [address] [id number] [place] [address]- 7050 19 Dec, 2013 [facility] [place] [facility] [address] [id number] [place] [address]- 8393 19 Dec, 2013 [facility] [place] [facility] [address] [id number] [place] [address]- 0895 18 Sep, 2013 [facility] [place] [facility] [address] [id number] [place] [address]- 2545 17 Sep, 2013 [facility] [place] [facility] [address] [id number] [place] [address]- 2541 17 Sep, 2013 [facility] [place] [facility] [address] [id number] [place] [address] 2544 16 Sep, 2013 [facility] [place] [facility] [address] [id number] [place] [address]- 2541 16 Sep, 2013 [facility] [place] [facility] [address] [id number] [place] [address]- 8282 Dec, [facility] [place] [facility] [address] [id number] [place] [address]- 7847 Dec, [facility] [place] [facility] [address] [id number] [place] [address]- 5380 Nov, [facility] [place] [facility] [address] [id number] [place] [address]- 0870 Nov, [facility] [place] [facility] [address] [id number] [place] [address]- 2996 Nov, [facility] [place] [facility] [address] [id number] [place] [address]- 2277 Nov, [facility] [place] [facility] [address] [id number] [place] [address]- 6546 Nov, [facility] [place] [facility] [address] [id number] [place] [address]- 6508 Nov, [facility] [place] [facility] [address] [id number] [place] [address]- 3379 Nov, [facility] [place] [facility] [address] [id number] [place] [address]- 6733 Nov, [facility] [place] [facility] [address] [id number] [place] [address]- 7247 Nov, [facility] [place] [facility] [address] [id number] [place] [address]- 9798 Nov, [facility] [place] [facility] [address] [id number] [place] [address]- 8821 Oct, [facility] [place] [facility] [address] [id number] [place] [address]- 7479 Oct, [facility] [place] [facility] [address] [id number] [place] [address]- 4342 Oct, [facility] [place] [facility] [address] [id number] [place] [address]- 7524 Oct, [facility] [place] [facility] [address] [id number] [place] [address]- 3676 Oct, [facility] [place] [facility] [address] [id number] [place] [address]- 4866 Oct, [facility] [place] [facility] [address] [id number] [place] [address]- 5812 Oct, [facility] [place] [facility] [address] [id number] [place] [address]- 1337 Oct, [facility] [place] [facility] [address] [id number] [place] [address]- 2824 Oct, 2013 [facility] [place] [facility] [address] [id number] [place] [address]- 3020 Oct, [facility] [place] [facility] [address] [id number] [place] [address] Oct, [facility] [place] [facility] [address] [id number] [place] [address] Oct, [facility] [place] [facility] [address] [id number] [place] [address] Oct, [facility] [place] [facility] [address] [id number] [place] [address] Sep, [facility] [place] [facility] [address] [id number] [place] [address] Sep, [facility] [place] [facility] [address] [id number] [place] [address] Sep, [facility] [place] [facility] [address] [id number] [place] [address] Sep, [facility] [place] [facility] [address] [id number] [place] [address] Sep, [facility] [place] [facility] [address] [id number] [place] [address] Sep, [facility] [place] [facility] [address] [id number] [place] [address]- [address] 16 Sep, 2013 [facility] [place] [facility] [address] [id number] [place] [address] Sep, [facility] [address] [id number] [place] [address] Sep, [facility] [place] [facility] [address] [id number] [place] [address] Sep, [facility] [address] [id number] [place] [address] Sep, [facility] [place] [facility] [address] [id number] [place] [address] Sep, [facility] [address] [id number] [place] [address]- [address] August, [facility] [address] [id number] [place] [address] August, [facility] [address] [id number] [place] [address]- [address] August, [facility] [address] [id number] [place] [address]- [address] August, [facility] [address] [id number] [place] [address]- [address] August, [facility] [address] [id number] [place] [address]- [address] August, [facility] [place] [facility] [address] [id number] [place] [address] August, [facility] [place] [facility] [address] [id number] [place] [address]- [address] August, [facility] [place] [facility] [address] [id number] [place] [address] August, [facility] [place] [facility] [address] [id number] [place] [address]- [address] August, [facility] [place] [facility] [address] [id number] [id number] [address] August, [facility] [place] [facility] [address] [id number] [place] [address] August, [facility] [place] [facility] [address] [id number] [place] [address]- 39[address] August, [facility] [place] [facility] [address] [id number] [place] [address]- [address] Jul, [facility] [place] [facility] [address] [id number] [place] [address] Jul, [facility] [place] [facility] [address] [id number] [place] [address] Jul, [facility] [place] [facility] [address] [id number] [place] [address] Jul, [facility] [place] [facility] [address] [id number] [place] [address]- [address] Jul, [facility] [place] [facility] [address] [id number] [place] [address] Jul, [facility] [place] [facility] [address] [id number] [place] [address]- [address] Jul, [facility] [place] [facility] [address] [id number] [place] [address] Jul, [facility] [place] [facility] [address] [id number] [place] [address]- [address] Jul, [facility] [place] [facility] [address] [id number] [place] [address]- [address] Jul, [facility] [place] [facility] [address] [id number] [place] [address]- [address] Jul, [facility] [place] [facility] [address] [id number] [place] [address]- [address] Jul, [facility] [place] [facility] [address] [id number] [place] [address] Jul, [facility] [place] [facility] [address] [id number] [address] Jul, [facility] [id number] [id number] [address] Jul, [facility] [id number] [address] Jul, [facility] [id number] [address] Jul, [facility] [id number] [address] Jun, [facility] [id number] [address] Jun, [facility] [id number] [address] Jun, [facility] [id number] [address] Jun, [facility] [id number] [address] Jun, [facility] [id number] [address] Jun, [facility] [id number] [address] Jun, [facility] [id number] [address] Jun, [facility] [id number] [address] Jun, IMMUNIZATIONS No Known Immunizations SOCIAL HISTORY Never Assessed REASON FOR VISIT Routine Visit PLAN OF CARE Activity Details Follow Up prn Reason: VITAL SIGNS MEDICATIONS Medication Instructions Dosage Frequency Start Date End Date Duration Status Gabapentin 100 TAKE ONE CAPSULE BY MOUTH TWICE A DAY 30 Active Visine Advanced Relief 0.05-0.1-1-1 % as directed Jan, Active Clotrimazole-Betamethasone 1-0.05 APPLY TO WOUND TWO TIMES A DAY FOR 7 DAYS 7 Active Trulicity 1.5 MG/0.5ML Subcutaneous once weekly 0.5 ml Jun, 30 days Active Depakote Sprinkles 125 TAKE TWO CAPSULES BY MOUTH EVERY 6 HOURS NEEDED 28 Active Potassium Chloride 20 MEQ Orally Once a dayX 3days then 1 packet daily X 3 days 2 packet with food Jan, Active Milk of Magnesia 400 MG/5ML Orally daily prn constipation 10 ml as needed Jan, Active Pulmicort 0.5 Inhalation 2 times a day 2 ml 12h 30 Active Neurontin 100 mg Orally 2 times a day for leg pain 1 August, Active Risperidone 0.5 MG Orally Once a day 1 tablet 24h Oct, Active Losartan Potassium 50 TAKE ONE TABLET BY MOUTH DAILY 30 Active Zoloft 100 MG Orally Once a day 1 tablet 24h Active Albuterol Sulfate (2.5 MG/3ML) 0.083% Inhalation 3 times a day 3 ml as needed for SOB/Cough 8h Jul, Active Lasix 40 mg Orally Once a day X 3 days then 1 tab daily X 3 days. 2 tablet Jan, Active Toprol XL 50 TAKE ONE TABLET BY MOUTH DAILY 30 Active RESULTS No Results PROCEDURES Procedure Date Ordered Result Body Site Minor complication (15 mins) Mar 15, 2017 INSTRUCTIONS MEDICATIONS ADMINISTERED No Known Medications [...] nec ankle and foot (718.87) Hospitalization History [facility] 10/16/15
--- OUTSIDE RECORDS SUMMARY | 2018-04-02 07:59 | XMS REPORT ---
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 211764378 Problem Acquired hypothyroidism E03.9 Active 629441844 Problem Post-polio syndrome G14 Active 53704951 Problem Morbid obesity E66.01 Active 078150329 Problem Constipation, unspecified constipation type K59.00 Active 42365622 Problem Reactive airway disease J45.909 Active 940678682194 Problem 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 Active 44727593 Problem 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 Active 20315206 Problem Stomach ache R10.9 Active 050023541 ALLERGIES No Information ENCOUNTERS Encounter Location Date Diagnosis [place] [id number] [place] [address]3925- 6248 Sep, [facility] [address] [id number] Jul, Pneumonia due to infectious organism, unspecified laterality, unspecified part of lung J18.9 and Morbid obesity E66.01 [facility] [address] [id number] Jul, [facility] [place] [address] [id number] [address] Jul, [facility] [place] [id number] [place] [address] 53336- 2441 Jun, [facility] [place] [id number] [place] [address] 73484- 8675 Jun, [facility] [address] [id number] [id number] May, [facility] [id number] [place] [address] 08 May, 2017 Acute superficial gastritis without hemorrhage K29.00 [facility] [address] [id number] 08 May, 2017 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 ; 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 and Acute superficial gastritis without hemorrhage K29.00 [facility] [place] [address] [id number] [address] Apr, [place] [id number] [address] Apr, [facility] [address] [id number] Mar, Obesity due to excess calories with serious comorbidity, unspecified classification E66.09 and Reactive airway disease J45.909 [place] [address] [id number] [address] Mar, [facility] [id number] [address] Jan, [facility] [address] [place] [address] Jan, 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 ; Weight gain R63.5 and 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 [facility] [address] [id number] [place] [address] Dec, [facility] [address] [id number] [place] [address] Dec, [facility] [address] [place] [address] Nov, Weight gain R63.5 ; 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 and Reactive airway disease J45.909 [facility] [address] [id number] [place] [address] Oct, [facility] [id number] [place] [address] Sep, [facility] [place] [id number] [address] 110[address] August, [facility] [address] [id number] August, 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 [facility] [place] [id number] [address] 6[address] Jul, [facility] [place] [address] [id number] [address] Jul, Reactive airway disease J45.909 [facility] [place] [address] [address] Jun, 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 [facility] [place] [address] [id number] [address] 9775 Jun, 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 [facility] [place] [address] [address] May, 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 [facility] [place] [address] [id number] [address] 1096 May, [facility] [id number] [address] Apr, [facility] [place] [address] [id number] [address] 1843 Apr, Reactive airway disease J45.909 [facility] [place] [address] [id number] [address]- 6656 Apr, Reactive airway disease J45.909 [facility] [place] [address] [id number] [address]- 0726 Apr, [facility] [place] [address] [id number] [address]- 5751 Mar, [facility] [address] [address] Mar, Mood disorder F39 and Shortness of breath R06.02 [facility] [place] [id number] [place] [address] 02913- 3304 Feb, [facility] [place] [id number] [place] [address] 18447- 3302 Jan, [facility] [address] [id number] Jan, Moist breath sounds R06.89 and Constipation, unspecified constipation type K59.00 [facility] [place] [id number] [place] [address] 53837- 1315 Jan, [place] [id number] [place] [address] 64336- 0596 Dec, Uncomplicated asthma, unspecified asthma severity J45.909 [place] [id number] [place] [address] 12674- 8321 Dec, [place] [id number] [place] [address] 04963- 3928 Dec, Uncomplicated asthma, unspecified asthma severity J45.909 [place] [address] [place] [address] 53282- 0547 Dec, [facility] [address] [address] Dec, 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 and Unspecified mood [affective] disorder F39 [facility] [place] [address] [place] [address] 21404- 0045 Dec, [place] [id number] [place] [address] 86607- 2546 Dec, Reactive airway disease J45.909 [place] [id number] [place] [address] 99123- 9741 Nov, [facility] [place] [id number] [place] [address] 75257- 0358 Nov, [facility] [place] [id number] [address]- [address] Nov, [facility] [address] [address] Nov, Shortness of breath R06.02 ; Family history of coronary arteriosclerosis Z82.49 and Dysuria R30.0 [facility] [place] [id number] [place] [address] 87842- 4711 Nov, [facility] [place] [id number] [place] [address] 69509- 8863 Oct, [facility] [place] [id number] [place] [address] 76154- 4617 Oct, [facility] [place] [id number] [place] [address] 70427- 6263 Oct, [facility] [place] [id number] [place] [address] 11732- 4374 Oct, [facility] [place] [id number] [place] [address] 08075- 0697 Oct, [facility] [place] [id number] [place] [address] 75922- 3728 Oct, Recurrent bronchospasm J98.09 [facility] [address] [address] Sep, 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 and 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 [facility] [place] [address] [address]- 2762 Sep, Stomach ache R10.9 [facility] [place] [id number] [place] [address] 46670- 4322 August, [facility] [place] [address] [id number] [address]- 2991 August, [facility] [place] [id number] [place] [address] 37873- 3670 Jul, [facility] [place] [id number] [address]- 4891 Jul, [facility] [place] [id number] [address]- 6876 14 Jul, 2015 [facility] [place] [id number] [address]- 6310 Jul, [facility] [place] [id number] [place] [address] 39671- 5452 Jul, [facility] [address] [place] [address] Jul, Fever R50.9 [place] [address] [place] [address] 64219- 1404 Jul, Reactive airway disease J45.909 [place] [address] [place] [address] 52777- 6273 Jun, [facility] [address] [address] Jun, Reactive airway disease J45.909 and 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 [place] [address] [place] [address] 69701- 2955 May, [facility] [address] [place] [address] May, Recurrent bronchospasm J98.09 ; Weight gain R63.5 ; 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 and Mood disorder F39 [facility] [place] [address] [address]- 1875 Apr, [facility] [place] [id number] [address]- 2100 Apr, [facility] [address] [address] Apr, Unspecified mood [affective] disorder F39 [place] [id number] [address]- 7012 Feb, [facility] [address] [address] 18 Feb, 2015 Uncomplicated asthma, unspecified asthma severity J45.909 [facility] [place] [id number] [place] [address] 44522- 8184 17 Feb, 2015 [facility] [place] [address] [place] [address] 83203- 2038 13 Feb, 2015 [facility] [place] [id number] [place] [address] 50359- 3951 12 Feb, 2015 [facility] [place] [id number] [place] [address] 05329- 0353 14 Jan, 2015 [facility] [place] [id number] [place] [address] 01595- 1479 24 Dec, 2014 [facility] [place] [id number] [place] [address] 78547- 6013 16 Dec, 2014 Antisocial behavior V71.01 and History of poliomyelitis without residual effect V12.02 [facility] [place] [id number] [place] [address] 80170- 1470 Oct, Essential hypertension, malignant 401.0 ; Unspecified hypothyroidism 244.9 and 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 [facility] [place] [address] [address]- 7768 Sep, [facility] [place] [id number] [place] [address] 95384- 1353 Sep, [facility] [place] [id number] [place] [address] 90133- 6114 Sep, Abdominal pain, unspecified site 789.00 and Manipulative behavior V40.39 [facility] [place] [id number] [place] [address] 08766- 5077 09 Sep, 2014 [facility] [place] [address] [place] [address] 10438- 9718 14 Jul, 2014 [facility] [place] [id number] [place] [address] 96952- 4168 Jul, [facility] [address] [id number] [address]- 5002 Jun, [facility] [address] [id number] [address]- 7680 Jun, [facility] [address] [id number] [address]- 7249 Jun, [facility] [address] [facility] [place] [id number] Jun, [facility] [address] [id number] [address]- 7508 May, [facility] [address] [id number] [address]- 9258 May, [facility] [address] [facility] [id number] Apr, [facility] [address] [id number] [address]- 7032 Apr, [facility] [address] [id number] [address]- 7269 Apr, [facility] [address] [id number] [address]- 0309 Apr, [facility] [address] [id number] [address]- 4000 Apr, [facility] [place] [facility] [address] [id number] [address]- 6766 Apr, [facility] [place] [facility] [address] [id number] [place] [address]- 7944 Apr, [facility] [place] [facility] [address] [id number] [place] [address]- 9716 Apr, [facility] [place] [facility] [address] [id number] [place]- 6998 Apr, [facility] [place] [facility] [address] [id number] [place] [address]- 6117 Apr, [facility] [address] [id number] [place] [address]- 6299 Mar, [facility] [place] [facility] [address] [id number] [place] [address]- 5754 Mar, [facility] [place] [facility] [address] [id number] [place] [address]- 1181 Mar, [facility] [place] [facility] [address] [id number] [place] [address]- 8079 Mar, [facility] [place] [facility] [address] [id number] [place] [address]- 3563 Mar, [facility] [place] [facility] [address] [id number] [place] [address]- 0034 Mar, [facility] [place] [facility] [address] [id number] [place] [address]- 0480 Mar, [facility] [place] [facility] [address] [id number] [place] [address]- 3977 Mar, [facility] [place] [facility] [address] [id number] [place] [address]- 1378 Mar, [facility] [place] [facility] [address] [id number] [place] [address]- 2159 Mar, [facility] [place] [facility] [address] [id number] [place] [address]- 0497 Mar, [facility] [place] [facility] [address] [id number] [place] [address]- 6261 Feb, [facility] [place] [facility] [address] [id number] [place] [address]- 2726 Feb, [facility] [place] [facility] [address] [id number] [place] [address]- 8103 Feb, [facility] [place] [facility] [address] [id number] [place] [address]- 1637 Feb, [facility] [place] [facility] [address] [id number] [place] [address]- 1040 Feb, [facility] [place] [facility] [address] [id number] [place] [address]- 9691 Feb, [facility] [place] [facility] [address] [id number] [place] [address]- 3270 Feb, [facility] [place] [facility] [address] [id number] [place] [address]- 1698 Feb, [facility] [place] [facility] [address] [id number] [place] [address]- 2404 Feb, [facility] [place] [facility] [address] [id number] [place] [address]- 2708 Feb, [facility] [place] [facility] [address] [id number] [place] [address]- 3458 Feb, [facility] [place] [facility] [address] [id number] [place] [address]- 5646 Feb, [facility] [place] [facility] [address] [id number] [place] [address]- 2588 Feb, [facility] [place] [facility] [address] [id number] [place] [address]- 5391 Feb, [facility] [place] [facility] [address] [id number] [place] [address]- 5807 Feb, [facility] [place] [facility] [address] [id number] [place] [address]- 0292 Feb, [facility] [place] [facility] [address] [id number] [place] [address]- 1261 Feb, [facility] [place] [facility] [address] [id number] [place] [address]- 1506 Feb, [facility] [place] [facility] [address] [id number] [place] [address]- 1052 06 Feb, 2014 [facility] [place] [facility] [address] [id number] [place] [address]- 1095 Feb, [facility] [place] [facility] [address] [id number] [place] [address]- 0049 Jan, [facility] [place] [facility] [address] [id number] [place] [address]- 2806 Jan, [facility] [place] [facility] [address] [id number] [place] [address]- 7735 Jan, [facility] [place] [facility] [address] [id number] [place] [address]- 0452 Jan, [facility] [place] [facility] [address] [id number] [place] [address]- 0551 Jan, [facility] [place] [facility] [address] [id number] [place] [address]- 8108 Jan, [facility] [place] [facility] [address] [id number] [place] [address]- 1302 Jan, [facility] [place] [facility] [address] [id number] [address]- 4840 Jan, [facility] [place] [facility] [address] [id number] [address]- 4256 Jan, [facility] [place] [facility] [address] [id number] [place] [address]- 5136 15 Jan, 2014 [facility] [place] [facility] [address] [id number] [place] [address]- 1446 15 Jan, 2014 [facility] [place] [facility] [address] [id number] [address]- 5281 15 Jan, 2014 [facility] [place] [facility] [address] [id number] [place] [address]- 0442 14 Jan, 2014 [facility] [place] [facility] [address] [id number] [address]- 3152 09 Jan, 2014 [facility] [place] [facility] [address] [id number] [place] [address]- 8874 08 Jan, 2014 [facility] [place] [facility] [address] [id number] [place] [address]- 1801 06 Jan, 2013 [facility] [place] [facility] [address] [id number] [place] [address]- 4142 Jan, [facility] [place] [facility] [address] [id number] [place] [address]- 3357 Jan, [facility] [place] [facility] [address] [id number] [place] [address]- 6799 Jan, 2013 [facility] [place] [facility] [address] [id number] [place] [address]- 9496 29 Dec, 2013 [facility] [place] [facility] [address] [id number] [place] [address]- 3703 23 Dec, 2013 [facility] [place] [facility] [address] [id number] [place] [address]- 9144 22 Dec, 2013 [facility] [place] [facility] [address] [id number] [place] [address]- 4601 22 Dec, 2013 [facility] [place] [facility] [address] [id number] [place] [address]- 7745 19 Dec, 2013 [facility] [place] [facility] [address] [id number] [place] [address]- 1612 19 Dec, 2013 [facility] [place] [facility] [address] [id number] [place] [address]- 3386 18 Sep, 2013 [facility] [place] [facility] [address] [id number] [place] [address]- 2542 17 Sep, 2013 [facility] [place] [facility] [address] [id number] [place] [address]- 254 17 Sep, 2013 [facility] [place] [facility] [address] [id number] [place] [address] 2543 16 Sep, 2013 [facility] [place] [facility] [address] [id number] [place] [address]- 2540 16 Sep, 2013 [facility] [place] [facility] [address] [id number] [place] [address]- 3045 Dec, [facility] [place] [facility] [address] [id number] [place] [address]- 4496 Dec, [facility] [place] [facility] [address] [id number] [place] [address]- 0933 Nov, [facility] [place] [facility] [address] [id number] [place] [address]- 1538 Nov, [facility] [place] [facility] [address] [id number] [place] [address]- 2365 Nov, [facility] [place] [facility] [address] [id number] [place] [address]- 3193 Nov, [facility] [place] [facility] [address] [id number] [place] [address]- 5244 Nov, [facility] [place] [facility] [address] [id number] [place] [address]- 4978 Nov, [facility] [place] [facility] [address] [id number] [place] [address]- 4725 Nov, [facility] [place] [facility] [address] [id number] [place] [address]- 4059 Nov, [facility] [place] [facility] [address] [id number] [place] [address]- 0660 Nov, [facility] [place] [facility] [address] [id number] [place] [address]- 2397 Nov, [facility] [place] [facility] [address] [id number] [place] [address]- 0064 Oct, [facility] [place] [facility] [address] [id number] [place] [address]- 1376 Oct, [facility] [place] [facility] [address] [id number] [place] [address]- 6937 Oct, [facility] [place] [facility] [address] [id number] [place] [address]- 4985 Oct, [facility] [place] [facility] [address] [id number] [place] [address] Oct, [facility] [place] [facility] [address] [id number] [place] [address] Oct, [facility] [place] [facility] [address] [id number] [place] [address] Oct, [facility] [place] [facility] [address] [id number] [place] [address] Oct, [facility] [place] [facility] [address] [id number] [place] [address] Oct, 2013 [facility] [place] [facility] [address] [id number] [place] [address] Oct, [facility] [place] [facility] [address] [id number] [place] [address] Oct, [facility] [place] [facility] [address] [id number] [place] [address] Oct, [facility] [place] [facility] [address] [id number] [place] [address] Oct, [facility] [place] [facility] [address] [id number] [place] [address] Sep, [facility] [place] [facility] [address] [id number] [place] [address] Sep, [facility] [facility] [address] [id number] [place] [address] Sep, [facility] [place] [facility] [address] [id number] [place] [address] Sep, [facility] [place] [facility] [address] [id number] [place] [address] Sep, [facility] [address] [id number] [place] [address] Sep, [facility] [place] [facility] [address] [id number] [place] [address]- [address] 16 Sep, 2013 [facility] [place] [facility] [address] [id number] [place] [address] Sep, [facility] [address] [id number] [place] [address] Sep, [facility] [address] [id number] [place] [address] Sep, [facility] [address] [id number] [place] [address] Sep, [facility] [address] [id number] [place] [address] Sep, [facility] [address] [id number] [place] [address] August, [facility] [address] [id number] [place] [address] August, [facility] [address] [id number] [place] [address] August, [facility] [address] [id number] [place] [address]- [address] August, [facility] [address] [id number] [place] [address]- [address] August, [facility] [address] [id number] [place] [address] August, [facility] [address] [id number] [place] [address] August, [facility] [address] [id number] [place] [address]- [address] August, [facility] [address] [id number] [place] [address] August, [facility] [address] [id number] [place] [address]- [address] August, [facility] [address] [id number] [place] [id number] August, [facility] [address] [id number] [place] [address] August, [facility] [place] [facility] [address] [id number] [place] [address] August, [facility] [facility] [address] [id number] [place] [address] Jul, [facility] [facility] [address] [id number] [place] [address] Jul, [facility] [place] [facility] [address] [id number] [place] [address] Jul, [facility] [facility] [address] [id number] [place] [address] Jul, [facility] [address] [id number] [place] [address] Jul, [facility] [address] [id number] [place] [address] Jul, [facility] [address] [id number] [place] [address] Jul, [facility] [place] [facility] [address] [id number] [place] [address] Jul, [facility] [place] [facility] [address] [id number] [place] [address] Jul, [facility] [place] [facility] [address] [id number] [place] [address] Jul, [facility] [place] [facility] [address] [id number] [place] [address] Jul, [facility] [place] [facility] [address] [id number] [place] [address] Jul, [facility] [place] [facility] [address] [id number] [place] [address] Jul, [facility] [place] [facility] [address] [id number] [address] Jul, [facility], [place] [id number] [address] Jul, [facility], [place] [id number] [address] Jul, [facility], [place] [id number] [address] Jul, [facility], [place] [id number] [address] Jun, [facility], [place] [id number] [place] [address] Jun, [facility], [place] [id number] [address] Jun, [facility], [place] [id number] [address] Jun, [facility], [place] [id number] [address] Jun, [facility], [place] [id number] [address] Jun, [facility], [place] [id number] [address] Jun, [facility], [place] [id number] [address] Jun, [facility], [place] [id number] [address] Jun, IMMUNIZATIONS No Known Immunizations SOCIAL HISTORY Never Assessed REASON FOR VISIT Refill request PLAN OF CARE VITAL SIGNS MEDICATIONS Medication Instructions Dosage Frequency Start Date End Date Duration Status Pulmicort 0.5 mg/2ml Inhalation 2 times a day 2 ml 12h 30 Active RESULTS No Results PROCEDURES No Known [...] nec ankle and foot (718.87) Hospitalization History [facility] 10/16/15
[2018-04-02] MEDS ORDERED: ONDANSETRON 4 MG/2 ML (SDV) Z0FRAN IVP ONE (08:00)
[2018-04-02] MEDS ORDERED: FAMOTIDINE 20MG/2ML IV (PEPCID) IVP ONE (08:00)
[2018-04-02] MEDS ORDERED: PANTOPRAZOLE 40 MG (PROTONIX) VIAL IV ONE (08:00)
--- OUTSIDE RECORDS SUMMARY | 2018-04-02 08:00 | XMS REPORT ---
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 560041530 Problem Acquired hypothyroidism E03.9 Active 217480274 Problem Post-polio syndrome G14 Active 72938551 Problem Morbid obesity E66.01 Active 948838226 Problem Constipation, unspecified constipation type K59.00 Active 48883506 Problem Reactive airway disease J45.909 Active 031559292122 Problem 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 Active 20377183 Problem 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 Active 03109317 Problem Stomach ache R10.9 Active [id number] ALLERGIES No Information ENCOUNTERS Encounter Location Date Diagnosis [facility] [address] [place] [id number] Jul, Pneumonia due to infectious organism, unspecified laterality, unspecified part of lung J18.9 and [facility]bid [facility]66.[facility] [address] [place] [id number] Jul, [facility] [address] [facility] [id number] [address] Jul, [facility] [address] [facility] [id number] [address] [address] Jun, [facility] [address] [id number] [address] Jun, [facility] [place] [address] [id number] [id number] May, [facility], [place] [address] [id number][place] [id number] 08 May, 2017 Acute superficial gastritis without hemorrhage K29.00 [facility] [address] [place] [address] 08 May, 2017 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 ; 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 and Acute superficial gastritis without hemorrhage K29.00 [facility] [address] [id number], [place] [address] 18 Apr, 2017 [facility] [address] [id number], [place] [address] Apr, [facility] [address] [place] [id number] Mar, Obesity due to excess calories with serious comorbidity, unspecified classification E66.09 and Reactive airway disease J45.909 [facility] [address] [id number] [address] Mar, [facility], [place] [id number] [address] Jan, [facility] [address] [place] [address] Jan, 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 ; Weight gain R63.5 and 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 [facility], [place] [address] [id number][place] [address] Dec, [facility], [place] [address] [id number] [address] Dec, [facility] [address] [place] [address] Nov, Weight gain R63.5 ; 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 and Reactive airway disease J45.909 [facility], [place] [address] [id number] [address] Oct, [facility], [place] [address] [id number][place] [address] Sep, [facility] [address]00565100[place], [place] [address] August, [facility] [address] [place] [address] August, 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 [facility] [address]00565100[place], [place] [address] Jul, [facility] [address] [place] [address] 6116 Jul, Reactive airway disease J45.909 [facility] [address] [place] [address] Jun, 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 [facility] [address]00565100[place], [place] [address] Jun, 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 [facility] [address] [place] [address] May, 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 [facility] [address]00565100[place], [place] [address] May, [facility], [place] [id number] [place] [id number] Apr, [facility] [address]00565100[place], [place] [address] Apr, Reactive airway disease J45.909 [facility] [address]00565100[place], [place] [address] 69[address] Apr, Reactive airway disease J45.909 [facility] [address] [id number], [place] [address] Apr, [facility] [address] [place] [address]- 7286 Mar, [facility] [address] [place] [address] Mar, Mood disorder F39 and Shortness of breath R06.02 [facility] [address]00565100[place], [place] [address] Feb, [facility] [id number] [place] [address] Jan, [facility] [address] [place] [address] Jan, Moist breath sounds R06.89 and Constipation, unspecified constipation type K59.00 [facility] [id number] [place] [address]- 6966 Jan, [facility] [id number] [place] [address] 60[address]- 2389 Dec, Uncomplicated asthma, unspecified asthma severity J45.909 [facility] [id number] [place] [address]- 5902 Dec, [facility] [id number] [place] [address]- 3108 Dec, Uncomplicated asthma, unspecified asthma severity J45.909 [facility] [address] [place] [address] Dec, [address] [id number] Dec, 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 and Unspecified mood [affective] disorder F39 [facility] [address] [place] [address]- 4887 Dec, [facility] [id number] [place] [address]649- 1784 Dec, Reactive airway disease J45.909 [facility] [id number] [place] [address]- 4826 Nov, [facility] [address] [place] [address] 48731- 1000 Nov, [facility] [id number] [place] [address] 584[address]- 0551 Nov, [facility] [address] [place] [address] Nov, Shortness of breath R06.02 ; Family history of coronary arteriosclerosis Z82.49 and Dysuria R30.0 [facility] [address]00565100[place], [place] [address] Nov, [facility] [id number] [place] [address] 61407- 3089 Oct, [facility] [address]00565100[place], [place] [address] 7[address] Oct, [facility] [id number] [place] [address] 71605- 1468 Oct, [facility] [id number] [place] [address] 87636- 6198 Oct, [facility] [id number] [place] [address] 664[address]- 2001 Oct, [facility] [address]00565100[place], [place] [address] Oct, [facility] J98.09 [facility] [address] [place] [address] Sep, 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 and 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 [facility] [address]00565100[place], [place] [address] Sep, Stomach ache R10.9 [facility] [address]00565100[place], [place] [address] August, [facility] [address] [id number], [place] [address] 7965 August, [facility] [address]00565100[place], [place] [address] 3[address] Jul, [facility] [address] [id number], [place] [address] 5[address] Jul, [facility] [address]00565100[place], [place] [address]- 68[address] 14 Jul, 2015 [facility] [address]005[address], [place] [address] 13 Jul, 2015 [facility] [address]005[address], [place] [address] 7[address] Jul, [facility] [address] [place] [address] Jul, Fever R50.9 [facility] [address]005[address], [place] [address] 6[address] Jul, Reactive airway disease J45.909 [facility] [address] [place] [address]- 1972 Jun, [facility] [address] [place] [address] Jun, Reactive airway disease J45.909 and 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 [facility] [address] [place] [address]- 1277 May, [facility] [address] [place] [id number] May, Recurrent bronchospasm J98.09 ; Weight gain R63.5 ; 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 and Mood disorder F39 [facility] [address]00565[address], [place] [address] 9146 Apr, [facility] [address], [place] [address]- 8971 Apr, [facility] [address] [place] [address] Apr, Unspecified mood [affective] disorder F39 [facility] [address]00565100[place], [place] [address]- 8518 Feb, [facility] [address] [place] [address] Feb, Uncomplicated asthma, unspecified asthma severity J45.909 [facility] [address]005[address], [place] [address]- 4431 17 Feb, 2015 [facility] [id number] [place] [address] 31537- 3884 Feb, [facility] [id number] [place] [address] 06987- 7048 Feb, [facility] [id number] [place] [address] 64337- 5227 Jan, [facility] [id number] [place] [address] 90791- 3054 24 Dec, 2014 [facility] [id number] [place] [address] 24328- 9919 16 Dec, 2014 Antisocial behavior V71.01 and History of poliomyelitis without residual effect V12.02 [facility] [id number] [place] [address] 42004- 9455 Oct, Essential hypertension, malignant 401.0 ; Unspecified hypothyroidism 244.9 and 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 [facility] [id number] [place] [address] 91129- 8851 Sep, [facility] [id number] [place] [address] 91983- 2733 18 Sep, 2014 [facility] [id number] [place] [address] 86151- 5177 Sep, Abdominal pain, unspecified site 789.00 and Manipulative behavior V40.39 [facility] [address] [place] [address] 43110- 7358 09 Sep, 2014 [facility] [id number] [place] [address] 76036- 3652 14 Jul, 2014 [facility] [address] [place] [address] 40987- 7284 Jul, [facility] [id number] [place] [address] 48159- 4578 Jun, [facility] [address] [id number], [place] [address]- 0327 Jun, [facility] [address] [id number], [place] [address]- 4619 Jun, [facility] [address] [facility] [id number] Jun, [facility] [address] [id number] [address]- 2620 May, [facility] [address] [id number], [place] [address]- 3439 May, [facility] [address] [facility] [id number] Apr, [facility] [address] [id number], [place] [address]- 1403 Apr, [facility] [address] [id number], [place] [address]- 4784 Apr, [facility] [address] [id number], [place] [address]- 3264 Apr, [facility] [address] [id number], [place] [address]- 7872 Apr, [facility] [address] [id number], [place] [address]- 1887 Apr, [facility] [place] [facility] [address] [id number], [place] [address]- 9470 Apr, [facility] [place] [facility] [address] [id number], [place] [address]- 4358 Apr, [facility] [place] [facility] [address] [id number], [place] [address]- 9943 Apr, [facility] [place] [facility] [address] [id number], [place] [address]- 8112 Apr, [facility] [place] [facility] [address] [id number] [place] [address]- 1128 Mar, [facility] [place] [facility] [address] [id number] [place] [address]- 7431 Mar, [facility] [place] [facility] [address] [id number] [place] [address]- 3056 Mar, [facility] [place] [facility] [address] [id number] [place] [address]- 5245 Mar, [facility] [place] [facility] [address] [id number] [place] [address]- 5848 Mar, [facility] [place] [facility] [address] [id number] [place] [address]- 3582 Mar, [facility] [place] [facility] [address] [id number] [place] [address]- 9178 Mar, [facility] [place] [facility] [address] [id number] [place] [address]- 9204 Mar, [facility] [place] [facility] [address] [id number] [place] [address]- 4860 Mar, [facility] [place] [facility] [address] [id number] [place] [address]- 0959 Mar, [facility] [place] [facility] [address] [id number] [place] [address]- 9836 Mar, [facility] [place] [facility] [address] [id number] [place] [address]- 4157 Feb, [facility] [place] [facility] [address] [id number] [place] [address]- 6714 Feb, [facility] [place] [facility] [address] [id number] [place] [address]- 2223 Feb, [facility] [place] [facility] [address] [id number] [place] [address]- 1706 Feb, [facility] [place] [facility] [address] [id number] [place] [address]- 0143 Feb, [facility] [place] [facility] [address] [id number] [place] [address]- 3814 Feb, [facility] [place] [facility] [address] [id number] [place] [address]- 2170 Feb, [facility] [place] [facility] [address] [id number] [place] [address]- 2969 Feb, [facility] [place] [facility] [address] [id number] [place] [address]- 9484 Feb, [facility] [place] [facility] [address] [id number] [place] [address]- 3600 Feb, [facility] [place] [facility] [address] [id number] [place] [address]- 6794 Feb, [facility] [place] [facility] [address] [id number] [place] [address]- 9072 Feb, [facility] [place] [facility] [address] [id number] [place] [address]- 2993 Feb, [facility] [place] [facility] [address] [id number] [place] [address]- 2334 Feb, [facility] [place] [facility] [address] [id number] [place] [address]- 3496 Feb, [facility] [place] [facility] [address] [id number] [place] [address]- 5595 Feb, [facility] [place] [facility] [address] [id number] [place] [address]- 9383 Feb, [facility] [place] [facility] [address] [id number] [place] [address]- 2504 Feb, [facility] [place] [facility] [address] [id number] [place] [address]- 8277 Feb, [facility] [place] [facility] [address] [id number] [place] [address]- 8921 Feb, [facility] [place] [facility] [address] [id number] [place] [address]- 5109 Jan, [facility] [place] [facility] [address] [id number] [place] [address]- 4694 Jan, [facility] [place] [facility] [address] [id number] [place] [address]- 1225 Jan, [facility] [place] [facility] [address] [id number] [place] [address]- 2943 Jan, [facility] [place] [facility] [address] [id number] [place] [address]- 1094 Jan, [facility] [place] [facility] [address] [id number] [place] [address]- 2835 Jan, [facility] [place] [facility] [address] [id number] [place] [address]- 3944 Jan, [facility] [place] [facility] [address] [id number] [place] [address]- 5417 Jan, [facility] [place] [facility] [address] [id number], [place] [address]- 0656 15 Jan, 2014 [facility] [place] [facility] [address] [id number], [place] [address]- 3260 15 Jan, 2014 [facility] [place] [facility] [address] [id number], [place] [address]- 6939 15 Jan, 2014 [facility] [place] [facility] [address] [id number], [place] [address]- 1700 15 Jan, 2014 [facility] [place] [facility] [address] [id number], [place] [address]- 0996 14 Jan, 2014 [facility] [place] [facility] [address] [id number] [place] [address]- 8133 09 Jan, 2014 [facility] [place] [facility] [address] [id number], [place] [address]- 2698 08 Jan, 2014 [facility] [place] [facility] [address] [id number], [place] [address]- 0375 06 Jan, 2014 [facility] [place] [facility] [address] [id number] [place] [address]- 4954 06 Jan, 2013 [facility] [place] [facility] [address] [id number] [place] [address]- 8216 06 Jan, 2013 [facility] [place] [facility] [address] [id number] [place] [address]- 6326 06 Jan, 2013 [facility] [place] [facility] [address] [id number] [place] [address]- 0498 29 Sep, 2013 [facility] [place] [facility] [address] [id number] [place] [address] 2540 23 Sep, 2013 [facility] [place] [facility] [address] [id number] [place] [address]- 8972 22 Dec, 2013 [facility] [place] [facility] [address] [id number] [place] [address]- 2638 22 Dec, 2013 [facility] [place] [facility] [address] [id number] [place] [address]- 2414 19 Dec, 2013 [facility] [place] [facility] [address] [id number] [place] [address]- 2543 19 Dec, 2013 [facility] [place] [facility] [address] [id number] [place] [address]- 2540 18 Dec, 2013 [facility] [place] [facility] [address] [id number] [place] [address]- 2543 17 Sep, 2013 [facility] [place] [facility] [address] [id number] [place] [address] 2547 17 Dec, 2013 [facility] [place] [facility] [address] [id number] [place] [address]- 2540 16 Sep, 2013 [facility] [place] [facility] [address] [id number] [place] [address] 254 16 Sep, 2013 [facility] [place] [facility] [address] [id number] [place] [address]- 2543 10 Sep, 2013 [facility] [place] [facility] [address] [id number] [place] [address] 2549 Dec, [facility] [place] [facility] [address] [id number] [place] [address]- 1026 Nov, [facility] [place] [facility] [address] [id number] [place] [address]- 0439 Nov, [facility] [place] [facility] [address] [id number] [place] [address]- 7871 Nov, [facility] [place] [facility] [address] [id number] [place] [address]- 6423 Nov, [facility] [place] [facility] [address] [id number] [place] [address]- 7491 Nov, [facility] [place] [facility] [address] [id number] [place] [address]- 0241 Nov, [facility] [place] [facility] [address] [id number] [place] [address]- 5189 Nov, [facility] [place] [facility] [address] [id number] [place] [address]- 3385 Nov, [facility] [place] [facility] [address] [id number] [place] [address]- 7891 Nov, [facility] [place] [facility] [address] [id number] [place] [address]- 1075 Nov, [facility] [place] [facility] [address] [id number] [place] [address]- 1237 Oct, [facility] [place] [facility] [address] [id number] [place] [address] Oct, [facility] [place] [facility] [address] [id number] [place] [address] Oct, [facility] [place] [facility] [address] [id number] [place] [address] Oct, [facility] [place] [facility] [address] [id number] [place] [address] Oct, [facility] [place] [facility] [address] [id number] [place] [address] Oct, [facility] [place] [facility] [address] [id number] [place] [address] Oct, [facility] [place] [facility] [address] [id number] [place] [address] Oct, [facility] [place] [facility] [address] [id number] [place] [address] Oct, [facility] [place] [facility] [address] [id number] [place] [address] Oct, [facility] [place] [facility] [address] [id number] [place] [address] Oct, [facility] [place] [facility] [address] [id number] [place] [address] 89[address] Oct, [facility] [place] [facility] [address] [id number] [place] [address] Oct, [facility] [place] [facility] [address] [id number] [place] [address] Sep, [facility] [place] [facility] [address] [id number] [place] [address] Sep, [facility] [place] [facility] [address] [id number] [place] [address] Sep, [facility] [place] [facility] [address] [id number] [place] [address] 24 Sep, 2013 [facility] [place] [facility] [address] [id number] [place] [address] 39[address] Sep, [facility] [place] [facility] [address] [id number] [place] [address] Sep, [facility] [place] [facility] [address] [id number] [place] [address]- [address] 16 Sep, 2013 [facility] [place] [facility] [address] [id number] [place] [address]- [address] 13 Sep, 2013 [facility] [place] [facility] [address] [id number] [place] [address] Sep, [facility] [address] [id number] [place] [address] Sep, [facility] [place] [facility] [address] [id number] [place] [address] Sep, [facility] [address] [id number] [place] [address]- 69[address] Sep, [facility] [place] [facility] [address] [id number] [place] [address] 79[address] August, [facility] [address] [id number] [place] [address] August, [facility] [address] [id number] [place] [address] August, [facility] [address] [id number] [place] [address] August, [facility] [address] [id number] [place] [address] August, [facility] [address] [id number] [place] [address] August, [facility] [address] [id number] [place] [address] August, [facility] [place] [facility] [address] [id number] [place] [address] August, [facility] [place] [facility] [address] [id number] [place] [address]- 2494 August, [facility] [place] [facility] [address] [id number] [place] [address]- [address] August, [facility] [place] [facility] [address] [id number] [place] [address]- [address] August, [facility] [place] [facility] [address] [id number] [place] [id number] August, [facility] [place] [facility] [address] [id number] [place] [address] August, [facility] [place] [facility] [address] [id number] [place] [address]- [address] Jul, [facility] [place] [facility] [address] [id number] [place] [address]- [address] Jul, [facility] [place] [facility] [address] [id number] [place] [address]- [address]45 Jul, [facility] [place] [facility] [address] [id number] [place] [address]- 86[address] Jul, [facility] [place] [facility] [address] [id number] [place] [address]- [address] Jul, [facility] [place] [facility] [address] [id number] [place] [address]- [address] Jul, [facility] [place] [facility] [address] [id number] [place] [address]- 1156 Jul, [facility] [place] [facility] [address] [id number] [place] [address]- 8[address] Jul, [facility] [place] [facility] [address] [id number] [place] [address]- [address] Jul, [facility] [place] [facility] [address] [id number] [place] [address]- 14[address] Jul, [facility] [place] [facility] [address] [id number] [place] [address] Jul, [facility] [place] [facility] [address] [id number] [place] [address] Jul, [facility] [place] [facility] [address] [id number] [place] [address] Jul, [facility] [place] [facility] [address] [id number] [place] [address] 14 Jul, 2013 [facility] [place] [facility] [address] [id number] [id number] 14 Jul, 2013 [facility] [id number] [address] Jul, [facility] [id number] [address] Jul, [facility] [address] [id number] [address] Jun, [facility] [id number] [place] [address] Jun, [facility] [id number] [place] [address] Jun, [facility] [id number] [place] [address] Jun, [facility] [id number] [place] [address] Jun, [facility] [id number] [address] Jun, [facility] [id number] [address] Jun, [facility] [id number] [address] Jun, [facility] [id number] [address] Jun, IMMUNIZATIONS No Known Immunizations SOCIAL HISTORY Never Assessed REASON FOR VISIT Gradual dose reduction PLAN OF CARE VITAL SIGNS MEDICATIONS Medication Instructions Dosage Frequency Start Date End Date Duration Status Risperidone 0.5 MG Orally Once a day 1 tablet 24h Oct, Active RESULTS No Results PROCEDURES No [...] ankle and foot (718.87) Hospitalization History [facility] 10/16/15
--- OUTSIDE RECORDS SUMMARY | 2018-04-02 08:01 | XMS REPORT ---
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 525740270 Problem Acquired hypothyroidism E03.9 Active 586934649 Problem Post-polio syndrome G14 Active 68900470 Problem Morbid obesity E66.01 Active 002759192 Problem Constipation, unspecified constipation type K59.00 Active 41245472 Problem Reactive airway disease J45.909 Active 070675363624 Problem 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 Active 44308002 Problem 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 Active 57343768 Problem Stomach ache R10.9 Active 678478401 ALLERGIES No Information ENCOUNTERS Encounter Location Date Diagnosis [facility] [address] [place] [id number] Jul, Pneumonia due to infectious organism, unspecified laterality, unspecified part of lung J18.9 and Morbid [facility] E66.01 [facility] [address] [place] [id number] Jul, [facility] [address] [facility] [id number] [address] Jul, [facility] [address] [facility] [id number] [address] Jun, [facility] [address] [id number] [address] Jun, [facility] [address] [id number] [address] May, [facility] [address] [id number] [id number] 08 May, 2017 Acute superficial gastritis without hemorrhage K29.00 [facility] [address] [place] [address] 08 May, 2017 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 ; 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 and Acute superficial gastritis without hemorrhage K29.00 [facility] [address] [id number] [address] 18 Apr, 2017 [facility] [address] [id number] [address] Apr, [facility] [address] [place] [id number] Mar, Obesity due to excess calories with serious comorbidity, unspecified classification E66.09 and Reactive airway disease J45.909 [place] [facility] [address] [id number] [address] Mar, [facility] [id number] [id number] Jan, [facility] [address] [place] [address] Jan, 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 ; Weight gain R63.5 and 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 [facility] [address] [id number][place] [address] Dec, [facility] [address] [id number] [address] Dec, [facility] [address] [place] [address] Nov, Weight gain R63.5 ; 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 and Reactive airway disease J45.909 [facility] [address] [id number][place] [address] Oct, [facility] [address] [id number][place] [address] Sep, [facility] [address]00565100[place] [address] August, [facility] [address] [place] [address] August, 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 [facility] [address]00565100[place] [address] Jul, [facility] [address] [place] [address] 3176 Jul, Reactive airway disease J45.909 [facility] [address] [place] [address] Jun, 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 [facility] [address]00565100[place] [address] Jun, 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 [facility] [address] [place] [id number] May, 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 [facility] [address]00565100[place] [address] May, [facility] [id number] [place] [id number] Apr, [facility] [address]00565100[place] [address] Apr, Reactive airway disease J45.909 [facility] [address]00565100[place] [address] Apr, Reactive airway disease J45.909 [facility] [address] [id number] [address] 6566 Apr, [facility] [address] [place] [address]- 2697 Mar, [facility] [address] [place] [address] Mar, Mood disorder F39 and Shortness of breath R06.02 [place] [address]00565100[place] [address] Feb, [place] [facility] [id number] [place] [address]- 6238 Jan, [facility] [address] [place] [id number] Jan, Moist breath sounds R06.89 and Constipation, unspecified constipation type K59.00 [place] [facility] [id number] [place] [address]- 1424 Jan, [facility] [id number] [place] [address]42- 4051 Dec, Uncomplicated asthma, unspecified asthma severity J45.909 [place] [facility] [id number] [place] [address]- 4124 Dec, [facility] [id number] [place] [address]45- 8845 Dec, Uncomplicated asthma, unspecified asthma severity J45.909 [place] [address] [place] [address]198- 8670 Dec, [address] [id number] Dec, 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 and Unspecified mood [affective] disorder F39 [place] [facility] [address] [place] [address]46- 3266 Dec, [facility] [id number] [place] [address] 45661- 3548 Dec, Reactive airway disease J45.909 [place] [facility] [id number] [place] [address]56- 0605 Nov, [place] [facility] [address] [place] [address] 67110- 2200 Nov, [place] [facility] [id number] [place] [address]30- 9430 Nov, [facility] [address] [place] [address] Nov, Shortness of breath R06.02 ; Family history of coronary arteriosclerosis Z82.49 and Dysuria R30.0 [facility] [address]00565100[place] [address] Nov, [facility] [id number] [place] [address] 06360- 1802 Oct, [facility] [address]00565100[place] [address] 1490 Oct, [facility] [id number] [place] [address] 71957- 8282 Oct, [facility] [id number] [place] [address] 05770- 2774 Oct, [facility] [id number] [place] [address] 80431- 2303 Oct, [facility] [address]00565100[place] [address]85 Oct, Recurrent bronchospasm J98.09 [facility] [address] [place] [address] Sep, 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 and 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 [facility] [address]00565100[place] [address]67 Sep, Stomach ache R10.9 [facility] [address]00565100[place] [address]47 August, [facility] [address] [id number] [address] 4304 August, [facility] [address]00565100[place] [address] 6973 Jul, [facility] [address] [id number], [place] [address] 3567 Jul, [facility] [address]00565100[place] [address]57 14 Jul, 2015 [place] [address]00565100[place] [address]- 1124 13 Jul, 2015 [place] [address]005[address], [place] [address] 5[address] Jul, [facility] [address] [place] [address] Jul, Fever R50.9 [place] [facility] [address]00565100[place] [address] 9208 Jul, Reactive airway disease J45.909 [place] [address] [place] [address] 21137- 8827 Jun, [facility] [address] [place] [address] Jun, Reactive airway disease J45.909 and 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 [place] [address] [place] [address] 10609- 0560 May, [facility] [address] [place] [address] May, Recurrent bronchospasm J98.09 ; Weight gain R63.5 ; 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 and Mood disorder F39 [place] [address]00565[address] [address]- 7[address] Apr, [place] [address]005[address]100[place] [address]- 2431 Apr, [facility] [address] [place] [address] Apr, Unspecified mood [affective] disorder F39 [place] [address]005[address] [address]- 2217 Feb, [facility] [address] [place] [address] Feb, Uncomplicated asthma, unspecified asthma severity J45.909 [facility] [address]00565100[place] [address]- 1299 17 Feb, 2015 [facility] [id number] [place] [address] 92561- 6345 Feb, [facility] [id number] [place] [address] 84338- 9863 Feb, [facility] [id number] [place] [address] 69449- 2362 Jan, [facility] [id number] [place] [address] 76846- 7337 24 Dec, 2014 [facility] [id number] [place] [address] 28741- 3773 16 Dec, 2014 Antisocial behavior V71.01 and History of poliomyelitis without residual effect V12.02 [facility] [id number] [place] [address] 53610- 8835 Oct, Essential hypertension, malignant 401.0 ; Unspecified hypothyroidism 244.9 and 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 [facility] [id number] [place] [address] 68961- 2641 Sep, [facility] [id number] [place] [address] 74609- 9065 18 Sep, 2014 [facility] [id number] [place] [address] 49159- 7142 Sep, Abdominal pain, unspecified site 789.00 and Manipulative behavior V40.39 [facility] [address] [place] [address] 99061- 8200 09 Sep, 2014 [facility] [id number] [place] [address] 44945- 1801 14 Jul, 2014 [facility] [address] [place] [address] 75128- 0201 Jul, [facility] [id number] [place] [address] 69420- 9667 Jun, [facility] [address] [id number] [address]- 8567 Jun, [facility] [address] [id number] [address]- 0012 Jun, [facility] [address] [facility] [place] [id number] Jun, [facility] [address] [id number] [address]- 3157 May, [facility] [address] [id number] [address]- 8281 May, [facility] [address] [facility] [id number] Apr, [facility] [address] [id number] [address]- 6150 Apr, [facility] [address] [id number] [address]- 5536 Apr, [facility] [address] [id number] [address]- 1255 Apr, [facility] [address] [id number] [address]- 1725 Apr, [facility] [address] [id number], [place] [address]- 3609 Apr, [facility] [place] [facility] [address] [id number] [address]- 0359 Apr, [facility] [place] [facility] [address] [id number] [address]- 4557 Apr, [facility] [place] [facility] [address] [id number] [address]- 3447 Apr, [facility] [place] [facility] [address] [id number] [address]- 9707 Apr, [facility] [place] [facility] [address] [id number] [place] [address]- 3460 Mar, [facility] [place] [facility] [address] [id number] [place] [address]- 8142 Mar, [facility] [place] [facility] [address] [id number] [place] [address]- 3951 Mar, [facility] [place] [facility] [address] [id number] [place] [address]- 8141 Mar, [facility] [place] [facility] [address] [id number] [place] [address]- 4952 Mar, [facility] [place] [facility] [address] [id number] [place] [address]- 2953 Mar, [facility] [place] [facility] [address] [id number] [place] [address]- 1963 Mar, [facility] [place] [facility] [address] [id number] [place] [address]- 9815 Mar, [facility] [place] [facility] [address] [id number] [place] [address]- 2521 Mar, [facility] [place] [facility] [address] [id number] [place] [address]- 0492 Mar, [facility] [place] [facility] [address] [id number] [place] [address]- 0224 Mar, [facility] [place] [facility] [address] [id number] [place] [address]- 9095 Feb, [facility] [place] [facility] [address] [id number] [place] [address]- 7355 Feb, [facility] [place] [facility] [address] [id number] [place] [address]- 1114 Feb, [facility] [place] [facility] [address] [id number] [place] [address]- 9345 Feb, [facility] [place] [facility] [address] [id number] [place] [address]- 7490 Feb, [facility] [place] [facility] [address] [id number] [place] [address]- 7817 Feb, [facility] [place] [facility] [address] [id number] [place] [address]- 6634 Feb, [facility] [place] [facility] [address] [id number] [place] [address]- 9748 Feb, [facility] [place] [facility] [address] [id number] [place] [address]- 1296 Feb, [facility] [place] [facility] [address] [id number] [place] [address]- 8457 Feb, [facility] [place] [facility] [address] [id number] [place] [address]- 8885 Feb, [facility] [place] [facility] [address] [id number] [place] [address]- 8114 Feb, [facility] [place] [facility] [address] [id number] [place] [address]- 1826 Feb, [facility] [place] [facility] [address] [id number] [place] [address]- 5623 Feb, [facility] [place] [facility] [address] [id number] [place] [address]- 5144 Feb, [facility] [place] [facility] [address] [id number] [place] [address]- 6008 Feb, [facility] [place] [facility] [address] [id number] [place] [address]- 3941 Feb, [facility] [place] [facility] [address] [id number] [place] [address]- 4339 Feb, [facility] [place] [facility] [address] [id number] [place] [address]- 0821 Feb, [facility] [place] [facility] [address] [id number] [place] [address]- 0552 Feb, [facility] [place] [facility] [address] [id number] [place] [address]- 1331 Jan, [facility] [place] [facility] [address] [id number] [place] [address]- 5197 Jan, [facility] [place] [facility] [address] [id number] [place] [address]- 3473 Jan, [facility] [place] [facility] [address] [id number] [place] [address]- 3198 Jan, [facility] [place] [facility] [address] [id number] [place] [address]- 7447 Jan, [facility] [place] [facility] [address] [id number] [place] [address]- 0124 Jan, [facility] [place] [facility] [address] [id number] [place] [address]- 6477 Jan, [facility] [place] [facility] [address] [id number] [place] [address]- 5372 Jan, [facility] [place] [facility] [address] [id number], [place] [address]- 7201 15 Jan, 2014 [facility] [place] [facility] [address] [id number], [place] [address]- 0479 15 Jan, 2014 [facility] [place] [facility] [address] [id number], [place] [address]- 9087 15 Jan, 2014 [facility] [place] [facility] [address] [id number] [address]- 8391 15 Jan, 2014 [facility] [place] [facility] [address] [id number], [place] [address]- 0402 14 Jan, 2014 [facility] [place] [facility] [address] [id number] [place] [address]- 0146 09 Jan, 2014 [facility] [place] [facility] [address] [id number], [place] [address]- 1574 08 Jan, 2014 [facility] [place] [facility] [address] [id number] [address]- 0495 06 Jan, 2014 [facility] [place] [facility] [address] [id number] [place] [address]- 7697 06 Jan, 2013 [facility] [place] [facility] [address] [id number] [place] [address]- 9231 06 Jan, 2013 [facility] [place] [facility] [address] [id number] [place] [address]- 2836 06 Jan, 2013 [facility] [place] [facility] [address] [id number] [place] [address]- 8263 29 Sep, 2013 [facility] [place] [facility] [address] [id number] [place] [address] 2548 23 Sep, 2013 [facility] [place] [facility] [address] [id number] [place] [address]- 8808 22 Dec, 2013 [facility] [place] [facility] [address] [id number] [place] [address]- 3946 22 Dec, 2013 [facility] [place] [facility] [address] [id number] [place] [address]- 9930 19 Dec, 2013 [facility] [place] [facility] [address] [id number] [place] [address]- 2544 19 Dec, 2013 [facility] [place] [facility] [address] [id number] [place] [address]- 2540 18 Dec, 2013 [facility] [place] [facility] [address] [id number] [place] [address]- 254 17 Sep, 2013 [facility] [place] [facility] [address] [id number] [place] [address] 2544 17 Dec, 2013 [facility] [place] [facility] [address] [id number] [place] [address]- 254 16 Sep, 2013 [facility] [place] [facility] [address] [id number] [place] [address] 2547 16 Sep, 2013 [facility] [place] [facility] [address] [id number] [place] [address]- 2544 10 Sep, 2013 [facility] [place] [facility] [address] [id number] [place] [address] 2547 Dec, [facility] [place] [facility] [address] [id number] [place] [address]- 8183 Nov, [facility] [place] [facility] [address] [id number] [place] [address]- 7404 Nov, [facility] [place] [facility] [address] [id number] [place] [address]- 7740 Nov, [facility] [place] [facility] [address] [id number] [place] [address]- 1661 Nov, [facility] [place] [facility] [address] [id number] [place] [address]- 0685 Nov, [facility] [place] [facility] [address] [id number] [place] [address]- 4210 Nov, [facility] [place] [facility] [address] [id number] [place] [address]- 3635 Nov, [facility] [place] [facility] [address] [id number] [place] [address]- 5843 Nov, [facility] [place] [facility] [address] [id number] [place] [address]- 4263 Nov, [facility] [place] [facility] [address] [id number] [place] [address]- 0839 Nov, [facility] [place] [facility] [address] [id number] [place] [address]- 5045 Oct, [facility] [place] [facility] [address] [id number] [place] [address]- 3248 Oct, [facility] [place] [facility] [address] [id number] [place] [address]- 2525 Oct, [facility] [place] [facility] [address] [id number] [place] [address]- 7198 Oct, [facility] [place] [facility] [address] [id number] [place] [address] Oct, [facility] [place] [facility] [address] [id number] [place] [address] Oct, [facility] [place] [facility] [address] [id number] [place] [address] Oct, [facility] [place] [facility] [address] [id number] [place] [address] Oct, [facility] [place] [facility] [address] [id number] [place] [address] Oct, [facility] [place] [facility] [address] [id number] [place] [address] Oct, [facility] [place] [facility] [address] [id number] [place] [address] Oct, [facility] [place] [facility] [address] [id number] [place] [address] Oct, [facility] [place] [facility] [address] [id number] [place] [address] Oct, [facility] [place] [facility] [address] [id number] [place] [address] Sep, [facility] [place] [facility] [address] [id number] [place] [address] Sep, [facility] [place] [facility] [address] [id number] [place] [address] Sep, [facility] [place] [facility] [address] [id number] [place] [address] 24 Sep, 2013 [facility] [place] [facility] [address] [id number] [place] [address] Sep, [facility] [place] [facility] [address] [id number] [place] [address]- [address] Sep, [facility] [place] [facility] [address] [id number] [place] [address]- [address] 16 Sep, 2013 [facility] [place] [facility] [address] [id number] [place] [address]- [address] 13 Sep, 2013 [facility] [place] [facility] [address] [id number] [place] [address] Sep, [facility] [address] [id number] [place] [address] Sep, [facility] [place] [facility] [address] [id number] [place] [address] Sep, [facility] [address] [id number] [place] [address] Sep, [facility] [place] [facility] [address] [id number] [place] [address] August, [facility] [address] [id number] [place] [address] August, [facility] [address] [id number] [place] [address] August, [facility] [address] [id number] [place] [address] August, [facility] [address] [id number] [place] [address] August, [facility] [address] [id number] [place] [address]- [address] August, [facility] [address] [id number] [place] [address] August, [facility] [place] [facility] [address] [id number] [place] [address] August, [facility] [place] [facility] [address] [id number] [place] [address] 45[address] August, [facility] [place] [facility] [address] [id number] [place] [address] August, [facility] [place] [facility] [address] [id number] [place] [address]- [address] August, [facility] [place] [facility] [address] [id number] [place] [id number] August, [facility] [place] [facility] [address] [id number] [place] [address] 1183 August, [facility] [place] [facility] [address] [id number] [place] [address] Jul, [facility] [place] [facility] [address] [id number] [place] [address] Jul, [facility] [place] [facility] [address] [id number] [place] [address] Jul, [facility] [place] [facility] [address] [id number] [place] [address]- 267[address] Jul, [facility] [place] [facility] [address] [id number] [place] [address] Jul, [facility] [place] [facility] [address] [id number] [place] [address]- [address] Jul, [facility] [place] [facility] [address] [id number] [place] [address] Jul, [facility] [place] [facility] [address] [id number] [place] [address] Jul, [facility] [place] [facility] [address] [id number] [place] [address] Jul, [facility] [place] [facility] [address] [id number] [place] [address]- 2699 Jul, [facility] [place] [facility] [address] [id number] [place] [address]- [address] Jul, [facility] [place] [facility] [address] [id number] [place] [address]- [address] Jul, [facility] [place] [facility] [address] [id number] [place] [address]- 359[address] Jul, [facility] [place] [facility] [address] [id number] [place] [address]- [address] 14 Jul, 2013 [facility] [place] [facility] [address] [id number] [address] 14 Jul, 2013 [facility] [id number] [address] Jul, [facility] [id number] [address] Jul, [facility] [id number] [address] Jun, [facility] [id number] [place] [address] Jun, [facility] [id number] [place] [place] [phone] Jun, [facility] [id number] [place] [phone]- [phone] Jun, [facility] [id number] [place] [phone]- [phone] Jun, [facility] [id number] [place] [phone]- [phone] Jun, [facility] [id number] [address] Jun, [facility] [id number] [address] Jun, [facility] [id number] [address] Jun, IMMUNIZATIONS No Known Immunizations SOCIAL HISTORY Never Assessed REASON FOR VISIT Request for sched. Ibuprofen PLAN OF CARE VITAL SIGNS MEDICATIONS Medication Instructions Dosage Frequency Start Date End Date Duration Status Ibuprofen 600 MG Orally 2 times a day 1 tablet with food or milk 12h 12 DecJan, 30 day(s) Active RESULTS No Results PROCEDURES No Known [...] nec ankle and foot (718.87) Hospitalization History [facility] 10/16/15
--- OUTSIDE RECORDS SUMMARY | 2018-04-02 08:02 | XMS REPORT ---
Author Author GEORGIA DOWNEY Organization [facility] Address [address] [place] [address] Care Team Providers Care Sales Engineer Name Role Phone GEORGIA DOWNEY Unavailable PROBLEMS Type Condition ICD9-CM Code VYW31-LU Code Onset Dates Condition Status SNOMED Code Problem Post-polio syndrome G14 Active 43850728 Problem 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 243218861 Problem Mood disorder F39 Active 23423949 Problem Acquired hypothyroidism E03.9 Active 025109294 Problem Constipation, unspecified constipation type K59.00 Active 49314033 Problem 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 Active 36744799 Problem 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 Active 41002340 Problem Weight gain R63.5 Active 5679896 Problem Stomach ache R10.9 Active 622438575 Problem Reactive airway disease J45.909 Active [id number] ALLERGIES No Information ENCOUNTERS Encounter Location Date Diagnosis [facility] [address] [id number] [id number] Jun, [facility] [address] [id number] [address] [address] Jun, [facility] [place] [id number] [place] [id number] May, [facility] [place] [address] [id number] [id number] May, Acute superficial gastritis without hemorrhage K29.00 [facility] [address] [place] [id number] May, 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 ; H/O post-polio syndrome Z86.12 and Acute superficial gastritis without hemorrhage K29.00 [facility] [address] [id number] [address] Apr, [facility] [address] [id number], [place] [address] 5416 Apr, [facility] [address] [id number] Mar, Obesity due to excess calories with serious comorbidity, unspecified classification E66.09 and Reactive airway disease J45.909 [facility] [address] [id number], [place] [address] 2546 Mar, [facility] [place] [address] [id number] [id number] Jan, [facility] [address] [id number] Jan, H/O post-polio syndrome Z86.12 ; Weight gain R63.5 and 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 [facility] [place] [id number] [id number] Dec, [facility] [place] [address] [id number] [id number] Dec, [facility] [address] [id number] Nov, Weight gain R63.5 ; H/O post-polio syndrome Z86.12 and Reactive airway disease J45.909 [facility] [place] [id number] [id number] Oct, [facility] [place] [id number] [id number] Sep, [facility] [address] [facility] [id number] [address] August, [facility] [address] [id number] August, H/O post-polio syndrome Z86.12 [facility] [address] [id number], [place] [address] 8936 Jul, [facility] [id number] [place] [address] 89392- 3476 Jul, Reactive airway disease J45.909 [facility] [address] [place] [id number] Jun, H/O post-polio syndrome Z86.12 [facility] [id number] [place] [address] 58852- 2836 Jun, 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 [facility] [address] [id number] May, H/O post-polio syndrome Z86.12 [facility] [id number] [place] [address] 93929- 2227 May, [facility] [place] [id number] [place] [address] [id number] Apr, [facility] [id number] [place] [address] 88512- 3348 Apr, Reactive airway disease J45.909 [facility] [id number] [place] [address] 606743- 2903 Apr, Reactive airway disease J45.909 [facility] [id number] [place] [address] 30174- 0124 Apr, [facility] [id number] [place] [address] 809347- 9186 Mar, [facility] [address] [id number] Mar, Mood disorder F39 and Shortness of breath R06.02 [facility] [id number] [place] [address] 37477- 9862 Feb, [facility] [id number] [place] [address] 03374- 4330 Jan, [facility] [address] [place] [id number] Jan, Moist breath sounds R06.89 and Constipation, unspecified constipation type K59.00 [facility] [address] [id number] [address] 3206 Jan, [facility] [id number] [place] [address] 56101- 4106 Dec, Uncomplicated asthma, unspecified asthma severity J45.909 [facility] [id number] [place] [address] 55348- 7071 Dec, [facility] [id number] [place] [address] 11918- 7519 Dec, Uncomplicated asthma, unspecified asthma severity J45.909 [facility] [id number] [place] [address] 48690- 5789 Dec, [facility] [address] [place] [id number] Dec, H/O post-polio syndrome Z86.12 and Unspecified mood [affective] disorder F39 [facility] [id number] [place] [address] 87731- 1605 Dec, [place] [facility] [id number] [place] [address] 35051- 9582 Dec, Reactive airway disease J45.909 [facility] [id number] [place] [address] 11101- 5182 Nov, [facility] [id number] [place] [address] 18517- 7910 Nov, [facility] [id number] [place] [address] 31496- 8202 Nov, [facility] [address] [place] [id number] Nov, Shortness of breath R06.02 ; Family history of coronary arteriosclerosis Z82.49 and Dysuria R30.0 [facility] [id number] [place] [address] 86070- 0447 Nov, [facility] [id number] [place] [address] 00511- 0311 Oct, [facility] [address] [id number], [place] [address]- 7791 Oct, [facility] [address], [place] [address]- 0858 Oct, [facility] [address], [place] [address]- 7569 Oct, [facility] [address], [place] [address]- 2708 Oct, [facility] [address], [place] [address]- 5717 Oct, Recurrent bronchospasm J98.09 [facility] [address] [address] Sep, H/O post-polio syndrome Z86.12 and 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 [facility] [address], [place] [address]- 8064 Sep, Stomach ache R10.9 [facility] [address], [place] [address]- 2553 August, [facility] [address], [place] [address]- 1847 August, [facility] [address], [place] [address]- 0007 Jul, [facility] [address], [place] [address]- 6867 Jul, [facility] [address] [id number], [place] [address]- 8016 Jul, [facility] [address], [place] [address]- 0546 Jul, [facility] [address] [id number], [place] [address]- 6801 Jul, [facility] [address] [place] [id number] Jul, Fever R50.9 [facility] [id number] [place] [address] 17039- 6766 Jul, Reactive airway disease J45.909 [facility] [id number] [place] [address] 36396- 7495 Jun, [facility] [address] [address] Jun, Reactive airway disease J45.909 and 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 [facility] [id number] [place] [address] 00383- 3275 May, [facility] [address] [id number] May, Recurrent bronchospasm J98.09 ; Weight gain R63.5 ; H/O post-polio syndrome Z86.12 and Mood disorder F39 [place] [facility] [id number] [place] [address] 63450- 4684 Apr, [facility] [id number] [place] [address] 26447- 2342 Apr, [facility] [address] [id number] Apr, Unspecified mood [affective] disorder F39 [address] [place] [id number] [place] [address] 48375- 3667 Feb, [facility] [address] [id number] Feb, Uncomplicated asthma, unspecified asthma severity J45.909 [facility] [address], [place] [address]- 0530 Feb, [facility] [id number] [place] [address] 41668- 4238 Feb, [place] [facility] [id number] [place] [address] 68123- 2527 Feb, [facility] [id number] [place] [address] 81336- 1905 14 Jan, 2015 [facility] [id number] [place] [address] 00214- 1961 24 Dec, 2014 [facility] [id number] [place] [address] 83730- 4308 16 Dec, 2014 Antisocial behavior V71.01 and History of poliomyelitis without residual effect V12.02 [facility] [id number] [place] [address] 08704- 7652 Oct, Essential hypertension, malignant 401.0 ; Unspecified hypothyroidism 244.9 and 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 [facility] [id number] [place] [address] 12497- 7685 Sep, [facility] [id number] [place] [address] 42522- 7561 Sep, [facility] [id number] [place] [address] 43057- 0065 Sep, Abdominal pain, unspecified site 789.00 and Manipulative behavior V40.39 [facility] [id number] [place] [address] 77231- 8075 Sep, [facility] [id number] [place] [address] 98436- 6480 Jul, [facility] [id number] [place] [address] 18623- 0745 Jul, [facility] [id number] [place] [address] 70516- 3525 Jun, [facility] [id number] [place] [address] 08317- 4859 Jun, [facility] [id number] [place] [address] 18631- 8173 Jun, [facility] [address] [id number] Jun, [facility] [id number] [place] [address] 64385- 6547 May, [facility] [address] [id number] [place] [address]- 8857 May, [facility] [address] [place] [id number] Apr, [facility] [address] [id number] [place] [address]- 5055 Apr, [facility] [place] [facility] [address] [id number], [place] [address]- 9945 Apr, [facility] [place] [facility] [address] [id number] [place] [address]- 3549 Apr, [facility] [place] [facility] [address] [id number] [place] [address]- 8389 Apr, [facility] [place] [facility] [address] [id number] [place] [address]- 6768 Apr, [facility] [place] [facility] [address] [id number] [place] [address]- 1564 Apr, [facility] [place] [facility] [address] [id number] [place] [address]- 3170 Apr, [facility] [place] [facility] [address] [id number] [place] [address]- 6054 Apr, [facility] [place] [facility] [address] [id number], [place] [address]- 4898 Apr, [facility] [place] [facility] [address] [id number] [place] [address]- 1655 Mar, [facility] [place] [facility] [address] [id number] [place] [address]- 7492 Mar, [facility] [place] [facility] [address] [id number] [place] [address]- 6454 Mar, [facility] [place] [facility] [address] [id number] [place] [address]- 6871 Mar, [facility] [place] [facility] [address] [id number] [place] [address]- 4156 Mar, [facility] [place] [facility] [address] [id number] [place] [address]- 2765 Mar, [facility] [place] [facility] [address] [id number] [place] [address]- 0507 Mar, [facility] [place] [facility] [address] [id number] [place] [address]- 3655 Mar, [facility] [place] [facility] [address] [id number] [place] [address]- 2920 Mar, [facility] [place] [facility] [address] [id number] [place] [address]- 0760 Mar, [facility] [place] [facility] [address] [id number] [place] [address]- 9653 Mar, [facility] [place] [facility] [address] [id number] [place] [address]- 5198 Feb, [facility] [place] [facility] [address] [id number] [place] [address]- 2126 Feb, [facility] [place] [facility] [address] [id number] [place] [address]- 0939 Feb, [facility] [place] [facility] [address] [id number] [place] [address]- 2700 Feb, [facility] [place] [facility] [address] [id number] [place] [address]- 0474 Feb, [facility] [place] [facility] [address] [id number] [place] [address]- 5616 Feb, [facility] [place] [facility] [address] [id number] [place] [address]- 5597 Feb, [facility] [place] [facility] [address] [id number] [place] [address]- 2424 Feb, [facility] [place] [facility] [address] [id number] [place] [address]- 6355 Feb, [facility] [place] [facility] [address] [id number] [place] [address]- 3958 Feb, [facility] [place] [facility] [address] [id number] [place] [address]- 6948 Feb, [facility] [place] [facility] [address] [id number] [place] [address]- 9020 Feb, [facility] [place] [facility] [address] [id number] [place] [address]- 1674 Feb, [facility] [place] [facility] [address] [id number] [place] [address]- 0763 Feb, [facility] [place] [facility] [address] [id number] [place] [address]- 5913 Feb, [facility] [place] [facility] [address] [id number] [place] [address]- 1841 Feb, [facility] [place] [facility] [address] [id number] [place] [address]- 9087 Feb, [facility] [place] [facility] [address] [id number] [place] [address]- 9109 Feb, [facility] [place] [facility] [address] [id number], [place] [address]- 8772 Feb, [facility] [place] [facility] [address] [id number], [place] [address]- 4856 Feb, [facility] [place] [facility] [address] [id number], [place] [address]- 2528 Jan, [facility] [place] [facility] [address] [id number] [place] [address]- 0313 Jan, [facility] [place] [facility] [address] [id number], [place] [address]- 4897 Jan, [facility] [place] [facility] [address] [id number], [place] [address]- 5870 Jan, [facility] [place] [facility] [address] [id number], [place] [address]- 3307 Jan, [facility] [place] [facility] [address] [id number] [place] [address]- 9569 Jan, [facility] [place] [facility] [address] [id number] [place] [address]- 5602 Jan, [facility] [place] [facility] [address] [id number] [place] [address]- 2917 Jan, [facility] [place] [facility] [address] [id number], [place] [address]- 2824 15 Jan, 2014 [facility] [place] [facility] [address] [id number] [place] [address]- 5256 15 Jan, 2014 [facility] [place] [facility] [address] [id number] [place] [address]- 9602 Jan, [facility] [place] [facility] [address] [id number], [place] [address]- 2554 Jan, [facility] [place] [facility] [address] [id number], [place] [address]- 5624 14 Jan, 2014 [facility] [place] [facility] [address] [id number], [place] [address]- 1241 Jan, [facility] [place] [facility] [address] [id number], [place] [address]- 0893 08 Jan, 2014 [facility] [place] [facility] [address] [id number], [place] [address]- 0768 Jan, [facility] [place] [facility] [address] [id number], [place] [address]- 9072 Jan, [facility] [place] [facility] [address] [id number], [place] [address]- 9783 Jan, [facility] [place] [facility] [address] [id number], [place] [address]- 7587 Jan, [facility] [place] [facility] [address] [id number], [place] [address]- 9068 Dec, [facility] [place] [facility] [address] [id number] [place] [address]- 7985 23 Sep, 2013 [facility] [place] [facility] [address] [id number] [place] [address] 2546 22 Dec, 2013 [facility] [place] [facility] [address] [id number] [place] [address] 2546 22 Dec, 2013 [facility] [place] [facility] [address] [id number] [place] [address] 2546 19 Sep, 2013 [facility] [place] [facility] [address] [id number] [place] [address] 2540 19 Sep, 2013 [facility] [place] [facility] [address] [id number] [place] [address]- 7718 18 Dec, 2013 [facility] [place] [facility] [address] [id number] [place] [address]- 9484 17 Dec, 2013 [facility] [place] [facility] [address] [id number] [place] [address]- 4612 17 Dec, 2013 [facility] [place] [facility] [address] [id number] [place] [address] 254 16 Dec, 2013 [facility] [place] [facility] [address] [id number] [place] [address]- 2544 16 Dec, 2013 [facility] [place] [facility] [address] [id number] [place] [address]- 2540 10 Dec, 2013 [facility] [place] [facility] [address] [id number] [place] [address]- 2545 10 Dec, 2013 [facility] [place] [facility] [address] [id number] [place] [address]- 2543 Nov, [facility] [place] [facility] [address] [id number] [place] [address]- 2548 Nov, [facility] [place] [facility] [address] [id number] [place] [address]- 254 Nov, [facility] [place] [facility] [address] [id number] [place] [address]- 9096 Nov, [facility] [place] [facility] [address] [id number] [place] [address]- 9050 Nov, [facility] [place] [facility] [address] [id number] [place] [address]- 9965 Nov, [facility] [place] [facility] [address] [id number] [place] [address]- 1724 Nov, [facility] [place] [facility] [address] [id number] [place] [address]- 0231 Nov, [facility] [place] [facility] [address] [id number] [place] [address]- 5254 Nov, [facility] [place] [facility] [address] [id number] [place] [address]- 4067 Nov, [facility] [place] [facility] [address] [id number] [place] [address]- 2277 Oct, [facility] [place] [facility] [address] [id number] [place] [address]- 2796 Oct, [facility] [place] [facility] [address] [id number] [place] [address]- 0287 Oct, [facility] [place] [facility] [address] [id number] [place] [address]- 8931 Oct, [facility] [place] [facility] [address] [id number] [place] [address]- 4418 Oct, [facility] [place] [facility] [address] [id number] [place] [address]- 6438 Oct, [facility] [place] [facility] [address] [id number] [place] [address]- 1045 Oct, [facility] [place] [facility] [address] [id number] [place] [address]- 1948 Oct, [facility] [place] [facility] [address] [id number] [place] [address]- 3331 Oct, [facility] [place] [facility] [address] [id number] [place] [address]- 8886 Oct, [facility] [place] [facility] [address] [id number] [place] [address]- 6629 Oct, [facility] [place] [facility] [address] [id number] [place] [address]- 4490 Oct, [facility] [place] [facility] [address] [id number] [place] [address]- 0849 Oct, [facility] [place] [facility] [address] [id number] [place] [address]- 1791 Sep, [facility] [place] [facility] [address] [id number] [place] [address]- 7700 Sep, [facility] [place] [facility] [address] [id number] [place] [address]- 9498 Sep, [facility] [place] [facility] [address] [id number] [place] [address]- 7871 Sep, [facility] [place] [facility] [address] [id number] [place] [address]- 9123 Sep, [facility] [place] [facility] [address] [id number] [place] [address] Sep, [facility] [place] [facility] [address] [id number] [place] [address] Sep, [facility] [place] [facility] [address] [id number] [place] [address] Sep, [facility] [place] [facility] [address] [id number] [place] [address] Sep, [facility] [place] [facility] [address] [id number] [place] [address] Sep, [facility] [place] [facility] [address] [id number] [place] [address] Sep, [facility] [place] [facility] [address] [id number] [place] [address] Sep, [facility] [place] [facility] [address] [id number] [place] [address] August, [facility] [address] [id number] [place] [address] August, [facility] [place] [facility] [address] [id number] [place] [address] August, [facility] [address] [id number] [place] [address] August, [facility] [address] [id number] [place] [address] August, [facility] [address] [id number] [place] [address] August, [facility] [address] [id number] [place] [address] August, [facility] [address] [id number] [place] [address] August, [facility] [address] [id number] [place] [address] August, [facility] [place] [facility] [address] [id number] [place] [address] August, [facility] [place] [facility] [address] [id number] [place] [address]- [address] August, [facility] [place] [facility] [address] [id number] [place] [address] August, [facility] [place] [facility] [address] [id number] [place] [address] August, [facility] [place] [facility] [address] [id number] [place] [address] Jul, [facility] [place] [facility] [address] [id number] [place] [address] Jul, [facility] [place] [facility] [address] [id number] [place] [address] Jul, [facility] [place] [facility] [address] [id number] [place] [address]- [address] 29 Jul, 2013 [facility] [place] [facility] [address] [id number] [place] [address] 28 Jul, 2013 [facility] [place] [facility] [address] [id number] [place] [address] Jul, [facility] [place] [facility] [address] [id number] [place] [address] Jul, [facility] [place] [facility] [address] [id number] [place] [address] Jul, [facility] [place] [facility] [address] [id number] [place] [address] Jul, [facility] [place] [facility] [address] [id number] [place] [address] Jul, [facility] [place] [facility] [address] [id number] [place] [address] 16 Jul, 2013 [facility] [place] [facility] [address] [id number] [place] [address] Jul, [facility] [place] [facility] [address] [id number] [place] [address] Jul, [facility] [place] [facility] [address] [id number] [place] [address] Jul, [facility] [place] [facility] [address] [id number] [place] [address] 14 Jul, 2013 [facility] [place] [facility] [address] [id number] [place] [address]- [address] 10 Jul, 2013 [facility] [place] [facility] [address] [id number] [place] [address] 10 Jul, 2013 [facility] [place] [facility] [address] [id number] [place] [address] 25 Jun, 2013 [facility] [place] [facility] [address] [address] [id number] [id number] Jun, [facility] [id number] [address] Jun, [facility] [id number] [address] Jun, [facility] [id number] [address] Jun, [facility] [id number] [address] Jun, [facility] [id number] [address] Jun, [facility] [id number] [place] [address] Jun, [facility] [id number] [address] Jun, IMMUNIZATIONS No Known Immunizations SOCIAL HISTORY Never Assessed REASON FOR VISIT Routine Visit PLAN OF CARE Activity Details Follow Up prn Reason: VITAL SIGNS MEDICATIONS Medication Instructions Dosage Frequency Start Date End Date Duration Status Neurontin 100 mg Orally 2 times a day for leg pain 1 August, Active Losartan Potassium 50 TAKE ONE TABLET BY MOUTH DAILY 30 Active Toprol XL 50 TAKE ONE TABLET BY MOUTH DAILY 30 Active Potassium Chloride 20 MEQ Orally Once a dayX 3days then 1 packet daily X 3 days 2 packet with food Jan, Active Trulicity 1.5 MG/0.5ML Subcutaneous once weekly 0.5 ml Jun, 30 days Active Lasix 40 mg Orally Once a day X 3 days then 1 tab daily X 3 days. 2 tablet Jan, Active Zoloft 100 MG Orally Once a day 1 tablet 24h Active Pulmicort 0.5 MG/2ML Inhalation 2 times a day 2 ml 12h 7 Nov, 2016 30 days Active Guaifenesin 400 mg Orally 2 times a day 1 tablet as needed for thick secretions 12h 11 Jul, 2016 Sep, 30 days Active Milk of Magnesia 400 MG/5ML Orally daily prn constipation 10 ml as needed Jan, Active Albuterol Sulfate 0.63 MG/3ML Inhalation every 4 hours 3 ml as needed for SOB /Cough 4h 06 Jul, 2015 30 days Active Risperidone 0.5 MG Orally twice a day 1 tablet 12h Oct, 30 days Active RESULTS No Results PROCEDURES Procedure Date Ordered Result Body Site Minor complication (15 mins) August 24, 2016 INSTRUCTIONS MEDICATIONS ADMINISTERED No Known Medications MEDICAL [...] nec ankle and foot (718.87) Hospitalization History [facility] 10/16/15
--- OUTSIDE RECORDS SUMMARY | 2018-04-02 08:03 | XMS REPORT ---
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 118416071 Problem Acquired hypothyroidism E03.9 Active 415937786 Problem Post-polio syndrome G14 Active 65890363 Problem Morbid obesity E66.01 Active 352544315 Problem Constipation, unspecified constipation type K59.00 Active 16994816 Problem Reactive airway disease J45.909 Active 283430702837 Problem 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 Active 53140986 Problem 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 Active 80755033 Problem Stomach ache R10.9 Active 760332941 ALLERGIES No Information ENCOUNTERS Encounter Location Date Diagnosis [facility] [address] [place] [id number] Jul, Pneumonia due to infectious organism, unspecified laterality, unspecified part of lung J18.9 and Morbid obesity E66.01 [facility] [address] [place] [id number] Jul, [facility] [address] [facility] [id number] [address] Jul, [facility] [address] [facility] [id number][place] [address] [address] Jun, [facility] [address] [id number] [address] Jun, [facility] [address] [id number] [address] May, [facility] [address] [id number][place] [id number] May, 2017 Acute superficial gastritis without hemorrhage K29.00 [facility] [address] [place] [id number] 08 May, 2017 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 ; 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 and Acute superficial gastritis without hemorrhage K29.00 [facility] [address] [id number], [place] [address] 18 Apr, 2017 [facility] [address] [id number], [place] [address] Apr, [facility] [address] [id number] Mar, Obesity due to excess calories with serious comorbidity, unspecified classification E66.09 and Reactive airway disease J45.909 [facility] [address] [id number], [place] [address] Mar, [facility] [id number] [address] Jan, [facility] [address] [address] Jan, 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 ; Weight gain R63.5 and 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 [facility] [address] [id number][place] [address] Dec, [facility] [address] [id number] [address] Dec, [facility] [address] [address] Nov, Weight gain R63.5 ; 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 and Reactive airway disease J45.909 [facility] [address] [id number][place] [address] Oct, [facility] [address] [id number][place] [address] Sep, [facility] [address]00565100[place], [place] [address] August, [facility] [address] [address] August, 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 [facility] [address]00565100[place], [place] [address] Jul, [facility] [address] [place] [address] 6586 Jul, Reactive airway disease J45.909 [facility] [address] [address] Jun, 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 [facility] [address]00565100[place], [place] [address] Jun, 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 [facility] [address] [address] May, 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 [facility] [address]00565100[place], [place] [address] 6[address] May, [facility] [id number] [place] [id number] Apr, [facility] [address]00565100[place], [place] [address] Apr, Reactive airway disease J45.909 [facility] [address]00565100[place], [place] [address] Apr, Reactive airway disease J45.909 [facility] [address] [id number], [place] [address] Apr, [facility] [address] [place] [address]- 4753 Mar, [facility] [address] [address] Mar, Mood disorder F39 and Shortness of breath R06.02 [facility] [address]005[address], [place] [address] Feb, [facility] [id number] [place] [address]- 7521 Jan, [facility] [address] [address] Jan, Moist breath sounds R06.89 and Constipation, unspecified constipation type K59.00 [facility] [id number] [place] [address] 826[address]- 7220 Jan, [facility] [id number] [place] [address] 77131- 7236 Dec, Uncomplicated asthma, unspecified asthma severity J45.909 [facility] [id number] [place] [address] 70482- 1020 Dec, [facility] [id number] [place] [address] 65[address]- 3546 Dec, Uncomplicated asthma, unspecified asthma severity J45.909 [facility] [address] [place] [address] 65[address]- 6273 Dec, [address] [id number] Dec, 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 and Unspecified mood [affective] disorder F39 [facility] [address] [place] [address] 87880- 8600 Dec, [facility] [id number] [place] [address] 77731- 7500 Dec, Reactive airway disease J45.909 [facility] [id number] [place] [address] 74281- 4464 Nov, [facility] [address] [place] [address] 85804- 8141 Nov, [facility] [id number] [place] [address]- 3176 Nov, [facility] [address] [address] Nov, Shortness of breath R06.02 ; Family history of coronary arteriosclerosis Z82.49 and Dysuria R30.0 [facility] [address]00565[address], [place] [address] Nov, [facility] [id number] [place] [address] 85437- 2450 Oct, [facility] [address]00565[address], [place] [address] 1055 Oct, [facility] [id number] [place] [address] 09867- 4440 Oct, [facility] [id number] [place] [address] 05319- 3564 Oct, [facility] [id number] [place] [address] 93439- 3771 Oct, [facility] [address]005[address], [place] [address] Oct, Recurrent bronchospasm J98.09 [facility] [address] [address] Sep, 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 and 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 [facility] [address], [place] [address]- 3569 Sep, Stomach ache R10.9 [facility] [address], [place] [address] August, [facility] [address] [id number], [place] [address] 6[address] August, [facility] [address], [place] [address] 8867 Jul, [facility] [address] [id number], [place] [address] 2583 Jul, [facility] [address], [place] [address] 14 Jul, 2015 [facility] [address], [place] [address]- 2967 13 Jul, 2015 [place] [address], [place] [address] 6[address] Jul, [facility] [address] [id number] Jul, Fever R50.9 [place] [address], [place] [address]- 3084 Jul, Reactive airway disease J45.909 [facility] [address] [place] [address] 574[address]- 2220 Jun, [facility] [address] [address] Jun, Reactive airway disease J45.909 and 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 [facility] [address] [place] [address] 03955- 5537 May, [facility] [address] [place] [address] May, Recurrent bronchospasm J98.09 ; Weight gain R63.5 ; 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 and Mood disorder F39 [facility] [facility] [address], [place] [address] Apr, [facility] [address], [place] [address]- 9406 Apr, [facility] [address] [address] Apr, Unspecified mood [affective] disorder F39 [place] [address], [place] [address] 03[address] Feb, [facility] [address] [address] Feb, Uncomplicated asthma, unspecified asthma severity J45.909 [facility] [address], [place] [address]- 6757 17 Feb, 2015 [facility] [id number] [place] [address] 11807- 7793 Feb, [facility] [id number] [place] [address] 10166- 1210 Feb, [facility] [id number] [place] [address] 67117- 7706 Jan, [facility] [id number] [place] [address] 81053- 7185 24 Dec, 2014 [facility] [id number] [place] [address] 06568- 7561 16 Dec, 2014 Antisocial behavior V71.01 and History of poliomyelitis without residual effect V12.02 [facility] [id number] [place] [address] 51850- 7087 Oct, Essential hypertension, malignant 401.0 ; Unspecified hypothyroidism 244.9 and 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 [facility] [id number] [place] [address] 41903- 2497 Sep, [facility] [id number] [place] [address] 12026- 8591 18 Sep, 2014 [facility] [id number] [place] [address] 75570- 6528 Sep, Abdominal pain, unspecified site 789.00 and Manipulative behavior V40.39 [facility] [address] [place] [address] 21479- 8230 09 Sep, 2014 [facility] [id number] [place] [address] 46857- 2124 14 Jul, 2014 [facility] [address] [place] [address] 27127- 5933 Jul, [facility] [id number] [place] [address] 43576- 7025 Jun, [facility] [address] [id number], [place] [address]- 8738 Jun, [facility] [address] [id number], [place] [address]- 6034 Jun, [facility] [address] [facility] [id number] Jun, [facility] [address] [id number], [place] [address]- 6009 May, [facility] [address] [id number], [place] [address]- 5829 May, [facility] [address] [facility] [address] Apr, [facility] [address] [id number], [place] [address]- 5106 Apr, [facility] [address] [id number], [place] [address]- 7626 Apr, [facility] [address] [id number], [place] [address]- 2416 Apr, [facility] [address] [id number], [place] [address]- 8391 Apr, [facility] [address] [id number], [place] [address]- 4908 Apr, [facility] [place] [facility] [address] [id number], [place] [address]- 9720 Apr, [facility] [place] [facility] [address] [id number], [place] [address]- 3615 Apr, [facility] [place] [facility] [address] [id number], [place] [address]- 1684 Apr, [facility] [place] [facility] [address] [id number], [place] [address]- 0291 Apr, [facility] [place] [facility] [address] [id number] [place] [address]- 1463 Mar, [facility] [place] [facility] [address] [id number] [place] [address]- 3296 Mar, [facility] [place] [facility] [address] [id number] [place] [address]- 7395 Mar, [facility] [place] [facility] [address] [id number] [place] [address]- 5550 Mar, [facility] [place] [facility] [address] [id number] [place] [address]- 2194 Mar, [facility] [place] [facility] [address] [id number] [place] [address]- 9777 Mar, [facility] [place] [facility] [address] [id number] [place] [address]- 7782 Mar, [facility] [place] [facility] [address] [id number] [place] [address]- 8240 Mar, [facility] [place] [facility] [address] [id number] [place] [address]- 0332 Mar, [facility] [place] [facility] [address] [id number] [place] [address]- 0176 Mar, [facility] [place] [facility] [address] [id number] [place] [address]- 5518 Mar, [facility] [place] [facility] [address] [id number] [place] [address]- 4224 Feb, [facility] [place] [facility] [address] [id number] [place] [address]- 1716 Feb, [facility] [place] [facility] [address] [id number] [place] [address]- 0434 Feb, [facility] [place] [facility] [address] [id number] [place] [address]- 7843 Feb, [facility] [place] [facility] [address] [id number] [place] [address]- 7064 Feb, [facility] [place] [facility] [address] [id number] [place] [address]- 6520 Feb, [facility] [place] [facility] [address] [id number] [place] [address]- 4102 Feb, [facility] [place] [facility] [address] [id number] [place] [address]- 6521 Feb, [facility] [place] [facility] [address] [id number] [place] [address]- 5362 Feb, [facility] [place] [facility] [address] [id number] [place] [address]- 0546 Feb, [facility] [place] [facility] [address] [id number] [place] [address]- 7304 Feb, [facility] [place] [facility] [address] [id number] [place] [address]- 4465 Feb, [facility] [place] [facility] [address] [id number] [place] [address]- 2321 Feb, [facility] [place] [facility] [address] [id number] [place] [address]- 9087 Feb, [facility] [place] [facility] [address] [id number] [place] [address]- 0563 Feb, [facility] [place] [facility] [address] [id number] [place] [address]- 4485 Feb, [facility] [place] [facility] [address] [id number] [place] [address]- 8371 Feb, [facility] [place] [facility] [address] [id number] [place] [address]- 8917 Feb, [facility] [place] [facility] [address] [id number] [place] [address]- 3056 Feb, [facility] [place] [facility] [address] [id number] [place] [address]- 7394 Feb, [facility] [place] [facility] [address] [id number] [place] [address]- 4024 Jan, [facility] [place] [facility] [address] [id number] [place] [address]- 1074 Jan, [facility] [place] [facility] [address] [id number] [place] [address]- 7223 Jan, [facility] [place] [facility] [address] [id number] [place] [address]- 3552 Jan, [facility] [place] [facility] [address] [id number] [place] [address]- 7234 Jan, [facility] [place] [facility] [address] [id number] [place] [address]- 5810 Jan, [facility] [place] [facility] [address] [id number] [place] [address]- 3106 Jan, [facility] [place] [facility] [address] [id number] [place] [address]- 1183 Jan, [facility] [place] [facility] [address] [id number], [place] [address]- 3722 15 Jan, 2014 [facility] [place] [facility] [address] [id number], [place] [address]- 8613 15 Jan, 2014 [facility] [place] [facility] [address] [id number], [place] [address]- 3045 15 Jan, 2014 [facility] [place] [facility] [address] [id number], [place] [address]- 7302 15 Jan, 2014 [facility] [place] [facility] [address] [id number], [place] [address]- 3112 14 Jan, 2014 [facility] [place] [facility] [address] [id number] [place] [address]- 0674 09 Jan, 2014 [facility] [place] [facility] [address] [id number], [place] [address]- 1592 08 Jan, 2014 [facility] [place] [facility] [address] [id number], [place] [address]- 6144 06 Jan, 2014 [facility] [place] [facility] [address] [id number] [place] [address]- 5242 06 Jan, 2013 [facility] [place] [facility] [address] [id number] [place] [address]- 2221 06 Jan, 2013 [facility] [place] [facility] [address] [id number] [place] [address]- 1766 06 Jan, 2013 [facility] [place] [facility] [address] [id number] [place] [address]- 3679 29 Sep, 2013 [facility] [place] [facility] [address] [id number] [place] [address] 2544 23 Sep, 2013 [facility] [place] [facility] [address] [id number] [place] [address]- 9415 22 Dec, 2013 [facility] [place] [facility] [address] [id number] [place] [address]- 8999 22 Dec, 2013 [facility] [place] [facility] [address] [id number] [place] [address]- 1184 19 Dec, 2013 [facility] [place] [facility] [address] [id number] [place] [address]- 2545 19 Dec, 2013 [facility] [place] [facility] [address] [id number] [place] [address]- 2543 18 Dec, 2013 [facility] [place] [facility] [address] [id number] [place] [address]- 2548 17 Sep, 2013 [facility] [place] [facility] [address] [id number] [place] [address] 2540 17 Dec, 2013 [facility] [place] [facility] [address] [id number] [place] [address]- 254 16 Sep, 2013 [facility] [place] [facility] [address] [id number] [place] [address] 2547 16 Sep, 2013 [facility] [place] [facility] [address] [id number] [place] [address]- 2545 10 Sep, 2013 [facility] [place] [facility] [address] [id number] [place] [address] 2540 Dec, [facility] [place] [facility] [address] [id number] [place] [address]- 1893 Nov, [facility] [place] [facility] [address] [id number] [place] [address]- 2143 Nov, [facility] [place] [facility] [address] [id number] [place] [address]- 2946 Nov, [facility] [place] [facility] [address] [id number] [place] [address]- 0304 Nov, [facility] [place] [facility] [address] [id number] [place] [address]- 0672 Nov, [facility] [place] [facility] [address] [id number] [place] [address]- 6218 Nov, [facility] [place] [facility] [address] [id number] [place] [address]- 6830 Nov, [facility] [place] [facility] [address] [id number] [place] [address]- 3815 Nov, [facility] [place] [facility] [address] [id number] [place] [address]- 3283 Nov, [facility] [place] [facility] [address] [id number] [place] [address]- 1926 Nov, [facility] [place] [facility] [address] [id number] [place] [address]- 0794 Oct, [facility] [place] [facility] [address] [id number] [place] [address]- 6444 Oct, [facility] [place] [facility] [address] [id number] [place] [address]- 1169 Oct, [facility] [place] [facility] [address] [id number] [place] [address]- 7371 Oct, [facility] [place] [facility] [address] [id number] [place] [address]- 6961 Oct, [facility] [place] [facility] [address] [id number] [place] [address]- 9698 Oct, [facility] [place] [facility] [address] [id number] [place] [address]- 4336 Oct, [facility] [place] [facility] [address] [id number] [place] [address]- 6210 Oct, [facility] [place] [facility] [address] [id number] [place] [address]- 2998 Oct, [facility] [place] [facility] [address] [id number] [place] [address]- 7715 Oct, [facility] [place] [facility] [address] [id number] [place] [address]- 0216 Oct, [facility] [place] [facility] [address] [id number] [place] [address]- 1622 Oct, [facility] [place] [facility] [address] [id number] [place] [address]- 0860 Oct, [facility] [place] [facility] [address] [id number] [place] [address]- 6238 Sep, [facility] [place] [facility] [address] [id number] [place] [address] Sep, [facility] [place] [facility] [address] [id number] [place] [address] Sep, [facility] [place] [facility] [address] [id number] [place] [address] 24 Sep, 2013 [facility] [place] [facility] [address] [id number] [place] [address] Sep, [facility] [place] [facility] [address] [id number] [place] [address] Sep, [facility] [place] [facility] [address] [id number] [place] [address] 16 Sep, 2013 [facility] [place] [facility] [address] [id number] [place] [address] 13 Sep, 2013 [facility] [place] [facility] [address] [id number] [place] [address] Sep, [facility] [address] [id number] [place] [address] Sep, [facility] [place] [facility] [address] [id number] [place] [address] Sep, [facility] [address] [id number] [place] [address] Sep, [facility] [place] [facility] [address] [id number] [place] [address] August, [facility] [address] [id number] [place] [address] August, [facility] [address] [id number] [place] [address] August, [facility] [address] [id number] [place] [address] August, [facility] [address] [id number] [place] [address] August, [facility] [address] [id number] [place] [address] August, [facility] [address] [id number] [place] [address] August, [facility] [place] [facility] [address] [id number] [place] [address]- [address] August, [facility] [place] [facility] [address] [id number] [place] [address]- [address] August, [facility] [place] [facility] [address] [id number] [place] [address] August, [facility] [place] [facility] [address] [id number] [place] [address]- 2726 August, [facility] [place] [facility] [address] [id number] [place] [id number] August, [facility] [place] [facility] [address] [id number] [place] [address] August, [facility] [place] [facility] [address] [id number] [place] [address]- [address] Jul, [facility] [place] [facility] [address] [id number] [place] [address] Jul, [facility] [place] [facility] [address] [id number] [place] [address]- [address] Jul, [facility] [place] [facility] [address] [id number] [place] [address]- [address] Jul, [facility] [place] [facility] [address] [id number] [place] [address]- 150[address] Jul, [facility] [place] [facility] [address] [id number] [place] [address]- [address] Jul, [facility] [place] [facility] [address] [id number] [place] [address]- [address]858 Jul, [facility] [place] [facility] [address] [id number] [place] [address]- 1596 Jul, [facility] [place] [facility] [address] [id number] [place] [address]- 1406 Jul, [facility] [place] [facility] [address] [id number] [place] [address]- [address]65 Jul, [facility] [place] [facility] [address] [id number] [place] [address]- [address] Jul, [facility] [place] [facility] [address] [id number] [place] [address]- [address] Jul, [facility] [place] [facility] [address] [id number] [place] [address]- [address] Jul, [facility] [place] [facility] [address] [id number] [place] [address]- [address] 14 Jul, 2013 [facility] [place] [facility] [address] [id number], [place] [address] 14 Jul, 2013 [facility] [id number] [address] Jul, [facility] [id number], [place] [address] Jul, [facility] [address] [id number] [address] Jun, [facility] [id number] [place] [address] Jun, [facility] [address] [id number] [place] [phone] Jun, [facility] [id number] [place] [phone]- [phone] Jun, [facility] [id number] [place] [phone] Jun, [facility] [id number] [phone] Jun, [facility] [id number] [place] [id number] Jun, [facility] [id number], [place] [address] Jun, [facility] [id number] [address] Jun, IMMUNIZATIONS No Known Immunizations SOCIAL HISTORY Never Assessed REASON FOR VISIT Refill request PLAN OF CARE VITAL SIGNS MEDICATIONS Unknown [...] nec ankle and foot (718.87) Hospitalization History formerly [facility] 10/16/15
--- OUTSIDE RECORDS SUMMARY | 2018-04-02 08:04 | XMS REPORT ---
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 521361501 Problem Acquired hypothyroidism E03.9 Active 263806440 Problem Post-polio syndrome G14 Active 74086803 Problem Morbid obesity E66.01 Active 265710677 Problem Constipation, unspecified constipation type K59.00 Active 19870041 Problem Reactive airway disease J45.909 Active 315245938996 Problem 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 Active 52032505 Problem 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 Active 29900437 Problem Stomach ache R10.9 Active 980303156 ALLERGIES No Information ENCOUNTERS Encounter Location Date Diagnosis [facility] [address] [place] [id number] Jul, Pneumonia due to infectious organism, unspecified laterality, unspecified part of lung J18.9 and Morbid obesity E66.01 [facility] [address] [place] [id number] Jul, [facility] [address] [facility] [id number] [address] [address] Jul, [facility] [address] [facility] [id number] [address] Jun, [facility] [address] [id number] [address] Jun, [facility] [address] [id number] [id number] May, [facility] [address] [id number] [id number] 08 May, 2017 Acute superficial gastritis without hemorrhage K29.00 [facility] [address] [place] [id number] 08 May, 2017 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 ; 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 and Acute superficial gastritis without hemorrhage K29.00 [facility] [address] [id number] [address] 18 Apr, 2017 [facility] [address] [id number] [address] Apr, [facility] [address] [place] [id number] Mar, Obesity due to excess calories with serious comorbidity, unspecified classification E66.09 and Reactive airway disease J45.909 [facility] [address] [id number] [address] Mar, [facility] [id number] [id number] Jan, [facility] [address] [place] [address] Jan, 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 ; Weight gain R63.5 and 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 [facility] [address] [id number] [id number] Dec, [facility] [address] [id number] [address] Dec, [facility] [address] [place] [address] Nov, Weight gain R63.5 ; 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 and Reactive airway disease J45.909 [facility] [address] [id number] [address] Oct, [facility] [address] [id number] [address] Sep, [facility] [address]00565100[place] [address] August, [facility] [address] [place] [address] August, 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 [facility] [address]00565100[place] [address] Jul, [facility] [id number] [place] [address]- 0316 Jul, Reactive airway disease J45.909 [facility] [address] [place] [address] Jun, 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 [facility] [address]00565100[place] [address] Jun, 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 [facility] [address] [place] [id number] May, 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 [facility] [address]00565100[place] [address] May, [facility] [id number] [place] [id number] Apr, [facility] [address]00565100[place] [address] 3313 Apr, Reactive airway disease J45.909 [facility] [address]00565100[place] [address] 8346 Apr, Reactive airway disease J45.909 [facility] [address] [id number] [address] 5046 Apr, [facility] [id number] [place] [address] 07602- 5298 Mar, [facility] [address] [place] [id number] Mar, Mood disorder F39 and Shortness of breath R06.02 [facility] [address]00565100[place] [address] 6744 Feb, [place] [facility] [id number] [place] [address]- 4827 Jan, [facility] [address] [place] [address] Jan, Moist breath sounds R06.89 and Constipation, unspecified constipation type K59.00 [place] [facility] [id number] [place] [address]23- 7051 Jan, [facility] [id number] [place] [address]8436- 2241 Dec, Uncomplicated asthma, unspecified asthma severity J45.909 [facility] [id number] [place] [address] 60052- 6917 Dec, [facility] [id number] [place] [address] 73480- 6827 Dec, Uncomplicated asthma, unspecified asthma severity J45.909 [place] [facility] [address] [place] [address]120- 7384 Dec, [address] [id number] Dec, 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 and Unspecified mood [affective] disorder F39 [facility] [id number] [place] [address] 94072- 3803 Dec, [facility] [id number] [place] [address] 11179- 6045 Dec, Reactive airway disease J45.909 [place] [id number] [place] [address] 01141- 3977 Nov, [facility] [id number] [place] [address] 74342- 4740 Nov, [facility] [id number] [place] [address] 88400- 2223 Nov, [facility] [address] [place] [address] Nov, Shortness of breath R06.02 ; Family history of coronary arteriosclerosis Z82.49 and Dysuria R30.0 [facility] [address]00565100[place] [address] 6426 Nov, [facility] [id number] [place] [address] 90318- 0939 Oct, [facility] [address]00565100[place] [address]- 4170 Oct, [facility] [id number] [place] [address] 26384- 9819 Oct, [facility] [id number] [place] [address] 29508- 3646 Oct, [facility] [id number] [place] [address] 07268- 8514 Oct, [facility] [address]00565100[place] [address] 7615 Oct, Recurrent bronchospasm J98.09 [facility] [address] [place] [address] Sep, 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 and 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 [facility] [address]005[address]100[place] [address]- 8842 Sep, Stomach ache R10.9 [facility] [address]005[address]100[place] [address]- 78[address] August, [facility] [address] [id number], [place] [address] 9479 August, [facility] [address]100[place], [place] [address]- 3956 Jul, [facility] [address] [id number], [place] [address]- 1013 Jul, [facility] [address]00565100[place] [address]- 4550 14 Jul, 2015 [place] [facility] [address]00565100[place] [address]- 0359 13 Jul, 2015 [place] [facility] [address]00565100[place] [address]- 9016 Jul, [facility] [address] [place] [address] Jul, Fever R50.9 [place] [facility] [address] [address]- 4607 Jul, Reactive airway disease J45.909 [place] [facility] [address] [place] [address] 38034- 8476 Jun, [facility] [address] [place] [address] Jun, Reactive airway disease J45.909 and 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 [place] [facility] [address] [place] [address] 88281- 3113 May, [facility] [address] [place] [address] May, Recurrent bronchospasm J98.09 ; Weight gain R63.5 ; 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 and Mood disorder F39 [place] [facility] [address] [address]- 9685 Apr, [facility] [address] [address]- 4709 Apr, [facility] [address] [place] [address] Apr, Unspecified mood [affective] disorder F39 [place] [address], [place] [address]- 0794 Feb, [facility] [address] [place] [address] Feb, Uncomplicated asthma, unspecified asthma severity J45.909 [facility] [address] [address]- 9309 17 Feb, 2015 [facility] [id number] [place] [address] 48832- 4032 Feb, [facility] [id number] [place] [address] 49501- 5328 Feb, [facility] [id number] [place] [address] 55931- 8956 Jan, [facility] [id number] [place] [address] 09735- 8896 24 Dec, 2014 [facility] [id number] [place] [address] 67922- 1031 16 Dec, 2014 Antisocial behavior V71.01 and History of poliomyelitis without residual effect V12.02 [facility] [id number] [place] [address] 23907- 1539 Oct, Essential hypertension, malignant 401.0 ; Unspecified hypothyroidism 244.9 and 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 [facility] [id number] [place] [address] 63004- 9066 Sep, [facility] [id number] [place] [address] 60854- 0956 18 Sep, 2014 [facility] [id number] [place] [address] 48319- 7839 Sep, Abdominal pain, unspecified site 789.00 and Manipulative behavior V40.39 [facility] [address] [place] [address] 62593- 3879 09 Sep, 2014 [facility] [id number] [place] [address] 59956- 7360 14 Jul, 2014 [facility] [address] [place] [address] 04327- 5322 Jul, [facility] [id number] [place] [address] 88411- 1518 Jun, [facility] [address] [id number], [place] [address]- 5568 Jun, [facility] [address] [id number] [address]- 6732 Jun, [facility] [address] [facility] [id number] Jun, [facility] [address] [id number], [place] [address]- 9147 May, [facility] [address] [id number] [address]- 6967 May, [facility] [address] [facility] [id number] Apr, [facility] [address] [id number] [address]- 8886 Apr, [facility] [address] [id number], [place] [address]- 3572 Apr, [facility] [address] [id number] [address]- 5934 Apr, [facility] [address] [id number] [address]- [address] Apr, [facility] [address] [id number] [address]- 3925 Apr, [facility] [place] [facility] [address] [id number] [address]- 1240 Apr, [facility] [place] [facility] [address] [id number], [place] [address]- 3889 Apr, [facility] [place] [facility] [address] [id number] [address]- 5048 Apr, [facility] [place] [facility] [address] [id number] [address]- 4278 Apr, [facility] [place] [facility] [address] [id number] [place] [address]- 6559 Mar, [facility] [place] [facility] [address] [id number] [place] [address]- 8625 Mar, [facility] [place] [facility] [address] [id number] [place] [address]- 1505 Mar, [facility] [place] [facility] [address] [id number] [place] [address]- 7399 Mar, [facility] [place] [facility] [address] [id number] [place] [address]- 3214 Mar, [facility] [place] [facility] [address] [id number] [place] [address]- 1367 Mar, [facility] [place] [facility] [address] [id number] [place] [address]- 1509 Mar, [facility] [place] [facility] [address] [id number] [place] [address]- 6495 Mar, [facility] [place] [facility] [address] [id number] [place] [address]- 1846 Mar, [facility] [place] [facility] [address] [id number] [place] [address]- 6222 Mar, [facility] [place] [facility] [address] [id number] [place] [address]- 7908 Mar, [facility] [place] [facility] [address] [id number] [place] [address]- 3815 Feb, [facility] [place] [facility] [address] [id number] [place] [address]- 3919 Feb, [facility] [place] [facility] [address] [id number] [place] [address]- 4782 Feb, [facility] [place] [facility] [address] [id number] [place] [address]- 8717 Feb, [facility] [place] [facility] [address] [id number] [place] [address]- 4200 Feb, [facility] [place] [facility] [address] [id number] [place] [address]- 4950 Feb, [facility] [place] [facility] [address] [id number] [place] [address]- 3689 Feb, [facility] [place] [facility] [address] [id number] [place] [address]- 8112 Feb, [facility] [place] [facility] [address] [id number] [place] [address]- 1840 Feb, [facility] [place] [facility] [address] [id number] [place] [address]- 1900 Feb, [facility] [place] [facility] [address] [id number] [place] [address]- 1863 Feb, [facility] [place] [facility] [address] [id number] [place] [address]- 9160 Feb, [facility] [place] [facility] [address] [id number] [place] [address]- 2834 Feb, [facility] [place] [facility] [address] [id number] [place] [address]- 8863 Feb, [facility] [place] [facility] [address] [id number] [place] [address]- 5766 Feb, [facility] [place] [facility] [address] [id number] [place] [address]- 6438 Feb, [facility] [place] [facility] [address] [id number] [place] [address]- 2315 Feb, [facility] [place] [facility] [address] [id number] [place] [address]- 6506 Feb, [facility] [place] [facility] [address] [id number] [place] [address]- 3939 Feb, [facility] [place] [facility] [address] [id number] [place] [address]- 1731 Feb, [facility] [place] [facility] [address] [id number] [place] [address]- 1703 Jan, [facility] [place] [facility] [address] [id number] [place] [address]- 4623 Jan, [facility] [place] [facility] [address] [id number] [place] [address]- 7596 Jan, [facility] [place] [facility] [address] [id number] [place] [address]- 9140 Jan, [facility] [place] [facility] [address] [id number] [place] [address]- 7587 Jan, [facility] [place] [facility] [address] [id number] [place] [address]- 8793 Jan, [facility] [place] [facility] [address] [id number] [place] [address]- 2810 Jan, [facility] [place] [facility] [address] [id number] [place] [address]- 1209 Jan, [facility] [place] [facility] [address] [id number], [place] [address]- 1134 15 Jan, 2014 [facility] [place] [facility] [address] [id number], [place] [address]- 8587 15 Jan, 2014 [facility] [place] [facility] [address] [id number], [place] [address]- 2817 15 Jan, 2014 [facility] [place] [facility] [address] [id number], [place] [address]- 4183 15 Jan, 2014 [facility] [place] [facility] [address] [id number], [place] [address]- 0836 14 Jan, 2014 [facility] [place] [facility] [address] [id number] [place] [address]- 0658 09 Jan, 2014 [facility] [place] [facility] [address] [id number], [place] [address]- 4680 08 Jan, 2014 [facility] [place] [facility] [address] [id number], [place] [address]- 7272 06 Jan, 2014 [facility] [place] [facility] [address] [id number] [place] [address]- 3716 06 Jan, 2013 [facility] [place] [facility] [address] [id number] [place] [address]- 9136 06 Jan, 2013 [facility] [place] [facility] [address] [id number] [place] [address]- 5086 06 Jan, 2013 [facility] [place] [facility] [address] [id number] [place] [address]- 3260 29 Sep, 2013 [facility] [place] [facility] [address] [id number] [place] [address] 2541 23 Sep, 2013 [facility] [place] [facility] [address] [id number] [place] [address]- 1247 22 Dec, 2013 [facility] [place] [facility] [address] [id number] [place] [address]- 2496 22 Dec, 2013 [facility] [place] [facility] [address] [id number] [place] [address]- 3681 19 Dec, 2013 [facility] [place] [facility] [address] [id number] [place] [address]- 2549 19 Dec, 2013 [facility] [place] [facility] [address] [id number] [place] [address]- 2544 18 Dec, 2013 [facility] [place] [facility] [address] [id number] [place] [address]- 2549 17 Sep, 2013 [facility] [place] [facility] [address] [id number] [place] [address] 2540 17 Dec, 2013 [facility] [place] [facility] [address] [id number] [place] [address]- 2543 16 Sep, 2013 [facility] [place] [facility] [address] [id number] [place] [address] 2544 16 Sep, 2013 [facility] [place] [facility] [address] [id number] [place] [address]- 2540 10 Sep, 2013 [facility] [place] [facility] [address] [id number] [place] [address] 2549 Dec, [facility] [place] [facility] [address] [id number] [place] [address]- 7957 Nov, [facility] [place] [facility] [address] [id number] [place] [address]- 1774 Nov, [facility] [place] [facility] [address] [id number] [place] [address]- 0658 Nov, [facility] [place] [facility] [address] [id number] [place] [address]- 3343 Nov, [facility] [place] [facility] [address] [id number] [place] [address]- 9016 Nov, [facility] [place] [facility] [address] [id number] [place] [address]- 9106 Nov, [facility] [place] [facility] [address] [id number] [place] [address]- 7847 Nov, [facility] [place] [facility] [address] [id number] [place] [address]- 2934 Nov, [facility] [place] [facility] [address] [id number] [place] [address]- 2891 Nov, [facility] [place] [facility] [address] [id number] [place] [address]- 9663 Nov, [facility] [place] [facility] [address] [id number] [place] [address]- 5052 Oct, [facility] [place] [facility] [address] [id number] [place] [address]- 0130 Oct, [facility] [place] [facility] [address] [id number] [place] [address]- 6407 Oct, [facility] [place] [facility] [address] [id number] [place] [address]- 0235 Oct, [facility] [place] [facility] [address] [id number] [place] [address]- 0737 Oct, [facility] [place] [facility] [address] [id number] [place] [address]- 0056 Oct, [facility] [place] [facility] [address] [id number] [place] [address]- 1762 Oct, [facility] [place] [facility] [address] [id number] [place] [address]- 7133 Oct, [facility] [place] [facility] [address] [id number] [place] [address]- 4226 Oct, [facility] [place] [facility] [address] [id number] [place] [address]- 0578 Oct, [facility] [place] [facility] [address] [id number] [place] [address]- 6632 Oct, [facility] [place] [facility] [address] [id number] [place] [address]- 1539 Oct, [facility] [place] [facility] [address] [id number] [place] [address]- 0244 Oct, [facility] [place] [facility] [address] [id number] [place] [address]- 2107 Sep, [facility] [place] [facility] [address] [id number] [place] [address]- 8388 Sep, [facility] [place] [facility] [address] [id number] [place] [address]- 99[address] Sep, [facility] [place] [facility] [address] [id number] [place] [address] 24 Sep, 2013 [facility] [place] [facility] [address] [id number] [place] [address] Sep, [facility] [place] [facility] [address] [id number] [place] [address] Sep, [facility] [place] [facility] [address] [id number] [place] [address] 16 Sep, 2013 [facility] [place] [facility] [address] [id number] [place] [address] 13 Sep, 2013 [facility] [place] [facility] [address] [id number] [place] [address] Sep, [facility] [address] [id number] [place] [address] Sep, [facility] [place] [facility] [address] [id number] [place] [address] Sep, [facility] [address] [id number] [place] [address] Sep, [facility] [place] [facility] [address] [id number] [place] [address] August, [facility] [address] [id number] [place] [address]66 August, [facility] [address] [id number] [place] [address] 79[address] August, [facility] [address] [id number] [place] [address] [address] August, [facility] [address] [id number] [place] [address] [address] August, [facility] [address] [id number] [place] [address] [address] August, [facility] [address] [id number] [place] [address] August, [facility] [place] [facility] [address] [id number] [place] [address] August, [facility] [place] [facility] [address] [id number] [place] [address] August, [facility] [place] [facility] [address] [id number] [place] [address] August, [facility] [place] [facility] [address] [id number] [place] [address] August, [facility] [place] [facility] [address] [id number] [place] [id number] August, [facility] [place] [facility] [address] [id number] [place] [address] August, [facility] [place] [facility] [address] [id number] [place] [address] Jul, [facility] [place] [facility] [address] [id number] [place] [address] Jul, [facility] [place] [facility] [address] [id number] [place] [address] Jul, [facility] [place] [facility] [address] [id number] [place] [address] Jul, [facility] [place] [facility] [address] [id number] [place] [address] Jul, [facility] [place] [facility] [address] [id number] [place] [address] Jul, [facility] [place] [facility] [address] [id number] [place] [address] Jul, [facility] [place] [facility] [address] [id number] [place] [address] Jul, [facility] [place] [facility] [address] [id number] [place] [address] Jul, [facility] [place] [facility] [address] [id number] [place] [address] Jul, [facility] [place] [facility] [address] [id number] [place] [address] Jul, [facility] [place] [facility] [address] [id number] [place] [address] Jul, [facility] [place] [facility] [address] [id number] [place] [address] Jul, [facility] [place] [facility] [address] [id number] [place] [address] 14 Jul, 2013 [facility] [place] [facility] [address] [id number] [address] 14 Jul, 2013 [facility] [id number] [address] Jul, [facility] [id number] [address] Jul, [facility] [id number] [address] Jun, [facility] [address] [id number] [address] Jun, [facility] [id number] [place] [phone] Jun, [facility] [id number] [place] [phone] Jun, [facility] [id number] [place] [phone] Jun, [facility] [id number] [address] Jun, [facility] [id number] [address] Jun, [facility] [id number] [address] Jun, [facility] [id number] [address] Jun, IMMUNIZATIONS No Known Immunizations SOCIAL HISTORY [...] SOB /Cough 4h Jul, 30 days Active Lasix 40 mg Orally Once a day X 3 days then 1 tab daily X 3 days. 2 tablet Jan, Active Toprol XL 50 TAKE ONE TABLET BY MOUTH DAILY 30 Active Clotrimazole-Betamethasone 1-0.05 APPLY TO WOUND TWO TIMES A DAY FOR 7 DAYS 7 Active Ibuprofen 600 MG Orally 2 times a day 1 tablet with food or milk 12h Dec 12 Jan, 2017 30 day(s) Active Depakote Sprinkles 125 TAKE TWO CAPSULES BY MOUTH EVERY 6 HOURS NEEDED 28 Active Losartan Potassium 50 TAKE ONE TABLET BY MOUTH DAILY 30 Active Zoloft 100 MG Orally Once a day 1 tablet 24h Active Trulicity 1.5 MG/0.5ML Subcutaneous once weekly 0.5 ml Jun, 30 days Active Neurontin 100 mg Orally 2 times a day for leg pain 1 August, Active Potassium Chloride 20 MEQ Orally Once a dayX 3days then 1 packet daily X 3 days 2 packet with food Jan, Active Risperidone 0.5 MG Orally Once a day 1 tablet 24h Oct, Active Gabapentin 100 TAKE ONE CAPSULE BY MOUTH TWICE A DAY 30 Active RESULTS No Results PROCEDURES Procedure Date Ordered Result Body Site Stable Visit (10 minutes) Jan 04, 2017 INSTRUCTIONS MEDICATIONS ADMINISTERED No Known Medications [...] nec ankle and foot (718.87) Hospitalization History [facility] 10/16/15
--- OUTSIDE RECORDS SUMMARY | 2018-04-02 08:05 | XMS REPORT ---
Author Author GEORGIA DOWNEY Organization [facility] Address [address] [place] [address] Care Team Providers Care Video Technician Name Role Phone GEORGIA DOWNEY Unavailable PROBLEMS Type Condition ICD9-CM Code [id number] Code Onset Dates Condition Status SNOMED Code Problem Post-polio syndrome G14 Active 05053372 Problem 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 081931111 Problem Mood disorder F39 Active 49565454 Problem Acquired hypothyroidism E03.9 Active 870617449 Problem Constipation, unspecified constipation type K59.00 Active 28069803 Problem 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 Active 80271750 Problem 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 Active 11785642 Problem Weight gain R63.5 Active 0623766 Problem Stomach ache R10.9 Active 935265877 Problem Reactive airway disease J45.909 Active [id number] ALLERGIES No Information ENCOUNTERS Encounter Location Date Diagnosis [facility] [address] [place] [id number] Jul, [facility] [address] [id number] [address] Jul, [facility] [address]005[address]100[place] [address] Jun, [facility] [address] [id number] Jun, [facility] [id number] [place] [id number] May, [place] [id number] [address] May, Acute superficial gastritis without hemorrhage K29.00 [facility] [address] [place] [address] May, 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 ; H/O post-polio syndrome Z86.12 and Acute superficial gastritis without hemorrhage K29.00 [facility] [address] [id number] [address] Apr, [facility] [address] [id number] [address] Apr, [facility] [address] [place] [id number] Mar, Obesity due to excess calories with serious comorbidity, unspecified classification E66.09 and Reactive airway disease J45.909 [facility] [address] [id number] [address] 2546 Mar, [facility] [address] [id number] [address] Jan, [facility] [address] [place] [address] Jan, H/O post-polio syndrome Z86.12 ; Weight gain R63.5 and 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 [facility] [id number] [address] Dec, [facility] [id number] [id number] Dec, [facility] [address] [place] [id number] Nov, Weight gain R63.5 ; H/O post-polio syndrome Z86.12 and Reactive airway disease J45.909 [facility] [address] [id number] [id number] Oct, [facility] [id number] [id number] Sep, [facility] [address] [id number] [address] August, [facility] [address] [place] [id number] August, H/O post-polio syndrome Z86.12 [facility] [address]005[address] [address] Jul, [facility] [address] [place] [address]- 4516 Jul, Reactive airway disease J45.909 [facility] [address] [place] [address] Jun, H/O post-polio syndrome Z86.12 [facility] [id number] [place] [address]- 7526 Jun, 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 [facility] [address] [place] [address] May, H/O post-polio syndrome Z86.12 [facility] [address]005[address] [address] May, [facility] [id number] [place] [id number] Apr, [facility] [id number] [place] [address]- 9983 Apr, Reactive airway disease J45.909 [facility] [id number] [place] [address]- 0676 Apr, Reactive airway disease J45.909 [facility] [address] [id number] [address] Apr, [facility] [address]005[address] [address] Mar, [facility] [address] [place] [address] Mar, Mood disorder F39 and Shortness of breath R06.02 [facility] [address]00565100[place] [address] Feb, [facility] [address] [id number] [address] 6[address] Jan, [facility] [address] [place] [address] Jan, Moist breath sounds R06.89 and Constipation, unspecified constipation type K59.00 [place] [id number] [place] [address]- 8966 Jan, [place] [id number] [place] [address]487- 8834 Dec, Uncomplicated asthma, unspecified asthma severity J45.909 [place] [id number] [place] [address] 87633- 8039 Dec, [place] [id number] [place] [address]- 6488 Dec, Uncomplicated asthma, unspecified asthma severity J45.909 [place] [id number] [place] [address] 89435- 2273 Dec, [facility] [address] [id number] Dec, H/O post-polio syndrome Z86.12 and Unspecified mood [affective] disorder F39 [place] [id number] [place] [address]- 0195 Dec, [place] [id number] [place] [address]- 2187 Dec, Reactive airway disease J45.909 [place] [id number] [place] [address] 84983- 4284 Nov, [place] [id number] [place] [address]3761- 6650 Nov, [place] [id number] [place] [address]- 6178 Nov, [facility] [address] [place] [address] Nov, Shortness of breath R06.02 ; Family history of coronary arteriosclerosis Z82.49 and Dysuria R30.0 [place] [address]00565100[place] [address] Nov, [facility] [address]00565100[place] [address] 33[address] Oct, [facility] [address]00565100[place] [address]28 Oct, [facility] [address] [place] [address]647- 2693 Oct, [facility] [address]00565100[place] [address] Oct, [facility] [address] [place] [address] 94114- 6069 Oct, [facility] [address]00565100[place] [address]- 0067 Oct, Recurrent bronchospasm J98.09 [facility] [address] [place] [address] Sep, H/O post-polio syndrome Z86.12 and 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 [facility] [address]005[address] [address]- 4296 Sep, Stomach ache R10.9 [facility] [address]005[address] [address] August, [facility] [address]00565100[place] [address] August, [facility] [address]00565100[place] [address] 1394 Jul, [facility] [address]005[address] [address] 4721 Jul, [facility] [address]005[address] [address]- 5704 Jul, [facility] [address]005[address] [address]- [address]659 Jul, [facility] [address]005[address] [address]- 1057 Jul, [facility] [address] [place] [address] Jul, Fever R50.9 [facility] [address] [address]- 7335 Jul, Reactive airway disease J45.909 [facility] [id number] [place] [address] 22277- 0372 Jun, [facility] [address] [place] [address] Jun, Reactive airway disease J45.909 and 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 [place] [address] [place] [address] 41995- 7586 May, [facility] [address] [place] [address] May, Recurrent bronchospasm J98.09 ; Weight gain R63.5 ; H/O post-polio syndrome Z86.12 and Mood disorder F39 [place] [id number] [place] [address] 72085- 6091 Apr, [facility] [address] [place] [address] 51724- 3797 Apr, [facility] [address] [place] [id number] Apr, Unspecified mood [affective] disorder F39 [facility] [address] [place] [address] 74916- 3801 Feb, [facility] [address] [place] [address] Feb, Uncomplicated asthma, unspecified asthma severity J45.909 [facility] [address] [address]- 6233 17 Feb, 2015 [place] [id number] [place] [address] 44011- 5344 Feb, [facility] [address] [address]- 8668 Feb, [facility] [id number] [place] [address] 28176- 7462 Jan, [facility] [address] [place] [address] 57820- 9766 24 Dec, 2014 [facility] [id number] [place] [address] 654367- 0162 16 Dec, 2014 Antisocial behavior V71.01 and History of poliomyelitis without residual effect V12.02 [facility] [id number] [place] [address] 635142- 0151 Oct, Essential hypertension, malignant 401.0 ; Unspecified hypothyroidism 244.9 and 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 [facility] [id number] [place] [address] 32862- 0793 Sep, [facility] [id number] [place] [address] 31091- 5137 Sep, [facility] [id number] [place] [address] 62470- 0704 Sep, Abdominal pain, unspecified site 789.00 and Manip[address] behavior V40.39 [facility] [address] [address]- 5786 Sep, [facility] [id number] [place] [address] 29714- 1918 14 Jul, 2014 [facility] [address] [place] [address] 13972- 4967 Jul, [facility] [id number] [place] [address] 901746- 6758 Jun, [facility] [address] Jun, [facility] [id number] [place] [address] 75766- 2346 Jun, [facility] [address] [facility] [address] Jun, [facility] [address] [id number] [address]- 4346 May, [facility] [address] [id number] [place] [address]- 9826 May, [facility] [address] [facility] [id number] Apr, [facility] [address] [id number] [place] [address]- 1301 Apr, [facility] [address] [id number] [place] [address]- 8555 Apr, [facility] [address] [id number] [address]- 7126 Apr, [facility] [address] [id number] [place] [address]- 9952 Apr, [facility] [address] [id number] [place] [address]- 8237 Apr, [facility] [address] [id number] [place] [address]- 7048 Apr, [facility] [address] [id number] [address]- 7296 Apr, [facility] [place] [facility] [address] [id number] [place] [address]- 0469 Apr, [facility] [place] [facility] [address] [id number] [place] [address]- 3325 Apr, [facility] [place] [facility] [address] [id number] [place] [address]- 5079 Mar, [facility] [place] [facility] [address] [id number] [place] [address]- 6937 Mar, [facility] [place] [facility] [address] [id number] [place] [address]- 9952 Mar, [facility] [place] [facility] [address] [id number] [place] [address]- 3564 Mar, [facility] [place] [facility] [address] [id number] [place] [address]- 5019 Mar, [facility] [place] [facility] [address] [id number] [place] [address]- 1484 Mar, [facility] [place] [facility] [address] [id number] [place] [address]- 6489 Mar, [facility] [place] [facility] [address] [id number] [place] [address]- 9239 Mar, [facility] [place] [facility] [address] [id number] [place] [address]- 8996 Mar, [facility] [place] [facility] [address] [id number] [place] [address]- 0664 Mar, [facility] [place] [facility] [address] [id number] [place] [address]- 8736 Mar, [facility] [place] [facility] [address] [id number] [place] [address]- 3307 Feb, [facility] [place] [facility] [address] [id number] [place] [address]- 9002 Feb, [facility] [place] [facility] [address] [id number] [place] [address]- 2073 Feb, [facility] [place] [facility] [address] [id number] [place] [address]- 5055 Feb, [facility] [place] [facility] [address] [id number] [place] [address]- 2352 Feb, [facility] [place] [facility] [address] [id number] [place] [address]- 1176 Feb, [facility] [place] [facility] [address] [id number] [place] [address]- 2055 Feb, [facility] [place] [facility] [address] [id number] [place] [address]- 9050 Feb, [facility] [place] [facility] [address] [id number] [place] [address]- 2204 Feb, [facility] [place] [facility] [address] [id number] [place] [address]- 6526 Feb, [facility] [place] [facility] [address] [id number] [place] [address]- 4103 Feb, [facility] [place] [facility] [address] [id number] [place] [address]- 5857 Feb, [facility] [place] [facility] [address] [id number] [place] [address]- 6012 Feb, [facility] [place] [facility] [address] [id number] [place] [address]- 8466 Feb, [facility] [place] [facility] [address] [id number] [place] [address]- 4358 Feb, [facility] [place] [facility] [address] [id number] [place] [address]- 2012 Feb, [facility] [place] [facility] [address] [id number] [place] [address]- 5117 Feb, [facility] [place] [facility] [address] [id number] [place] [address]- 0726 Feb, [facility] [place] [facility] [address] [id number] [place] [address]- 4937 Feb, [facility] [place] [facility] [address] [id number] [place] [address]- 2097 Feb, [facility] [place] [facility] [address] [id number] [place] [address]- 5229 Jan, [facility] [place] [facility] [address] [id number] [place] [address]- 1596 Jan, [facility] [place] [facility] [address] [id number] [place] [address]- 6207 Jan, [facility] [place] [facility] [address] [id number] [place] [address]- 5282 24 Jan, 2014 [facility] [place] [facility] [address] [id number] [place] [address]- 0529 Jan, [facility] [place] [facility] [address] [id number] [place] [address]- 2094 Jan, [facility] [place] [facility] [address] [id number] [place] [address]- 7742 Jan, [facility] [place] [facility] [address] [id number] [place] [address]- 3374 Jan, [facility] [place] [facility] [address] [id number] [place] [address]- 5796 Jan, [facility] [place] [facility] [address] [id number] [place] [address]- 9580 Jan, [facility] [place] [facility] [address] [id number] [place] [address]- 7570 15 Jan, 2014 [facility] [place] [facility] [address] [id number] [place] [address]- 9792 15 Jan, 2014 [facility] [place] [facility] [address] [id number] [place] [address]- 6355 14 Jan, 2014 [facility] [place] [facility] [address] [id number] [place] [address]- 7955 09 Jan, 2014 [facility] [place] [facility] [address] [id number] [place] [address]- 2369 08 Jan, 2014 [facility] [place] [facility] [address] [id number] [place] [address]- 2451 06 Jan, 2014 [facility] [place] [facility] [address] [id number] [place] [address]- 1583 Jan, [facility] [place] [facility] [address] [id number] [place] [address]- 5707 Jan, [facility] [place] [facility] [address] [id number] [place] [address]- 7510 06 Jan, 2014 [facility] [place] [facility] [address] [id number] [place] [address]- 7891 29 Dec, 2013 [facility] [place] [facility] [address] [id number] [place] [address] 2546 23 Dec, 2013 [facility] [place] [facility] [address] [id number] [place] [address] 2542 22 Dec, 2013 [facility] [place] [facility] [address] [id number] [place] [address] 254 22 Dec, 2013 [facility] [place] [facility] [address] [id number] [place] [address]- 0145 19 Dec, 2013 [facility] [place] [facility] [address] [id number] [place] [address]- 8552 19 Dec, 2013 [facility] [place] [facility] [address] [id number] [place] [address]- 2374 18 Dec, 2013 [facility] [place] [facility] [address] [id number] [place] [address]- 5936 17 Dec, 2013 [facility] [place] [facility] [address] [id number] [place] [address] 2548 17 Dec, 2013 [facility] [place] [facility] [address] [id number] [place] [address]- 2540 16 Dec, 2013 [facility] [place] [facility] [address] [id number] [place] [address] 2549 16 Dec, 2013 [facility] [place] [facility] [address] [id number] [place] [address]- 2547 10 Dec, 2013 [facility] [place] [facility] [address] [id number] [place] [address] 2541 10 Dec, 2013 [facility] [place] [facility] [address] [id number] [place] [address]- 2548 25 Nov, 2013 [facility] [place] [facility] [address] [id number] [place] [address]- 2815 Nov, [facility] [place] [facility] [address] [id number] [place] [address]- 4330 Nov, [facility] [place] [facility] [address] [id number] [place] [address]- 5881 Nov, [facility] [place] [facility] [address] [id number] [place] [address]- 0566 Nov, [facility] [place] [facility] [address] [id number] [place] [address]- 5501 Nov, [facility] [place] [facility] [address] [id number] [place] [address]- 6708 Nov, [facility] [place] [facility] [address] [id number] [place] [address]- 5100 Nov, [facility] [place] [facility] [address] [id number] [place] [address]- 0378 Nov, [facility] [place] [facility] [address] [id number] [place] [address]- 5478 Nov, [facility] [place] [facility] [address] [id number] [place] [address]- 7109 Oct, [facility] [place] [facility] [address] [id number] [place] [address]- 7858 Oct, [facility] [place] [facility] [address] [id number] [place] [address]- 7494 Oct, [facility] [place] [facility] [address] [id number] [place] [address]- 2704 Oct, [facility] [place] [facility] [address] [id number] [place] [address]- 3275 Oct, [facility] [place] [facility] [address] [id number] [place] [address]- 4819 Oct, [facility] [place] [facility] [address] [id number] [place] [address]- 8539 Oct, [facility] [place] [facility] [address] [id number] [place] [address]- 8063 Oct, [facility] [place] [facility] [address] [id number] [place] [address] Oct, [facility] [place] [facility] [address] [id number] [place] [address] Oct, [facility] [place] [facility] [address] [id number] [place] [address] Oct, [facility] [place] [facility] [address] [id number] [place] [address] Oct, [facility] [place] [facility] [address] [id number] [place] [address] Oct, [facility] [place] [facility] [address] [id number] [place] [address] Sep, [facility] [place] [facility] [address] [id number] [place] [address] Sep, [facility] [place] [facility] [address] [id number] [place] [address] Sep, [facility] [place] [facility] [address] [id number] [place] [address] Sep, [facility] [place] [facility] [address] [id number] [place] [address] Sep, [facility] [place] [facility] [address] [id number] [place] [address] Sep, [facility] [place] [facility] [address] [id number] [place] [address] 16 Sep, 2013 [facility] [place] [facility] [address] [id number] [place] [address] Sep, [facility] [place] [facility] [address] [id number] [place] [address] Sep, [facility] [place] [facility] [address] [id number] [place] [address] Sep, [facility] [place] [facility] [address] [id number] [place] [address] Sep, [facility] [address] [id number] [place] [address] Sep, [facility] [place] [facility] [address] [id number] [place] [address] August, [facility] [address] [id number] [place] [address] August, [facility] [place] [facility] [address] [id number] [place] [address] August, [facility] [address] [id number] [place] [address] August, [facility] [address] [id number] [place] [address] August, [facility] [address] [id number] [place] [address] August, [facility] [address] [id number] [place] [address] August, [facility] [place] [facility] [address] [id number] [place] [address] August, [facility] [address] [id number] [place] [address] August, [facility] [place] [facility] [address] [id number] [place] [address] August, [facility] [place] [facility] [address] [id number] [place] [address] August, [facility] [place] [facility] [address] [id number] [place] [address] August, [facility] [place] [facility] [address] [id number] [place] [address] August, [facility] [place] [facility] [address] [id number] [place] [address] Jul, [facility] [place] [facility] [address] [id number] [place] [address] 30 Jul, 2013 [facility] [place] [facility] [address] [id number] [place] [address] 29 Jul, 2013 [facility] [place] [facility] [address] [id number] [place] [address] 29 Jul, 2013 [facility] [place] [facility] [address] [id number] [place] [address] 28 Jul, 2013 [facility] [place] [facility] [address] [id number] [place] [address] Jul, [facility] [place] [facility] [address] [id number] [place] [address] Jul, [facility] [place] [facility] [address] [id number] [place] [address] Jul, [facility] [place] [facility] [address] [id number] [place] [address] Jul, [facility] [place] [facility] [address] [id number] [place] [address] 16 Jul, 2013 [facility] [place] [facility] [address] [id number] [place] [address] 16 Jul, 2013 [facility] [place] [facility] [address] [id number] [place] [address]- [address] 16 Jul, 2013 [facility] [place] [facility] [address] [id number] [place] [address] 16 Jul, 2013 [facility] [place] [facility] [address] [id number] [place] [address]- [address] 14 Jul, 2013 [facility] [place] [facility] [address] [id number] [place] [address] 14 Jul, 2013 [facility] [place] [facility] [address] [id number] [place] [address]- [id number] Jul, 2013 [facility] [address] [id number] [address] Jul, [facility] [id number] [address] Jun, [facility] [id number] [id number] Jun, [facility] [id number] [address] Jun, [facility] [id number] [place] [phone] Jun, [facility] [id number] [place] [id number] Jun, [facility] [id number] [place] [id number] Jun, [facility] [id number] [place] [id number]- [address] Jun, [facility] [id number] [address] Jun, [facility] [id number] [place] [id number] Jun, IMMUNIZATIONS No Known Immunizations SOCIAL HISTORY Never Assessed REASON FOR VISIT Controlled Med Refill PLAN OF CARE VITAL SIGNS MEDICATIONS Unknown [...]
--- OUTSIDE RECORDS SUMMARY | 2018-04-02 08:06 | XMS REPORT ---
Author Author ANASTASIA MCCOY Organization [facility] Address [address] [place] [address] Care Team Providers Care Music Executive Name Role Phone ANASTASIA MCCOY Unavailable PROBLEMS Type Condition ICD9-CM Code [id number] Code Onset Dates Condition Status SNOMED Code Problem Post-polio syndrome G14 Active 75681933 Problem 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 242897605 Problem Mood disorder F39 Active 52854254 Problem Acquired hypothyroidism E03.9 Active 086743285 Problem Constipation, unspecified constipation type K59.00 Active 73915477 Problem 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 Active 76779901 Problem 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 Active 17276909 Problem Weight gain R63.5 Active 4884469 Problem Stomach ache R10.9 Active 893285211 Problem Reactive airway disease J45.909 Active [id number] ALLERGIES No Information ENCOUNTERS Encounter Location Date Diagnosis [facility] [id number] [place] [address] 46770- 1916 Jun, [facility] [id number] [place] [address] [id number] 5561 Jun, [facility] [id number] [place] [address] [id number] May, [facility] [id number] [place] [address] [id number] May, Acute superficial gastritis without hemorrhage K29.00 [facility] [address] [place] [id number] May, 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 ; H/O post-polio syndrome Z86.12 and Acute superficial gastritis without hemorrhage K29.00 [facility] [id number] [place] [address] 65631- 0107 Apr, [facility] [address] [id number] [address] 2546 Apr, [facility] [address] [id number] Mar, Obesity due to excess calories with serious comorbidity, unspecified classification E66.09 and Reactive airway disease J45.909 [facility] [address] [id number] [address] 2546 Mar, [facility] [address] [id number] [place] [id number] Jan, [facility] [address] [id number] Jan, H/O post-polio syndrome Z86.12 ; Weight gain R63.5 and 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 [place] [id number] Dec, [facility] [address] [id number] [id number] Dec, [facility] [address] [id number] Nov, Weight gain R63.5 ; H/O post-polio syndrome Z86.12 and Reactive airway disease J45.909 [facility] [address] [id number] [id number] Oct, [facility] [id number] [place] [id number] Sep, [facility] [address] [facility] [id number] [address]- 2546 August, [facility] [address] [id number] August, H/O post-polio syndrome Z86.12 [facility] [address] [id number] [address]- 2546 Jul, [facility] [address] [id number] [address]- 8381 Jul, Reactive airway disease J45.909 [facility] [address] [id number] Jun, H/O post-polio syndrome Z86.12 [facility] [id number] [place] [address] 66648- 5559 Jun, 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 [facility] [address] [place] [id number] May, H/O post-polio syndrome Z86.12 [facility] [id number] [place] [address] 83436- 0614 May, [facility] [id number] [place] [address] [id number] Apr, [facility] [id number] [place] [address] 259550- 6864 Apr, Reactive airway disease J45.909 [facility] [id number] [place] [address] 765473- 3346 Apr, Reactive airway disease J45.909 [facility] [id number] [place] [address] 55890- 7676 Apr, [facility] [id number] [place] [address] 470651- 4037 Mar, [facility] [address] [id number] Mar, Mood disorder F39 and Shortness of breath R06.02 [facility] [id number] [place] [address] 52159- 7835 Feb, [facility] [id number] [place] [address] 52263- 5099 Jan, [facility] [address] [id number] Jan, Moist breath sounds R06.89 and Constipation, unspecified constipation type K59.00 [facility] [id number] [place] [address] 30278- 8079 Jan, [facility] [address] [address]- 3314 Dec, Uncomplicated asthma, unspecified asthma severity J45.909 [facility] [address] [address]- 7811 Dec, [facility] [id number] [place] [address] 99735- 9313 Dec, Uncomplicated asthma, unspecified asthma severity J45.909 [facility] [id number] [place] [address] 15275- 3650 Dec, [facility] [address] [id number] Dec, H/O post-polio syndrome Z86.12 and Unspecified mood [affective] disorder F39 [facility] [id number] [place] [address] 38210- 2876 Dec, [facility] [id number] [place] [address] 14291- 5064 Dec, Reactive airway disease J45.909 [facility] [id number] [place] [address] 81739- 9336 Nov, [facility] [id number] [place] [address] 23132- 1306 Nov, [facility] [id number] [place] [address] 92091- 6346 Nov, [facility] [address] [id number] Nov, Shortness of breath R06.02 ; Family history of coronary arteriosclerosis Z82.49 and Dysuria R30.0 [facility] [id number] [place] [address] 94494- 2393 Nov, [facility] [id number] [place] [address] 74022- 4421 Oct, [facility] [address] [address]- 3880 Oct, [facility] [id number] [address]- 5685 Oct, [facility] [address] [address]- 2203 Oct, [facility] [address] [address]- 3314 Oct, [facility] [address] [address]- 5373 Oct, Recurrent bronchospasm J98.09 [facility] [address] [id number] Sep, H/O post-polio syndrome Z86.12 and 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 [facility] [address] [address]- 7783 Sep, Stomach ache R10.9 [facility] [id number] [address]- 9931 August, [facility] [id number] [address]- 1015 August, [facility] [address] [address]- 0293 Jul, [facility] [address] [address]- 4447 Jul, [facility] [id number] [address]- 2641 Jul, [facility] [id number] [address]- 6843 Jul, [facility] [address] [id number] [address]- 0546 Jul, [facility] [address] [address] Jul, Fever R50.9 [facility] [address] [address]- 6421 Jul, Reactive airway disease J45.909 [facility] [id number] [address]- 7416 Jun, [facility] [address] [id number] Jun, Reactive airway disease J45.909 and 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 [place] [facility] [id number] [place] [address] 62416- 3349 May, [facility] [address] [id number] May, Recurrent bronchospasm J98.09 ; Weight gain R63.5 ; H/O post-polio syndrome Z86.12 and Mood disorder F39 [place] [facility] [id number] [place] [address] 44772- 9245 Apr, [place] [id number] [place] [address] 91598- 0169 Apr, [facility] [address] [id number] Apr, Unspecified mood [affective] disorder F39 [place] [id number] [place] [address] 28507- 0166 Feb, [facility] [address] [id number] Feb, Uncomplicated asthma, unspecified asthma severity J45.909 [place] [id number] [address]- 0629 Feb, [place] [facility] [id number] [place] [address] 79485- 6276 Feb, [place] [id number] [place] [address] 50031- 8716 Feb, [place] [id number] [place] [address] 91573- 5515 Jan, [facility] [address] [address]- 9354 24 Dec, 2014 [facility] [id number] [place] [address] 35362- 0153 16 Dec, 2014 Antisocial behavior V71.01 and History of poliomyelitis without residual effect V12.02 [facility] [id number] [place] [address] 66871- 1806 Oct, Essential hypertension, malignant 401.0 ; Unspecified hypothyroidism 244.9 and 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 [facility] [id number] [place] [address] 09853- 8827 Sep, [facility] [id number] [place] [address] 20405- 3419 Sep, [facility] [id number] [place] [address] 30103- 8236 Sep, Abdominal pain, unspecified site 789.00 and Manipulative behavior V40.39 [facility] [id number] [place] [address] 18213- 8407 Sep, [facility] [id number] [place] [address] 35731- 0708 Jul, [facility] [id number] [place] [address] 53296- 9293 Jul, [facility] [id number] [place] [address] 36474- 2775 Jun, [facility] [id number] [place] [address] 52082- 7202 Jun, [facility] [id number] [place] [address] 95490- 0161 Jun, [facility] [address] [id number] Jun, [facility] [id number] [place] [address] 31333- 2546 May, [facility] [address] [id number] [place] [address]- 4914 May, [facility] [address] [place] [id number] Apr, [facility] [address] [id number] [place] [address]- 5400 Apr, [facility] [address] [id number] [place] [address]- 1463 Apr, [facility] [address] [id number] [place] [address]- 3788 Apr, [facility] [address] [id number] [place] [address]- 5461 Apr, [facility] [address] [id number] [place] [address]- 7322 Apr, [facility] [place] [facility] [address] [id number] [place] [address]- 5138 Apr, [facility] [address] [id number] [place] [address]- 0407 Apr, [facility] [address] [id number] [place] [address]- 4712 Apr, [facility] [address] [id number] [address]- 0526 Apr, [facility] [place] [facility] [address] [id number] [place] [address]- 0346 Mar, [facility] [place] [facility] [address] [id number] [place] [address]- 4505 Mar, [facility] [place] [facility] [address] [id number] [place] [address]- 1631 Mar, [facility] [place] [facility] [address] [id number] [place] [address]- 6359 Mar, [facility] [place] [facility] [address] [id number] [place] [address]- 3104 Mar, [facility] [place] [facility] [address] [id number] [place] [address]- 9052 Mar, [facility] [place] [facility] [address] [id number] [place] [address]- 8622 Mar, [facility] [place] [facility] [address] [id number] [place] [address]- 3755 Mar, [facility] [place] [facility] [address] [id number] [place] [address]- 3503 Mar, [facility] [place] [facility] [address] [id number] [place] [address]- 2972 Mar, [facility] [place] [facility] [address] [id number] [place] [address]- 3752 Mar, [facility] [place] [facility] [address] [id number] [place] [address]- 7319 Feb, [facility] [place] [facility] [address] [id number] [place] [address]- 7075 Feb, [facility] [place] [facility] [address] [id number] [place] [address]- 5170 Feb, [facility] [place] [facility] [address] [facility] [id number] [place] [address]- 4546 Feb, [facility] [place] [facility] [address] [id number] [place] [address]- 8018 Feb, [facility] [place] [facility] [address] [id number] [place] [address]- 7495 Feb, [facility] [place] [facility] [address] [id number] [place] [address]- 4109 Feb, [facility] [place] [facility] [address] [id number] [place] [address]- 6499 Feb, [facility] [place] [facility] [address] [id number] [place] [address]- 0934 Feb, [facility] [place] [facility] [address] [id number] [place] [address]- 3613 Feb, [facility] [place] [facility] [address] [id number] [place] [address]- 6382 Feb, [facility] [place] [facility] [address] [id number] [place] [address]- 3670 Feb, [facility] [place] [facility] [address] [id number] [place] [address]- 5688 Feb, [facility] [place] [facility] [address] [id number] [place] [address]- 8815 Feb, [facility] [place] [facility] [address] [id number] [place] [address]- 2424 Feb, [facility] [place] [facility] [address] [id number] [place] [address]- 0467 Feb, [facility] [place] [facility] [address] [id number] [place] [address]- 1685 Feb, [facility] [place] [facility] [address] [id number] [place] [address]- 1824 Feb, [facility] [place] [facility] [address] [id number] [place] [address]- 6573 Feb, [facility] [place] [facility] [address] [id number] [place] [address]- 1552 Feb, [facility] [place] [facility] [address] [id number] [place] [address]- 8117 Jan, [facility] [place] [facility] [address] [id number] [place] [address]- 9736 Jan, [facility] [place] [facility] [address] [id number] [place] [address]- 1375 Jan, [facility] [place] [facility] [address] [id number] [place] [address]- 8941 Jan, [facility] [place] [facility] [address] [id number] [place] [address]- 2021 Jan, [facility] [place] [facility] [address] [id number] [place] [address]- 2504 Jan, [facility] [place] [facility] [address] [id number] [place] [address]- 7507 Jan, [facility] [place] [facility] [address] [id number] [place] [address]- 3121 Jan, [facility] [place] [facility] [address] [id number] [place] [address]- 2143 Jan, [facility] [place] [facility] [address] [id number] [place] [address]- 6947 Jan, [facility] [place] [facility] [address] [id number] [place] [address]- 4462 Jan, [facility] [place] [facility] [address] [id number] [place] [address]- 0788 Jan, [facility] [place] [facility] [address] [id number] [place] [address]- 3265 Jan, [facility] [place] [facility] [address] [id number] [place] [address]- 9238 Jan, [facility] [place] [facility] [address] [id number] [place] [address]- 1537 Jan, [facility] [place] [facility] [address] [id number] [place] [address]- 6588 Jan, [facility] [place] [facility] [address] [id number] [place] [address]- 8348 Jan, [facility] [place] [facility] [address] [id number] [place] [address]- 2865 Jan, [facility] [place] [facility] [address] [id number] [place] [address]- 5719 Jan, [facility] [place] [facility] [address] [id number] [place] [address]- 9461 Dec, [facility] [place] [facility] [address] [id number] [place] [address]- 6337 23 Sep, 2013 [facility] [place] [facility] [address] [id number] [place] [address]- 0976 22 Dec, 2013 [facility] [place] [facility] [address] [id number] [place] [address]- 254 22 Dec, 2013 [facility] [place] [facility] [address] [id number] [place] [address]- 2666 19 Dec, 2013 [facility] [place] [facility] [address] [id number] [place] [address]- 2544 19 Dec, 2013 [facility] [place] [facility] [address] [id number] [place] [address]- 1161 18 Dec, 2013 [facility] [place] [facility] [address] [id number] [place] [address]- 4656 17 Dec, 2013 [facility] [place] [facility] [address] [id number] [place] [address]- 8028 17 Dec, 2013 [facility] [place] [facility] [address] [id number] [place] [address]- 7757 16 Dec, 2013 [facility] [place] [facility] [address] [id number] [place] [address]- 2313 16 Dec, 2013 [facility] [place] [facility] [address] [id number] [place] [address]- 9121 10 Dec, 2013 [facility] [place] [facility] [address] [id number] [place] [address]- 2548 10 Dec, 2013 [facility] [place] [facility] [address] [id number] [place] [address]- 3895 Nov, [facility] [place] [facility] [address] [id number] [place] [address]- 2539 Nov, [facility] [place] [facility] [address] [id number] [place] [address]- 3187 Nov, [facility] [place] [facility] [address] [id number] [place] [address]- 4056 Nov, [facility] [place] [facility] [address] [id number] [place] [address]- 2962 Nov, [facility] [place] [facility] [address] [id number] [place] [address]- 6870 Nov, [facility] [place] [facility] [address] [id number] [place] [address]- 7148 Nov, [facility] [place] [facility] [address] [id number] [place] [address]- 2925 Nov, [facility] [place] [facility] [address] [id number] [place] [address]- 3710 Nov, [facility] [place] [facility] [address] [id number] [place] [address]- 0885 Nov, [facility] [place] [facility] [address] [id number] [place] [address]- 8638 Oct, [facility] [place] [facility] [address] [id number] [place] [address]- 3662 Oct, [facility] [place] [facility] [address] [id number] [place] [address]- 3732 Oct, [facility] [place] [facility] [address] [id number] [place] [address]- 9020 Oct, [facility] [place] [facility] [address] [id number] [place] [address] Oct, [facility] [place] [facility] [address] [id number] [place] [address] Oct, [facility] [place] [facility] [address] [id number] [place] [address] Oct, [facility] [place] [facility] [address] [id number] [place] [address] Oct, [facility] [place] [facility] [address] [id number] [place] [address] Oct, [facility] [place] [facility] [address] [id number] [place] [address] Oct, [facility] [place] [facility] [address] [id number] [place] [address] Oct, [facility] [place] [facility] [address] [id number] [place] [address] Oct, [facility] [place] [facility] [address] [id number] [place] [address] Oct, [facility] [place] [facility] [address] [id number] [place] [address] Sep, [facility] [place] [facility] [address] [id number] [place] [address] Sep, [facility] [place] [facility] [address] [id number] [place] [address] Sep, [facility] [place] [facility] [address] [id number] [place] [address] Sep, [facility] [place] [facility] [address] [id number] [place] [address] Sep, [facility] [place] [facility] [address] [id number] [place] [address] Sep, [facility] [place] [facility] [address] [facility] [id number] [place] [address] Sep, [facility] [place] [facility] [address] [id number] [place] [address] Sep, [facility] [place] [facility] [address] [id number] [place] [address] Sep, [facility] [place] [facility] [address] [id number] [place] [address] Sep, [facility] [place] [facility] [address] [id number] [place] [address] Sep, [facility] [place] [facility] [address] [id number] [place] [address] Sep, [facility] [place] [facility] [address] [id number] [place] [address] August, [facility] [place] [facility] [address] [id number] [place] [address] August, [facility] [place] [facility] [address] [id number] [place] [address] August, [facility] [place] [facility] [address] [id number] [place] [address] August, [facility] [place] [facility] [address] [id number] [place] [address] August, [facility] [place] [facility] [address] [id number] [place] [address] August, [facility] [place] [facility] [address] [id number] [place] [address] August, [facility] [place] [facility] [address] [id number] [place] [address] August, [facility] [place] [facility] [address] [id number] [place] [address] August, [facility] [place] [facility] [address] [id number] [place] [address] August, [facility] [place] [facility] [address] [id number] [place] [address] August, [facility] [place] [facility] [address] [id number] [place] [address] August, [facility] [place] [facility] [address] [id number] [place] [address] August, [facility] [place] [facility] [address] [id number] [place] [address] Jul, [facility] [place] [facility] [address] [id number] [place] [address] Jul, [facility] [place] [facility] [address] [id number] [place] [address] Jul, [facility] [place] [facility] [address] [id number] [place] [address]- [address] 29 Jul, 2013 [facility] [place] [facility] [address] [id number] [place] [address]- [address] 28 Jul, 2013 [facility] [place] [facility] [address] [id number] [place] [address] Jul, [facility] [place] [facility] [address] [id number] [place] [address] Jul, [facility] [place] [facility] [address] [id number] [place] [address] Jul, [facility] [place] [facility] [address] [id number] [place] [address] Jul, [facility] [place] [facility] [address] [id number] [place] [address] Jul, [facility] [place] [facility] [address] [id number] [place] [address] Jul, [facility] [place] [facility] [address] [id number] [place] [address] Jul, [facility] [place] [facility] [address] [id number] [place] [address] 16 Jul, 2013 [facility] [place] [facility] [address] [id number] [place] [address] Jul, [facility] [place] [facility] [address] [id number] [place] [address] 14 Jul, 2013 [facility] [place] [facility] [address] [id number] [place] [address] 10 Jul, 2013 [facility] [place] [facility] [address] [id number] [place] [address] 10 Jul, 2013 [facility] [place] [facility] [address] [id number] [place] [address] 25 Jun, 2013 [facility] [place] [facility] [address] [id number] [address] Jun, [facility] [id number] [place] [address] Jun, [facility] [id number] [address] Jun, [facility] [id number] [address] Jun, [facility] [id number] [place] [address] Jun, [facility] [id number] [place] [address] Jun, [facility] [id number] [place] [address] Jun, [facility] [id number] [address] Jun, IMMUNIZATIONS No Known Immunizations SOCIAL HISTORY Never Assessed REASON FOR VISIT Controlled Med refill PLAN OF CARE VITAL SIGNS MEDICATIONS Medication Instructions Dosage Frequency Start Date End Date Duration Status Ativan 0.5 MG Orally 2 times a day 1 tablet 12h Sep, 28 days Active RESULTS No Results PROCEDURES No [...] nec ankle and foot (718.87) Hospitalization History [facility] 10/16/15
[2018-04-02 08:15] LABS: INR 1.1 (0.8-1.4); PROTHROMBIN TIME PATIENT 14.1 SEC (12.2-14.7)
[2018-04-02 08:20] LABS: ALANINE AMINOTRANSFERASE 33 U/L (0-55); ALBUMIN 3.6 GM/DL (3.2-4.5); ALKALINE PHOSPHATASE 69 U/L (40-136); BILIRUBIN,TOTAL 0.4 MG/DL (0.1-1.0); BUN/CREATININE RATIO 28; CALCIUM 9.5 MG/DL (8.5-10.1); CARBON DIOXIDE 30 MMOL/L (21-32); CHLORIDE 99 MMOL/L (98-107); CREATININE SERUM 0.65 MG/DL (0.60-1.30); GFR ESTIMATED > 60; GLUCOSE 133 MG/DL (70-105); POTASSIUM 3.5 MMOL/L (3.6-5.0); SODIUM 140 MMOL/L (135-145); TOTAL PROTEIN 9.3 GM/DL (6.4-8.2)
[2018-04-02] MEDS ORDERED: IOHEXOL 350 MG/ML 100 ML (OMNIPAQUE 350) VIAL IV ONE (08:30)
[2018-04-02] MEDS ORDERED: NS 100 ML (IVPB) BAG IV ONE (08:30)
[2018-04-02 08:56] LABS: OCCULT BLOOD,GASTRIC FLUID POSITIVE (NEGATIVE)
[2018-04-02] MEDS ORDERED: PROMETHAZINE INJ 25 MG/ML (PHENERGAN) AMP IVP ONE (09:00)
--- NOTE | 2018-04-02 09:26 | Diagnostic Imaging Report ---
PROCEDURE: CT abdomen and pelvis with contrast. TECHNIQUE: Multiple contiguous axial images were obtained through the abdomen and pelvis after administration of intravenous contrast. DATE: April 02, 2018. COMPARISON: CT abdomen and pelvis December 23, 2017. INDICATION: 68-year-old male, vomiting and coffee-ground emesis. No bowel movement. FINDINGS: There are limitations of the exam relating to difficulties positioning the patient, motion limitations, and quantum mottle artifact. There are predominantly linear opacities in the right lower lobe and left lower lobe which may relate to atelectasis although are not entirely specific. There is no large pericardial effusion. The liver appears diffusely low in attenuation suggesting diffuse fatty infiltration of the liver. There is no obvious liver lesion. The main, right, and left portal veins appear grossly patent. The gallbladder is grossly unremarkable in appearance. There is no identified intrahepatic or extrahepatic bile duct dilation. The main pancreatic duct is not abnormally dilated. Unremarkable appearance of the pancreatic parenchyma. The spleen is not well seen and may be absent. The adrenal glands are unremarkable. There are areas of right renal cortical scarring. Urinary collecting systems are not distended. There is no identified renal or ureteral stone. The urinary bladder is unremarkable in appearance. There is a large amount of stool throughout the colon. Portions of the abdomen are not entirely included in the rosky-ct-rzib of imaging. The colon is diffusely distended and measures up to roughly 8.6 cm in diameter. There is no identified transitional point. There are no abnormally distended segments of small bowel. The appendix is not well seen. There are no identified secondary findings to suggest acute appendicitis. There is no free intraperitoneal air. There is no drainable fluid collection. There is no free pelvic fluid. There is no identified abnormally enlarged lymph node in the abdomen or pelvis which meets CT size criteria for adenopathy. There is soft tissue attenuation adjacent to the right greater than left hips which potentially could relate to a hip joint effusion. There is arthritis of the left hip joint. There are bilateral sacroiliac degenerative changes. There is scoliosis with multilevel degenerative changes of the spine. There is no identified acute bony abnormality. IMPRESSION: CT ABDOMEN AND PELVIS. 1. Limitations of the exam relating to difficulties positioning the patient, motion artifact, and quantum mottle artifact. 2. Diffusely distended segments of colon without identified transitional point. Large volume colonic stool. This potentially may relate to colonic ileus. Colonic bowel segments measure up to approximately 8.6 cm in diameter. 3. Diffuse fatty infiltration of the liver. 4. Multifocal areas of right renal cortical scarring. Dictated by: Dictated on workstation # [id number]
[2018-04-02] MEDS ORDERED: fentaNYL INJECTION 100 MCG/2 ML AMP IVP ONE (10:45)
--- NOTE | 2018-04-02 10:45 | NUR ---
pt to return to OR via EMS per Dr. Devries.
--- NOTE | 2018-04-02 11:13 | NUR ---
dispatch called to [facility].
[2018-04-02] MEDS ORDERED: ONDA4TAB11 SL (11:45)
[2018-04-02] MEDS ORDERED: METO5TAB75 PO (11:45)
--- NOTE | 2018-04-02 11:45 | ED Abdominal Pain ---
General Chief Complaint: Abdominal/GI Problems Stated Complaint: VOMITING BLOOD Source of Information: Patient, EMS, Residential Records Exam Limitations: No Limitations History of Present Illness Date Seen by Provider: Apr 02, 2018 Time Seen by Provider: 07:45 Initial Comments This 68-year-old gentleman [facility] with complaints of coffee-ground emesis and abdominal discomfort. Patient is afebrile. After arrival it is noted that he is on hospice for COPD. Vitals are stable upon arrival. Symptoms started last night and are continuing this morning. 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 Allergies and Home Medications Allergies Coded Allergies: Penicillins (Verified Allergy, Unknown, 12/24/17) Home Medications Albuterol Sulfate 2.5 Mg/3 Ml Vial.neb, 2.5 MG NEB Q4H PRN for SHORTNESS OF BREATH, (Reported) Budesonide 0.5 Mg/2 Ml Ampul.neb, 0.5 MG NEB BID, (Reported) Fexofenadine HCl 60 Mg Tablet, 60 MG PO DAILY, (Reported) Levofloxacin 750 Mg Tablet, 750 MG PO DAILY Prescribed by: ALYCIA FERREIRA on 12/28/17 1052 Losartan Potassium 50 Mg Tablet, 50 MG PO DAILY, (Reported) Mag Hydrox/Al Hydrox/Simeth 30 Ml Oral.susp, 30 ML PO Q6H PRN for INDIGESTION, ( Reported) Menthol 118 Ml Gel..ml., ML Q12H PRN for JOINT PAIN, (Reported) APPLY TO KNEES Metoclopramide HCl 5 Mg Tablet, 5 MG PO Q6H Prescribed by: KARLEE WASHINGTON on 04/02/18 1145 Metoprolol Succinate 50 Mg Tab.er.24h, 50 MG PO DAILY, (Reported) Montelukast Sodium 10 Mg Tablet, 10 MG PO DAILY, (Reported) Ondansetron 4 Mg Tab.rapdis, 4 MG SL Q4H Prescribed by: KARLEE WASHINGTON on 04/02/18 1145 Sertraline HCl 100 Mg Tablet, 100 MG PO DAILY, (Reported) Patient Home Medication List Home Medication List Reviewed: Yes Review of Systems Review of Systems Constitutional: no symptoms reported EENTM: No Symptoms Reported Respiratory: See HPI Cardiovascular: No Symptoms Reported Gastrointestinal: See HPI Genitourinary: No Symptoms Reported Musculoskeletal: no symptoms reported Skin: no symptoms reported Psychiatric/Neurological: No Symptoms Reported Endocrine: No Symptoms Reported Hematologic/Lymphatic: No Symptoms Reported Past Objragv-Motsic-Adfvpz Hx Patient Social History Type Used: Cigarettes Former Smoker, Quit: Oct 24, 2015 Recent Hopitalizations: No Past Medical History Surgeries: No Respiratory: Yes Chronic Bronchitis, COPD Currently Using CPAP: No Currently Using BIPAP: No Cardiac: Yes Chronic Edema/Swelling, High Cholesterol, Hypertension Neurological: Yes (POLIO) Genitourinary: Yes Benign Prostatic Hyperpl Gastrointestinal: Yes Gastroesophageal Reflux Musculoskeletal: Yes (POLIO, UNABLE TO WALK) Endocrine: Yes Diabetes, Insulin dep, Hypothyroidsim HEENT: No Cancer: No Psychosocial: Yes Depression Integumentary: No Blood Disorders: No Physical Exam Vital Signs Vital Signs - First Documented 04/02/18 07:44 Temp 97.3 Pulse 88 Resp 19 B/P (MAP) 162/95 (117) Pulse Ox 98 O2 Delivery Nasal Cannula O2 Flow Rate 4.00 Capillary Refill : Height/Weight/BMI Height: 5'3.00" Weight: 325lbs. 2.0oz. 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, alert, normal mood/affect, oriented x 3, motor weakness (Chronic lower extremity weakness) Skin: normal color, warm/dry Progress/Results/Core Measures Results/Orders Lab Results Laboratory Tests Test 04/02/18 07:40 04/02/18 08:40 Range/Units White Blood Count 11.8 H 4.3-11.0 10^3/uL Red Blood Count 4.60 4.35-5.85 10^6/uL Hemoglobin 11.9 L 13.3-17.7 G/DL Hematocrit 40 40-54 % Mean Corpuscular Volume 88 80-99 FL Mean Corpuscular Hemoglobin 26 25-34 PG Mean Corpuscular Hemoglobin Concent 30 L 32-36 G/DL Red Cell Distribution Width 19.4 H 10.0-14.5 % Platelet Count 311 130-400 10^3/uL Mean Platelet Volume 11.7 H 7.4-10.4 FL Neutrophils (%) (Auto) 77 H 42-75 % Lymphocytes (%) (Auto) 16 12-44 % Monocytes (%) (Auto) 5 0-12 % Eosinophils (%) (Auto) 2 0-10 % Basophils (%) (Auto) 0 0-10 % Neutrophils # (Auto) 9.1 H 1.8-7.8 X 10^3 Lymphocytes # (Auto) 1.9 1.0-4.0 X 10^3 Monocytes # (Auto) 0.6 0.0-1.0 X 10^3 Eosinophils # (Auto) 0.2 0.0-0.3 10^3/uL Basophils # (Auto) 0.0 0.0-0.1 10^3/uL Prothrombin Time 14.1 12.2-14.7 SEC INR Comment 1.1 0.8-1.4 Activated Partial Thromboplast Time 35 24-35 SEC Sodium Level 140 135-145 MMOL/L Potassium Level 3.5 L 3.6-5.0 MMOL/L Chloride Level 99 98-107 MMOL/L Carbon Dioxide Level 30 21-32 MMOL/L Anion Gap 11 5-14 MMOL/L Blood Urea Nitrogen 18 7-18 MG/DL Creatinine 0.65 0.60-1.30 MG/DL Estimat Glomerular Filtration Rate > 60 BUN/Creatinine Ratio 28 Glucose Level 133 H 70-105 MG/DL Calcium Level 9.5 8.5-10.1 MG/DL Corrected Calcium 9.8 8.5-10.1 MG/DL Total Bilirubin 0.4 0.1-1.0 MG/DL Aspartate Amino Transf (AST/SGOT) 34 5-34 U/L Alanine Aminotransferase (ALT/SGPT) 33 0-55 U/L Alkaline Phosphatase 69 40-136 U/L Total Protein 9.3 H 6.4-8.2 GM/DL Albumin 3.6 3.2-4.5 GM/DL Lipase 6 L 8-78 U/L Gastric Fluid Occult Blood POSITIVE H NEGATIVE My Orders Orders - KARLEE ZARATE MD Ondansetron Injection (Zofran Injectio (04/02/18 08:00) Famotidine Injection (Pepcid Injection) (04/02/18 08:00) Pantoprazole Injection (Protonix Injecti (04/02/18 08:00) Cbc With Automated Diff (04/02/18 07:53) Comprehensive Metabolic Panel (04/02/18 07:53) Protime With Inr (04/02/18 07:53) Partial Thromboplastin Time (04/02/18 07:53) Ct Abdomen/Pelvis W (04/02/18 08:22) Lipase (04/02/18 08:23) Iohexol Injection (Omnipaque 350 Mg/Ml 1 (04/02/18 08:30) Ns (Ivpb) (Sodium Chloride 0.9% Ivpb Bag (04/02/18 08:30) Occult Blood,Gastric Fluid (04/02/18 08:46) Promethazine Injection (Phenergan Injec (04/02/18 09:00) Fentanyl Injection (Sublimaze Injection (04/02/18 10:45) Medications Given in ED Vital Signs/I&O 04/02/18 04/02/18 07:44 11:58 Temp 97.3 97.5 Pulse 88 99 Resp 19 22 B/P (MAP) 162/95 (117) 147/86 (106) Pulse Ox 98 98 O2 Delivery Nasal Cannula Nasal Cannula O2 Flow Rate 4.00 4.00 Progress Progress Note : Progress Note Patient was initially treated with Pepcid, Protonix, and Zofran. Lab work revealed no major abnormalities. Patient continued to have nausea and was treated further with Phenergan. Because of the abdominal discomfort and distention, CT of the abdomen and pelvis was pursued. No obstruction was found but ileus and constipation was noted. Patient's pain was treated with fentanyl. Case was discussed with prison staff and Dr. Devries. Patient was [facility] back to the prison and medications to manage his symptoms will be provided by hospice. Dr. Devries was unaware that the patient was on hospice when she provided orders to transfer the patient to the ER. Diagnostic Imaging Diagonstic Imaging: CT Plain Films/CT/US/NM/MRI: abdomen, pelvis Comments CT abdomen and pelvis viewed by me and report reviewed. See report below: NAME: NACCARATO,ROMAN J [facility] REC#: [id number] PT STATUS: REG ER : 1950 PHYSICIAN: KARLEE ZARATE MD ADMIT DATE: 04/02/18/ER Signed Date of Exam: 04/02/18 CT ABDOMEN/PELVIS W PROCEDURE: CT abdomen and pelvis with contrast. TECHNIQUE: Multiple contiguous axial images were obtained through the abdomen and pelvis after administration of intravenous contrast. DATE: April 02, 2018. COMPARISON: CT abdomen and pelvis December 23, 2017. INDICATION: 68-year-old male, vomiting and coffee-ground emesis. No bowel movement. FINDINGS: There are limitations of the exam relating to difficulties positioning the patient, motion limitations, and quantum mottle artifact. There are predominantly linear opacities in the right lower lobe and left lower lobe which may relate to atelectasis although are not entirely specific. There is no large pericardial effusion. The liver appears diffusely low in attenuation suggesting diffuse fatty infiltration of the liver. There is no obvious liver lesion. The main, right, and left portal veins appear grossly patent. The gallbladder is grossly unremarkable in appearance. There is no identified intrahepatic or extrahepatic bile duct dilation. The main pancreatic duct is not abnormally dilated. Unremarkable appearance of the pancreatic parenchyma. The spleen is not well seen and may be absent. The adrenal glands are unremarkable. There are areas of right renal cortical scarring. Urinary collecting systems are not distended. There is no identified renal or ureteral stone. The urinary bladder is unremarkable in appearance. There is a large amount of stool throughout the colon. Portions of the abdomen are not entirely included in the vgjmb-pl-xgeg of imaging. The colon is diffusely distended and measures up to roughly 8.6 cm in diameter. There is no identified transitional point. There are no abnormally distended segments of small bowel. The appendix is not well seen. There are no identified secondary findings to suggest acute appendicitis. There is no free intraperitoneal air. There is no drainable fluid collection. There is no free pelvic fluid. There is no identified abnormally enlarged lymph node in the abdomen or pelvis which meets CT size criteria for adenopathy. There is soft tissue attenuation adjacent to the right greater than left hips which potentially could relate to a hip joint effusion. There is arthritis of the left hip joint. There are bilateral sacroiliac degenerative changes. There is scoliosis with multilevel degenerative changes of the spine. There is no identified acute bony abnormality. IMPRESSION: CT ABDOMEN AND PELVIS. 1. Limitations of the exam relating to difficulties positioning the patient, motion artifact, and quantum mottle artifact. 2. Diffusely distended segments of colon without identified transitional point. Large volume colonic stool. This potentially may relate to colonic ileus. Colonic bowel segments measure up to approximately 8.6 cm in diameter. 3. Diffuse fatty infiltration of the liver. 4. Multifocal areas of right renal cortical scarring. Dictated by: Dictated on workstation # [id number] Dict: 04/02/18916 Trans: 04/02/18931 Interpreted by: MANJIT PHOENIX MD Electronically signed by: MANJIT PHOENIX MD 04/02/18931 Departure Impression Primary Impression: Ileus Additional Impressions: Nausea and vomiting Qualified Codes: R11.2 - Nausea with vomiting, unspecified Abdominal pain Qualified Codes: R10.84 - Generalized abdominal pain Disposition: 01 HOME, SELF-CARE Condition: Improved Departure-Patient Inst. Decision time for Depature: 11:43 Referrals: ANASTASIA MCCOY MD (PCP) Primary Care Physician [facility]/ (Family) Primary Care Physician Patient Instructions: Acute Abdomen (Belly Pain), Adult (DC) Add. Discharge Instructions: Give Zofran (ondansetron) dissolved under the tongue every 4 hours as needed for nausea and vomiting. Give Reglan (metoclopramide) as prescribed to improve bowel motility. Remainder medication and diet orders should be ordered by Dr. Devries. Some medications may be managed by hospice. All discharge instructions reviewed with patient and/or family. Voiced understanding. Scripts Metoclopramide HCl (Reglan) 5 Mg Tablet 5 MG PO Q6H, #20 TAB Prov: KARLEE ZARATE MD 04/02/18 Ondansetron (Ondansetron Odt) 4 Mg Tab.rapdis 4 MG SL Q4H, #20 TAB Prov: KARLEE ZARATE MD 04/02/18 Copy Copies To 1: ANASTASIA MCCOY MD, JOSHUA T MD Apr 02, 2018 11:45
[2018-04-02 11:58] VITALS: BP 147/86
== END 2018-04-02 11:58 | disposition home or self-care (01) ==
LOC: EDUNIT# 07:44 → ER 07:45
DX: K56.7 Ileus, unspecified (principal); J44.9 Chronic obstructive pulmonary disease, unspecified; E78.00 Pure hypercholesterolemia, unspecified; I10 Essential (primary) hypertension; K21.9 Gastro-esophageal reflux disease without esophagitis; E11.9 Type 2 diabetes mellitus without complications; E03.9 Hypothyroidism, unspecified; F32.9 Major depressive disorder, single episode, unspecified; Z86.12 Personal history of poliomyelitis; Z87.448 Personal history of other diseases of urinary system; Z87.891 Personal history of nicotine dependence; Z88.0 Allergy status to penicillin; Z79.51 Long term (current) use of inhaled steroids
CPT/HCPCS: 36415; 74177; 80053; 82271; 83690; 85025; 85610; 85730